=== PATIENT | male | born 1980 | race Caucasian/White ===

== ENCOUNTER → 2017-09-05 07:13 | Outpatient (CLI) | payer OTHER, SELFPAY ==
--- NOTE | 2017-09-05 07:17 | MRI_ITS ---
STUDY: MRI LUMBAR SPINE WITHOUT CONTRAST REASON FOR EXAM: Male, 36 years old. Low back pain and right leg pain. Radiculopathy. TECHNIQUE: Standardized fat and water weighted pulse sequences were obtained in the sagittal and axial planes. COMPARISON: None FINDINGS: T10-T11: (Sagittal only). Normal endplates. Normal disc height, hydration and morphology. Normal central canal and bilateral intervertebral neural foramina. T11-T12: (Sagittal only). Tiny Schmorl's node in the T11 inferior endplate. Normal endplates. Normal disc height, hydration and morphology. Normal central canal and bilateral intervertebral neural foramina. T12-L1: (Sagittal only). Normal endplates. Normal disc height, hydration and morphology. Normal central canal and bilateral intervertebral neural foramina. Normal lumbar lordosis. There is no substantial scoliosis. Normal conus medullaris that terminates at the lower L1 vertebral body level. L1-2: Normal endplates. Normal disc height, hydration and morphology. Normal bilateral facet joints. Normal central canal and bilateral lateral recesses. Normal bilateral intervertebral neural foramina. L2-3: Normal endplates. Normal disc height, hydration and morphology. Normal bilateral facet joints. Normal central canal and bilateral lateral recesses. Normal bilateral intervertebral neural foramina. L3-4: Normal endplates. Normal disc height, hydration and morphology. Normal bilateral facet joints. Normal central canal and bilateral lateral recesses. Normal bilateral intervertebral neural foramina. L4-5: Normal endplates. Minimal disc space height narrowing with moderate loss of disc hydration. Minimal degenerative retrolisthesis of L4 on L5. Normal central canal and bilateral lateral recesses. Normal facet joints. Normal bilateral intervertebral neural foramina. L5-S1: Normal endplates. Mild disc space height narrowing with moderate loss of disc hydration. Grade 1 anterolisthesis of L5 on S1 secondary to bilateral L5 pars defects. Small posterior midline disc protrusion behind the anterolisthesis of L5. Normal central canal and bilateral lateral recesses. Normal facet joints. Moderately pronounced stenosis of the right intervertebral neural foramen with impingement of the right L5 nerve (series 2, images 10-11). Mild stenosis of the left intervertebral neural foramen with no definite impingement or displacement of the left L5 nerve (series 2, image 3). Normal visualized sacral ala. Normal visualized paraspinous soft tissue structures. MRI/Spine Lumbar (Routine) IMPRESSION: 1. Bilateral L5 pars defects with grade 1 anterolisthesis of L5 on S1 and moderately pronounced stenosis of the right intervertebral neural foramen with impingement of the right L5 nerve (series 2, images 10-11). 2. No MRI evidence of lumbar extruded disc fragment. 3. Mild L4-L5 disc space height narrowing with mild retrolisthesis of L4 on L5 secondary to the anterolisthesis of L5 on S1 rather than bilateral L4-L5 degenerative facet arthropathy. Electronically Signed: Zane Pozo MD at 11:46 EDT , Service support ,
== END ==
PROVIDERS: Family Provider Family Medicine; PCP Family Medicine; Visit Provider Physician Assistant
DX: M54.16 Radiculopathy, lumbar region (principal)
CPT/HCPCS: 72148

== ENCOUNTER 2017-10-03 15:30 | Outpatient (RCR) | payer OTHER, SELFPAY ==
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
--- NOTE | 2017-10-03 15:59 | HP.PTDCSUM_ITS ---
HP - PT D/C Summary It has been my pleasure to treat CATHY PALM under orders from Kaye Chiang, for the diagnosis of RIGHT LUMBAR RADICULITIS/SCIATICA for a total of 7 visit(s). Discharge Date: Please see the following information for a summary of their discharge status. - Subjective Subjective: [facility]. PATIENT REPORTS HE STARTED TO FEEL A LUMP IN HIS BACK ABOUT 2 WEEKS AGO THAT HE THOUGHT WAS A PIMPLE BUT IT IS SORE. OVER-ALL, PATIENT REPORTS NOTHING HAS CHANGED SINCE STARTING PT. - Pain Back Pain Intensity (Out of 10): 2 - Objective Objective/Function: UPON EXAM THERE ARE NO SIGNIFICANT CHANGES SINCE INITIAL EVALUATION. I WAS UNABLE TO PALPATE ANYTHING OUT OF THE ORDINARY WHERE PATIENT FELT A LUMP. HE REPORTS THAT IF HE PUSHES ON IT IT MAKES HIM SICK TO HIS STOMACH. HE WILL LET THEM KNOW AT THE [facility] TOMORROW. - Goals Goal 1:: DECREASE C/O RIGHT BACK AND LE SX'S Goal Progress: Not Progressing Goal 2:: IMPROVE SITTING, STANDING, WALKING, SOCIAL LIFE, TRAVEL, EMPLOYMENT/ HOMEMAKING AND SLEEP FUNCTION Goal Progress: Not Progressing Goal 3:: INSTRUCT IN PROPHYLAXIS Goal Progress: Not Progressing - Plan Plan: D/C DUE TO UNEXPECTED LACK OF PROGRESS. PATIENT AGREEABLE. - D/C Information If there are questions or concerns regarding this patient's physical therapy, please feel free to call me at [phone]. Thank you for the referral of this patient. Sincerely, Annel Bailey
== END 2017-10-03 16:58 | disposition home or self-care (01) ==
LOC: PT 15:30
PROVIDERS: Family Provider Family Medicine; PCP Family Medicine; Visit Provider Physician Assistant
DX: M54.31 Sciatica, right side (principal); M54.16 Radiculopathy, lumbar region
CPT/HCPCS: 97110; 97161; 97164; 97530

== ENCOUNTER → 2017-11-07 13:28 | Outpatient (CLI) | payer OTHER, SELFPAY ==
--- NOTE | 2017-11-07 13:32 | RAD_ITS ---
STUDY: X-RAY - UNILATERAL RIBS ( RIGHT ) WITH CHEST REASON FOR EXAM: Male, 37 years old. Pain right mid to lower posterior ribs. TECHNIQUE - RIBS: 4 view(s) of the ribs. TECHNIQUE - CHEST: PA COMPARISON: None. FINDINGS - RIBS: Normal visualized ribs without a demonstrated fracture. FINDINGS - CHEST: The lungs are clear and expanded. There is no demonstrated pleural abnormality. Normal size heart. Normal mediastinum and edwin. Normal visualized pulmonary arteries. Normal visualized aortic arch and descending thoracic aorta. Normal visualized thoracic spine. Normal visualized ribs, clavicles, and shoulders. There is no demonstrated abnormality of the visualized soft tissue structures of the upper abdomen. RAD/Ribs Uni Min 3V w/PA Chest IMPRESSION: RIBS: Normal x-ray examination of the ribs. CHEST: No acute cardiopulmonary process. Electronically Signed: Tala Pete MD at 20:52 EDT Tel , Service support ,
== END ==
PROVIDERS: Family Provider Family Medicine; PCP Family Medicine; Referring Provider Family Medicine; Visit Provider Family Medicine
DX: R07.81 Pleurodynia (principal)
CPT/HCPCS: 71101

== ENCOUNTER 2018-01-07 06:46 | Day surgery (SDC) | payer OTHER, SELFPAY ==
[2018-01-07] VITALS (7 sets, daily range): BP systolic 114–136; BP diastolic 72–94; PULSE 56–81; RESP 16–18; TEMP 36.2–36.5; O2SAT 97–100; BMI 26.5
--- NOTE | 2018-01-07 07:50 | RAD_ITS ---
PROCEDURE: Right L4 S1 transforaminal block. DATE OF EXAMINATION: January 07, 2018. INDICATION: Male, 37 years old. Low back pain. FLUOROSCOPY TIME (if supplied): (0:34) minutes/seconds. 2 intraoperative views were obtained. Intraoperative imaging provided for right L4-S1 transforaminal block. RAD/Lumbar Spine 2 or 3 Views IMPRESSION: Imaging provided for right L4-S1 transforaminal block. Electronically Signed: Lokesh Johnson MD at 9:01 EST Tel [phone], Service support ,
[2018-01-07] MEDS: Bupivacaine 0.25% 30 ML Vial (08:05)
[2018-01-07] MEDS: MethylPREDNISolone Acetate 80 MG/ML Vial (08:06)
--- NOTE | 2018-01-07 09:09 | OP.PCM_ITS ---
Problem List (1) Disc displacement, lumbar Status: Chronic (2) DDD (degenerative disc disease), lumbosacral Status: Chronic (3) Radiculopathy of lumbosacral region Status: Chronic Report of Operation Date of Procedure: 01/07/18 Pre-Operative Diagnosis: Lumbar disc displacement, lumbosacral radiculopathy, lumbosacral degenerative disc disease Post-Operative Diagnosis: Lumbosacral radiculopathy, lumbosacral degenerative disc disease, lumbar disc displacement Surgery/Procedure Performed:: Right sided lumbar transforaminal epidural steroid injection L4-5, L5-S1 Description of Surgical Findings:: PROCEDURE: Right-sided lumbar transforaminal epidural steroid injection L4-5, L5-S1 PREOPERATIVE DIAGNOSIS: Lumbosacral radiculopathy, lumbosacral degenerative disc disease, lumbar disc displacement POSTOPERATIVE DIAGNOSIS: Lumbosacral radiculopathy, lumbosacral degenerative disc disease, lumbar disc di splacement ANESTHESIA: MAC COMPLICATIONS: None BLOOD LOSS: Minimal PROCEDURE IN DETAIL: History and physical today was reviewed. Risks and benefits of the procedure were explained. The patient understood, agreed to our procedure, and informed consent was obtained. IV inserted per routine protocol. The patient was taken to the operating room, placed in a prone position with a pillow positioned underneath the abdomen. The Lower back area was prepped and draped in a sterile fashion using iodine x3 under fluoroscopy guidance on oblique view the L4 through S1 vertebral bodies are visualized the skin and subcutaneous tissue were anesthetized with approximately 5 cc of 1% lidocaine using a 25-gauge regular needle under direct visualization with fluoroscopy at approximately 35 degrees angle starting on the right L4 ending on the right L5 using a 22-gauge 3 1/2 inch spinal needle the needle was advanced via the skin tip of the needle's maneuver and directed towards the inferior and medial gutter of the transverse process at the superiormost aspect of the neuroforamen once the tip of the needle was at the vicinity of the foramen after negative aspiration for blood or CSF a total of 1 cc of contrast were injected in divided doses between both levels to confirm correct placement of the needle as well as medial spread the confirmation was obtained on AP as well as lateral view after repeated negative aspiration and confirmation a total of 6 cc of preservative-free 0.25% Marcaine with 80 mg of Depo-Medrol were injected in divided doses between both levels, the needles were then removed intact. The patient experienced no signs or symptoms intrathecal, intravascular injection. The patient experienced no paraesthesia. The procedure was completed without any apparent difficult, any complication. The patient appeared to tolerate well. ASSESSMENT AND PLAN: This is a 37-year-old male with lumbosacral radiculopathy, lumbosacral degenerative disc disease, lumbar disc displacement status post right-sided lumbar transforaminal epidural steroid injection L4 through S1. The patient will continue his current medications. The patient will follow in approximately 2 weeks for possible repeat of the procedure if indicated.
--- OUTSIDE RECORDS SUMMARY | 2018-03-02 04:48 | XMS RPT_ITS ---
:1980 Author Organization OH[facility] Care Team Providers Name Role Phone Kaye CHIANG (PA-C) Attending Unavailable Kaye CHIANG (PA-C) Attending Unavailable Kaye CHIANG (PA-C) Referring Unavailable URMILA MOCTEZUMA (PAC) Attending Unavailable ALLEN FLOYD Referring Unavailable ALLEN FLOYD Attending Unavailable ALLEN FLOYD Referring Unavailable Trae Jones Attending Unavailable Allen Floyd Referring Unavailable Allen Floyd Primary Care Unavailable Kaye Chiang Attending Unavailable Kaye Chiang Referring Unavailable Allen Floyd Primary Care Unavailable Kaye Chiang Attending Unavailable Kaye Chiang Referring Unavailable Allen Floyd Primary Care Unavailable Allen Floyd Attending Unavailable Allen Floyd Referring Unavailable Allen Floyd Primary Care Unavailable Dann Benavides Attending Unavailable Dann Benavides Referring Unavailable Allen Floyd Primary Care Unavailable PROBLEMS PROBLEMS DATE TYPE CONDITION / CODE ATTENDING STATUS SOURCE 11/12/2017 Unknown R07.81 - Allen Floyd Active [facility] R07.81(ICD-10) Hospital Repository 10/03/2017 Unknown M54.31 - Sciatica, Андрей, Kaye Active [place] right side / [facility] M54.31(ICD-10) Hospital Repository 06/15/2006 Active Essential NA Active [facility] (primary) [place] hypertension / Repository I10(ICD-10) 07/11/2017 Active Encounter for NA Active [facility] screening for [place] lipoid disorders / Repository Z13.220(ICD-10) PROCEDURES PROCEDURES No Procedure Records FoundRESULTS RESULTS OPERATIVE REPORT Observed: 01/07/2018 Status: F Source: [place] 9:09 AM [facility] REPOSITORY [facility] Medical Records Department [address] [place] [address] Operative Report 01/07/18 0905 MR#: [id number] Acct: [id number] Name: CATHY RATLIFF Rep #: [id number] : 1980 37 From: Dann Benavides MD PCP: Allen Floyd MD Status: [facility] Y Location: [facility] [place] Problem List (1) Disc displacement, lumbar Status: Chronic (2) DDD (degenerative disc disease), lumbosacral Status: Chronic (3) Radiculopathy of lumbosacral region Status: Chronic Report of Operation Date of Procedure: 01/07/18 Pre-Operative Diagnosis: Lumbar disc displacement, lumbosacral radiculopathy, lumbosacral degenerative disc disease Post-Operative Diagnosis: Lumbosacral radiculopathy, lumbosacral degenerative disc disease, lumbar disc displacement Surgery/Procedure Performed:: Right sided lumbar transforaminal epidural steroid injection L4-5, L5-S1 Description of Surgical Findings:: PROCEDURE: Right-sided lumbar transforaminal epidural steroid injection L4-5, L5-S1 PREOPERATIVE DIAGNOSIS: Lumbosacral radiculopathy, lumbosacral degenerative disc disease, lumbar disc displacement POSTOPERATIVE DIAGNOSIS: Lumbosacral radiculopathy, lumbosacral degenerative disc disease, lumbar disc displacement ANESTHESIA: MAC COMPLICATIONS: None BLOOD LOSS: Minimal PROCEDURE IN DETAIL: History and physical today was reviewed. Risks and benefits of the procedure were explained. The patient understood, agreed to our procedure, and informed consent was obtained. IV inserted per routine protocol. The patient was taken to the operating room, placed in a prone position with a pillow positioned underneath the abdomen. The Lower back area was prepped and draped in a sterile fashion using iodine x3 under fluoroscopy guidance on oblique view the L4 through S1 vertebral bodies are visualized the skin and subcutaneous tissue were anesthetized with approximately 5 cc of 1% lidocaine using a 25-gauge regular needle under direct visualization with fluoroscopy at approximately 35 degrees angle starting on the right L4 ending on the right L5 using a 22-gauge 3 1/2 inch spinal needle the needle was advanced via the skin tip of the needle's maneuver and directed towards the inferior and medial gutter of the transverse process at the superiormost aspect of the neuroforamen once the tip of the needle was at the vicinity of the foramen after negative aspiration for blood or CSF a total of 1 cc of contrast were injected in divided doses between both levels to confirm correct placement of the needle as well as medial spread the confirmation was obtained on AP as well as lateral view after repeated negative aspiration and confirmation a total of 6 cc of preservative-free 0.25% Marcaine with 80 mg of Depo-Medrol were injected in divided doses between both levels, the needles were then removed intact. The patient experienced no signs or symptoms intrathecal, intravascular injection. The patient experienced no paraesthesia. The procedure was completed without any apparent difficult, any complication. The patient appeared to tolerate well. ASSESSMENT AND PLAN: This is a 37-year-old male with lumbosacral radiculopathy, lumbosacral degenerative disc disease, lumbar disc displacement status post right-sided lumbar transforaminal epidural steroid injection L4 through S1. The patient will continue his current medications. The patient will follow in approximately 2 weeks for possible repeat of the procedure if indicated. 01/07/18 0909 <Electronically signed by Dann Benavides MD> Date Dann Benavides MD CC: Dann Benavides; Allen Floyd MD Signed LUMBAR SPINE 2 OR 3 Observed: 01/07/2018 Status: F Source: [place] VIEWS 3:20 AM [facility] REPOSITORY [facility] Imaging Services [address] [place] [address] Lumbar Spine 2 or 3 Views MR#: [id number] Acct: [id number] Name: CATHY RATLIFF P Rep #: [id number] : 1980 M 37 From: Lokseh Johnson MD PCP: Allen Floyd MD Status: [facility] Study: Lumbar Spine 2 or 3 Views Date of Exam: 01/07/18 Exam# [id number] Ordering Dr: Dann Benavides MD PROCEDURE: Right L4 S1 transforaminal block. DATE OF EXAMINATION: January 07, 2018. INDICATION: Male, 37 years old. Low back pain. FLUOROSCOPY TIME (if supplied): (0:34) minutes/seconds. 2 intraoperative views were obtained. Intraoperative imaging provided for right L4-S1 transforaminal block. RAD/Lumbar Spine 2 or 3 Views IMPRESSION: Imaging provided for right L4-S1 transforaminal block. Electronically Signed: Lokesh Johnson MD at 9:01 EST Tel [phone], Service support , CC: Dann Benavides; Allen Floyd MD Lead Front Desk Agent: Signed RIBS UNI MIN 3V Observed: 11/07/2017 Status: F Source: [place] W/PA CHEST 1:32 PM [facility] REPOSITORY [facility] Imaging Services [address] [place] [address] Ribs Uni Min 3V w/PA Chest MR#: [id number] Acct: [id number] Name: CATHY RATLIFF P Rep #: [id number] : 1980 M 37 From: Tala Pete MD PCP: Allen Floyd MD Status: REG CLI Study: Ribs Uni Min 3V w/PA Chest Date of Exam: 11/07/17 Exam# [id number] Ordering Dr: Allen Floyd MD STUDY: X-RAY - UNILATERAL RIBS ( RIGHT ) WITH CHEST REASON FOR EXAM: Male, 37 years old. Pain right mid to lower posterior ribs. TECHNIQUE - RIBS: 4 view(s) of the ribs. TECHNIQUE - CHEST: PA COMPARISON: None. FINDINGS - RIBS: Normal visualized ribs without a demonstrated fracture. FINDINGS - CHEST: The lungs are clear and expanded. There is no demonstrated pleural abnormality. Normal size heart. Normal mediastinum and edwin. Normal visualized pulmonary arteries. Normal visualized aortic arch and descending thoracic aorta. Normal visualized thoracic spine. Normal visualized ribs, clavicles, and shoulders. There is no demonstrated abnormality of the visualized soft tissue structures of the upper abdomen. RAD/Ribs Uni Min 3V w/PA Chest IMPRESSION: RIBS: Normal x-ray examination of the ribs. CHEST: No acute cardiopulmonary process. Electronically Signed: Tala Pete MD at 20:52 EDT Tel , Service support , CC: Allen Floyd MD Lead Front Desk Agent: Signed CNOV Observed: 11/07/2017 Status: COMPLETED Source: [place] 1:00 PM [facility] REPOSITORY Office Visit (FAMPWS) CATHY RATLIFF ([id number]) 1980 M Date Time Provider Department 11/07/17 1:00 PM [facility] During your visit today, we recorded the following information about you: Pulse Respiration Blood pressure Weight 64/minute 14/minute 132/84 79.4 kg Rosalva Hyatt PATITO 11/07/2017 12:46 PM Signed Still with back pain. Now feels a bump on back that is painful. Tried to have massage and then had numbness down right leg. Wearing his vest at work feels like a ball between back and vest. Feels like this is in his skin. Allen Floyd MD 11/07/2017 1:06 PM Signed Patient presents with: Back Pain HPI: Patient presents today for office visit for follow up on back pain. Saw neurosurgery for his lumbar spine. No new symptoms. Suggested physical therapy. Has done physical therapy. No changes in urine or bowels. Has noted that some discomfort/tight skin feeling to the right of his spine in his thoracic spine. His and radha therapist thought the skin felt weird there. No trauma. No cough or shortness of breath. MEDICATIONS: Current Outpatient Prescriptions: LORazepam (ATIVAN) 0.5 mg tab Take 1 tablet by mouth three times daily as needed for up to 30 days. cyclobenzaprine (FLEXERIL) 10 mg tablet Take 1 tablet by mouth twice daily as needed for Muscle Spasm. multivit,thx,calcium,iron,mins (MULTIVITAMIN AND MINERAL ORAL) Take by mouth. L.acid/L.casei/B.bif/B.nahun/FOS (PROBIOTIC BLEND ORAL) Take by mouth. cephALEXin (KEFLEX) 500 mg capsule fluvoxaMINE Maleate (LUVOX) 25 mg tablet TAKE 1 TABLET BY MOUTH DAILY AT BEDTIME. clotrimazole-betamethasone (LOTRISONE) cream Apply 1 application to affected area twice daily. UNTIL CLEAR FOR UP TO 2-3 WEEKS COMPOUNDED PRESCRIPTION cpap supplies: sleep apnea CPAP No current facility-administered medications for this visit. ALLERGIES: ALLERGIES No Known Allergies PAST MEDICAL HISTORY Diagnosis Date - Esophageal reflux - GERD (gastroesophageal reflux disease) - Hypertension - Nonspecific elevation of levels of transaminase or lactic acid dehydrogenase (LDH) - Sleep apnea does not wear regularly PAST SURGICAL HISTORY Procedure Laterality Date - EGD W/O OR W/BRUSH/WASH 04/23/2012 EGD - LAPAROSCOPY, SURGICAL, APPENDECTOMY 08-23-11 - OPEN RX FEMUR FX+INTRAMED PHOEBE left femur fracture with pins and phoebe - RECONSTRUC ANT MALE URETHRA due to iatrogenic injury as child - REMOVE TONSILS/ADENOIDS,<12 Y/O FAMILY HISTORY Problem Relation Age of Onset - Cancer Maternal Grandmother LUNG CA - Diabetes Maternal Grandmother - Diabetes Maternal Grandfather - Cancer Maternal Grandfather LUNG CA - Diabetes Paternal Grandmother - Diabetes Paternal Grandfather - other (liver cancer [Other]) Father gallbladder Social History Marital status: Spouse name: Naresh Years of education: Number of children: 2 Occupational History 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 REVIEW OF SYSTEMS All other reviewed and negative other than HPI. HEALTH MAINTENANCE: Reviewed health maintenance issues today and recommended the following in detail. BP CONTROLLED (<130/80) due on 1996 INFLUENZA-recommended VITALS: BP 132/84 Pulse 64 Resp 14 Wt 79.4 kg (175 lb) BMI 26.61 kg/m? Last 4 Encounter Wt Readings: Date: Wt: 11/07/2017 79.4 kg (175 lb) 10/04/2017 80.3 kg (177 lb) 07/11/2017 78.9 kg (174 lb) 07/05/2017 81.2 kg (179 lb) PHYSICAL EXAMINATION: General appearance: Well appearing, alert, in no acute distress, well-hydrated, well nourished. Skin: Skin color, texture, turgor normal, no suspicious rashes or lesions Head: Normocephalic, no masses, lesions, tenderness or abnormalities Back: Normal exam, ? Muscle tenderness over right rib. No definite mass or rash. Lungs: Lungs clear to auscultation. No wheezing, rhonchi, rales Heart: RRR without murmur, gallop, or rubs. No ectopy PSYCH:Affect normal. Normal speech. Normal eye contact ASSESSMENT/PLAN: 1. Spondylolisthesis of lumbosacral region - ICD9: 738.4, ICD10: M43.17 (primary diagnosis) - Red flags for re-assessment reviewed with patient in detail. - Discussed risks and benefits of new medication with the patient. Advised them to call if any side effects or questions. - CONSULT TO PAIN MGT ANESTHESIA - MELOXICAM 15 MG TABLET 2. Right lumbar radiculitis - ICD9: 724.4, ICD10: M54.16 - CONSULT TO PAIN MGT ANESTHESIA 3. Rib pain - ICD9: 786.50, ICD10: R07.81 - ice prn. Call if symptoms worsen at all or if not better in one to two weeks - MELOXICAM 15 MG TABLET - XR RIBS/CHEST 3V AP RIB/OBLS/CXR RT Allen Floyd MD Referring Provider: ALLEN FLOYD [[id number]] Allergies As of Date: 11/07/2017 (No Known Allergies) Date Reviewed: 11/07/2017 Reviewed by: Rosalva Hyatt LPN - Fully Assessed Reason for Visit: Back Pain [12] Primary Visit Diagnosis:Spondylolisthesis of lumbosacral region [M43.17] Other Visit Diagnoses:Right lumbar radiculitis [M54.16] Rib pain [R07.81] Order(s):CONSULT TO PAIN MGT ANESTHESIA [[id number]] Order #: [id number]: 1 meloxicam (MOBIC) 15 mg tabletTake 1 tablet by mouth once daily. With food.Disp: 20 tabletRfl: 0 XR RIBS/CHEST 3V AP RIB/OBLS/CXR RT [[id number]] Order #: [id number] FUTURE Prescriptions as of 11/07/2017 Sig: MELOXICAM 15 MG TABLET Take 1 tablet by mouth once d* LORAZEPAM 0.5 MG TABLET Take 1 tablet by mouth three * CYCLOBENZAPRINE 10 MG TABLET Take 1 tablet by mouth twice * MULTIVITAMIN AND MINERAL ORAL Take by mouth. PROBIOTIC BLEND ORAL Take by mouth. CEPHALEXIN 500 MG CAPSULE FLUVOXAMINE 25 MG TABLET TAKE 1 TABLET BY MOUTH DAILY * CLOTRIMAZOLE-BETAMETHASONE 1 * Apply 1 application to affect* COMPOUNDED PRESCRIPTION cpap supplies: sleep apnea CPAP Problem List As Of Date 11/07/2017 Noted Resolved ESOPHAGEAL REFLUX [K21.9] INVALID FOR* BENIGN HYPERTENSION [I10] INVALID FOR* Dysthymia [F34.1] INVALID FOR* AR (Allergic Rhinitis) [J30.9] INVALID FOR* Obesity [E66.9] INVALID FOR* Intradermal nevus [D23.9] INVALID FOR* Melanocytic nevus of face [D22.30] INVALID FOR* Melanocytic nevus of trunk [D22.5] INVALID FOR* Solar lentigines: nino at shoulders [L81.4] INVALID FOR* Epidermal cyst [L72.0] INVALID FOR* Sebaceous cyst [L72.3] INVALID FOR* Other acne [L70.8] INVALID FOR* Comedonal acne [L70.0] INVALID FOR* Actinic Damage//Sun-damaged skin [L57.8] INVALID FOR* Sleep apnea [G47.30] INVALID FOR* Elevated liver enzymes [R74.8] INVALID FOR* More... GERD (gastroesophageal reflux disease) [K21.9] Nonspecific elevation of levels of transaminase* Acute gastritis without mention of hemorrhage [*INVALID FOR* Chest pain [R07.9] INVALID FOR* Obsessive-compulsive disorder [F42.9] INVALID FOR* Right lumbar radiculitis [M54.16] INVALID FOR* More... Spondylolisthesis of lumbosacral region [M43.17]INVALID FOR* Visit Notes: >> Rosalva Hyatt INVOICE CODER SunNov 07, 2017 12:39 PM Status: Signed Still with back pain. Now feels a bump on back that is painful. Tried to have massage and then had numbness down right leg. Wearing his vest at work feels like a ball between back and vest. Feels like this is in his skin. Prescriptions ordered this encounter Disp Refills Start End MELOXICAM 15 MG TABLET 20 t* 0 11/07/2017 Route: ORAL Sig: Take 1 tablet by mouth once daily. With food. Encounter Status:Closed by ALLEN FLOYD MD on 11/07/17 PROGRESS Observed: 11/07/2017 Status: COMPLETED Source: [place] 12:57 PM [facility] REPOSITORY O ID: [id number] Author: Allen Floyd Service: (none) Author Type: Physician Type: Progress Notes Filed: 11/07/2017 1:06 PM Note Text: Patient presents with: Back Pain HPI: Patient presents today for office visit for follow up on back pain. Saw neurosurgery for his lumbar spine. No new symptoms. Suggested physical therapy. Has done physical therapy. No changes in urine or bowels. Has noted that some discomfort/tight skin feeling to the right of his spine in his thoracic spine. His and radha therapist thought the skin felt weird there. No trauma. No cough or shortness of breath. MEDICATIONS: Current Outpatient Prescriptions: LORazepam (ATIVAN) 0.5 mg tab Take 1 tablet by mouth three times daily as needed for up to 30 days. cyclobenzaprine (FLEXERIL) 10 mg tablet Take 1 tablet by mouth twice daily as needed for Muscle Spasm. multivit,thx,calcium,iron,mins (MULTIVITAMIN AND MINERAL ORAL) Take by mouth. L.acid/L.casei/B.bif/B.nahun/FOS (PROBIOTIC BLEND ORAL) Take by mouth. cephALEXin (KEFLEX) 500 mg capsule fluvoxaMINE Maleate (LUVOX) 25 mg tablet TAKE 1 TABLET BY MOUTH DAILY AT BEDTIME. clotrimazole-betamethasone (LOTRISONE) cream Apply 1 application to affected area twice daily. UNTIL CLEAR FOR UP TO 2-3 WEEKS COMPOUNDED PRESCRIPTION cpap supplies: sleep apnea CPAP No current facility-administered medications for this visit. ALLERGIES: ALLERGIES No Known Allergies PAST MEDICAL HISTORY Diagnosis Date - Esophageal reflux - GERD (gastroesophageal reflux disease) - Hypertension - Nonspecific elevation of levels of transaminase or lactic acid dehydrogenase (LDH) - Sleep apnea does not wear regularly PAST SURGICAL HISTORY Procedure Laterality Date - EGD W/O OR W/BRUSH/WASH 04/23/2012 EGD - LAPAROSCOPY, SURGICAL, APPENDECTOMY 08-23-11 - OPEN RX FEMUR FX+INTRAMED PHOEBE left femur fracture with pins and phoebe - RECONSTRUC ANT MALE URETHRA due to iatrogenic injury as child - REMOVE TONSILS/ADENOIDS,<12 Y/O FAMILY HISTORY Problem Relation Age of Onset - Cancer Maternal Grandmother LUNG CA - Diabetes Maternal Grandmother - Diabetes Maternal Grandfather - Cancer Maternal Grandfather LUNG CA - Diabetes Paternal Grandmother - Diabetes Paternal Grandfather - other (liver cancer [Other]) Father gallbladder Social History Marital status: Spouse name: Naresh Years of education: Number of children: 2 Occupational History 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 REVIEW OF SYSTEMS All other reviewed and negative other than HPI. HEALTH MAINTENANCE: Reviewed health maintenance issues today and recommended the following in detail. BP CONTROLLED (<130/80) due on 1996 INFLUENZA-recommended VITALS: BP 132/84 Pulse 64 Resp 14 Wt 79.4 kg (175 lb) BMI 26.61 kg/m? Last 4 Encounter Wt Readings: Date: Wt: 11/07/2017 79.4 kg (175 lb) 10/04/2017 80.3 kg (177 lb) 07/11/2017 78.9 kg (174 lb) 07/05/2017 81.2 kg (179 lb) PHYSICAL EXAMINATION: General appearance: Well appearing, alert, in no acute distress, well-hydrated, well nourished. Skin: Skin color, texture, turgor normal, no suspicious rashes or lesions Head: Normocephalic, no masses, lesions, tenderness or abnormalities Back: Normal exam, ? Muscle tenderness over right rib. No definite mass or rash. Lungs: Lungs clear to auscultation. No wheezing, rhonchi, rales Heart: RRR without murmur, gallop, or rubs. No ectopy PSYCH:Affect normal. Normal speech. Normal eye contact ASSESSMENT/PLAN: 1. Spondylolisthesis of lumbosacral region - ICD9: 738.4, ICD10: M43.17 (primary diagnosis) - Red flags for re-assessment reviewed with patient in detail. - Discussed risks and benefits of new medication with the patient. Advised them to call if any side effects or questions. - CONSULT TO PAIN MGT ANESTHESIA - MELOXICAM 15 MG TABLET 2. Right lumbar radiculitis - ICD9: 724.4, ICD10: M54.16 - CONSULT TO PAIN MGT ANESTHESIA 3. Rib pain - ICD9: 786.50, ICD10: R07.81 - ice prn. Call if symptoms worsen at all or if not better in one to two weeks - MELOXICAM 15 MG TABLET - XR RIBS/CHEST 3V AP RIB/OBLS/CXR RT Allen Floyd MD PROGRESS Observed: 10/04/2017 Status: COMPLETED Source: [place] 9:[address] [facility] REPOSITORY HNO ID: [id number] Author: Urmila Watson ([facility]) [place] Service: (none) Author Type: Physician Bindery Machine Operator Type: Progress Notes Filed: 10/04/2017 10:18 AM Note Text: Urmila Moctezuma PA-C [facility] [address] [facility] [address] [place] [address] 10/04/2017 ASSESSMENT AND PLAN: Assessment : Encounter Diagnosis ICD-10-CM 1. Spondylolisthesis of lumbosacral region M43.17 cyclobenzaprine (FLEXERIL) 10 mg tablet 2. Right lumbar radiculitis M54.16 cyclobenzaprine (FLEXERIL) 10 mg tablet Discussion: Mr. 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 He had MRI scan at [facility] that indicated L5-S1 spondylolisthesis and impingement of the right L5 nerve root. He has tried a course of physical therapy [facility] and focus primarily on core strengthening. He has been taking ibuprofen on a regular and ongoing basis and he has tried a course of oral prednisone and muscle relaxant. He was given a prescription of tramadol but never filled it. Symptoms worsened over the past 6 months. He lost about 60 pounds over the past 3 years and is very physically fit at this point exercising multiple times each day. He was treated for piriformis syndrome prior to imaging without much success. His exam is normal today and benign for neurological deficit in terms of strength, reflexes, and sensation. Gait and stance and balance are normal. Nerve tension signs are absent. We had a lengthy discussion regarding the nature of his problem with a lytic defect at L5. He has been given options for medications and we decided to go forward with occasional muscle relaxant. He is considering becoming established with a pain management facility either locally or at [facility] to be ready to go forward with a selective nerve root block at any point that his symptoms significantly worsen. Since he is asymptomatic now, we will hold off on this referral for the time being. At any point in the future if he returns, I would recommend lumbar plain radiographs standing with flexion and extension lateral views. Plan : MEDICATIONS: -Flexeril as noted above ACTIVITY RECOMMENDATIONS: -The patient is encouraged to avoid bed rest and maintain normal activity. -The patient is encouraged to exercise regularly as tolerated. FOLLOW-UP: -The patient is instructed to return as needed. This document has been created with the use of voice recognition technology. It may contain inaccuracies: (e.g. misspellings, inaccurate syntax or word sense) that have escaped review. Time spent: 45 minutes with greater than 50% in face to face consultation with the patient. cc: Allen Floyd MD [id number] [facility] [id number] Results of consultation to be transmitted via electronic medical record for those providers who practice within [facility] or with access to [employer] via MD Connect, or via letter. Cathy Saleh Gaudencio is a 37 year old male who was seen today at the kind request of Allen Floyd MD. A copy of this office note is being sent to the requesting physician through via electronic medical record. CHIEF COMPLAINT: Back pain = Leg symptoms Right only HPI: His back pain is at 1/10 and is intermittent. The back pain is located in lower back and is described as shooting and pulling. His leg symptoms are at 1/10 and are constant. This is located in the right thigh, below the right knee and in the right foot and is described as numbness. The symptoms are exacerbated by walking and improved by running, exercise, core strenthening. He states that these symptoms began 3 to 6 months ago and are not related to any specific injury or event. 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 NON-OPERATIVE CARE: Medication(s): He has tried the following for relief of his symptoms: OTC NSAIDs Medrol DosPak Physical Therapy: He has had physical therapy for his current symptoms. This was completed 1 days ago. Pt was discharged from PT, negative impact. Spinal Injections: He has not gotten prior spinal injections. Other: Chiropractice care: Massage therapy TENS unit Current Outpatient Prescriptions: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 [id number] Spine Lumbar (Routine) MR#: [id number] Acct: [id number] Name: CATHY RATLIFF Delfino Rep #: [id number] : 1980 M 36 From: Zane Pozo MD PCP: Allen Floyd MD Status: REG CLI Study: Spine Lumbar (Routine) Date of Exam: 09/05/17 Exam# [id number] Ordering Dr: Kaye Chiang STUDY: MRI LUMBAR SPINE WITHOUT CONTRAST REASON FOR EXAM: Male, 36 years old. Low back pain and right leg pain. Radiculopathy. TECHNIQUE: Standardized fat and water weighted pulse sequences were obtained in the sagittal and axial planes. COMPARISON: None FINDINGS: T10-T11: (Sagittal only). Normal endplates. Normal disc height, hydration and morphology. Normal central canal and bilateral intervertebral neural foramina. T11-T12: (Sagittal only). Tiny Schmorl's node in the T11 inferior endplate. Normal endplates. Normal disc height, hydration and morphology. Normal central canal and bilateral intervertebral neural foramina. T12-L1: (Sagittal only). Normal endplates. Normal disc height, hydration and morphology. Normal central canal and bilateral intervertebral neural foramina. Normal lumbar lordosis. There is no substantial scoliosis. Normal conus medullaris that terminates at the lower L1 vertebral body level. L1-2: Normal endplates. Normal disc height, hydration and morphology. Normal bilateral facet joints. Normal central canal and bilateral lateral recesses. Normal bilateral intervertebral neural foramina. L2-3: Normal endplates. Normal disc height, hydration and morphology. Normal bilateral facet joints. Normal central canal and bilateral lateral recesses. Normal bilateral intervertebral neural foramina. L3-4: Normal endplates. Normal disc height, hydration and morphology. Normal bilateral facet joints. Normal central canal and bilateral lateral recesses. Normal bilateral intervertebral neural foramina. L4-5: Normal endplates. Minimal disc space height narrowing with moderate loss of disc hydration. Minimal degenerative retrolisthesis of L4 on L5. Normal central canal and bilateral lateral recesses. Normal facet joints. Normal bilateral intervertebral neural foramina. L5-S1: Normal endplates. Mild disc space height narrowing with moderate loss of disc hydration. Grade 1 anterolisthesis of L5 on S1 secondary to bilateral L5 pars defects. Small posterior midline disc protrusion behind the anterolisthesis of L5. Normal central canal and bilateral lateral recesses. Normal facet joints. Moderately pronounced stenosis of the right intervertebral neural foramen with impingement of the right L5 nerve (series 2, images 10-11). Mild stenosis of the left intervertebral neural foramen with no definite impingement or displacement of the left L5 nerve (series 2, image 3). Normal visualized sacral ala. Normal visualized paraspinous soft tissue structures. MRI/Spine Lumbar (Routine) IMPRESSION: 1. Bilateral L5 pars defects with grade 1 anterolisthesis of L5 on S1 and moderately pronounced stenosis of the right intervertebral neural foramen with impingement of the right L5 nerve (series 2, images 10-11). 2. No MRI evidence of lumbar extruded disc fragment. 3. Mild L4-L5 disc space height narrowing with mild retrolisthesis of L4 on L5 secondary to the anterolisthesis of L5 on S1 rather than bilateral L4-L5 degenerative facet arthropathy. Electronically Signed: Zane Pzoo MD at 11:46 EDT , Service support , CC: Kaye Chiang; Allen Floyd MD Lead Front Desk Agent: Signed COMP METABOLIC PANEL Collected: 07/11/2017 Status: F Source: [place] 2:[address] [facility] REPOSITORY TYPE CODE TESTS RESULT OUT OF REFERENCE UNITS RANGE LAB TP 6.3-8.0 g/dL Protein, Total 7.4 LAB ALB 3.9-4.9 g/dL Albumin 4.8 LAB CA 8.5-10.2 mg/dL Calcium, Total 9.3 LAB TBIL 0.2-1.3 mg/dL Bilirubin, Total 0.4 LAB ALKP 36-108 U/L Alkaline Phosphatase 78 LAB AST 14-40 U/L AST 23 LAB GLU 74-99 mg/dL Glucose 78 Result Comment: The [place] Diabetes Association (ADA) provides guidance for cutoff values for fasting glucose and random glucose. The ADA defines fasting as no caloric intake for at least 8 hours. Fas ting plasma glucose results between 100 to 125 mg/dL indicate increased risk for diabetes (prediabetes). Fasting plasma glucose results greater than or equal to 126 mg/dL meet the criteria for diagnosis of diabetes. In the absence of unequivocal hyperglycemia, results should be confirmed by repeat testing. In a patient with classic symptoms of hyperglycemia or hyperglycemic crisis, random plasma glucose results greater than or equal to 200 mg/dL meet the criteria for diagnosis of diabetes. Reference: Standards of Medical Care in Diabetes 2016, [place] Diabetes Association. Diabetes Care. 2016.39(Suppl 1). LAB BUN 9-24 mg/dL BUN 16 LAB CRET 0.73-1.22 mg/dL Creatinine 0.95 LAB NA 136-144 mmol/L Sodium 138 LAB K 3.7-5.1 mmol/L Potassium 3.7 LAB CL 97-105 mmol/L Chloride Low 96 LAB CO2 22-30 mmol/L CO2 29 LAB AGAP 9-18 mmol/L Anion Gap 13 LAB ALT 10-54 U/L ALT 21 LAB GFRAA eGFR- Amer. >60 LAB GFRNAA . eGFR-All Other Races >60 Result Comment: eGFR (Estimated GFR) Units of measure: mL/min/1.73 meters squared eGFR is derived from the reexpressed MDRD Study equation using the following parameters: serum creatinine, age, gender and race. The creatinine assay has been calibrated to be traceable to IDMS. An eGFR <60 mL/min/1.73m2 for >3 months is consistent with chronic kidney disease. Refer to KDOQI guidelines for clinical interpretation. In patients with unstable renal function, e.g. those with acute kidney injury, the eGFR may not accurately reflect actual GFR. Performed By: #### CMP, LIPB #### [facility] [address] [place] [id number] LIPID PANEL, BASIC Collected: 07/11/2017 Status: F Source: [place] 2:[address] [facility] REPOSITORY TYPE CODE TESTS RESULT OUT OF REFERENCE UNITS RANGE LAB CHOL <200 mg/dL Cholesterol 161 Result Comment: <200 mg/dL, Desirable 200-239 mg/dL, Borderline high >239 mg/dL, High LAB TRIGLY <150 mg/dL Triglyceride 88 Result Comment: <150 mg/dL, Normal 150-199 mg/dL, Borderline high 200-499 mg/dL, High >499 mg/dL, Very high LAB HDL >39 mg/dL HDL-Cholesterol 57 Result Comment: 40-59 mg/dL, Acceptable >59 mg/dL, High: Negative risk factor for coronary heart disease <40 mg/dL, Low: Positive risk factor for coronary heart disease LAB LDL <100 mg/dL LDL-Cholesterol 86 Result Comment: <100 mg/dL, Optimal 100-129 mg/dL, Near optimal/above optimal 130-159 mg/dL, Borderline high 160-189 mg/dL, High >189 mg/dL, Very high Secondary prevention optimal LDL Cholesterol levels are recommended to be < 70 mg/dL LAB NONHDL <130 mg/dL Non HDL Cholesterol 104 Result Comment: <130 mg/dL, Optimal 130-159 mg/dL, Near optimal/above optimal 160-189 mg/dL, Borderline high 190-219 mg/dL, High >219 mg/dL, Very high Secondary prevention optimal non HDL Cholesterol levels are recommended to be < 100 mg/dL LAB FT hrs Fasting Time 2 LAB VLDL <30 mg/dL VLDL Cholesterol 18 LAB TCHDL <5.10 TC:HDL Ratio 2.82 LAB LDLHDL <2.54 LDL:HDL Ratio 1.51 Result Comment: Reference: 1. National Cholesterol Education Program ATP III Guideline At-A-Glance Quick Desk Reference: National Heart, Lung, and Blood [place]. National Institutes of Health. 2001: NIH Publication No. 01-3305. 2. An International Atherosclerosis Society position paper: global recommendations for the management of dyslipidemia: executive summary, Atherosclerosis. 2014: 232(2):410-413. Performed By: #### CMP, LIPB #### [facility] [address] [place] [address] PROGRESS Observed: 07/11/2017 Status: COMPLETED Source: [place] 1:[address] [facility] REPOSITORY HNO ID: [id number] Author: Kaye Rasmussen (Melanie) Андрей Service: (none) Author Type: Physician Bindery Machine Operator Type: Progress Notes Filed: 07/11/2017 5:44 PM Note Text: 36 year old male here for physical. 1.) Physical for work 2.) Last week seen for back injury with sciatica. Better after adjustment but still experiences pain. Completed medrol dose pack but has not taken the tramadol. Takes ibuprofen prn. Over al about 20% better. Saw chiropracter with electrical stim: not much change. Lying piriformis seems to really help pain temporarily. 3.) Red fleshy mole on R upper thigh noticed first a month ago. Has not seen anyone for this. 4.) Intermittent irritation anus with occassional erythema and bleeding. HISTORIES FAMILY HISTORY Problem Relation Age of Onset - Cancer Maternal Grandmother LUNG CA - Diabetes Maternal Grandmother - Diabetes Maternal Grandfather - Cancer Maternal Grandfather LUNG CA - Diabetes Paternal Grandmother - Diabetes Paternal Grandfather - liver cancer [Other] [OTHER] Father gallbladder PAST MEDICAL HISTORY Diagnosis Date - Esophageal reflux - GERD (gastroesophageal reflux disease) - Hypertension - Nonspecific elevation of levels of transaminase or lactic acid dehydrogenase (LDH) - Sleep apnea does not wear regularly PAST SURGICAL HISTORY Procedure Laterality Date - EGD W/O OR W/BRUSH/WASH 04/23/2012 EGD - LAPAROSCOPY, SURGICAL, APPENDECTOMY 08-23-11 - OPEN RX FEMUR FX+INTRAMED PHOEBE left femur fracture with pins and phoebe - RECONSTRUC ANT MALE URETHRA due to iatrogenic injury as child - REMOVE TONSILS/ADENOIDS,<12 Y/O Social History Marital status: Spouse name: Naresh Years of education: Number of children: 2 Occupational History Occupation Employer Comment [employer]* [employer]* Social History Main Topics Smoking status: Former Smoker Packs/day: 0.00 Years: 7.00 Quit date: 10/05/2006 Smokeless tobacco: Never Used Comment: Occasional cigar only per patient Alcohol use: Yes Comment: rare Drug use: No Sexual activity: Yes Partners with: Female ACTIVE PROBLEM LIST Esophageal Reflux Essential Hypertension, Benign Dysthymia Ar (Allergic Rhinitis) Obesity Intradermal Nevus Melanocytic Nevus of Face Melanocytic Nevus of Trunk Solar lentigines: nino at shoulders Epidermal Cyst Sebaceous Cyst Other Acne Comedonal Acne Actinic Damage//Sun-damaged skin Sleep Apnea Elevated Liver Enzymes Gerd (Gastroesophageal Reflux Disease) Nonspecific Elevation of Levels of Transaminase Or Lactic Acid Dehydrogenase (Ldh) Acute Gastritis Without Mention of Hemorrhage Chest Pain Obsessive-Compulsive Disorder Current Outpatient Prescriptions: multivit,thx,calcium,iron,mins (MULTIVITAMIN AND MINERAL ORAL) Take by mouth. Disp: Rfl: L.acid/L.casei/B.bif/B.nahun/FOS (PROBIOTIC BLEND ORAL) Take by mouth. Disp: Rfl: fluvoxaMINE Maleate (LUVOX) 25 mg tablet TAKE 1 TABLET BY MOUTH DAILY AT BEDTIME. Disp: 90 tablet Rfl: 3 clotrimazole-betamethasone (LOTRISONE) cream Apply 1 application to affected area twice daily. UNTIL CLEAR FOR UP TO 2-3 WEEKS Disp: 15 g Rfl: 1 cephALEXin (KEFLEX) 500 mg capsule Disp: Rfl: methylPREDNISolone (MEDROL, CHET,) 4 mg Dose-Pack Follow dosing instructions, take with food. Disp: 1 Package Rfl: 0 traMADol (ULTRAM) 50 mg tablet Take 1 tablet by mouth every 4 hours as needed for Pain for up to 7 days. Disp: 20 tablet Rfl: 0 LORazepam (ATIVAN) 0.5 mg tab Take 1 tablet by mouth three times daily as needed for up to 30 days. Disp: 30 tablet Rfl: 0 COMPOUNDED PRESCRIPTION cpap supplies: sleep apnea Disp: 1 Each Rfl: 0 CPAP Disp: Rfl: No current facility-administered medications for this visit. There are no preventive care reminders to display for this patient. REVIEW OF SYMPTOMS: General: denies fatigue, unusual weight loss or gain, fevers, chills. Eyes: denies change in vision, glaucoma, cataracts. + glasses EENT: denies recurrent sinus infection, unusual nasal drainage, hoarsemess, sore throat, or recurrent sore in mouth or tongue. Cardiovascular: denies chest pain , SOB, palpitation, irregular or racing heart beats, orthopnea, leg swelling. Had rheumatic disease as a child. Respiratory: denies unusual cough, SOB, wheezing, history of recurrent bronchitis, pneumonia or tuberculosis. Denies day time drowsiness. - Snoring. + sleep apnea and uses CPAP machine GI: denies difficulty swallowing, nausea, vomiting, change in appetite. No change in bowel habits. Denies constipation, diarrhea,. + hemorrhoids and has bleeding occasionally on the toilet paper, incontinence. + GERD but does not take any medications, PUD, GB disease, diverticulosis, colorectal cancer, hernias. May have fatty liver disease according to labs obtained Kidney/Bladder: Denies frequency, burning. Nocturia -, incontinence -. No history of kidney stones, recurrent UTI or kidney infection. Skin: denies unusual rashes. No history of skin cancer, bleeding/changing moles, or unusual skin lesions. Neurologic: Denies recurrent RODRIGUEZ, change in vision, hearing or smell, tremors, unusual weakness, loss of sensation, or difficulty with balance or gait. No history of epilepsy/convulsions, migraine, head/spinal injuries, or stroke/TIA. Psychiatric: denies unusual worry, moodiness, depression, suicidal ideation or unusual disturbance in relationships. Has diagnosed OCD that is controlled on medication. Endocrine: denies unusual thirst, hunger, excessive urination, change in skin or hair texture, emotional lability. No history of thryoid, pituitary or hormonal problems. Hematologic: denies unusual bleeding, bruising, or history of anemia or blood transfusion. Infections: denies risk factors for HIV, hepatitis or history of unusual infection. Immunizations are up to date. Musculoskeletal: denies unusual stiffness, muscles aches, joint pain, or swelling. Admits to sciatic pain and back problems related to work. Denies recurrent sprain or disruption of joints, debilitating arthritis, gout, or other musculoskeletal disease. + Hx back injury lumbar spine with degenerative disk disease from high school sports. EXAM: BP 130/96 Pulse 76 Temp 36.6 ?C (97.9 ?F) (Tympanic) Resp 20 Ht 171.9 cm (5' 7.68) Wt 78.9 kg (174 lb) BMI 26.71 kg/m? Last 3 Encounter BP Readings: Date: BP: 07/11/2017 130/96 07/05/2017 132/80 11/17/2016 122/80 General appearance: Pleasant man, in no acute distress. Well groomed. Pleasant spirits. Respirations: regular, unlabored Color: pink to lips and nailbeds Skin: warm, dry, :pink colored fleshy mole on R upper thigh that he noticed last in [place]. Head: Normocephalic, atraumatic. Eyes: sclerae and conjunctivae without injection or exudate, PERRLA, EOMI, corneal light reflex symmetric bilaterally. Ears: TM's and ear canals are clear bilaterally with normal landmarks, no swelling or deformity external ear Nose/Sinuses: Nose patent. No turbinate swelling. No active exudate. Maxillary and frontal sinuses nontender to percussion. Oropharynx: Lips, mucosa, and tongue free from lesions. Teeth are in good condition repair. Gums with - inflammation. Oropharynx no exudate or injection. No tonsillar hypertrophy. Mallampati scale: class 2/ 4. Neck: Neck supple with unrestricted full ROM, no cervical lymphadenopathy; thyroid without mass or tenderness. JVD at HOB 30 degrees: 0 cm. Chest: normally shaped, equal expansion with breaths. Lungs: Lungs clear to auscultation and percussion. No crackles or wheezes. Heart: RRR without murmur, gallop, or rubs. S1 and S2 normal. Abd soft, nontender, normoactive bowel sounds throughout, no mass, no organomegaly. back FROM, no abnormal curvature. Genital deferred Rectal: normal tone. Small external hemorrhoid. Internal: small linear scar palpable suggesting prior fissure. No other masses. Prostate 1/4+ without nodules. Extremities well formed, FROM in all joints, no clubbing cyanosis or edema. Able to touch opposite scapula bilaterally. Able to squat to floor. - to duck walk. Neuro grossly intact. No focal weakness. Normal gait and balance. DTR's 2+/4 symmetric upper and lower bilaterally. [place] - ASSESSMENT/PLAN: 1. Essential hypertension, benign - ICD9: 401.1, ICD10: I10 (primary diagnosis) - suboptimal control - Commended regular aerobic exercise. - Recommend home blood pressure monitoring, to bring results in on next visit - Goal of BP <130/80 - COMP METABOLIC PANEL 2. Encounter for preventive health examination - ICD9: V70.0, ICD10: Z00.00 - Follow up for annual exam in one year. 3. Screening for lipid disorders - ICD9: V77.91, ICD10: Z13.220 - LIPID PANEL BASIC 4. External hemorrhoid - ICD9: 455.3, ICD10: K64.4 Discussed care. Currently not painful or bleeding. - OCCULT BLD EXAM-DIAG - HEMOCCULT SINGLE B/O M Grady Chiang PA-C CNOV Observed: 07/11/2017 Status: COMPLETED Source: [place] 1:00 PM [facility] REPOSITORY Office Visit (FAMPWS) CATHY RATLIFF ([id number]) 1980 M Date Time Provider Department 07/11/17 1:00 PM Kaye CHIANG) FAMPWS During your visit today, we recorded the following information about you: Temperature Pulse Respiration Blood pressure 97.9 degrees 76/minute 20/minute 130/96 Weight Height 78.9 kg 1.719 m Kaye Chiang PA-C 07/11/2017 5:44 PM Signed 36 year old male here for physical. 1.) Physical for work 2.) Last week seen for back injury with sciatica. Better after adjustment but still experiences pain. Completed medrol dose pack but has not taken the tramadol. Takes ibuprofen prn. Over al about 20% better. Saw chiropracter with electrical stim: not much change. Lying piriformis seems to really help pain temporarily. 3.) Red fleshy mole on R upper thigh noticed first a month ago. Has not seen anyone for this. 4.) Intermittent irritation anus with occassional erythema and bleeding. HISTORIES FAMILY HISTORY Problem Relation Age of Onset - Cancer Maternal Grandmother LUNG CA - Diabetes Maternal Grandmother - Diabetes Maternal Grandfather - Cancer Maternal Grandfather LUNG CA - Diabetes Paternal Grandmother - Diabetes Paternal Grandfather - liver cancer [Other] [OTHER] Father gallbladder PAST MEDICAL HISTORY Diagnosis Date - Esophageal reflux - GERD (gastroesophageal reflux disease) - Hypertension - Nonspecific elevation of levels of transaminase or lactic acid dehydrogenase (LDH) - Sleep apnea does not wear regularly PAST SURGICAL HISTORY Procedure Laterality Date - EGD W/O OR W/BRUSH/WASH 04/23/2012 EGD - LAPAROSCOPY, SURGICAL, APPENDECTOMY 08-23-11 - OPEN RX FEMUR FX+INTRAMED PHOEBE left femur fracture with pins and phoebe - RECONSTRUC ANT MALE URETHRA due to iatrogenic injury as child - REMOVE TONSILS/ADENOIDS,<10 Y/O Social History Marital status: Spouse name: Naresh Years of education: Number of children: 2 Occupational History 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* Social History Main Topics Smoking status: Former Smoker Packs/day: 0.00 Years: 7.00 Quit date: 10/05/2006 Smokeless tobacco: Never Used Comment: Occasional cigar only per patient Alcohol use: Yes Comment: rare Drug use: No Sexual activity: Yes Partners with: Female ACTIVE PROBLEM LIST Esophageal Reflux Essential Hypertension, Benign Dysthymia Ar (Allergic Rhinitis) Obesity Intradermal Nevus Melanocytic Nevus of Face Melanocytic Nevus of Trunk Solar lentigines: nino at shoulders Epidermal Cyst Sebaceous Cyst Other Acne Comedonal Acne Actinic Damage//Sun-damaged skin Sleep Apnea Elevated Liver Enzymes Gerd (Gastroesophageal Reflux Disease) Nonspecific Elevation of Levels of Transaminase Or Lactic Acid Dehydrogenase (Ldh) Acute Gastritis Without Mention of Hemorrhage Chest Pain Obsessive-Compulsive Disorder Current Outpatient Prescriptions: multivit,thx,calcium,iron,mins (MULTIVITAMIN AND MINERAL ORAL) Take by mouth. Disp: Rfl: L.acid/L.casei/B.bif/B.nahun/FOS (PROBIOTIC BLEND ORAL) Take by mouth. Disp: Rfl: fluvoxaMINE Maleate (LUVOX) 25 mg tablet TAKE 1 TABLET BY MOUTH DAILY AT BEDTIME. Disp: 90 tablet Rfl: 3 clotrimazole-betamethasone (LOTRISONE) cream Apply 1 application to affected area twice daily. UNTIL CLEAR FOR UP TO 2-3 WEEKS Disp: 15 g Rfl: 1 cephALEXin (KEFLEX) 500 mg capsule Disp: Rfl: methylPREDNISolone (MEDROL, CHET,) 4 mg Dose-Pack Follow dosing instructions, take with food. Disp: 1 Package Rfl: 0 traMADol (ULTRAM) 50 mg tablet Take 1 tablet by mouth every 4 hours as needed for Pain for up to 7 days. Disp: 20 tablet Rfl: 0 LORazepam (ATIVAN) 0.5 mg tab Take 1 tablet by mouth three times daily as needed for up to 30 days. Disp: 30 tablet Rfl: 0 COMPOUNDED PRESCRIPTION cpap supplies: sleep apnea Disp: 1 Each Rfl: 0 CPAP Disp: Rfl: No current facility-administered medications for this visit. There are no preventive care reminders to display for this patient. REVIEW OF SYMPTOMS: General: denies fatigue, unusual weight loss or gain, fevers, chills. Eyes: denies change in vision, glaucoma, cataracts. + glasses EENT: denies recurrent sinus infection, unusual nasal drainage, hoarsemess, sore throat, or recurrent sore in mouth or tongue. Cardiovascular: denies chest pain , SOB, palpitation, irregular or racing heart beats, orthopnea, leg swelling. Had rheumatic disease as a child. Respiratory: denies unusual cough, SOB, wheezing, history of recurrent bronchitis, pneumonia or tuberculosis. Denies day time drowsiness. - Snoring. + sleep apnea and uses CPAP machine GI: denies difficulty swallowing, nausea, vomiting, change in appetite. No change in bowel habits. Denies constipation, diarrhea,. + hemorrhoids and has bleeding occasionally on the toilet paper, incontinence. + GERD but does not take any medications, PUD, GB disease, diverticulosis, colorectal cancer, hernias. May have fatty liver disease according to labs obtained Kidney/Bladder: Denies frequency, burning. Nocturia -, incontinence -. No history of kidney stones, recurrent UTI or kidney infection. Skin: denies unusual rashes. No history of skin cancer, bleeding/changing moles, or unusual skin lesions. Neurologic: Denies recurrent RODRIGUEZ, change in vision, hearing or smell, tremors, unusual weakness, loss of sensation, or difficulty with balance or gait. No history of epilepsy/convulsions, migraine, head/spinal injuries, or stroke/TIA. Psychiatric: denies unusual worry, moodiness, depression, suicidal ideation or unusual disturbance in relationships. Has diagnosed OCD that is controlled on medication. Endocrine: denies unusual thirst, hunger, excessive urination, change in skin or hair texture, emotional lability. No history of thryoid, pituitary or hormonal problems. Hematologic: denies unusual bleeding, bruising, or history of anemia or blood transfusion. Infections: denies risk factors for HIV, hepatitis or history of unusual infection. Immunizations are up to date. Musculoskeletal: denies unusual stiffness, muscles aches, joint pain, or swelling. Admits to sciatic pain and back problems related to work. Denies recurrent sprain or disruption of joints, debilitating arthritis, gout, or other musculoskeletal disease. + Hx back injury lumbar spine with degenerative disk disease from high school sports. EXAM: BP 130/96 Pulse 76 Temp 36.6 ?C (97.9 ?F) (Tympanic) Resp 20 Ht 171.9 cm (5' 7.68) Wt 78.9 kg (174 lb) BMI 26.71 kg/m? Last 3 Encounter BP Readings: Date: BP: 07/11/2017 130/96 07/05/2017 132/80 11/17/2016 122/80 General appearance: Pleasant man, in no acute distress. Well groomed. Pleasant spirits. Respirations: regular, unlabored Color: pink to lips and nailbeds Skin: warm, dry, :pink colored fleshy mole on R upper thigh that he noticed last in [place]. Head: Normocephalic, atraumatic. Eyes: sclerae and conjunctivae without injection or exudate, PERRLA, EOMI, corneal light reflex symmetric bilaterally. Ears: TM's and ear canals are clear bilaterally with normal landmarks, no swelling or deformity external ear Nose/Sinuses: Nose patent. No turbinate swelling. No active exudate. Maxillary and frontal sinuses nontender to percussion. Oropharynx: Lips, mucosa, and tongue free from lesions. Teeth are in good condition repair. Gums with - inflammation. Oropharynx no exudate or injection. No tonsillar hypertrophy. Mallampati scale: class 2/ 4. Neck: Neck supple with unrestricted full ROM, no cervical lymphadenopathy; thyroid without mass or tenderness. JVD at HOB 30 degrees: 0 cm. Chest: normally shaped, equal expansion with breaths. Lungs: Lungs clear to auscultation and percussion. No crackles or wheezes. Heart: RRR without murmur, gallop, or rubs. S1 and S2 normal. Abd soft, nontender, normoactive bowel sounds throughout, no mass, no organomegaly. back FROM, no abnormal curvature. Genital deferred Rectal: normal tone. Small external hemorrhoid. Internal: small linear scar palpable suggesting prior fissure. No other masses. Prostate 1/4+ without nodules.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 (FAMPWS) CATHY RATLIFF ([id number]) 1980 M Date Time Provider Department 02/26/17 Kaye CHIANG (ANTWANC) JOELPWS During your visit today, we recorded the following information about you: Allergies As of Date: 02/26/2017 (No Known Allergies) Date Reviewed: 11/17/2016 Reviewed by: Jeannette Valdez Keyboarding Clerk - Fully Assessed Primary Visit Diagnosis:Tinea cruris [B35.6] Order(s):clotrimazole-betamethasone (LOTRISONE) creamApply 1 application to affected area twice daily. UNTIL CLEAR FOR UP TO 2-3 WEEKSDisp: 15 gRfl: 1 Prescriptions as of 02/26/2017 Sig: CLOTRIMAZOLE-BETAMETHASONE 1 * Apply 1 application to affect* LORAZEPAM 0.5 MG TABLET Take 1 tablet by mouth three * MAGNESIUM ORAL Take by mouth. TRIAMCINOLONE ACETONIDE 0.025* Apply 1 application to affect* FLUVOXAMINE 25 MG TABLET Take 1 tablet by mouth daily * COMPOUNDED PRESCRIPTION cpap supplies: sleep apnea CPAP Problem List As Of Date 02/26/2017 Noted Resolved ESOPHAGEAL REFLUX [K21.9] INVALID FOR* BENIGN HYPERTENSION [I10] INVALID FOR* Dysthymia [F34.1] INVALID FOR* AR (Allergic Rhinitis) [J30.9] INVALID FOR* Obesity [E66.9] INVALID FOR* Intradermal nevus [D23.9] INVALID FOR* Melanocytic nevus of face [D22.30] INVALID FOR* Melanocytic nevus of trunk [D22.5] INVALID FOR* Solar lentigines: nino at shoulders [L81.4] INVALID FOR* Epidermal cyst [L72.0] INVALID FOR* Sebaceous cyst [L72.3] INVALID FOR* Other acne [L70.8] INVALID FOR* Comedonal acne [L70.0] INVALID FOR* Actinic Damage//Sun-damaged skin [L57.8] INVALID FOR* Sleep apnea [G47.30] INVALID FOR* Elevated liver enzymes [R74.8] INVALID FOR* More... GERD (gastroesophageal reflux disease) [K21.9] Nonspecific elevation of levels of transaminase* Acute gastritis without mention of hemorrhage [*INVALID FOR* Chest pain [R07.9] INVALID FOR* Obsessive-compulsive disorder [F42.9] INVALID FOR* Prescriptions ordered this encounter Disp Refills Start End CLOTRIMAZOLE-BETAMETHASONE 1 %-0.05 * 15 g 1 02/26/2017 Route: TOPICAL Sig: Apply 1 application to affected area twice daily. UNTIL CLEAR FOR UP TO 2-3 WEEKS Encounter Status:Closed by Kaye CHIANG PA-C on 02/26/17 ALLERGIES ALLERGIES DATE TYPE / CODE NAME / CODE REACTION SEVERITY SOURCE 01/02/2018 Drug No Known Unknown [facility] Allergy/416 Allergies/B91111 Hospital 161506(SNOM 0388(RXNORM) Repository ED CT) Drug NO KNOWN [facility] Class/90136 ALLERGIES Main [place] 1003(SNOMED Repository CT) ENCOUNTERS ENCOUNTERS ADMIT/DISCHARGE ACCOUNT ADMITTING ENCOUNTER LOCATION SOURCE NUMBER CLASS 01/07/2018/01/08/20 [id number] [place] ing:SDCRoom: Repository AC08 11/07/2017 [id number] Ambulatory [place] [facility] ing:RAD Repository 11/07/2017/11/09/19 [id number] Ambulatory [place] [facility] [place] Repository 10/04/2017/10/05/19 [id number] Ambulatory [address] Repository 10/03/2017/10/04/19 [id number] Ambulatory [place] ing:PT Repository 09/05/2017 [id number] [facility] 07/11/2017/07/12/19 [id number] Ambulatory [address] Repository 07/11/2017/07/13/19 [id number] Ambulatory [address] Repository 07/05/2017/07/07/19 [id number] Ambulatory [address] Repository 07/04/2017/07/05/19 [id number] Ambulatory BMSBuilding:B [place] [facility] Repository PAYERS PAYERS ENCOUNTER GUARANTOR PAYER SUBSCRIBER SOURCE 01/07/2018 CATHY P Primary CATHY P [place] [id number] Insurance:CORESOURCEP STANTONDOB: [facility] Number: [id number] [id number] Repository 84844Gvm: [phone]) Date:[phone] () [address] [place] [address]TL: 01/07/2018 Secondary NOT GIVENUNK [place] Insurance:SELF PAY [facility] Number: Effective Repository Date:2018-01-02 11/07/2017 CATHY P Primary CATHY P [place] [id number] Insurance:CORESOURCEP [facility] Number: [id number] [id number] Repository [address]Kzb: [phone]) Date:5139-65-10FS [phone] ([place]) [address] [place] [address]DW: 11/07/2017 Secondary NOT GIVENUNK [place] Insurance:SELF PAY [facility] Number: Effective Repository Date:2017-11-07 10/03/2017 CATHY P Primary CATHY P [place] [id number] Insurance:CORESOURCEP STANTONDOB: [facility] Number: [id number] [place], [place] [id number] Repository [address]Php: [phone]) Date:2001-23-21[phone] ([place]) [address] [place] [address]GX: 10/03/2017 Secondary NOT GIVENUNK [place] Insurance:SELF PAY [facility] Number: Effective Repository Date:2017-09-11 09/05/2017 CATHY P Primary CATHY P [place] [id number] Insurance:CORESOURCEP STANTONDOB: [facility] Number: [id number] [id number] Repository 215[address]Dcg: [phone]) Date:[phone] ([place]) [address] [place] [address]GW: 09/05/2017 Secondary NOT GIVENUNK [place] Insurance:SELF PAY [facility] Number: Effective Repository Date:2017-08-28 07/04/2017 CATHY [id number] Primary CATHY STANTONDOB: [place] Insurance:CORESOURCEP [id number] [facility] Number: [facility] [address]26[address]Pmx: ([phone]) [id number] Repository [phone] ([place]) Date:4569-67-89[address] [place] [address]PJ: 07/04/2017 Secondary NOT GIVENUNK [place] Insurance:SELF PAY [facility] Number: Effective Repository Date:2017-07-04
== END 2018-01-07 08:58 | disposition home or self-care (01) ==
LOC: SDC 06:46 → AC 06:47
PROVIDERS: Family Provider Family Medicine; PCP Family Medicine; Referring Provider Anesthesiology Pain Medicine; Visit Provider Anesthesiology Pain Medicine
PROC: 3E0S3BZ Introduction of Anesthetic Agent into Epidural Space, Percutaneous Approach (ICD-10-PCS; CPT 64483; principal; 2018-01-07 07:45)
DX: M51.17 Intervertebral disc disorders with radiculopathy, lumbosacral region (principal); M51.26 Other intervertebral disc displacement, lumbar region; K21.9 Gastro-esophageal reflux disease without esophagitis; Z79.899 Other long term (current) drug therapy; I10 Essential (primary) hypertension; Z87.891 Personal history of nicotine dependence; G25.81 Restless legs syndrome; G47.33 Obstructive sleep apnea (adult) (pediatric); Z79.891 Long term (current) use of opiate analgesic
CPT/HCPCS: 64483; 64484; 72100; J7120

== ENCOUNTER 2018-04-22 07:35 | Day surgery (SDC) | payer OTHER, SELFPAY ==
[2018-01-07 07:03] VITALS: BMI 26.5
[2018-04-22 08:50] VITALS: BP 134/84; PULSE 65; RESP 16; TEMP 36.2; O2SAT 100; BMI 26.9
--- NOTE | 2018-04-22 09:10 | RAD_ITS ---
CLINICAL HISTORY: Male, 37 years old. Lower back pain PROCEDURE: EPIDUROGRAM - Caudal block FLUOROSCOPY TIME (if supplied): (0:11) minutes. 2 Images. TECHNIQUE: Injection in the lumbar epidural space. RAD/Fluor Guidance for Spine Inj IMPRESSION: Successful lumbar epidural steroid injection under fluoroscopic guidance. Electronically Signed: Capri Hamm, at 16:01 EDT Tel , Service support ,
[2018-04-22] MEDS: Bupivacaine 0.25% 30 ML Vial (09:38)
[2018-04-22] MEDS: MethylPREDNISolone Acetate 80 MG/ML Vial (09:38)
[2018-04-22 09:46] VITALS: BP 127/88; BP 134/84; PULSE 69; RESP 14; TEMP 36.3; O2SAT 96
[2018-04-22 09:50] VITALS: BP 130/85; BP 134/84; PULSE 57; RESP 16; O2SAT 100
[2018-04-22 09:55] VITALS: BP 134/84; BP 140/105; PULSE 60; RESP 16; O2SAT 100
[2018-04-22 10:00] VITALS: BP 114/80; BP 134/84; PULSE 58; RESP 16; TEMP 36.3; O2SAT 100
[2018-04-22 10:38] VITALS: BP 134/84
--- NOTE | 2018-04-22 10:38 | OP.PCM_ITS ---
Problem List (1) DDD (degenerative disc disease), lumbosacral Status: Chronic (2) Disc displacement, lumbar Status: Chronic (3) Radiculopathy of lumbosacral region Status: Chronic Report of Operation Date of Procedure: 04/22/18 Pre-Operative Diagnosis: Lumbosacral radiculopathy, lumbosacral degenerative disc disease, lumbosacral spinal stenosis Post-Operative Diagnosis: Lumbosacral radiculopathy, lumbar signature of this disease, lumbosacral spinal stenosis Surgery/Procedure Performed:: Diagnostic/therapeutic caudal epidural steroid injection Description of Surgical Findings:: PROCEDURE: Diagnostic/therapeutic caudal epidural steroid injection PREOPERATIVE DIAGNOSIS: Lumbosacral radiculopathy, lumbosacral degenerative disc disease, lumbosacral spinal stenosis POSTOPERATIVE DIAGNOSIS: Lumbosacral radiculopathy, lumbosacral degenerative disc disease, lumbosacral spinal stenosis ANESTHESIA: MAC COMPLICATIONS: None BLOOD LOSS: Minimal PROCEDURE IN DETAIL: History and physical today was reviewed. Risks and benefits of the procedure were explained. The patient understood, agreed to our procedure, and informed consent was obtained. IV inserted per routine protocol. The patient was taken to the operating room, placed in a prone position with a pillow positioned underneath the abdomen. The lower back and tailbone area was prepped and draped in a sterile fashion using iodine x3 under fluoroscopy guidance on the lateral view the caudal space was identified the skin and subcutaneous tissue anesthetized approximately 3 cc of 1% lidocaine using a 25-gauge regular needle under direct visualization fluoroscopy in a lateral view using a 22-gauge 3-1/2 inch spinal needle the needle was advanced via the skin through the sacral hiatus tip of the needle passed through the sacrococcygeal ligament advanced approximately S4 area after negative aspiration for blood or CSF a total of 3 cc of contrast were injected to confirm correct placement of the needle as well as cephalad spread the spread was followed to approximately L5 area after confirmation of AP as well as lateral view and repeated negative aspiration a total of 15 cc of preservative- free 0.125% Marcaine with 80 mg of Depo-Medrol were injected easily. The needles were then removed intact. The patient experienced no signs or symptoms intrathecal, intravascular injection. The patient experienced no paraesthesia. The procedure was completed without any apparent difficult, any complication. The patient appeared to tolerate well. ASSESSMENT AND PLAN: This is a 37-year-old male with lumbosacral radiculopathy lumbosacral degenerative disc disease lumbosacral spinal stenosis status post caudal epidural steroid injection patient would continue his current medications the patient will follow in approximately 2 weeks for reevaluation.
== END 2018-04-22 10:38 | disposition home or self-care (01) ==
LOC: SDC 07:37 → AC 08:16
PROVIDERS: Family Provider Family Medicine; PCP Family Medicine; Referring Provider Anesthesiology Pain Medicine; Visit Provider Anesthesiology Pain Medicine
PROC: 3E0S3BZ Introduction of Anesthetic Agent into Epidural Space, Percutaneous Approach (ICD-10-PCS; CPT 62282; principal; 2018-04-22 09:05)
DX: M51.17 Intervertebral disc disorders with radiculopathy, lumbosacral region (principal); M48.07 Spinal stenosis, lumbosacral region; K21.9 Gastro-esophageal reflux disease without esophagitis; F41.9 Anxiety disorder, unspecified; Z79.899 Other long term (current) drug therapy; I10 Essential (primary) hypertension; Z87.891 Personal history of nicotine dependence; G25.81 Restless legs syndrome; F42.9 Obsessive-compulsive disorder, unspecified; F32.9 Major depressive disorder, single episode, unspecified; G47.33 Obstructive sleep apnea (adult) (pediatric); Z79.891 Long term (current) use of opiate analgesic
CPT/HCPCS: 01992; 62323; 64483; 77003; J7120; J3490

== ENCOUNTER → 2018-05-28 | Outpatient (CLI) | payer OTHER, SELFPAY ==
[2018-05-28 08:40] VITALS: BMI 26.9
--- NOTE | 2018-05-28 08:48 | RAD_ITS ---
STUDY: X-RAY - LUMBAR SPINE REASON FOR EXAM: Male, 37 years old. Pain. TECHNIQUE: 4 view(s) of the lumbar spine were obtained. COMPARISON: None FINDINGS: There is grade 1 listhesis at L5-S1. There is no substantial scoliosis. Otherwise, there is a normal alignment of the vertebrae. Normal vertebral bodies and endplates. There is mild L5-S1 degenerative disc disease. There is stable alignment during flexion and extension relative to the neutral projection. There is a nonspecific bowel gas pattern. 1 cm sclerotic foci is identified over the second sacral element which probably corresponds to a similar finding involving the mid aspect of the left sacroiliac joint. There is no plain film intra-abdominal mass or mass effect. There is minimal bilateral osteoarthritis of both hips. RAD/L/S Spine Min 4 Views IMPRESSION: Grade 1 listhesis at L5-S1. Otherwise anatomic alignment. Stable alignment on flexion and extension versus neutral. Mild L5-S1 degenerative disc disease. 1 cm sclerotic focus within the mid to inferior left sacroiliac joint may represent a fusion bar. Consider further evaluation, additionally with dedicated sacroiliac plane film exam. Electronically Signed: Meir Archer MD at 16:28 EDT , Service support ,
== END | disposition home or self-care (01) ==
LOC: HPRAD 08:48
PROVIDERS: Family Provider Family Medicine; PCP Family Medicine; Referring Provider Orthopaedic Surgery; Visit Provider Orthopaedic Surgery
DX: M54.5 Low back pain (principal)
CPT/HCPCS: 72110

== ENCOUNTER 2018-07-05 16:00 | Outpatient (RCR) | payer OTHER, SELFPAY ==
[2018-05-28 08:40] VITALS: BMI 26.9
--- NOTE | 2018-05-30 11:22 | HP.PTEVAL_ITS ---
Patient's Visit Information CATHY PALM is a 37 year old M referred to Physical Therapy by Caro Ferro MD with a diagnosis of LUMBAR RADICULOPATHY. Date of Evaluation: 05/30/18 Physical Therapist: Annel Bailey PT, Cert MDT - Visit Plan Frequency: 2-3x /Week Duration: 4-6 Weeks Plan: AQUATIC THERAPY FOR PAIN RELEIF, POSTURE CORRECTION/STRENGTHENING, INSTRUCTION IN APPROPRIATE BODY MECHANICS AND ACTIVITY MODIFICATIONS. DLS STARTING WITH A NEUTRAL SPINE PROGRESSING ROM TOLERATED. QUAN LE ROM, STRETCHING AND STRENGTHENING. HEP INSTRUCTION. 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 Disability: NO. Present symptoms: RIGHT HIP AND RIGHT CALF PAIN, NUMBNESS AND TINGLILNG. Present since: CHRONIC EPISODIC. Pain Scale: WORST 8/10, LEAST 1/10. Currently: 04/14. Commenced as a result of: NO APPARENT REASON. Symptoms at onset: LOW BACK. Worse: STANDING, WALKING, EXTENSION. Better: CARRYING WORK GEAR/VEST, GABAPENTIN, NAPROXEN. Disturbed sleep: YES. Previous history/Previous treatment: PHYSICAL THERAPY, CHIROPRACTOR - MOST RECENT LAST WEEK BUT DR. FERRO RECOMMENDED HE STOP GOING BECAUSE THE JARRING IS NOT GOOD FOR HIS CONDITION. 3 ROUNDS OF MIKEY'S WITH THE LAST ONE BEING ABOUT 10 DAYS AGO. INJECTIONS ARE NOT HELPING. Coughing/sneezing/straining: NEGATIVE. Gait: NORMAL. Difficulty initiating urinatin: NO. Accidents: NO. Unexplained weight loss: NO. Imaging: SEE [facility] EMR FOR X-RAYS AND MRI. PMH: UNREMARKABLE - OCD. Recent major surgery: NO. PLOF (Prior Level of Function): UNLIMITED ABOUT 24 MONTHS AGO. OTHER: PATIENT REPORTS HE IS BACK TO PT TO LEARN HOW TO BUY HIMSELF TIME AND LEARN HOW TO STRENGTHEN HIS CORE SAFELY AND TRY TO RELEIVE SOME OF THE PAIN AND PROLONG SURGERY. PATIENT REPORTS HE IS GETTING DAILY LEFT SHOULDER PAIN FOR NO APPARENT REASON. - Objective Sitting/Standing Posture: POOR. Lordosis: REDUCED. Lateral shift: NO. Relevant shift: N/A. Active Correction of posture: BETTER. Other Observations: INDEP GAIT AND TRANSFERS. VERY SLOUCHED WITH DECREASED AWARENESS THROUGHOUT SESSION. Motor deficit: QUAN HIP WEAKNESS RIGHT > LEFT. Sensory deficit: RIGHT FOOT. ROM deficit: TIGHT QUAN HS'S. Reflexes: 2/2 QUAN LE'S. Dural Signs: POSITIVE RIGHT LE. Lumbar mvmt loss: flex - NIL. ext - MOD. R SG - MOD. L SG - MOD. Core strength: POOR - Goals Goal 1:: DECREASE C/O RIGHT LE SX'S Goal Time Frame: 4-6 Weeks Goal 2:: IMPROVE SITTING, STANDING, WALKING, SLEEP, TRAVEL, WORK AND RECREATIONAL FUNCTION Goal Time Frame: 4-6 Weeks Goal 3:: INSTRUCT IN PROPHYLAXIS Goal Time Frame: 4-6 Weeks - Rehabilitation Potential Rehabilitation Potential: Fair - Anticipated Interventions Patient/Client Instruction: Educate patient on: Condition, Plan of Care, Risk Factors, Benefits of Fitness Program For the Purpose of:: To improve self management Therapeutic Exercise to Include: Strength training, Body mechanics, Postural training, Flexibilty training, In an aquatic setting, Dynamic Lumbar Stabilization Comment: MONITOR NEW LEFT SHOULDER PAIN. For the Purpose of:: To decrease pain, To increase ROM, To improve muscle performance and motor function, To increase tolerance to activity/condition/position, To improve ability of physical actions for home/community/work/leisure TENS: Yes - CONSIDER HOME TENS UNIT IF NEEDED. For the Purpose of:: To decrease pain Thank you for the opportunity to evaluate your patient. For Medicare and Medicare HMO plans, please review the plan of care and approve it. It will need to be FAXED BACK to us at [phone] for Medicare purposes. For Medicare only, by signing this I certify the plan of care. Please let me know if there are questions or concerns regarding this plan of care. Physician Signature: Date:
--- NOTE | 2018-10-08 14:57 | HP.PT.NRP ---
HP - Discharge Summary (1) - Patient Information CATHY PALM was seen in my office for initial evaluation on 05/30/18. The following Plan of Care was established for this patient: Initial Frequency: 2-3x /Week Initial Duration: 4-6 Weeks - Anticipated Interventions Patient/Client Instruction: Educate patient on: Condition, Plan of Care, Risk Factors, Benefits of Fitness Program For the Purpose of:: To improve self management Therapeutic Exercise to Include: Strength training, Body mechanics, Postural training, Flexibilty training, In an aquatic setting, Dynamic Lumbar Stabilization For the Purpose of:: To decrease pain, To increase ROM, To improve muscle performance and motor function, To increase tolerance to activity/condition/position, To improve ability of physical actions for home/community/work/leisure TENS: Yes - CONSIDER HOME TENS UNIT IF NEEDED. For the Purpose of:: To decrease pain This patient was last seen in our office 07/05/18. Pertinent comments regarding their Physical therapy will appear below: This patient has not returned to Physical Therapy and is appropriate to return to MD for further follow-up as needed. At this point I will be discontinuing this patient from physical therapy. I would be happy to see this patient again in the future if found appropriate by the physician. Thank you! Annel Bailey, PT, Cert MDT
== END 2018-07-05 19:00 | disposition home or self-care (01) ==
LOC: PT 16:00
PROVIDERS: Family Provider Family Medicine; PCP Family Medicine; Visit Provider Orthopaedic Surgery
DX: M54.16 Radiculopathy, lumbar region (principal)
CPT/HCPCS: 97113; 97127; 97162; 97530; G0515

== ENCOUNTER → 2018-10-28 09:33 | Outpatient (CLI) | payer OTHER, SELFPAY ==
[2018-05-28 08:40] VITALS: BMI 26.9
[2018-10-28 09:50] LABS: Hematocrit 44.1 % (40-54); Hemoglobin 14.8 g/dL (13.0-16.5); Mean Corp Hgb Conc 33.6 g/dL (32-36); Mean Corpuscular Hgb 28.8 pg (27.0-32.0); Mean Platelet Vol. 9.6 fl (6.2-12.0); Platelet Count 248 K/mm3 (150-450); RBC Distribution Width CV 11.9 % (11.6-14.6); RBC Distribution Width SD 37.6 fl (35.1-43.9); Red Blood Count 5.13 M/mm3 (4.6-6.2); White Blood Count 6.5 K/mm3 (4.4-11.0)
--- NOTE | 2018-10-28 10:00 | RAD_ITS ---
STUDY: X-RAY CHEST REASON FOR EXAM: Male, 38 years old. Chest pain. TECHNIQUE: PA and lateral views of the chest. COMPARISON: None. FINDINGS: The lungs are clear and expanded. There is no demonstrated pleural abnormality. Normal size heart. Normal mediastinum and edwin. Normal visualized pulmonary arteries. Normal visualized aortic arch and descending thoracic aorta. Normal visualized thoracic spine. Normal visualized ribs, clavicles, and shoulders. There is no demonstrated abnormality of the visualized soft tissue structures of the upper abdomen. RAD/Chest PA and Lateral IMPRESSION: Normal x-ray examination of the chest. Electronically Signed: Lokesh Johnson, at 11:15 EDT , Service support ,
[2018-10-28 10:02] LABS: D-Dimer Quantitative (DVT/PE) < 0.27 FEU/ug/m (0.27-0.49)
[2018-10-28 10:08] LABS: ALB/GLOB Ratio 1.1 RATIO (0.9-2.4); AST(SGOT) 20 U/L (15-37); Alanine Aminotransfer ALT/SGPT 32 U/L (16-61); Albumin, Serum 4.2 g/dL (3.2-5.0); Alkaline Phosphatase 63 U/L (45-117); Anion Gap 4 (5-15); BUN 13 mg/dL (7-18); BUN/Creat Ratio 13.5 RATIO (10-20); Calcium,Total 9.3 mg/dL (8.5-10.1); Chloride 104 mmol/L (98-107); Creatinine, Serum 0.96 mg/dL (0.70-1.30); EST Glomerular Filtration Rate 92 mL/min (>60); Est Glom Filt Rate - Afr Amer 111 mL/min (>60); Globulin 3.7 g/dL (2.2-4.2); Glucose 95 mg/dL (74-106); Potassium 4.2 mmol/L (3.5-5.1); Protein, Total 7.9 g/dL (6.4-8.2); Sodium Level 139 mmol/L (136-145)
== END ==
PROVIDERS: Family Provider Family Medicine; PCP Family Medicine; Visit Provider Family Medicine
DX: R07.9 Chest pain, unspecified (principal)
CPT/HCPCS: 36415; 71046; 80053; 84484; 85027; 85379

== ENCOUNTER → 2018-10-31 12:24 | Outpatient (CLI) | payer OTHER, SELFPAY ==
[2018-05-28 08:40] VITALS: BMI 26.9
--- NOTE | 2018-10-31 12:26 | STE_ITS ---
Reason For Study: CHEST PAIN, PRE OP CLEARANCE Stress Results Protocol: Eriberto Protocol Maximum Predicted HR: 180 bpm Target HR: 153 bpm % Maximum Predicted HR: 92 % DurationHeart Rate Stage (mm:ss) (bpm) BP BASELINE 62 138/82 STAGE 1 3:00 85 130/70 STAGE 2 3:00 93 150/70 STAGE 3 3:00 114 166/76 STAGE 4 3:00 151 170/60 STAGE 4 1:31 166 / RECOVERY 109 144/68 Stress Duration: 13:31 mm:ss Maximum Stress HR: 166 bpm Baseline Echocardiogram Findings The estimated ejection fraction is 60 %. Stress Echo Wall motion Data Resting WM Intermediate WM Stress WM Resting Wall Motion Wall Motion Stress No regional wall motion No regional wall motion abnormalities noted. abnormalities noted. Symptoms with Stress The patient experinced none . Interpretation Summary The estimated ejection fraction is 60 %. No regional wall motion abnormalities noted. Exercise stress test is -ve for exercise induced EKG or echocardiographic changes of ischemia or exercise induced CP. Functional capacity is excellent for age. Ordering Physician: Everett^Alex^^^ Referring Physician: Alex Floyd Performed By: Justin Leon RCS
== END ==
PROVIDERS: Family Provider Family Medicine; PCP Family Medicine; Referring Provider Family Medicine; Visit Provider Family Medicine
DX: R07.9 Chest pain, unspecified (principal)
CPT/HCPCS: 93017; 93350

== ENCOUNTER 2019-02-24 16:00 | Outpatient (RCR) | payer OTHER, SELFPAY ==
[2018-05-28 08:40] VITALS: BMI 26.9
--- NOTE | 2018-12-12 14:18 | HP.PTEVAL ---
Patient's Visit Information CATHY PALM is a 38 year old M referred to Physical Therapy by Anil Aguilar DO with a diagnosis of S/P SPINAL FUSION 11/22/18. Date of Evaluation: 12/12/18 Physical Therapist: Annel Bailey, PT, Cert MDT - Visit Plan Frequency: 2-3x /Week Duration: 2 Months Plan: NO BENDING, LIFTING OR TWISITNG FOR 3 WEEKS THEN TRIAL FLEXION IN LYING. POSTURE CORRECTION/STRENGTHENING, INSTRUCTION IN APPROPRIATE BODY MECHANICS AND ACTIVITY MODIFICATIONS. DLS STARTING WITH A NEUTRAL SPINE PROGRESSING ROM TOLERATED. QUAN LE ROM, STRETCHING AND STRENGTHENING. HEP INSTRUCTION. *MINIMAL LIFTING > 10 LBS, BENDING, PUSHING, PULLING, TWISTING AND OVER HEAD EXTENSION FOR 4-6 WEEKS. - Subjective Findings: DOS: 11/22/18. DX'S: SPONDYLOLISTHESIS AT L5-S1. SURGERY: LUMBAR AND LUMBOSACRAL FUSION BY ANTERIOR TECHNIQUE. ANTERIOR: LUMBAR DISCECTOMY FOLLOWING RETROPERITONEAL APPROACH, LEFT L4-S1; ALIF L5-S1. POSTERIOR LUMBAR DECOMPRESSION LEFT L4-S1 AND L5-S1 SEGMENTAL FIXATION. 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 Present symptoms: LEFT LOW BACK PAIN - INTERMITTENT. LEFT THIGH AND CALF ACHY. PRIOR TO SX NO LLE SX'S. RIGHT LE SX'S ARE GONE. Present since: CHRONIC. Pain Scale: WORST 6/10, LEAST 0/10. Currently: 2/10 LLE. Commenced as a result of: NO APPARENT REASON. Symptoms at onset: RIGHT BACK AND HIP INTO LE. Worse: SOMETIMES SITTING, WALKING, LYING DOWN - THE WORST, DRIVING. Better: ICE, FREQUENT CHANGE OF POSTION. Disturbed sleep: *YES - THIS HAS BEEN THE HARDEST THING. Previous history/Previous treatment: SEE LAST EPISODE OF CARE WITH PT EARLIER THIS YEAR. PATIENT TRIED PT, CHIRO AND PAIN MGMT PRIOR TO SX. Coughing/sneezing/straining: NEGATIVE. Gait: DECREASED QUAN STRIDE LENGTH. DISTANCE LIMITED. Difficulty initiating urinatin: NO. Unexplained weight loss: NO. Imaging: YES - BEFORE AND AFTER SURGERY. PMH: UNREMARKABLE - Objective THIS PATIENT AMBULATES INDEP'LY INTO PT WEARING A LUMBAR BACK BRACE. HE WALKS WITH DECRASED CADANCE AND DECREASED QUAN STRIDE LENGTH. PATIENT IS ABLE TO INDEP'LY TRANSFER FROM SIT TO STAND WITHOUT UE ASSIST. HE IS ABLE TO DON AND DOFF BACK BRACE INDEP'LY. HE IS SLOW AND CAREFUL WITH TRANSFERS AND BODY MECHANICS AND USES GOOD TECHNIQUE AVOIDING BENDING IN TWISITNG IN THE CLINIC TODAY. ANTERIOR AND POSTERIOR INCISIONS LOOK GOOD WITHOUT ANY SIGNS OF INFECTION. PATIENT IS USING ONLY FAIR POSTURE CONTROL AND EVEN FOUND TO BE SLOUCHING WITH DECREASED AWARENESS IN HIS BACK BRACE. QUAN LE STRENGTH IS 5/5 WITH MMT'ING EXCEPT HIPS GRADED 4/5. POSITIVE QUAN LE DURAL SIGNS LEFT > RIGHT. CORE STRENGTH = POOR. TIGHT QUAN HS'S. QUAN LE LIGHT TOUCH SENSATION APPEARS INTACT AND SYMMETRICAL BUT INTERMITTENT LEFT THIGH AND CALF ACHYING AND TINGLING REPROTED. DECREASED TOLERANCE TO SUPINE LYING BUT ABLE TO TOLERATED FOR HEP INSTRUCTION TODAY. INSTRUCTED PATIENT IN SUPINE ISO ABDOMINALS AND QUAN LE DURAL STRETCHING EVERY TWO HOURS GENTLY TOLERATED. - Goals Goal 1:: DECREASE C/O BACK AND LLE SX'S. Goal Time Frame: 6-8 Weeks Goal 2:: IMPROVE ADL, LIFTING, WALKING, STANDING, SLEEP, SOCIAL LIFE, TRAVEL AND EMPLOYMENT/HOMEMAKING FUNCTION. Goal Time Frame: 6-8 Weeks Goal 3:: INSTRUCT IN PROPHYLAXIS Goal Time Frame: 6-8 Weeks - Rehabilitation Potential Rehabilitation Potential: Good - Anticipated Interventions Patient/Client Instruction: Educate patient on: Condition, Plan of Care, Risk Factors, Benefits of Fitness Program For the Purpose of:: To improve self management Therapeutic Exercise to Include: Strength training, Body mechanics, Postural training, Flexibilty training, Dynamic Lumbar Stabilization, Scapular Strength/Stabilization For the Purpose of:: To decrease pain, To increase ROM, To improve muscle performance and motor function, To increase tolerance to activity/condition/position, To improve ability of physical actions for home/community/work/leisure, To improve gait and locomotor functions Cryotherapy (ice pack, ice massage): Yes Thermo therapy (hot pack): Yes For the Purpose of:: To decrease pain, To decrease swelling/inflammation, To improve nutrient delivery to tissue Thank you for the opportunity to evaluate your patient. For Medicare and Medicare HMO plans, please review the plan of care and approve it. It will need to be FAXED BACK to us at [phone] for Medicare purposes. For Medicare only, by signing this I certify the plan of care. Please let me know if there are questions or concerns regarding this plan of care. Physician Signature: Date:
--- NOTE | 2019-01-06 12:39 | HP.PTREVAL ---
Anil Aguilar, DO, It has been my pleasure to treat CATHY PALM over the last 8 visits for S/P SPINAL FUSION 11/22/18. Please see the progress note below for an update on the physical therapy plan of care! Subjective: PATIENT REPORTS THAT IF HE ISN'T CAREFUL HE HAS PAIN BUT MAINLY HE JUST HAS STIFFNESS. SLEEP IS STILL DISTURBED. 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 TOSSES AND TURNS FROM SIDE TO SIDE AND SOMETIMES TWISTS. PATIENT REPORTS HE WOULD LIKE TO CONTINUE THERAPY FOR SAFE PROGRESSIONS. TENTATIVE RETURN TO WORK DATE IS FEB 07 2019. 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 FULL DUTY IS A LOT OF GETTING IN AND OUT OF THE CAR AND CAN INVOLVE FULL PHYSICAL RETRAINT. Objective/Function: PATIENT IS MAKING GREAT PROGRESS TOWARD ALL PT GOALS BUT HAS ONLY BEEN DOING THERAPY AND ACTIVITIES WITH MOSTLY NEURTRAL SPINE AND NEEDS TO PREPARE TO RETURN TO WORK TO A VERY PHYSICAL JOB IN 3-4 MONTHS. PATIENT TOLERATED INTRO TO LUMBAR FLEXION AND LOWER TRUNK ROTATION IN LYING WELL TODAY. INCISIONS LOOK GOOD (ANTERIOR AND POSTERIOR).PATIENT STATES HE IS STILL ON ANTIBIOTIC. ONE STITCH TAKEN CARE OF BY SURGEON AND PATIENT IS KEEPING AN EYE ON ANOTHER ONE THAT MIGHT BE A PROBLEM. UPON EXAM TODAY: LUMBAR MVMT LOSS: FLEX - MOD, EXT - MAURICE, RIGHT SG- MOD, LEFT SG - MOD. PATIENT TOLERATED LUMBAR ROM TESTING WELL. Plan Plan: *SLOW* PROGRESSION OF THER ACTIVITY FOR TRUNK AND QUAN LE ROM, STRETCHING AND STRENGTHENING WITH GOAL OF RETURN TO FULL DUTY IN 3-4 MONTHS. Goals Goal 1:: DECREASE C/O BACK AND LLE SX'S. Goal Time Frame: 6-8 Weeks Goal Progress: Progressing Goal 2:: IMPROVE ADL, LIFTING, WALKING, STANDING, SLEEP, SOCIAL LIFE, TRAVEL AND EMPLOYMENT/HOMEMAKING FUNCTION. Goal Time Frame: 6-8 Weeks Goal Progress: Progressing Goal 3:: INSTRUCT IN PROPHYLAXIS Goal Time Frame: 6-8 Weeks Goal Progress: Progressing Anticipated Interventions Patient/Client Instruction: Educate patient on: Condition, Plan of Care, Risk Factors, Benefits of Fitness Program For the Purpose of:: To improve self management Therapeutic Exercise to Include: Strength training, Body mechanics, Postural training, Flexibilty training, Dynamic Lumbar Stabilization, Scapular Strength/Stabilization For the Purpose of:: To decrease pain, To increase ROM, To improve muscle performance and motor function, To increase tolerance to activity/condition/position, To improve ability of physical actions for home/community/work/leisure, To improve gait and locomotor functions Cryotherapy (ice pack, ice massage): Yes Thermo therapy (hot pack): Yes For the Purpose of:: To decrease pain, To decrease swelling/inflammation, To improve nutrient delivery to tissue Please do not hesitate to contact me at [phone] by phone or if you have questions or concerns regarding this new plan of care! Sincerely, Annel Bailey, PT, Cert MDT
--- NOTE | 2019-02-24 16:40 | HP.PTDCSUM_ITS ---
HP - PT D/C Summary It has been my pleasure to treat CATHY PALM under orders from Anil Aguilar DO, for the diagnosis of S/P SPINAL FUSION 11/22/18 for a total of 15 visit(s). Discharge Date: Please see the following information for a summary of their discharge status. - Subjective Subjective: PATIENT REPORTS HE SAW THE SURGEON THE DAY AFTER SHERIF AND X- RAYS LOOKED GOOD. 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 WENT TO [facility] FOR LEFT RIB PAIN - TWO DAYS LATER MISERABLE EVER SINCE. CALLED THE SURGEON BACK AND RECOMMENDED IBUPROFEN. IBUPROFEN ISN'T HELPING SO THINKS HE IS GOING TO START A STEROID SUNDAY. TRYING TO DO HEP BUT IN A LOT OF PAIN. HAVING BURNING IN LEGS SINCE SEEING [facility]. BACK TO WORK SINCE 2 WEEKS AGO 2 HOURS A DAY. PATEINT REPORTS SURGEON DID NOT ORDER OR RECOMMEND MORE FORMAL PT. STATES HE HAS BEEN DOING EVERYTHING ON HIS OWN UNTIL SEEING [facility]. STATES HE HAS MORE PAIN IN HIS BACK NOW THAN HE HAS IN OVER A MONTH. PATIENT MENTIONED STARTING THE STEPPER AND SOME OVER HEAD PRESS IN THE GYM FOR THE FIRST TIME ABOUT THE SAME TIME HE SAW THE [facility] BUT NOT PAIN AT THE TIME. NO LONGER DOING THOSE EX'S. PATIENT REPORTS HE IS HERE TO CLOSE OUT HIS CHART AND WILL FOLLOW UP WITH THE SURGEON NEEDED. PATIENT REPORTS THE BURNING IS IN HIS THIGHS AND RIGHT CALF. - Pain Back Pain Intensity (Out of 10): 3 - Overall Improvement % Improvement: 60 - Objective Objective/Function: PATIENT WAS SEEN TODAY FOR RE-ASSESSMENT OF PROGRESS TOWARD THE SET PT GOALS AND THE NEED FOR FURTHER PHYSICAL THERAPY VS READINESS FOR DISCHARGE. HE IS CURRENTLY IN A FLARE UP THAT HE RELATES TO EITHER A CHIROPRACTIC VISIT OR NEW EX'S IN THE GYM THAT HE INITIATED ON HIS OWN. HE IS IN TOUCH WITH HIS SURGEON. THIS PT RECOMMENDED HE RETURN TO HIS POOL PROGRAM AT THIS TIME TOLERATED AHD HE IS AGREEABLE. REINFORCEMENT WAS GIVEN IN AVOIDANCE OF PERIPHERALIZATION OF SX'S. UPON EXAM TODAY: LUMBAR MVMT LOSS: FLEX - MOD, EXT - MAURICE, RIGHT SG- MOD, LEFT SG - MIN. PATIENT TOLERATED LUMBAR ROM TESTING WELL. QUAN LE STRENGTH IS 5/5 WITH MMT'ING. HE IS TENDER IN THE LEFT LOWER THORACIC REGION. - Goals Goal 1:: DECREASE C/O BACK AND LLE SX'S. Goal Progress: Not Progressing Goal 2:: IMPROVE ADL, LIFTING, WALKING, STANDING, SLEEP, SOCIAL LIFE, TRAVEL AND EMPLOYMENT/HOMEMAKING FUNCTION. Goal Progress: Not Progressing Goal 3:: INSTRUCT IN PROPHYLAXIS Goal Progress: Not Progressing - Plan Plan: D/C TO FOLLOW UP WITH SURGEON FOR CURRENT FLARE UP. - D/C Information If there are questions or concerns regarding this patient's physical therapy, please feel free to call me at [phone]. Thank you for the referral of this patient. Sincerely, Annel Bailey, PT, Cert MDT
== END 2019-02-24 19:00 | disposition home or self-care (01) ==
LOC: PT 16:00
PROVIDERS: Family Provider Family Medicine; PCP Family Medicine; Referring Provider Orthopaedic Surgery; Visit Provider Orthopaedic Surgery
DX: M43.17 Spondylolisthesis, lumbosacral region (principal); Z98.1 Arthrodesis status
CPT/HCPCS: 97110; 97140; 97162; 97164; 97530

== ENCOUNTER → 2019-03-12 14:38 | Outpatient (CLI) | payer OTHER, SELFPAY ==
[2018-05-28 08:40] VITALS: BMI 26.9
--- NOTE | 2019-03-12 14:49 | RAD_ITS ---
STUDY: X-RAY - LUMBAR SPINE REASON FOR EXAM: Male, 38 years old. CHRONIC BACK PAIN. FUSION NOVEMBER 2018. TECHNIQUE: 2 view(s) of the lumbar spine were obtained. COMPARISON: 05/28/2018 FINDINGS: Since the previous study, there has been left-sided pedicle screw fusion at L5 and S1 with synthetic disc spacer placed at L4-5. The hardware is intact and free of comp location this was performed to stabilize a pars defect and grade 1 spondylolisthesis. Normal lumbar lordosis. There is no substantial scoliosis. There is a normal alignment of the vertebrae from L1 L5. There is surgically stabilized grade 1 spondylolisthesis at L5-S1. There is multilevel endplate spondylosis of the lumbar vertebrae. Normal disc space heights. There is no demonstrated fracture. The soft tissue structures are unremarkable. RAD/Lumbar Spine 2 or 3 Views IMPRESSION: There has been stabilization of a grade 1 spondylolisthesis at L5/S1. Hardware is intact and free of application Unremarkable lumbar spine from L1 to L4. Electronically Signed: Salvador Matos MD at 7:22 EST , Service support ,
== END ==
PROVIDERS: PCP Family Medicine; Referring Provider Nurse Practitioner Acute Care; Visit Provider Nurse Practitioner Acute Care
DX: M48.062 Spinal stenosis, lumbar region with neurogenic claudication (principal)
CPT/HCPCS: 72100

== ENCOUNTER → 2019-10-20 17:11 | Outpatient (CLI) | payer OTHER, SELFPAY ==
[2018-05-28 08:40] VITALS: BMI 26.9
== END ==
PROVIDERS: PCP Family Medicine; Referring Provider Physician Assistant; Visit Provider Physician Assistant
DX: Z11.59 Encounter for screening for other viral diseases (principal)
CPT/HCPCS: 87635; C9803; U0003

== ENCOUNTER → 2020-04-13 | Outpatient (CLI) | payer OTHER, SELFPAY ==
[2018-05-28 08:40] VITALS: BMI 26.9
== END | disposition home or self-care (01) ==
LOC: LABSPEC 15:48
PROVIDERS: PCP Family Medicine; Referring Provider Dermatology; Visit Provider Dermatology
DX: T81.40XA Infection following a procedure, unspecified, initial encounter (principal); L24.9 Irritant contact dermatitis, unspecified cause
CPT/HCPCS: 87070; 87205

== ENCOUNTER 2020-08-15 10:46 | Emergency (ER) | payer OTHER, SELFPAY ==
[2018-05-28 08:40] VITALS: BMI 26.9
[2020-08-15 10:47] VITALS: BP 161/92; PULSE 61; RESP 16; TEMP 36; O2SAT 98; BMI 28.4
--- NOTE | 2020-08-15 11:02 | CT_ITS ---
STUDY: CT ABDOMEN AND PELVIS WITHOUT CONTRAST REASON FOR EXAM: Male, 39 years old. Pain RADIATION DOSAGE (If Supplied By Facility): CTDIvol = ( 9.48 ) mGy, DLP = ( 521.34 ) mGycm TECHNIQUE: Transaxial images were obtained from the dome of the diaphragm to the symphysis pubis without oral contrast, and without intravenous contrast. Sagittal and coronal images were reconstructed. Individualized dose optimization techniques were used for this CT. COMPARISON: None. FINDINGS: The visualized lung bases are unremarkable. The visualized portions of the heart are within normal limits. Normal liver. Normal gallbladder and extrahepatic biliary system. Normal spleen. Normal pancreas. Normal bilateral adrenal glands. Normal right kidney. Normal left kidney. Normal visualized stomach. Normal small intestine. Normal colon. There are surgical clips in the region of the appendix consistent with a prior appendectomy. Normal abdominal aorta. Normal inferior vena cava. Normal retroperitoneum. Normal urinary bladder. Normal abdominal wall. Status post fixation in the lower lumbar spine. CT/Abdomen/Pelvis without Cont IMPRESSION: No acute abnormality. Electronically Signed: Scout Humphrey MD at 12:01 EDT Tel , Service support ,
--- NOTE | 2020-08-15 11:03 | EX.ED.DYSGE1 ---
HPI History of Present Illness Chief Complaint: Complaint Detail of Chief Complaint: Abdominal pain Informant: patient Narrative Narrative: Patient presents to the emergency department for left lower and suprapubic abdominal pain that he has had for about 4 days. Patient's had some dysuria and pressure over his bladder. At times had pain into his testicles. Patient was seen in urgent care initially and had a urine dip that was negative. Urine culture was sent. Patient subsequently followed up with a physician equal opportunity assistant and had blood work including PSA as well as gonorrhea and Chlamydia testing all of which was negative. Patient then had a urology consult online apparently. He continues to have lower abdominal discomfort and presents to the ER for evaluation. He denies any fever. Patient states he has had decreased appetite and has lost about 10 pounds. He denies any blood in his stool although he did take some sort of a laxative last evening and this morning had a blackish like bowel movement. No significant medical history otherwise. No history of diverticulitis. Prior similar symptoms: No PFSH PFSH Medical History (Updated 08/15/20 @ 12:[address] Sae Avelar DO) Anemia Arthritis Back pain Broken femur Gout Hemorrhoids Hypertension Neck pain Home Medications fluvoxamine 25 mg tablet 25 mg PO QHS 07/04/17 [History Last Taken Unknown] lactobacillus combination no.8 3 billion cell capsule 3,000 mmu cells PO QDAY 07/04/17 [History Last Taken Unknown] lorazepam 1 mg tablet 1 mg PO QHS PRN 07/04/17 [History Last Taken Unknown] multivitamin 1 tab PO QDAY 07/04/17 [History Last Taken Unknown] ciprofloxacin HCl [Cipro] 500 mg PO BID #10 tab 08/15/20 [Rx Last Taken Unknown] Allergy/AdvReac Type Severity Reaction Status Date / Time No Known Allergies Allergy Verified 01/02/18 16:27 Family History (Updated 07/04/17 @ 11:26 by Jeannette Padilla) Father Cancer Grandmother Cancer Surgical History History of tonsillectomy and adenoidectomy Hx of appendectomy Social History (Updated 06/03/18 @ 13:[address] Caro Armstrong MD) Smoking Status: Former smoker how long ago did patient quit smokin years alcohol intake: current alcohol intake frequency: a few times a month Alcohol type: beer ROS ROS ED Constitutional Constitutional ED: Reports systems reviewed and no addt'l complaints, except as documented; Denies body ache(s), change in weight or chills Eyes Eyes: Denies acute decrease in peripheral vision, change in vision, double vision or loss of vision ENT ENT ED: Reports none; Denies ear pain, lip swelling, loss taste/smell, neck pain, otalgia or sore throat Cardiovascular Cardiovascular: Reports none; Denies abdominal pain, chest pain with activity, leg edema, lightheadedness, palpitations, rapid heart rate or syncope Respiratory/Chest Respiratory/Chest: Reports none; Denies change in mental status, dry cough, dyspnea, hemoptysis, shortness of breath at rest or shortness of breath with exertion Gastrointestinal Gastrointestinal: Reports none and abdominal pain; Denies change in stool character, diarrhea, hematemesis, hematochezia, melena, rectal bleeding or vomiting Genitourinary Genitourinary ED: Reports none and dysuria; Denies abdominal discomfort, anuria, genital pain or polyuria Musculoskeletal Musculoskeletal: Reports none; Denies arthralgias, back pain, difficulty walking, extremity pain, muscle weakness or myalgias Integumentary Reports none; Denies abscess or rash Neurologic Neurologic: Reports none; Denies abnormal gait, confusion, focal weakness, frequent falls, headache(s), loss of vision, numbness, paresthesias, radicular pain, vertigo or weakness Psychiatric Psychiatric: Reports systems reviewed and no addt'l complaints, except as documented and none; Denies behavioral changes, confusion, difficulty concentrating, hallucinations, suicidal ideation, tactile hallucinations or visual hallucinations Endocrine Endocrinology: Denies none, cold intolerance, excessive sweating, fatigue or heat intolerance Hematologic/Lymphatic Hematologic/Lymphatic: Reports none; Denies anemia, easy bleeding or easy bruising Allergic/Immunologic Allergic/Immunologic ED: Denies as per HPI, none, lip swelling, mouth swelling, throat swelling, tongue swelling or hives EXAM Physical Exam Const Vital Signs: 08/15/20 10:47 Temperature 96.8 F L Temperature Source Temporal Pulse Rate 61 Respiratory Rate 16 Blood Pressure 161/92 H Blood Pressure Mean 115 Pulse Ox 98 Oxygen Delivery Method Room Air Positive well nourished and well developed General Appearance ED: well developed and NAD HEENT Reports TM's clear and moist mucous membranes normocephalic and atraumatic; Negative for trauma or tenderness Tympanic Membrane ED: Yes TM's clear Eyes PERRL and EOMs intact bilaterally General Eye ED: Negative for pale conjunctiva or scleral icterus Neck no lymphadenopathy, supple and no JVD General: Negative for tenderness Chest Wall inspection of chest normal and palpation of chest normal Chest: Negative for tenderness Resp normal respiratory effort and clear to auscultation bilaterally Effort and Inspection: Negative for respiratory distress or pain with movement Auscultation: Negative for rhonchi, wheezes or diminished lung sounds Cardio regular rate, regular rhythm, S1 normal heart sound, S2 normal heart sound and no murmurs Peripheral Pulses: pulses 2+ throughout GI normal to inspection, nondistended, normoactive bowel sounds, soft to palpation, non-distended and no masses GI Narrative: Patient has tenderness to palpation over suprapubic region and left lower quadrant. No masses or hernias palpated. On rectal exam he has some tenderness over the prostate but it did not appear enlarged or boggy. No masses palpated in the rectal vault. No stool noted in the rectal vault. Narrative: Circumcised male with no tenderness over the testicles or epididymides. He has a normal line with normal cremasteric reflexes. No hernias palpated. Back/Spine no CVA tenderness and no thoracic nor lumbar tenderness Extremity normal to inspection General Extremety ED: Negative for edema General Extremity: Negative for edema Neuro oriented x3, CN's II-XII intact bilaterally, no sensory deficits noted and gait normal Sensorium / Orientation: awake, alert, oriented to person, oriented to place and oriented to time Motor Exam: strength 5/5 throughout and strength abnormal Psych mental status grossly normal Skin no rashes or lesions noted and no wounds MDM MDM MDM Narrative Medical decision making narrative: Etiology of patient's abdominal pain is unclear as he has normal labs and normal urine and a unremarkable CT scan of the abdomen pelvis. Patient states that his urologist did send off a culture of urine checking for some different rare bacteria. At this point he would like to try an antibiotic to see if that resolves his symptoms. Given the location of his pain low-grade diverticulitis with potentially be in the differential although no evidence of it on CT and has had a normal white count. I will treat him with Cipro for 5 days. Lab Data Labs: Laboratory Results - last 24 hr 08/15/20 08/15/20 08/15/20 11:10 11:10 11:20 WBC 5.8 RBC 5.04 Hgb 14.4 Hct 42.5 MCV 84.3 MCH 28.6 MCHC 33.9 RDW Std Deviation 36.0 RDW Coeff of Anders 11.9 Plt Count 246 MPV 9.7 Immature Gran % (Auto) 0.200 Neut % (Auto) 48.8 Lymph % (Auto) 33.2 Alfalfa % (Auto) 10.9 H Eos % (Auto) 5.9 H Baso % (Auto) 1.0 Absolute Neuts (auto) 2.8 Absolute Lymphs (auto) 1.92 Nucleated RBC % 0 Sodium 137 Potassium 4.1 Chloride 103 Carbon Dioxide 26.0 Anion Gap 8 BUN 16 Creatinine 0.98 Estim Creat Clear Calc 95.97 Est GFR (MDRD) Af Amer 107 Est GFR (MDRD) Non-Af 89 BUN/Creatinine Ratio 16.2 Glucose 94 Calcium 9.0 Urine Color Yellow Urine Clarity Clear Urine pH 6.5 Ur Specific [place] 1.010 Urine Protein Negative Urine Glucose (UA) Normal Urine Ketones Negative Urine Occult Blood Negative Urine Nitrite Negative Urine Bilirubin Negative Urine Urobilinogen Normal Ur Leukocyte Esterase Negative Urine RBC 0 SEEN Urine WBC 0 SEEN Ur Squamous Epith Cells 0 SEEN Urine Bacteria 0 SEEN Urine Mucus 0 SEEN Radiography Diagnostic Testing: Radiology Impression Abdomen/Pelvis CT 08/15/20 11:02 IMPRESSION: No acute abnormality. Electronically Signed: Scout Humphrey MD at 12:01 EDT Tel , Service support , Discharge Plan Triage Chief Complaint: Complaint ED Provider: Sae Avelar Dx/Rx/DC Orders Clinical Impression: Abdominal pain Instructions: ED Pain, Acute, Uncertain Cause, ED Abdominal Pain Unknown ... Prescriptions: New ciprofloxacin HCl [Cipro] 500 mg tablet 500 mg PO BID Qty: 10 RF: 0 No Action multivitamin [Daily Multi-Vitamin] tablet 1 tab PO QDAY RF: 0 lactobacillus combination no.8 [Adult Probiotic] 3 billion cell capsule 3,000 mmu cells PO QDAY RF: 0 lorazepam [Ativan] 1 mg tablet 1 mg PO QHS PRN (Reason: Anxiety) RF: 0 fluvoxamine 25 mg tablet 25 mg PO QHS RF: 0 Primary Care Provider: Alex Floyd Referrals: Alex Floyd MD [Primary Care Provider] - 3-5 Days Disposition Disposition: Home, Self Care
[2020-08-15 11:19] LABS: Absolute Lymphocyte Count 1.92 X10^3/uL (0.83-4.51); Absolute Neutrophil Count 2.8 X10^3/uL (2.0-7.7); Basophil# 0.06 X10^3/uL; Eosinophil# 0.34 X10^3/uL; Eosinophils% 5.9 % (0-5); Hematocrit 42.5 % (40-54); Hemoglobin 14.4 g/dL (13.0-16.5); Lymphocyte # 1.92 X10^3/ul (0.83-4.51); Lymphocyte % 33.2 % (19-41); Mean Corp Hgb Conc 33.9 g/dL (32-36); Mean Corpuscular Hgb 28.6 pg (27.0-32.0); Mean Corpuscular Volume 84.3 fL (80-94); Mean Platelet Vol. 9.7 fl (6.2-12.0); Monocyte# 0.63 X10^3/uL; Monocyte% 10.9 % (0-10); NRBC Flagged by Analyzer 0 % (0-5); Neutrophil # 2.82 X10^3/uL (2.7-7.7); Neutrophil % 48.8 % (47-70); Platelet Count 246 K/mm3 (150-450); RBC Distribution Width CV 11.9 % (11.6-14.6); Red Blood Count 5.04 M/mm3 (4.6-6.2); White Blood Count 5.8 K/mm3 (4.4-11.0)
[2020-08-15 11:26] LABS: Bacteria 0 SEEN /hpf (None Seen); Mucous, Urine 0 SEEN /hpf (<or=2+); Red Blood Cells-Urine 0 SEEN /hpf (0-5); Squamous Epithelial Cells - UA 0 SEEN /hpf (0-5); White Blood Cells 0 SEEN /hpf (0-5)
[2020-08-15 11:28] LABS: Color, Urine Yellow (Yellow); Glucose, Dipstick Normal (Normal); Ketone-Dipstick Negative (Negative); Leukocyte Esterase-Dipstick Negative /ul (Negative); Nitrite-Dipstick Negative (Negative); Occult Blood-Urine Negative /ul (Negative); Protein-Dipstick Negative (Negative); Urine Bilirubin Dipstick Negative (Negative); Urine Clarity Clear (Clear); Urine Urobilinogen Normal (Normal); Urine pH 6.5 (5.0 - 8.0)
[2020-08-15 11:30] LABS: Anion Gap 8 (5-15); BUN 16 mg/dL (7-18); BUN/Creat Ratio 16.2 RATIO (10-20); Chloride 103 mmol/L (98-107); Creatinine, Serum 0.98 mg/dL (0.70-1.30); EST Glomerular Filtration Rate 89 mL/min (>60); Est Glom Filt Rate - Afr Amer 107 mL/min (>60); Estimated Creatinine Clearance 95.97 ml/min; Glucose 94 mg/dL (74-106); Potassium 4.1 mmol/L (3.5-5.1); Sodium Level 137 mmol/L (136-145)
[2020-08-15] MEDS: 0.9% Normal Saline 1,000 ML 125 ML IV (11:33)
[2020-08-15] MEDS: Ciprofloxacin 250 MG Tablet 500 MG PO (12:29)
[2020-08-15 12:33] VITALS: BP 158/101; PULSE 65; RESP 18; O2SAT 99
== END 2020-08-15 12:40 | disposition home or self-care (01) ==
PROVIDERS: Emergency Provider Emergency Medicine; PCP Family Medicine
DX: R10.32 Left lower quadrant pain (principal); R30.0 Dysuria; M10.9 Gout, unspecified; M19.90 Unspecified osteoarthritis, unspecified site; Z86.2 Personal history of diseases of the blood and blood-forming organs and certain disorders involving the immune mechanism; Z87.891 Personal history of nicotine dependence
CPT/HCPCS: 74176; 80048; 81001; 85025; 96360; 99285; J7030; A4216

== ENCOUNTER → 2020-12-16 08:13 | Outpatient (CLI) | payer OTHER, SELFPAY ==
[2020-12-16 10:07] LABS: ALB/GLOB Ratio 1.1 RATIO (0.9-2.4); AST(SGOT) 28 U/L (15-37); Alanine Aminotransfer ALT/SGPT 37 U/L (16-61); Albumin, Serum 3.9 g/dL (3.2-5.0); Alkaline Phosphatase 73 U/L (45-117); Anion Gap 8 (5-15); BUN 18 mg/dL (7-18); BUN/Creat Ratio 17.8 RATIO (10-20); Calcium,Total 8.8 mg/dL (8.5-10.1); Chloride 105 mmol/L (98-107); Cholesterol 178 mg/dL (200); Creatinine, Serum 1.01 mg/dL (0.70-1.30); EST Glomerular Filtration Rate 86 mL/min (>60); Est Glom Filt Rate - Afr Amer 104 mL/min (>60); Globulin 3.7 g/dL (2.2-4.2); Glucose 83 mg/dL (74-106); High Density Lipoprotein 57 mg/dL; Potassium 3.7 mmol/L (3.5-5.1); Protein, Total 7.6 g/dL (6.4-8.2); Sodium Level 140 mmol/L (136-145); Triglycerides 48 mg/dL; Very Low Density Lipoprotein 10 mg/dL (5-40)
== END ==
PROVIDERS: PCP Family Medicine; Referring Provider Nurse Practitioner Primary Care; Visit Provider Nurse Practitioner Primary Care
DX: Z00.8 Encounter for other general examination (principal)
CPT/HCPCS: 36415; 80053; 80061

== ENCOUNTER 2021-03-09 17:23 | Emergency (ER) | payer OTHER, SELFPAY ==
[2021-03-09 17:24] VITALS: BP 134/96; PULSE 82; RESP 15; TEMP 36; O2SAT 99; BMI 30.9
--- NOTE | 2021-03-09 17:45 | CT_ITS ---
STUDY: CT ABDOMEN AND PELVIS WITH CONTRAST REASON FOR EXAM: Male, 40 years old. rectal pain, ribbon like stool -- IV PO Contrast RADIATION DOSAGE (If Supplied By Facility): CTDIvol = ( 17.93 ) mGy, DLP = ( 1188.12 ) mGycm TECHNIQUE: Transaxial images were obtained from the dome of the diaphragm to the symphysis pubis without oral contrast. Oral and amp; IV Gastrografin and amp; 100mL Isovue-300 was administered. Sagittal and coronal images were reconstructed. Individualized dose optimization techniques were used for this CT. COMPARISON: None. FINDINGS: The visualized lung bases are unremarkable. The visualized portions of the heart are within normal limits. Normal liver. Normal gallbladder and extrahepatic biliary system. Normal spleen. Normal pancreas. Normal bilateral adrenal glands. Normal right kidney. Normal left kidney. Normal visualized stomach. Normal small intestine. Normal colon. The appendix is not visualized. Normal abdominal aorta. Normal inferior vena cava. Normal retroperitoneum. Normal urinary bladder. Normal abdominal wall. Status post fusion at L5-S1. CT/Abdomen/Pelvis WITH Contrast IMPRESSION: No acute pathology of the abdomen and pelvis. Electronically Signed: Avila Dang DO at 20:05 EST Reading Location ID and State: [facility] / [place] Tel [phone], Service support ,
--- NOTE | 2021-03-09 17:46 | ED.VIS.GI ---
HPI HPI - GI History of Present Illness Chief Complaint: Abd Pain Detail of Chief Complaint: Rectal pain for for 5 days Informant: patient Narrative Narrative: Patient presents to the emergency department with rectal pain for for 5 days. Patient was seen by his primary care physician and was referred to the emergency department for concern for possible abscess. Patient states initially thought maybe he had hemorrhoids and he has been using some suppositories without relief. Patient feels like he sit on a golf ball and has constant pain of about 3 out of 10. This morning he had a bowel movement and had severe pain with that. Patient also states has been having ribbonlike stools since about 2020. Patient has not had a colonoscopy before. No family history of colon cancer. Patient has had prior appendectomy. He denies any fevers or chills or sweats. [facility] Medical History (Updated 03/09/21 @ 21:[address] Sae Avelar, DO) Anemia Arthritis Back pain Broken femur Gout Hemorrhoids Hypertension Neck pain Spastic pelvic floor syndrome Home Medications fluvoxamine 25 mg tablet 25 mg PO QHS 07/04/17 [History Last Taken Unknown] lactobacillus combination no.8 3 billion cell capsule 3,000 mmu cells PO QDAY 07/04/17 [History Last Taken Unknown] lorazepam 1 mg tablet 1 mg PO QHS PRN 07/04/17 [History Last Taken Unknown] multivitamin 1 tab PO QDAY 07/04/17 [History Last Taken Unknown] ciprofloxacin HCl 500 mg PO BID #20 tablet 03/09/21 [Rx Last Taken Unknown] metronidazole 500 mg PO Q8H #30 tab 03/09/21 [Rx Last Taken Unknown] Allergy/AdvReac Type Severity Reaction Status Date / Time No Known Allergies Allergy Verified 09/17/20 10:12 Family History Father Cancer Grandmother Cancer Surgical History History of tonsillectomy and adenoidectomy Hx of appendectomy Social History Smoking Status: Former smoker how long ago did patient quit smokin years alcohol intake: current alcohol intake frequency: a few times a month Alcohol type: beer ROS ROS ED Constitutional Constitutional ED: Reports systems reviewed and no addt'l complaints, except as documented; Denies body ache(s), change in weight or chills Eyes Eyes: Denies acute decrease in peripheral vision, change in vision, double vision or loss of vision ENT ENT ED: Reports none; Denies ear pain, lip swelling, loss taste/smell, neck pain, otalgia or sore throat Cardiovascular Cardiovascular: Reports none; Denies abdominal pain, chest pain with activity, leg edema, lightheadedness, palpitations, rapid heart rate or syncope Respiratory/Chest Respiratory/Chest: Reports none; Denies change in mental status, dry cough, dyspnea, hemoptysis, shortness of breath at rest or shortness of breath with exertion Gastrointestinal Gastrointestinal: Reports none and other Details: Rectal pain, ribbonlike stools ; Denies abdominal pain, change in stool character, diarrhea, hematemesis, hematochezia, melena, rectal bleeding or vomiting Genitourinary Genitourinary ED: Reports none; Denies abdominal discomfort, anuria, dysuria, genital pain or polyuria Musculoskeletal Musculoskeletal: Reports none; Denies arthralgias, back pain, difficulty walking, extremity pain, muscle weakness or myalgias Integumentary Reports none; Denies abscess or rash Neurologic Neurologic: Reports none; Denies abnormal gait, confusion, focal weakness, frequent falls, headache(s), loss of vision, numbness, paresthesias, radicular pain, vertigo or weakness Psychiatric Psychiatric: Reports systems reviewed and no addt'l complaints, except as documented and none; Denies behavioral changes, confusion, difficulty concentrating, hallucinations, suicidal ideation, tactile hallucinations or visual hallucinations Endocrine Endocrinology: Denies none, cold intolerance, excessive sweating, fatigue or heat intolerance Hematologic/Lymphatic Hematologic/Lymphatic: Reports none; Denies anemia, easy bleeding or easy bruising Allergic/Immunologic Allergic/Immunologic ED: Denies as per HPI, none, lip swelling, mouth swelling, throat swelling, tongue swelling or hives EXAM Physical Exam Const Vital Signs: 03/09/21 17:24 Temperature 96.8 F L Temperature Source Temporal Pulse Rate 82 Respiratory Rate 15 Blood Pressure 134/96 H Blood Pressure Mean 108 Pulse Ox 99 Oxygen Delivery Method Room Air Positive well nourished and well developed General Appearance ED: well developed and NAD HEENT Reports TM's clear and moist mucous membranes normocephalic and atraumatic; Negative for trauma or tenderness Tympanic Membrane ED: Yes TM's clear Eyes PERRL and EOMs intact bilaterally General Eye ED: Negative for pale conjunctiva or scleral icterus Neck no lymphadenopathy, supple and no JVD General: Negative for tenderness Chest Wall inspection of chest normal and palpation of chest normal Chest: Negative for tenderness Resp normal respiratory effort and clear to auscultation bilaterally Effort and Inspection: Negative for respiratory distress or pain with movement Auscultation: Negative for rhonchi, wheezes or diminished lung sounds Cardio regular rate, regular rhythm, S1 normal heart sound, S2 normal heart sound and no murmurs Peripheral Pulses: pulses 2+ throughout GI normal to inspection, nondistended, normoactive bowel sounds, soft to palpation, non-tender, non-distended and no masses GI Narrative: On rectal exam no abscesses or hemorrhoids noted initially. On digital rectal exam no masses palpated however in the space involving the posterior wall of the rectum towards the sacrum there is a fullness palpated that is very tender to palpation. Back/Spine no CVA tenderness and no thoracic nor lumbar tenderness Extremity normal to inspection General Extremety ED: Negative for edema General Extremity: Negative for edema Neuro oriented x3, CN's II-XII intact bilaterally, no sensory deficits noted and gait normal Sensorium / Orientation: awake, alert, oriented to person, oriented to place and oriented to time Motor Exam: strength 5/5 throughout and strength abnormal Psych mental status grossly normal Skin no rashes or lesions noted and no wounds MDM MDM MDM Narrative Medical decision making narrative: IV line established on arrival. Patient was noted to have an elevated white count of 13.3. Chemistries were unremarkable. Patient had a CT scan of the abdomen pelvis that initially was read by radiology as normal however on my interpretation I felt patient likely had a fluid collection posterior aspect of the rectum and I had them reevaluate the CT scan. After looking at the CT scan again radiology agrees that there is a 2 cm fluid collection posterior portion of the rectum that could be consistent with an abscess. I discussed case with general surgeon on-call Dr. Kyle Hall who given the size recommended antibiotics and outpatient follow-up. Patient advised to return if worsening pain, fever, chills, sweats, or condition should worsen anyway Lab Data Attestation: I reviewed the patient's lab results. Labs: Laboratory Results - last 24 hr 03/09/21 03/09/21 18:11 18:11 WBC 13.3 H RBC 4.63 Hgb 13.3 Hct 39.5 L MCV 85.3 MCH 28.7 MCHC 33.7 RDW Std Deviation 37.4 RDW Coeff of Anders 12.1 Plt Count 357 MPV 9.5 Immature Gran % (Auto) 0.700 Neut % (Auto) 67.9 Lymph % (Auto) 16.4 L [place] % (Auto) 10.9 H Eos % (Auto) 3.6 Baso % (Auto) 0.5 Absolute Neuts (auto) 9.1 H Absolute Lymphs (auto) 2.19 Nucleated RBC % 0 Sodium 139 Potassium 4.1 Chloride 104 Carbon Dioxide 31.0 Anion Gap 4 L BUN 20 H Creatinine 1.12 Estim Creat Clear Calc 83.13 Est GFR (MDRD) Af Amer 92 Est GFR (MDRD) Non-Af 76 BUN/Creatinine Ratio 17.9 Glucose 98 Calcium 8.9 Radiography Diagnostic Testing: Clinical Impression(s) from Imaging Studies Abdomen/Pelvis CT 03/09/21 17:45 IMPRESSION: No acute pathology of the abdomen and pelvis. Electronically Signed: Avila Dang DO at 20:05 EST Reading Location ID and State: [facility] / [place] Tel [phone], Service support , ADDENDUM: 03/09/[id number] Discharge Plan Triage Chief Complaint: Abd Pain ED Provider: Sae Avelar Dx/Rx/DC Orders Clinical Impression: Abscess, perirectal Instructions: ED ABSCESS Nichole-Anal Abx only Prescriptions: New ciprofloxacin HCl [ciprofloxacin HCl] 500 MG tablet 500 mg PO BID Qty: 20 RF: 0 metronidazole 500 mg tablet 500 mg PO Q8H Qty: 30 RF: 0 No Action multivitamin [Daily Multi-Vitamin] tablet 1 tab PO QDAY RF: 0 lactobacillus combination no.8 [Adult Probiotic] 3 billion cell capsule 3,000 mmu cells PO QDAY RF: 0 lorazepam [Ativan] 1 mg tablet 1 mg PO QHS PRN (Reason: Anxiety) RF: 0 fluvoxamine 25 mg tablet 25 mg PO QHS RF: 0 Primary Care Provider: Alex Floyd Referrals: Kyle Hall MD [STAFF PHYSICIAN] - 3-5 Days Alex Floyd MD [Primary Care Provider] - Disposition Disposition: Home, Self Care
[2021-03-09 18:19] LABS: Absolute Lymphocyte Count 2.19 X10^3/uL (0.83-4.51); Absolute Neutrophil Count 9.1 X10^3/uL (2.0-7.7); Basophil# 0.07 X10^3/uL; Basophil% 0.5 % (0-1); Eosinophil# 0.48 X10^3/uL; Eosinophils% 3.6 % (0-5); Hematocrit 39.5 % (40-54); Hemoglobin 13.3 g/dL (13.0-16.5); Lymphocyte # 2.19 X10^3/ul (0.83-4.51); Lymphocyte % 16.4 % (19-41); Mean Corp Hgb Conc 33.7 g/dL (32-36); Mean Corpuscular Hgb 28.7 pg (27.0-32.0); Mean Corpuscular Volume 85.3 fL (80-94); Mean Platelet Vol. 9.5 fl (6.2-12.0); Monocyte# 1.45 X10^3/uL; Monocyte% 10.9 % (0-10); NRBC Flagged by Analyzer 0 % (0-5); Neutrophil # 9.05 X10^3/uL (2.7-7.7); Neutrophil % 67.9 % (47-70); Platelet Count 357 K/mm3 (150-450); RBC Distribution Width CV 12.1 % (11.6-14.6); RBC Distribution Width SD 37.4 fl (35.1-43.9); Red Blood Count 4.63 M/mm3 (4.6-6.2); White Blood Count 13.3 K/mm3 (4.4-11.0)
[2021-03-09 18:32] LABS: Anion Gap 4 (5-15); BUN 20 mg/dL (7-18); BUN/Creat Ratio 17.9 RATIO (10-20); Calcium,Total 8.9 mg/dL (8.5-10.1); Chloride 104 mmol/L (98-107); Creatinine, Serum 1.12 mg/dL (0.70-1.30); EST Glomerular Filtration Rate 76 mL/min (>60); Est Glom Filt Rate - Afr Amer 92 mL/min (>60); Estimated Creatinine Clearance 83.13 ml/min; Glucose 98 mg/dL (74-106); Potassium 4.1 mmol/L (3.5-5.1); Sodium Level 139 mmol/L (136-145)
[2021-03-09] MEDS: Ciprofloxacin 500 MG Tablet PO (21:07)
[2021-03-09] MEDS: metroNIDAZOLE 500 MG Tablet PO (21:07)
== END 2021-03-09 21:11 | disposition home or self-care (01) ==
PROVIDERS: Emergency Provider Emergency Medicine; PCP Family Medicine; Visit Provider Emergency Medicine
DX: K61.1 Rectal abscess (principal); I10 Essential (primary) hypertension; M19.90 Unspecified osteoarthritis, unspecified site; M10.9 Gout, unspecified; Z79.899 Other long term (current) drug therapy; Z87.891 Personal history of nicotine dependence
CPT/HCPCS: 74177; 80048; 85025; 99285; Q9967

== ENCOUNTER 2021-06-22 05:15 | Day surgery (SDC) | payer OTHER, SELFPAY ==
--- NOTE | 2021-06-22 | COLBX_PTH ---
PATIENT: CATHY PALM LOC: EN U#:[id number] AGE/SX: 40/M ROOM: RE06/22/[address]: Dr. Liborio Marcelino DO : 1980 BED: DIS: 06/22/2021 SPEC #: [id number] RECD: 06/22/21 12:58 STATUS: CHAPO NELLY #: [id number] ARLEEN: 06/22/21 00:[address]: Liborio Marcelino DEPT: SURGICAL PATHOLOGY RECD BY: Kyle Tilley ENTERED: 06/22/21 12:59 SP TYPE: COLON BX OTHR DR: Dr. Alex Floyd MD Tissues: A - Rectum, NOS B - Ileum, NOS C - COLON BIOPSY D - Sigmoid colon biopsy Procedures: Surgery Specimen Level IV HEADER OPERATION: Colonoscopy (MAC) with biopsies PRE-OP DIAGNOSIS: Perirectal abscess TISSUE SUBMITTED: A ? Rectal biopsy, B ? Terminal ileum biopsy, C ? Random colon biopsies, D ? Sigmoid colon biopsy MICROSCOPIC DIAGNOSIS A. Rectal biopsy: Fragments of colonic mucosa, no pathologic diagnosis. B. Terminal ileum, biopsy: Fragments of small intestinal mucosa, no pathologic diagnosis. C. Colon, random biopsies: Fragments of colonic mucosa, no pathologic diagnosis. D. Sigmoid colon, biopsy: A fragment of colonic mucosa, no pathologic diagnosis. SJ:eduardo 06/23/2021 MICROSCOPIC DESCRIPTION Slides are reviewed. GROSS DESCRIPTION A - Received in fixative is one container labeled with the patient's name and designated rectal biopsy. The specimen consists of two irregular fragments of light linton soft tissue that in aggregate measure 0.6 x 0.3 x 0.1 cm. The specimen is totally submitted in one cassette. B - Received in fixative is one container labeled with the patient's name and designated terminal ileum biopsy. The specimen consists of two irregular fragments of light l[place] soft tissue that in aggregate measure 0.8 x 0.4 x 0.1 cm. The specimen is totally submitted in one cassette. C - Received in fixative is one container labeled with the patient's name and designated random colon biopsy. The specimen consists of multiple irregular fragments of light l[place] soft tissue that in aggregate measure 2.5 x 0.6 x 0.1 cm. The specimen is totally submitted in one cassette. D - Received in fixative is one container labeled with the patient's name and designated sigmoid polyp biopsy. The specimen consists of one irregular fragment of light linton soft tissue that measures 0.4 x 0.4 x 0.1 cm. The specimen is totally submitted in one cassette. / HAROON:eduardo 06/22/2021 TC:4 CPT: 09839 x4
[2021-06-22] MEDS: Lactated Ringers 1,000 ML 15 ML IV (05:30)
[2021-06-22 05:54] VITALS: BP 135/97; PULSE 73; RESP 18; TEMP 36.3; O2SAT 98; BMI 30.1
--- NOTE | 2021-06-22 07:03 | HP.PCM_ITS ---
History and Physical Date of Admission: 06/22/21 DAWSON PALM, is a 40 M who presents to the office today for Evaluation of a change in bowel habits. Dawson established with this clinic 04.13.21. Seen by [facility] urology 02.15.21 who prescribed antibiotic for penile and testicle discomfort with rectal abscess which may be aggravated by OCD causing him to check compulsively. Around this time he began having a change in bowel habits of softer stool with narrow girth which was noted by his . [facility] referred for stool evaluation after he was seen for possible draining of abscess near prostate which was treated with antibiotics rather than surgery. Gastrointestinal history includes GERD that has resolved with weight loss and no longer requires medications. Previously prescribed medications include hydrocortisone suppositories Urethral scarring r/t repeated catheterization from leg surgery resulting in reconstruction. Ct abd/pel 2.03.29 finding possible abscess along posterior wall of the rectum. Exam otherwise without remark. Abscess treated with antibiotics through [facility] ED visit. ROS Const Constitutional: No anorexia, fatigue, fever(s), weight change or sleep problems Eyes Eyes: No change in vision ENT ENT: No abnormal hearing, difficulty swallowing, mouth lesions, tongue swelling or throat swelling Resp Respiratory: No cough or shortness of breath Cardio Cardiology: No chest pain at rest, chest pain with exertion, shortness of breath or dyspnea on exertion Gastro GI: No difficulty swallowing Genitourinary Male: No difficulty urinating or burning urination Musc Musculoskeletal: No joint pain, joint swelling, muscle weakness or decreased muscle mass Skin Skin: No hair loss in leg, yellowing of the eye, itchy eyes, rash, skin ulcer or skin swelling Neuro Neurology: No abnormal hearing, abnormal movements, confusion, unsteady gait/balance or memory loss Psych Psychiatric: No anxiety, No confusion and No memory loss Endo Endocrine: No fatigue or weight change Aller/Imm Allergy/Immunologic: No itchy eyes, throat swelling or tongue swelling [place]/Lymp Hematologic/Lymphatic: No easy bleeding, easy bruising or enlarged lymph nodes Exam Const General: cooperative and comfortable Nutritional Appearance: average body habitus and well nourished HENOH Head: normal to inspection Ears: hearing grossly normal bilaterally Nose: external nose normal Face and sinus: normal facial exam Mouth: oral mucosae normal Throat: posterior oropharynx normal Eyes General: appearance normal, both eyes and all related structures Neck Neck: normal visual inspection Chest Chest palpation & inspection: normal inspection of the chest and normal palpation of entire chest wall Resp Effort & Inspection: normal respiratory effort Auscultation: Bilateral: Clear to Auscultation Cardio Palpation: normal PMI Rate: regular rate Rhythm: regular rhythm GI Inspection: normal to inspection Auscultation: normal bowel sounds Percussion: normal to percussion Palpation: no hepatosplenomegaly Skin General: no rashes or lesions noted Neuro General: patient alert Extrem General: normal to inspection Psych Affect: normal affect Quality Reporting Tobacco Screening ([facility] 138) Smoking Status: Former smoker Assessment and Plan Assessment and Plan (1) Perirectal abscess: Status: Acute Plan - Dr. Capone Friend, DO: Perirectal abscess is an infection that is deep and tracks up along the rectum into the pelvis. These deep abscesses can be found in various locations in the pelvis and can be associated with inflammatory bowel disease, such as Crohn's disease. He does have a history of [place]. This can be indicative of possible inflammatory bowel disease in the setting of a perianal abscess. I do not see any fistula formation In the CT scan of the abdomen pelvis. His CT scan did have the presence of what appeared to be proctitis. He has a history of possible urethritis and/or epididymitis. He has had a urethral stricture in the past. At this time he is not having any urine symptoms. Occasional back pain without fecal incontinence. (2) Diarrhea: Status: Acute Plan - Dr. Capone Friend, DO: On the Bent stool scale. He rates it at about a 6 which is more consistent with a watery stool possibly secondary to inflammatory bowel disease. He also takes about 2 mg echogram appointing on a daily basis which should make him more constipated disease and ketogenesis most the time. However he still has the same consistency of stool on a daily basis. The biopsies evaluated ileum as well as colon biopsies and stool culture. I have re-examined the patient. There are no clinical changes since date of exam.
[2021-06-22 07:05] VITALS: BP 104/51; BP 135/97; PULSE 66; RESP 14; TEMP 36.3; O2SAT 96
--- NOTE | 2021-06-22 07:09 | OP.COLON_ITS ---
Patient Name: Dawson Ratliff Procedure Date: 06/22/2021 6:24 AM Date of : 1980 Age: 40 Procedure: Colonoscopy Indications: Clinically significant diarrhea of unexplained origin, Abnormal CT of the GI tract Providers: Liborio Marcelino DO Medicines: Monitored Anesthesia Care Patient Profile: Last Colonoscopy: none. The patient's first colonoscopy is today. Complications: No immediate complications. Procedure: Pre-Anesthesia Assessment: - Prior to the procedure, a History and Physical was performed, and patient medications and allergies were reviewed. The patient is competent. The risks and benefits of the procedure and the sedation options and risks were discussed with the patient. All questions were answered and informed consent was obtained. Patient identification and proposed procedure were verified by the physician in the pre-procedure area. Mental Status Examination: alert and oriented. Airway Examination: normal oropharyngeal airway and neck mobility. Respiratory Examination: clear to auscultation. CV Examination: normal. Prophylactic Antibiotics: The patient does not require prophylactic antibiotics. Prior Anticoagulants: The patient has taken no previous anticoagulant or antiplatelet agents. ASA Grade Assessment: II - A patient with mild systemic disease. After reviewing the risks and benefits, the patient was deemed in satisfactory condition to undergo the procedure. The anesthesia plan was to use moderate sedation / analgesia (conscious sedation). Immediately prior to administration of medications, the patient was re-assessed for adequacy to receive sedatives. The heart rate, respiratory rate, oxygen saturations, blood pressure, adequacy of pulmonary ventilation, and response to care were monitored throughout the procedure. The physical status of the patient was re-assessed after the procedure. After I obtained informed consent, the scope was passed under direct vision. Throughout the procedure, the patient's blood pressure, pulse, and oxygen saturations were monitored continuously. The Colonoscope was introduced through the anus and advanced to the terminal ileum. The colonoscopy was performed without difficulty. The patient tolerated the procedure well. The quality of the bowel preparation was good. Scope In: 6:46:33 AM Scope Withdrawal Time 0 hours 9 minutes 15 seconds Scope Out: 7:00:28 AM Total Procedure Duration Time 0 hours 13 minutes 55 seconds Findings: The perianal and digital rectal examinations were normal. Pertinent negatives include normal sphincter tone, no palpable rectal lesions and no anal lesion or abnormality was detected. Localized mild inflammation characterized by erosions and granularity was found in the rectum. Biopsies were taken with a cold forceps for histology. Verification of patient identification for the specimen was done. Estimated blood loss was minimal. A 5 mm polyp was found in the sigmoid colon. The polyp was sessile. The polyp was removed with a cold snare. Resection and retrieval were complete. Verification of patient identification for the specimen was done. Estimated blood loss was minimal. An area of mildly congested mucosa was found in the sigmoid colon. Biopsies for histology were taken with a cold forceps from the entire colon for evaluation of microscopic colitis. Verification of patient identification for the specimen was done. Estimated blood loss was minimal. A localized area of mucosa in the terminal ileum was mildly friable with no bleeding. Impression: - Localized mild inflammation was found in the rectum secondary to colitis. Biopsied. - One 5 mm polyp in the sigmoid colon, removed with a cold snare. Resected and retrieved. - Congested mucosa in the sigmoid colon. Biopsied. - Friability with no bleeding in the terminal ileum. Recommendation: - Discharge patient to home. - Resume previous diet. - Continue present medications. - Await pathology results. - Repeat colonoscopy in 5 years for surveillance. - Return to GI office. Procedure Code(s): --- Professional --- 66075, Colonoscopy, flexible; with removal of tumor(s), polyp(s), or other lesion(s) by snare technique 13375, 59, Colonoscopy, flexible; with biopsy, single or multiple CPT copyright 2017 [employer]. All rights reserved. The codes documented in this report are preliminary and upon brick burner head review may be revised to meet current compliance requirements. Liborio Marcelino DO 06/22/2021 7:09:10 AM This report has been signed electronically. Number of Addenda: 1 Note Initiated On: 06/22/2021 6:24 AM Addendum Number: 1 Addendum Date: 11/04/2021 6:19:54 AM MAC was used as sedation for this procedure. Liborio Marcelino DO 11/04/2021 6:20:05 AM This report has been signed electronically.
--- NOTE | 2021-06-22 07:09 | OP.CCLET_ITS ---
11/04/2021 Alex Floyd Re : Colonoscopy procedure for Dawson Ratliff Deaekaterina Floyd This procedure was performed on Tuesday, June 22, 2021. My impressions and recommendations are as follows: Impressions : - Localized mild inflammation was found in the rectum secondary to colitis. Biopsied. - One 5 mm polyp in the sigmoid colon, removed with a cold snare. Resected and retrieved. - Congested mucosa in the sigmoid colon. Biopsied. - Friability with no bleeding in the terminal ileum. Recommendations : - Discharge patient to home. - Resume previous diet. - Continue present medications. - Await pathology results. - Repeat colonoscopy in 5 years for surveillance. - Return to GI office. My findings are described in the full procedure note, which is enclosed. If I can be of further assistance, please feel free to contact me at . Sincerely, Liborio Marcelino, 06/22/2021 7:09:10 AM This report has been signed electronically.
[2021-06-22 07:10] VITALS: BP 101/56; BP 135/97; PULSE 63; RESP 16; O2SAT 97
[2021-06-22 07:15] VITALS: BP 104/64; BP 135/97; PULSE 61; RESP 16; O2SAT 96
[2021-06-22 07:20] VITALS: BP 110/64; BP 135/97; PULSE 62; RESP 16; TEMP 36.7; O2SAT 98
[2021-06-22 07:33] VITALS: BP 135/97
== END 2021-06-22 08:04 | disposition home or self-care (01) ==
LOC: EN 05:16 → AC 05:22
PROVIDERS: PCP Family Medicine; Referring Provider Family Medicine; Visit Provider Internal Medicine Gastroenterology
PROC: 0DJD8ZZ Inspection of Lower Intestinal Tract, Via Natural or Artificial Opening Endoscopic (ICD-10-PCS; CPT 45378; principal; 2021-06-22 06:25)
DX: K61.1 Rectal abscess (principal); F41.9 Anxiety disorder, unspecified; F32.A Depression, unspecified; K76.0 Fatty (change of) liver, not elsewhere classified; M19.90 Unspecified osteoarthritis, unspecified site; Z79.899 Other long term (current) drug therapy; I10 Essential (primary) hypertension; G25.81 Restless legs syndrome; F42.9 Obsessive-compulsive disorder, unspecified; K52.9 Noninfective gastroenteritis and colitis, unspecified; K63.5 Polyp of colon
CPT/HCPCS: 45385; 45380; 88305; J7120; J2405

== ENCOUNTER → 2021-08-19 | Outpatient (CLI) | payer OTHER, SELFPAY ==
--- NOTE | 2021-08-19 09:22 | CT_ITS ---
STUDY: CT ABDOMEN AND PELVIS WITH CONTRAST REASON FOR EXAM: Male, 40 years old. History of perineal abscess. RADIATION DOSAGE (If Supplied By Facility): CTDIvol = ( 12.60 ) mGy, DLP = ( 796.96 ) mGycm TECHNIQUE: Transaxial images were obtained from the dome of the diaphragm to the symphysis pubis with oral contrast. Oral and amp;amp; IV Gastrografin and amp;amp; 100mL Isovue-300 was administered. Sagittal and coronal images were reconstructed. Individualized dose optimization techniques were used for this CT. COMPARISON: Comparison is made with prior study dated 03/09/2021. FINDINGS: The visualized lung bases are unremarkable. The visualized portions of the heart are within normal limits. Normal liver. Normal gallbladder and extrahepatic biliary system. Normal spleen. Normal pancreas. Normal bilateral adrenal glands. Normal right kidney. Normal left kidney. Normal visualized stomach. Normal small intestine. Normal colon. No perirectal abscess is seen at this time. The appendix is visualized and appears normal. There is scattered atherosclerotic calcification of the abdominal aorta, without a demonstrated aneurysm. Normal inferior vena cava. Normal retroperitoneum. Mild degree of diffuse bladder wall thickening although the urinary bladder is not completely distended. Normal abdominal wall. Status post fusion at the L5-S1 level. CT/Abdomen/Pelvis WITH Contrast IMPRESSION: No perirectal abscess is seen at this time. Electronically Signed: Lokesh Johnson MD at 12:02 EDT ,
== END | disposition home or self-care (01) ==
PROVIDERS: PCP Family Medicine; Referring Provider Family Medicine; Visit Provider Family Medicine
DX: K65.9 Peritonitis, unspecified (principal); Z87.19 Personal history of other diseases of the digestive system; R10.2 Pelvic and perineal pain; R10.30 Lower abdominal pain, unspecified
CPT/HCPCS: 74177; Q9967

== ENCOUNTER → 2021-08-22 | Outpatient (CLI) | payer OTHER, SELFPAY ==
--- NOTE | 2021-08-22 15:25 | US_ITS ---
STUDY: SCROTUM ULTRASOUND REASON FOR EXAM: Male, 40 years old. PAIN TECHNIQUE: Ultrasound evaluation of the scrotum was performed with color Doppler and static davis-scale imaging. COMPARISON: None. FINDINGS: RIGHT TESTICLE INTRATESTICULAR: There is a normal size of the right testicle. The right testicle measures 4.7 x 3.9 cm. There is a homogenous echotexture. There is normal arterial and normal venous vascularity. There is no demonstrated right testicular mass or cyst. EXTRATESTICULAR: The epididymis is normal in size. The epididymis head measures 1x 1 cm. There is normal vascularity of the epididymis. There is no demonstrated epididymal cystic structure. There is a small hydrocele. There is no demonstrated varicocele. There is no demonstrated extratesticular mass or cyst. LEFT TESTICLE INTRATESTICULAR: There is a normal size of the left testicle. The left testicle measures 4.5 x 3.3 cm. There is a homogenous echotexture. There is normal arterial and normal venous vascularity. There is no demonstrated left testicular mass or cyst. EXTRATESTICULAR: The epididymis is normal in size. The epididymis head measures 1.2 x 1 cm. There is normal vascularity of the epididymis. There is no demonstrated epididymal cystic structure. There is a small hydrocele. There is no demonstrated varicocele. There is no demonstrated extratesticular mass or cyst. US/Testicular with Arterial Flow IMPRESSION: Small right and left hydrocele. There are no acute findings of the bilateral testicles without evidence for torsion. Electronically Signed: Chencho Lake MD at 18:04 EDT ,
== END | disposition home or self-care (01) ==
LOC: US 15:21
PROVIDERS: PCP Family Medicine; Visit Provider Family Medicine
DX: N50.812 Left testicular pain (principal)
CPT/HCPCS: 76870; 93976

== ENCOUNTER 2023-11-08 13:36 | Day surgery (SDC) | payer OTHER, SELFPAY ==
[2023-11-08 13:56] VITALS: BP 124/70; PULSE 73; RESP 16; TEMP 36.6; O2SAT 98; BMI 30.4
--- NOTE | 2023-11-08 14:15 | LES_PTH ---
PATIENT: CATHY PALM LOC: [facility] [place] U#:[id number] AGE/SX: 43/M ROOM: RE11/08/[address]: Dr. Leona Haas MD : 1980 BED: DIS: 11/08/2023 SPEC #: [id number] RECD: 11/08/23 18:15 STATUS: CHAPO REMary Lou #: [id number] ARLEEN: 11/08/23 14:[address]: Leona Haas DEPT: SURGICAL PATHOLOGY RECD BY: Bronwyn Johnson ENTERED: 11/09/23 07:42 SP TYPE: Lesion OTHR DR: Dr. Alex Floyd MD Tissues: A - Skin of scalp, NOS B - Skin of forehead C - Skin of forehead Procedures: Surgery Specimen Level IV HEADER OPERATION: Shave lesion bilateral forehead, excision lesion scalp PRE-OP DIAGNOSIS: Neoplasm of uncertain behavior of skin of face, neoplasm of uncertain behavior of scalp TISSUE SUBMITTED: A- Scalp lesion, B- Left forehead- shave lesion, C- Right forehead- shave lesion MICROSCOPIC DIAGNOSIS A. Scalp lesion, excisional biopsy: Markedly inflamed verrucous keratosis. See comment. B. Left forehead lesion, shave biopsy: Verrucous keratosis. C. Right forehead lesion, shave biopsy: Verrucous keratosis with focal actinic keratosis features. SJ/ 11/12/2023 COMMENT A. Focal seborrheic keratosis like features and superficial bacterial colonization are also noted. Special stain for fungi is negative for organisms; matched controls is appropriate. MICROSCOPIC DESCRIPTION Slides are reviewed. GROSS DESCRIPTION A. Received in fixative is one container labeled with the patient's name and designated Scalp lesion. The specimen consists of a linton-white skin ellipse measuring 1.0 x 1.0 x 0.4cm. The specimen is inked, serially sectioned and submitted entirely in one cassette. B. Received in fixative is one container labeled with the patient's name and designated Left forehead shave lesion. The specimen consists of a piece of linton-white skin measuring 0.5 x 0.5 x 0.3cm. The specimen is inked, bisected and submitted entirely in one cassette. C. Received in fixative is one container labeled with the patient's name and designated Right forehead shave lesion. The specimen consists of a shave biopsy of light brown skin measuring 0.5 x 0.4 x 0.1cm. This specimen is inked, bisected, and submitted entirely in one cassette. 11/09/2023 TC:5 CPT:19073q9,37911
--- NOTE | 2023-11-08 15:28 | PCM.HP.BLA ---
History and Physical Date of Admission: 11/08/23 The patient is examined and there are no changes to the H&P dated 10/30/2023. Informed consent was obtained for excision of a lesion of his scalp and shave lesions of his forehead x 2. The specimens will be sent to pathology for evaluation. Assessment & Plan Assessment/Plan (1) Neoplasm of uncertain behavior of skin of face: (2) Neoplasm of uncertain behavior of scalp: PLAN: Plan For excision neoplasm scalp and shave lesions of the forehead x 2
[2023-11-08 15:52] VITALS: BP 127/87; BP 128/89; BP 134/90; BP 143/89; O2SAT 100; O2SAT 97; O2SAT 98; O2SAT 99
[2023-11-08] MEDS: Lidocaine 1% /Epi 1:100 9 ML, Sodium Bicarbonate 1 MEQ OPERA.SITE (16:15)
[2023-11-08] MEDS: Bacitracin 500 UNITS/GM PACKET (16:41)
--- NOTE | 2023-11-08 16:48 | DCINST_ITS ---
Discharge Instructions Dressing / Incision Additional Dressing/Incision Instructions:: Keep your head elevated (recliner position) at night to reduce swelling and drainage. Take the oral antibiotic (Keflex) 2 times a day until finished. May shower over the areas but do not scrub. May leave the Band-Aids off when there is no further drainage. Follow Up Care Test Results: Test results from this visit will be discussed in further detail at your follow- up appointment, if applicable. Discharge Plan Admission Attending Provider: Leona Haas Primary Care Provider: Alex Floyd Instructions Print Language: Turkmen Discharge Orders/Prescriptions Prescriptions: New cephalexin 500 mg capsule 500 mg PO BID 5 Days Qty: 10 0RF No Action lorazepam 1 mg tablet 1 mg PO DAILY PRN (Reason: anxiety) Qty: 30 0RF fluvoxamine 100 mg tablet See Rx Instructions .ROUTE .COMPLEX Qty: 90 1RF Dose Instruction: TAKE 1 TABLET BY MOUTH EVERY DAY Rx Instructions: TAKE 1 TABLET BY MOUTH EVERY DAY Referrals / Follow Up: Alex Floyd MD [Primary Care Provider] - Disposition Disposition (needs filled in before D/C Order can be placed): Home, Self Care
--- NOTE | 2023-11-08 16:50 | PCM.OPRPT ---
Problems Associated Problem List Diagnoses (1) Neoplasm of uncertain behavior of skin of face: (2) Neoplasm of uncertain behavior of scalp: Report of Operation Date of Procedure: 11/08/23 Pre-Operative Diagnosis: Neoplasm of uncertain behavior scalp and forehead x 2 Post-Operative Diagnosis: Same Surgery/Procedure Performed:: Excision neoplasm scalp (1.5 cm); Shave lesion forehead x 2 (0.5 cm, 0.5 cm) Surgeon: Leona Haas Type of Anesthesia: Local Specimen's removed: Lesion of scalp and forehead x 2 Estimated Blood Loss (mL): Minimal Description of Procedure: The patient presents with a neoplasm of the scalp and forehead x 2 prepped. He presents for excision of the lesions with submission for pathologic evaluation. The potential for a small area of alopecia on the scalp was reviewed. The patient is brought to the operating room and placed on the operating room table in the supine position. The scalp and forehead are prepped and draped in the usual sterile fashion. 1% Xylocaine with epinephrine is used for local anesthetic. Following this, the lesion of the scalp is excised and passed off the operative field to be sent to pathology. Hemostasis is controlled with cautery. The site was then closed with progressively tightened silk suture. In this fashion, the skin edges were approximated. Chromic suture was used to further refine the closure. We then directed our attention to the lesions of the forehead and after these are anesthetized with 1% Xylocaine with epinephrine, they are shaved at the base and the base full rise. Antibiotic ointment and Band-Aids are placed on the site. He tolerated the procedure well was taken to the recovery area in an awake and stable condition. Needle and sponge counts are correct. Complications None Admit VTE Documentation VTE Mechan Device Prophylaxis: None Reason prophylaxis not ordered:: Treatment Not Indicated
[2023-11-08 16:55] VITALS: BP 130/81; PULSE 67; RESP 16; TEMP 36.1; O2SAT 100
== END 2023-11-08 17:03 | disposition home or self-care (01) ==
LOC: SDC 13:36 → AC 13:37
PROVIDERS: PCP Family Medicine; Referring Provider Plastic Surgery; Visit Provider Plastic Surgery
PROC: (CPT 11422; principal; 2023-11-08 14:05)
DX: L82.0 Inflamed seborrheic keratosis (principal); L57.0 Actinic keratosis; I10 Essential (primary) hypertension; F42.9 Obsessive-compulsive disorder, unspecified; F32.A Depression, unspecified; F41.9 Anxiety disorder, unspecified; Z87.891 Personal history of nicotine dependence; Z79.899 Other long term (current) drug therapy
CPT/HCPCS: 11422; 11310; 00300; 88305

== ENCOUNTER → 2024-07-07 | Outpatient (CLI) | payer OTHER, SELFPAY ==
[2024-07-07 07:56] LABS: Absolute Lymphocyte Count 2.73 X10^3/uL (0.83-4.51); Absolute Neutrophil Count 3.2 X10^3/uL (2.0-7.7); Basophil# 0.05 X10^3/uL; Basophil% 0.7 % (0-1); Eosinophil# 0.23 X10^3/uL; Eosinophils% 3.3 % (0-5); Hematocrit 40.4 % (40-54); Hemoglobin 13.7 g/dL (13.0-16.5); Lymphocyte # 2.73 X10^3/ul (0.83-4.51); Lymphocyte % 38.8 % (19-41); Mean Corp Hgb Conc 33.9 g/dL (32-36); Mean Corpuscular Hgb 28.8 pg (27.0-32.0); Mean Corpuscular Volume 84.9 fL (80-94); Mean Platelet Vol. 10.1 fl (6.2-12.0); Monocyte% 11.4 % (0-10); NRBC Flagged by Analyzer 0 % (0-5); Neutrophil # 3.21 X10^3/uL (2.7-7.7); Neutrophil % 45.7 % (47-70); Platelet Count 253 K/mm3 (150-450); RBC Distribution Width CV 12.2 % (11.6-14.6); RBC Distribution Width SD 37.7 fl (35.1-43.9); Red Blood Count 4.76 M/mm3 (4.6-6.2)
[2024-07-07 09:43] LABS: ALB/GLOB Ratio 1.8 RATIO (0.9-2.4); AST(SGOT) 31 U/L (<=37); Alanine Aminotransfer ALT/SGPT 40 U/L (<=46); Albumin, Serum 4.4 g/dL (3.5-5.0); Alkaline Phosphatase 64 U/L (40-129); Anion Gap 11 (5-15); BUN 17 mg/dL (4-19); BUN/Creat Ratio 15.7 RATIO (10-20); Carbon Dioxide 24.7 mmol/L (21.0-32.0); Chloride 105 mmol/L (98-108); Cholesterol 177 mg/dL (<=200); EST Glomerular Filtration Rate 84 (>60); Globulin 2.4 g/dL (2.2-4.2); Glucose 93 mg/dL (70-99); High Density Lipoprotein 47 mg/dL; Low Density Lipoprotein Calc. 110 mg/dL; Potassium 4.2 mmol/L (3.3-5.1); Protein, Total 6.7 g/dL (5.9-8.4); Sodium Level 141 mmol/L (133-145); Total Bilirubin 0.21 mg/dL (0.00-1.30); Triglycerides 100 mg/dL; Very Low Density Lipoprotein 20 mg/dL (5-40)
== END | disposition home or self-care (01) ==
PROVIDERS: PCP Family Medicine; Referring Provider Family Medicine; Visit Provider Family Medicine
DX: E78.00 Pure hypercholesterolemia, unspecified (principal); R53.83 Other fatigue
CPT/HCPCS: 36415; 80053; 80061; 84403; 84443; 85025

== ENCOUNTER 2025-01-30 13:57 | Emergency (ER) | payer OTHER, SELFPAY ==
[2025-01-30 13:58] VITALS: BP 181/100; PULSE 61; RESP 16; TEMP 36.2; O2SAT 100
[2025-01-30 15:08] VITALS: BMI 30.3
[2025-01-30 15:08] LABS: Mucous, Urine 0 SEEN /hpf (<or=2+); Red Blood Cells-Urine 0 SEEN /hpf (0-5); Squamous Epithelial Cells - UA 0 SEEN /hpf (0-5)
--- NOTE | 2025-01-30 15:11 | EDS_ITS ---
HPI History of Present Illness Chief Complaint: Complaint Detail of Chief Complaint: Sent to ER by PCP because of symptoms of urinary retention Onset/Context/Timing Onset: Days (Symptoms been present for 2 days) Context: Sudden Onset Timing: Continuous Quality: Frequency and sensation he is not emptying completely and low back pain Location: Left buttocks and suprapubic Current Severity: Moderate Maximum Severity: Severe Worsened by: Nothing specific Relieved by: Nothing Associated Symptoms Associated Symptoms: No bowel bladder dysfunction. No foot drop. No buckling of knee going up Narrative Narrative: Patient is a 44-year-old male. He has history of GERD, OCD, degenerative disc disease lumbar sacral, radiculopathy of lumbar sacral region and perirectal abs cess who presents with 2 complaints. First concern is he is going frequently and only small amounts and feels he is not emptying completely. He denies incontinence of bowel. He complains of pain left buttocks area that radiates posteriorly to the mid calf. Does not go all the way down the leg. He denies saddle paresthesia or anesthesia. He denies dragging either foot when he walks. Denies buckling of either knee going up or down steps and he has gone up and down steps today. He states this is similar to the pain he experienced prior to his fusion. The fusion was performed by Dr. Jarod Aguilar at the [facility]. He denies fever, chills night sweats. He states that Dr. Floyd lit him up when he pushed left lower quadrant and suprapubic area . He denies history of diverticulosis or diverticulitis. His most recent CAT scan was mid year 2021. Report by radiologist indicates no diverticulosis. I did review the film and I did not appreciate a diverticulosis. There was some thickening of the urinary bladder noted. Patient denies discomfort with urination. Patient denies discoloration of his urine. He has no history of hypertension. Prior similar symptoms: Yes Recent Illness/Hospitalization: No PFSH PFSH Medical History Right shoulder pain Bone fracture OCD (obsessive compulsive disorder) Depression Anxiety Alcohol use Fatty liver Restless legs Back pain History of hiatal hernia Heartburn Former smoker CPAP (continuous positive airway pressure) dependence History of stress test Cardiology follow-up encounter Hypertension History of rheumatic fever History of urethral stricture Hx of fracture of femur Acute pharyngitis, unspecified Acute maxillary sinusitis, unspecified Perirectal abscess Spastic pelvic floor syndrome Anemia Hemorrhoids Arthritis Hypertension Home Medications ?Medication ?Instructions ?Recorded ?Last Taken ?Type creatine monohydrate 5,000 mg oral mg PO 03/11/24 Unkn own History powder packet cholecalciferol (vitamin D3) 50 50 mcg PO QDAY 5 Unknown History mcg (2,000 unit) capsule amoxicillin 875 mg tablet 875 mg PO BID #20 tabs 12/22 Unknown Rx tirzepatide 2.5 mg/0.5 mL 2.5 mg subcut QWEEK 12/22/24 Unknown History subcutaneous pen injector (Mounjaro) fluvoxamine 100 mg tablet 100 mg PO QDAY 90 days #90 t abs 01/05/25 Unknown Rx Allergy/AdvReac Type Severity Reaction Status Date / Time No Known Allergies Allergy Verified 01/30/25 14:01 Family History Father Cancer Grandmother Cancer Mother Anxiety Hypertension Melanoma Cancer Surgical History History of lumbar fusion Hx of toe surgery Hx of appendectomy History of tonsillectomy and adenoidectomy Social History Smoking Status: Former smoker how long ago did patient quit smokin years alcohol intake: current alcohol intake frequency: a few times a month Alcohol type: beer substance use type: does not use additional social history: no asa, uses ibuprofen, no marijuana, no vaping, used CBD couple years ago ROS ROS ED Constitutional Constitutional ED: Denies chills, fever(s), subjective, sweats or weight loss Cardiovascular Cardiovascular: Denies chest pain or palpitations Respiratory/Chest Respiratory/Chest: Denies cough, dyspnea or dyspnea on exertion Gastrointestinal Gastrointestinal: Reports abdominal pain and other Details: Also please review HPI narrative ; Denies constipation, diarrhea, melena, nausea or vomiting Genitourinary Genitourinary ED: Reports urinary frequency and other Details: And sense that he is not voiding completely ; Denies dysuria or hematuria Musculoskeletal Musculoskeletal: Reports other Details: Pain from left buttocks posteriorly to the mid calf. ; Denies arthralgias, back pain, myalgias or neck pain Integumentary Denies rash Neurologic Neurologic: Denies headache(s), paresthesias or weakness Endocrine Endocrinology: Denies cold intolerance or heat intolerance Hematologic/Lymphatic Hematologic/Lymphatic: Reports systems reviewed and no addt'l complaints, except as documented Allergic/Immunologic Allergic/Immunologic ED: Denies mouth swelling or tongue swelling EXAM Physical Exam Const Vital Signs: 01/30/25 13:58 01/30/25 16:03 01/30/25 18:42 Temperature 97.2 F L Temperature Source Temporal Pulse Rate 61 64 72 Respiratory Rate 16 18 Blood Pressure 181/100 H 151/100 H 153/85 H Blood Pressure Mean 127 117 107 Pulse Ox 100 97 100 Oxygen Delivery Method Room Air Room Air Room Air Positive well nourished and well developed General Appearance ED: well developed and NAD; Negative for pallor HEENT HEENT Narrative: Head is atraumatic and normocephalic. Ears are normal. Eyes PERRL and EOMs intact bilaterally General Eye ED: Negative for pale conjunctiva or scleral icterus Resp normal respiratory effort and clear to auscultation bilaterally Cardio regular rate, regular rhythm, S1 normal heart sound and no murmurs GI normal to inspection, nondistended, normoactive bowel sounds and no masses; Negative for non-tender, non-distended or hepatosplenomegaly GI Narrative: Abdomen is tympanitic to percussion. He has significant tenderness in left lower quadrant. There is also discomfort in the suprapubic area. There is no pain to palpation left or right paralumbar area or left or right CVA region. There is no rash or lesions noted. There is no inguinal lymphadenopathy. Back/Spine no CVA tenderness Thoracic Spine / Upper Back: Negative for thoracic spinal tenderness Lumbar Spine / Lower Back: Negative for lumbar spinal tenderness Extremity normal to inspection General Extremety ED: Negative for edema or tenderness General Extremity: Negative for edema Neuro oriented x3, CN's II-XII intact bilaterally and no sensory deficits noted Neuro Narrative: Straight leg test is negative as well as crossover test. Patella and ankle reflex are 2+ and symmetric. EHLs intact. 5/5 strength with dorsi and plantarflexion of the foot. He has normal sensation L3-S1 dermatome. He has normal perianal sensation. There is no weakness of the quadricep muscle. There are no skin lesions noted low back, abdomen or lower extremities. DP pulses 2+ and symmetric. Psych mental status grossly normal Skin no rashes or lesions noted, no wounds and skin turgor normal General Skin Exam: elasticity normal; Negative for jaundice or pallor MDM MDM MDM Narrative Medical decision making narrative: Patient with low back pain/left buttocks pain with radiation down his leg midway. Neurologically he has no abnormality. He has no vascular abnormality noted either. Since he voided we will send urine for analysis and will have nurse BladderScan to see if he has any significant retention. His exam is not consistent with acute herniated disc, cauda equina, spontaneous epidural hematoma and he has no risk factors for epidural abscess. Furthermore he has no point tenderness to palpation percussion of the lumbar or sacral vertebrae. Prior records were reviewed and particularly his CAT scans that were obtained in 2021 History & Record Review Additional record(s) reviewed:: Prior outpatient record and Prior labs Lab Data Labs: Laboratory Results - last 24 hr 01/30/25 01/30/25 15:02 15:24 WBC 6.3 RBC 4.88 Hgb 13.5 Hct 40.6 MCV 83.2 MCH 27.7 MCHC 33.3 RDW Std Deviation 37.5 RDW Coeff of Anders 12.3 Plt Count 243 MPV 9.4 Immature Gran % (Auto) 0.200 Neut % (Auto) 52.2 Lymph % (Auto) 29.5 [place] % (Auto) 15.4 H Eos % (Auto) 2.1 Baso % (Auto) 0.6 Absolute Neuts (auto) 3.3 Absolute Lymphs (auto) 1.86 Nucleated RBC % 0 Sodium 139 Potassium 4.2 Chloride 103 Carbon Dioxide 27.2 Anion Gap 10 BUN 13 Creatinine 0.92 Estim Creat Clear Calc 109.55 Est GFR (MDRD) Non-Af 104 BUN/Creatinine Ratio 14.0 Glucose 95 Calcium 9.6 Urine Color Straw Urine Clarity Clear Urine pH 6.5 Ur Specific [place] 1.010 Urine Protein Negative Urine Glucose (UA) Normal Urine Ketones Negative Urine Occult Blood Negative Urine Nitrite Negative Urine Bilirubin Negative Urine Urobilinogen Normal Ur Leukocyte Esterase Negative Urine RBC 0 SEEN Urine WBC 0 SEEN Ur Squamous Epith Cells 0 SEEN Urine Bacteria 0 SEEN Urine Mucus 0 SEEN Radiography Diagnostic Testing: Clinical Impression(s) from Imaging Studies Lumbar Spine MRI 01/30/25 16:15 IMPRESSION: No abnormal enhancement. No evidence of acute process. Status post posterior fusion of L5-S1. No complications. No significant foraminal or canal stenosis. Reading Location: [facility] Treatment and Re-Evaluation :: Since the MRI was negative rectal exam was performed to assess size of prostate. Prostate is normal size. There is no asymmetry. There is no bogginess, tenderness or irregularities noted on palpation. Stool is brown. He has evidence of prior hemorrhoids. Discharge Plan Triage Chief Complaint: Complaint ED Provider: Denny Jovel Dx/Rx/DC Orders Clinical Impression: Acute urinary retention, Back pain, Fusion of lumbar spine Instructions: ED Urinary Retention, Male Prescriptions: No Action cholecalciferol (vitamin D3) 50 mcg (2,000 unit) capsule 50 mcg PO QDAY creatine monohydrate 5,000 mg powder in packet PO Mounjaro 2.5 mg/0.5 mL pen injector 2.5 mg subcut QWEEK Rx Instructions: for 4 weeks amoxicillin 875 mg tablet 875 mg PO BID Qty: 20 0RF fluvoxamine 100 mg tablet 100 mg PO QDAY 90 Days Qty: 90 0RF Primary Care Provider: Alex Floyd Referrals: Danny Carbajal MD [Med Staff - Active Staff, Urology] - As soon as possible Alex Floyd MD [Primary Care Provider, Medical] Print Language: Turkish Disposition Disposition: Home, Self Care
[2025-01-30 15:12] LABS: Color, Urine Straw (Yellow); Glucose, Dipstick Normal (Normal); Ketone-Dipstick Negative (Negative); Leukocyte Esterase-Dipstick Negative /ul (Negative); Nitrite-Dipstick Negative (Negative); Occult Blood-Urine Negative /ul (Negative); Protein-Dipstick Negative (Negative); Specific Gravity, Urine 1.010 (1.002-1.030); Urine Bilirubin Dipstick Negative (Negative)
--- OUTSIDE RECORDS SUMMARY | 2025-01-30 15:15 | XMS RPT_ITS | CCD ---
Author Organization [facility] Care Team Providers Care Process Development Associate Name Role Phone Dr. Alex Butler Primary Care Provider Dr. Kyle Hall Attending Provider Dr. Sae Avelar Referring Provider Dr. Alex Butler Referring Provider Dr. Liborio Marcelino Attending Provider Robert LAY, PA Trae Restrepo Attending Provider FriendDr. Capone Other Provider Alex Butler MD Primary Care Provider Dr. Alex Butler Primary Care Provider Dr. Alex Butler Referring Provider Dr. Liborio Marcelino Attending Provider Alex Butler MD Primary Care Provider Alex Butler MD Primary Care Provider Alex Butler MD Primary Care Provider Alex Butler MD Primary Care Provider Carl MILITARY COMMUNICATIONS SPECIALIST.Ratna NIETO Unavailable Saba MILITARY COMMUNICATIONS SPECIALIST.Yuliana NIETO Unavailable Trae Loco Attending Unavailable Alex Butler Primary Care Unavailable Waldo, Leona Referring Unavailable Waldo Leona Attending Unavailable Waldo, Leona Consulting Unavailable Alex Butler Primary Care Unavailable Trae Loco Attending Unavailable Alex Butler Primary Care Unavailable Alex Butler Primary Care Unavailable Wilfred Andrew Attending Unavailable Jarod Daley Attending Unavailable Luke, Alex Primary Care Unavailable Martin, Alex Referring Unavailable Trae Loco Attending Unavailable Martin, Alex Primary Care Unavailable Leona Haas Attending Unavailable Luke, Alex Referring Unavailable Luke, Alex Primary Care Unavailable Leona Haas Attending Unavailable Luke, Alex Referring Unavailable Luke, Alex Primary Care Unavailable Michaelazogeorgette, Leona Referring Unavailable Leona Haas Attending Unavailable Martin, Alex Primary Care Unavailable Martin, Alex Primary Care Unavailable Luke, Alex Referring Unavailable Martin, Alex Attending Unavailable Leona Haas Attending Unavailable Luke, Alex Referring Unavailable Martin, Alex Primary Care Unavailable LUKE ALEX ELAINE Primary Care Physician [phone] TRUPTI العراقي DO Attending Unavailable ALEX BUTLER MD Primary Care Unavailable ALEX BUTLER Attending ALEX Schultz Primary Care Unavailable ALEX BUTLER Primary Care Unavailable RATNA HENRY Attending Unavailable Allergies Allergy Classification Reported Allergen(s) Allergy Type Date of Onset Reaction(s) Facility (20 sources) cashew nut allergenic extract; Translations: [CASHEW NUT] Drug Allergy 09-05-2018 Anaphylaxis [facility] Medications Current Medications Medication Drug Class(es) Dates Sig (Normalized) Sig (Original) amoxicillin 875 mg / clavulanate 125 mg oral tablet (4 sources) Penicillin-class Antibacterial Start: 12-21-2021 End: 12-31-2021 take 1 tablet by mouth twice daily amoxicillin-clav ulanic acid (AUGMENTIN) 875-125 mg per tablet Indications: Acute otitis media, right , Bacterial sinusitis Take 1 tablet by mouth twice daily for 10 days. 20 tablet 0 12/21/2021 12/31/2021 Active Start: 09-17-2020 End: 09-27-2020 take 1 tablet by mouth every twelve hours Amoxicillin-Pot Clavulanate (Augmentin) 875-125 mg tablet Discontinued 1 TABLET PO Q12H 20 September 16, 2020 11:00pm September 26, 2020 11:01pm Comment on above: Take 1 tablet by donavan th twice daily for 10 days. ARIPiprazole 2 mg oral tablet (3 sources) Atypical Antipsychotic Start: 022 take 3 mg by mouth once daily Aripiprazole (Abilify) 2 mg Tablet Active 3 MG PO DAILY June 20, 2021 11:00pm ascorbic acid 500 mg oral tablet (3 sources) Vitamin C Start: take 1 tablet by mouth once daily Ascorbic Acid (Vitamin C) (Vitamin C) 500 mg Tablet Active 500 MG PO DAILY June 20, 2021 11:00pm cholecalciferol 0.025 mg oral tablet (3 sources) Vitamin D Start: take 1 tablet by mouth once daily Cholecalciferol (Vitamin D3) (Vitamin D3) 25 mcg (1,000 unit) Tablet Active 25 MCG PO DAILY June 20, 2021 11:00pm ciprofloxacin 500 mg oral tablet (8 sources) Quinolone Antimicrobial Start: End: take 1 tablet by mouth twice daily ciprofloxacin HCl (CIPRO) 500 mg tablet Indications: Rectal pain Take 1 tablet by mouth twice daily for 10 days. 20 tablet 0 08/15/2021 08/25/2021 Active Start: 08-15-2020 End: 09-17-2020 take 1 tablet by mouth twice daily Ciprofloxacin Hcl (Cipro) 500 mg tablet Discontinued 500 MG PO TWICE A DAY August 14, 2020 11:00pm September 17, 2020 9:12am Comment on above: Take 1 tablet by donavan twice daily for 10 days. Deha (3 sources) Start: 06-21-2021 take 1 capsule by mouth once daily Deha Active 1 CAP SL/PO DAILY June 21, 2021 1:37pm Start: 06-21-2021 take 1 capsule by mouth once d aily Deha Active 1 CAP SL/PO DAILY June 20, 2021 11:00pm Start: 06-21-2021 take 1 capsule by mouth once d aily Deha Active 1 CAP SL/PO DAILY June 21, 2021 12:00am enteric contrast (will be provided with radiology test) (2 sources) Start: 08-19-2021 End: 08-20-2021 enteric contrast (will be provided with radiology test) Indications: History of rectal abscess , Perineal pain , Lower abdominal pain , Infection in abdomen (HCC) For CT ABD/PEL W IVCON Routine order Administer, As Directed One Time Only, via Oral, Rectal, both Oral and Rectal, Enteric Tube, Stoma or Indwelling Catheter, Enteric Contrast as designated per enteric contrast guidelines 1 Each 0 08/19/2021 08/20/2021 Active Comment on above: For CT ABD/PEL W IVC ON Routine order Administer, As Directed One Time Only, via Oral, Rectal, both Oral and Rectal, Enteric Tube, Stoma or Indwelling Catheter, Enteric Contrast as designated per enteric contrast guidelines fluvoxaMINE maleate 50 mg oral tablet (20 sources) Serotonin Reuptake Inhibitor Start: 05-24-2022 End: 11-21-2022 take 1 tablet by mouth once daily at bedtime fluvoxaMINE (LUVOX) 50 mg tablet Take 1 tablet by mouth daily at bedtime. 30 tablet 2 08/23/2022 Active Start: 11-08-2021 End: 05-16-2022 take 1 tablet by mouth once daily at bedtime fluvoxaMINE (LUVOX) 50 mg tablet Take 1 tablet by mouth daily at bedtime. 30 tablet 2 02/15/2022 05/16/2022 Active Start: 07-04-2017 take 1 tablet by donavan th twice daily fluvoxaMINE Maleate (LUVOX) 25 mg tablet Take 25 mg by mouth twice daily. One tablet by mouth for 20 days then take 1 tablet by mouth twice daily. 0 08/23/2021 Active Comment on above: Take 25 mg by mouth twice daily. One tablet by mouth for 20 days then take 1 tablet by mouth twice daily. Take 1 tablet by donavan th daily at bedtime. iv contrast (will be provided with radiology test) (2 sources) Start: End: iv contrast (will be provided with radiology test) Indications: History of rectal abscess , Perineal pain , Lower abdominal pain , Infection in abdomen (HCC) CT ABD/PEL -Inject, intravenously, once for 1 dose.No IV access, insert saline lock prior to the beginning of sedation, infusion, injection of imaging exam. Discontinue saline lock post exam. If Pt. has a central line or IVAD, may access for administration according to line specific nursing protocol. Once exam is complete flush line and de-access according to line specific nursing protocol in the CT contrast administration guidelines link. 1 Each 0 08/19/2021 08/20/2021 Active Comment on above: CT ABD/PEL -Inject, intravenously, once for 1 dose.No IV access, insert saline lock prior to the beginning of sedation, infusion, injection of imaging exam. Discontinue saline lock post exam. If Pt. has a central line or IVAD, may access for administration according to line specific nursing protocol. Once exam is complete flush line and de-access according to line specific nursing protocol in the CT contrast administration guidelines link. Lactobacillus Combination No.8 (Adult Probiotic) 3 billion cell capsule (3 sources) Start: take 3 capsules by mouth once daily Lactobacillus Combination No.8 (Adult Probiotic) 3 billion cell capsule Active 3000 MMU CELLS PO daily July 04, 2017 11:17am Start: 07-04-2017 take 3 capsules by m outh once daily Lactobacillus Combination No.8 (Adult Probiotic) 3 billion cell capsule Active 3000 MMU CELLS PO daily July 03, 2017 11:00pm Start: 07-04-2017 take 3 capsules by m outh once daily Lactobacillus Combination No.8 (Adult Probiotic) 3 billion cell capsule Active 3000 MMU CELLS PO daily July 04, 2017 12:00am LORazepam 1 mg oral tablet (20 sources) Benzodiazepine Start: 07-04-2017 End: 09-18-2022 LORazepam (ATIVAN) 1 mg tablet Indications: Anxiety 1/2 to 1 tab daily as needed sparingly for anxiety 20 tablet 03/22/2022 Active Comment on above: 1/2 to 1 tab daily a s needed sparingly for anxiety Multivitamin (Daily Multi-Vitamin) tablet (3 sources) Start: 07-04-2017 take 1 tablet by mouth once daily Multivitamin (Daily Multi-Vitamin) tablet Active 1 TABLET PO daily July 04, 2017 11:17am Start: 07-04-2017 take 1 tablet by donavan th once daily Multivitamin (Daily Multi-Vitamin) tablet Active 1 TABLET PO daily July 03, 2017 11:00pm Start: 07-04-2017 take 1 tablet by donavan th once daily Multivitamin (Daily Multi-Vitamin) tablet Active 1 TABLET PO daily July 04, 2017 12:00am sildenafil 50 mg oral tablet (9 sources) Phosphodiesterase 5 Inhibitor Start: 01-03-2023 take 1 tablet by mouth once daily as needed sildenafil (VIAGRA) 50 mg tablet Indications: Drug-induced erectile dysfunction Take 1 tablet by mouth once daily as needed. Take 30-60 minutes before sexual activity. 12 tablet 01/03/2023 Active Comment on above: Take 1 tablet by mouth once daily as nee ded. Take 30-60 minutes before sexual activity. tirzepatide, weight loss (ZEPBOUND) 5 mg/0.5 mL pen injector (1 source) Start: 10-13-2024 End: 01-11-2025 tirzepatide, weight loss (ZEPBOUND) 5 mg/0.5 mL pen injector Indications: SHITAL (obstructive sleep apnea) , Class 1 obesity with body mass index (BMI) of 30.0 to 30.9 in adult, unspecified obesity type, unspecified whether serious comorbidity present Inject 5 mg subcutaneously one time a week. 2 mL 2 10/13/2024 01/11/2025 Active Completed/Discontinued Medications Medication Drug Class(es) Dates Sig (Normalized) Sig (Original) amoxicillin 500 mg oral capsule (3 sources) Penicillin-class Antibacterial Start: 05-14-2021 End: 05-24-2021 take 1000 mg by mouth twice daily Amoxicillin Discontinued 1000 MG PO TWICE A DAY 40 10 May 13, 2021 11:00pm May 23, 2021 11:03pm 12 hr buPROPion hydrochloride 100 mg extended release oral tablet (16 sources) Aminoketone Start: 07-29-2021 End: 12-21-2021 take 1 tablet by mouth once daily buPROPion SR (WELLBUTRIN SR) 100 mg 12 hr tablet Take 50 mg by mouth once daily. 0 07/29/2021 12/21/2021 Discontinued Comment on above: Take 50 mg by mouth once daily. cephalexin 500 mg oral capsule (1 source) Cephalosporin Antibacterial Start: 09-15-2021 End: 09-15-2021 cephALEXin 500 mg cap(s) (KEFLEX) Start: 09-15-2021 End: 09-15-2021 cephALEXin 500 mg cap(s) (KE FLEX) hydrocortisone acetate 25 mg rectal suppository (16 sources) Corticosteroid Start: 03-03-2021 End: 12-21-2021 take 25 mg rectal route every twelve hours as needed hydrocortisone (ANUSOL-HC) 25 mg suppository 1 Suppository by RECTAL route twice daily as needed (hemorrhoids/rectal pain). 28 Suppository 0 03/03/2021 12/21/2021 Discontinued Comment on above: 1 Suppository by REC MARANDA route twice daily as needed (hemorrhoids/rectal pain). hydrocortisone acetate 25 mg/ml / pramoxine hydrochloride 10 mg/ml rectal cream (16 sources) Corticosteroid Start: 03-02-2020 End: 12-21-2021 apply 2.5 doses rectal route three times daily hydrocortisone-pramoxin e (ANALPRAM-HC) 2.5-1 % rectal cream Indications: Rectal irritation by RECTAL route three times daily. 28.35 g 0 03/02/2020 12/21/2021 Discontinued Comment on above: by RECTAL route thre e times daily. L.acid/L.casei/B.bi f/B.nahun/FOS (PROBIOTIC BLEND ORAL) (16 sources) End: 12-21-2021 L.acid/L.casei/B.bif/B. nahun/FOS (PROBIOTIC BLEND ORAL) Take by mouth. 0 12/21/2021 Discontinued L.acid/L.casei/B .bif/B.nahun/FOS (PROBIOTIC BLEND ORAL) Take by mouth. 0 Active Comment on above: Take by mouth. lidocaine hydrochloride 0.02 mg/mg topical gel (1 source) Antiarrhythmic, Amide Local Anesthetic Start: 09-15-2021 End: 09-15-2021 lidocaine 2 % (XYLOCAINE) Start: 09-15-2021 End: 09-15-2021 lidocaine 2 % (XYLOCAINE) methylPREDNISolone 4 mg oral tablet (3 sources) Corticosteroid Start: 09-17-2020 End: 09-22-2020 take 1 tablet by mouth once Methylprednisolone (Medrol (Guido)) 4 mg tablets,dose pack Discontinued 4 MG PO per package directions 21 September 16, 2020 11:00pm September 21, 2020 11:01pm multivit,thx,calcium,ir on,mins (MULTIVITAMIN AND MINERAL ORAL) (16 sources) End: 12-21-2021 multivit,thx,calcium,i mk,mins (MULTIVITAMIN AND MINERAL ORAL) Take by mouth. 0 12/21/2021 Discontinued multivit,thx,katherin cium,iron,mins (MULTIVITAMIN AND MINERAL ORAL) Take by mouth. 0 Active Comment on above: Take by mouth. tirzepatide, weight loss (ZEPBOUND) 2.5 mg/0.5 mL pen injector (6 sources) Start: 08-13-2024 End: 10-13-2024 tirzepatide, weight loss (ZEPBOUND) 2.5 mg/0.5 mL pen injector Indications: SHITAL (obstructive sleep apnea) , Class 1 obesity with body mass index (BMI) of 30.0 to 30.9 in adult, unspecified obesity type, unspecified whether serious comorbidity present Inject 2.5 mg subcutaneously one time a week. 2 mL 2 08/13/2024 10/13/2024 Discontinued Start: 08-13-2024 End: 11-11-2024 tirzepatide, weight loss (ZE PBOUND) 2.5 mg/0.5 mL pen injector Indications: SHITAL (obstructive sleep apnea) , Class 1 obesity with body mass index (BMI) of 30.0 to 30.9 in adult, unspecified obesity type, unspecified whether serious comorbidity present Inject 2.5 mg subcutaneously one time a week. 2 mL 2 08/13/2024 11/11/2024 Active Start: 06-27-2024 End: 08-12-2024 tirzepatide, weight loss (ZE PBOUND) 2.5 mg/0.5 mL pen injector Indications: SHITAL (obstructive sleep apnea) , Class 1 obesity with body mass index (BMI) of 30.0 to 30.9 in adult, unspecified obesity type, unspecified whether serious comorbidity present Inject 2.5 mg subcutaneously one time a week. 2 mL 2 06/27/2024 08/12/2024 Discontinued Start: 06-27-2024 End: 09-25-2024 tirzepatide, weight loss (ZE PBOUND) 2.5 mg/0.5 mL pen injector Indications: SHITAL (obstructive sleep apnea) , Class 1 obesity with body mass index (BMI) of 30.0 to 30.9 in adult, unspecified obesity type, unspecified whether serious comorbidity present Inject 2.5 mg subcutaneously one time a week. 2 mL 2 06/27/2024 09/25/2024 Active Problems Active Problems Problem Classification Problem Date Documented Da te Episodic/Chronic Abdominal pain (5 sources) Abdominal pain; Translations: [Unspecified abdominal pain] Episodic Anal and rectal conditions (8 sources) Perirectal abscess; Translations: [Rectal abscess] Episodic Anxiety disorders (20 sources) Anxiety; Translations: [Anxiety disorder, unspecified] Onset: 6 Chronic Disorders of lipid metabolism (2 sources) Pure hypercholesterolemia, unspecified; Translations: [Pure hypercholesterolemia, unspecified] Onset: 5 Chronic Esophageal disorders (20 sources) Gastroesophageal reflux disease; Translations: [Gastro-esophageal reflux disease without esophagitis] Onset: 7 Resolved: 2 06-15-2006 Chronic Essential hypertension (20 sources) Benign essential hypertension; Translations: [Essential (primary) hypertension] Onset: 7 06-15-2006 Chronic Genitourinary symptoms and ill-defined conditions (1 source) Post-micturition incontinence ; Translations: [Post-void dribbling] Chronic Genitourinary symptoms and ill-defined conditions (2 sources) Dysuria; Translations: [Dysuria] Episodic Immunizations and screening for infectious disease (2 sources) Patient encounter status; Translations: [Encounter for screening for human immunodeficiency virus [HIV]] Episodic Mood disorders (20 sources) Dysthymia; Translations: [Dysthymic disorder] Onset: 9 01-15-2009 Chronic Open wounds of extremities (3 sources) Open wound of left foot; Translations: [Unspecified open wound, left foot, initial encounter] Episodic Open wounds of head; neck; and trunk (2 sources) Scalp laceration; Translations: [Laceration without foreign body of scalp, initial encounter] Onset: 5 Episodic Other gastrointestinal disorders (3 sources) Diarrhea; Translations: [Diarrhea, unspecified] Episodic Other gastrointestinal disorders (2 sources) Diarrhea, unspecified; Translations: [Diarrhea] Episodic Other gastrointestinal disorders (1 source) History of rectal abscess; Translations: [Personal history of other diseases of the digestive system] Episodic Other male genital disorders (1 source) Drug-induced erectile dysfunction; Translations: [Impotence of organic origin] 01-03-2023 Chronic Other male genital disorders (1 source) Pain in testicle; Translations: [Testicular pain, unspecified] Episodic Other male genital disorders (1 source) Bilateral testicular pain; Translations: [Right testicular pain] Episodic Other nutritional; endocrine; and metabolic disorders (20 sources) Obesity; Translations: [Obesity, unspecified] Onset: 0 09-10-2009 Chronic Other nutritional; endocrine; and metabolic disorders (1 source) Body mass index (BMI) 30.0-30.9, adult; Translations: [Class 1 obesity with body mass index (BMI) of 30.0 to 30.9 in adult, unspecified obesity type, unspecified whether serious comorbidity present] Onset: 0 Chronic Other upper respiratory disease (20 sources) Allergic rhinitis; Translations: [Allergic rhinitis, unspecified] Onset: 9 01-15-2009 Chronic Other upper respiratory disease (3 sources) Respiratory tract congestion; Translations: [Nasal congestion] Episodic Other upper respiratory infections (1 source) Bacterial sinusitis; Translations: [Chronic sinusitis, unspecified] Chronic Other upper respiratory infections (18 sources) Acute maxillary sinusitis; Translations: [Acute maxillary sinusitis, unspecified] Onset: 5 Episodic Otitis media and related conditions (2 sources) Acute right otitis media; Translations: [Otitis media, unspecified, right ear] Onset: 5 Episodic Peritonitis and intestinal abscess (1 source) Infectious disease of abdomen; Translations: [Peritonitis, unspecified] Episodic Residual codes; unclassified (20 sources) Sleep apnea; Translations: [Sleep apnea, unspecified] Onset: 2 10-23-2011 Chronic Residual codes; unclassified (3 sources) Obstructive sleep apnea syndrome; Translations: [Obstructive sleep apnea (adult) (pediatric)] 08-12-2024 Chronic Residual codes; unclassified (1 source) Obstructive sleep apnea (adult) (pediatric); Translations: [SHITAL (obstructive sleep apnea)] Onset: 5 Chronic Spondylosis; intervertebral disc disorders; other back problems (6 sources) Other intervertebral disc displacement, lumbar region; 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] Chronic Unclassified (1 source) Class 1 obesity with body mass index (BMI) of 30.0 to 30.9 in adult, unspecified obesity type, unspecified whether serious comorbidity present; Translations: [Class 1 obesity with body mass index (BMI) of 30.0 to 30.9 in adult, unspecified obesity type, unspecified whether serious comorbidity present] Onset: 0 Unclassified (1 source) History of colonic polyps; Translations: [History of colonic polyps] Onset: Past or Other Problems Problem Classification Problem Date Documented Da te Episodic/Chronic Allergic reactions (20 sources) Solar degeneration; Translations: [Other skin changes due to chronic exposure to nonionizing radiation] Onset: 04-05-2010 04-05-2010 Episodic Gastritis and duodenitis (20 sources) Acute gastritis; Translations: [Acute gastritis without bleeding] Onset: 04-23-2012 04-23-2012 Episodic Malaise and fatigue (2 sources) Fatigue; Translations: [Other fatigue] Onset: 06-27-2024 05-16-2023 Episodic Neoplasms of unspecified nature or uncertain behavior (2 sources) Neoplasm of uncertain behavior of skin; Translations: [Neoplasm of uncertain behavior of skin] Onset: 11-28-2023 Episodic Nonspecific chest pain (20 sources) Chest pain; Translations: [Chest pain, unspecified] Onset: 11-07-2012 Resolved: 12-21-2021 11-07-2012 Episodic Other acquired deformities (20 sources) Spondylolisthesis; Translations: [Spondylolisthesis, lumbosacral region] Onset: 10-04-2017 10-04-2017 Episodic Other and unspecified benign neoplasm (20 sources) Dermal cellular nevus ; Translations: [Other benign neoplasm of skin, unspecified] Onset: 04-05-2010 04-05-2010 Episodic Other and unspecified benign neoplasm (20 sources) Melanocytic nevus of face; Translations: [Melanocytic nevi of unspecified part of face] Onset: 04-05-2010 04-05-2010 Episodic Other and unspecified benign neoplasm (20 sources) Melanocytic nevus of trunk; Translations: [Melanocytic nevi of trunk] Onset: 04-05-2010 04-05-2010 Episodic Other and unspecified benign neoplasm (8 sources) Melanocytic nevi of unspecified part of face; Translations: [Benign neoplasm of skin of other and unspecified parts of face] Onset: 04-05-2010 04-05-2010 Episodic Other connective tissue disease (20 sources) Increased muscle tone; Translations: [Other specified disorders of muscle] Onset: 09-30-2021 Resolved: 05-16-2023 Episodic Other gastrointestinal disorders (20 sources) Anismus; Translations: [Other specified symptoms and signs involving the digestive system and abdomen] Onset: 09-30-2021 Episodic Other liver diseases (20 sources) Elevated liver enzymes level; Translations: [Abnormal levels of other serum enzymes] Onset: 10-23-2011 01-31-2021 Episodic Other liver diseases (20 sources) Elevated levels of transaminase & lactic acid dehydrogenase; Translations: [Nonspecific elevation of levels of transaminase or lactic acid dehydrogenase (LDH)] Resolved: 12-21-2021 04-11-2012 Episodic Other liver diseases (1 source) Abnormal levels of other serum enzymes; Translations: [Elevated liver enzymes] Onset: 01-31-2021 Episodic Other non-traumatic joint disorders (1 source) Pain in right shoulder; Translations: [Pain in right shoulder] Onset: 03-11-2024 Episodic Other skin disorders (20 sources) Solar lentigo; Translations: [Other melanin hyperpigmentation] Onset: 04-05-2010 04-05-2010 Episodic Other skin disorders (20 sources) Epidermoid cyst of skin; Translations: [Epidermal cyst] Onset: 04-05-2010 04-05-2010 Episodic Other skin disorders (20 sources) Sebaceous cyst of skin; Translations: [Sebaceous cyst] Onset: 04-05-2010 04-05-2010 Episodic Other skin disorders (20 sources) Acne; Translations: [Other acne] Onset: 04-05-2010 04-05-2010 Episodic Other skin disorders (20 sources) Comedonal acne; Translations: [Acne vulgaris] Onset: 04-05-2010 04-05-2010 Episodic Screening and history of mental health and substance abuse codes (1 source) Encounter for screening examination for other mental health and behavioral disorders; Translations: [Encounter for screening examination for other mental health and behavioral disorders] Onset: 06-27-2024 Episodic Spondylosis; intervertebral disc disorders; other back problems (20 sources) Lumbosacral radiculopathy; Translations: [Radiculopathy, lumbosacral region] Onset: 09-06-2017 09-06-2017 Episodic Results Test Name Value Interpretation Reference Range Facility [facility] 11-04-2024 OV Office Visit (FAMPWS ) RATLIFF,CATHY Delfino ([id number]) 1980 M Date Time Provider Department 11/04/24 9:40 AM RATNA HENRY During your visit today, we recorded the following information about you: Pulse Respiration Blood pressure 72/minute 16/minute 132/98 Ratna Henry APRN.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 Decongestant. If no improvement/worsening, start the antibiotic. Ratna Henry APRN.CNP 11/04/2024 6:57 PM Signed This is a 44 year old male who presents today with: The patient is a 44-year-old male presenting for evaluation of right ear pain and congestion from an acute viral upper respiratory infection. HISTORY OF PRESENT ILLNESS: URI Symptoms: - Onset after exposure to sick family members. - Reports rhinorrhea and general malaise. - Symptoms are improving. - Taking Nasacort. Right Ear Pain: - Believes URI symptoms have led to fluid accumulation in the right ear. - Reports soreness and a sensation of fullness in the right ear. - Unable to elicit usual ear crack with swallowing. - Describes swallowing as a little bit tight. - Denies pain with ear manipulation. - History of ear infections; current symptoms feel similar, but not yet as severe. 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 - Postponed scuba diving due to ear pain. - Reports severe pain with consumption of sweet red wine last night. PAST MEDICAL HISTORY: PAST MEDICAL HISTORY Diagnosis Date Esophageal reflux GERD (gastroesophageal reflux disease) Hypertension Nonspecific elevation of levels of transaminase or lactic acid dehydrogenase (LDH) OCD (obsessive compulsive disorder) Sleep apnea does not wear regularly PAST SURGICAL HISTORY Procedure Laterality Date COLONOSCOPY 06/22/2021 Dr Marcelino ESOPHAGOGASTRODUODENOS COPY TRANSORAL DIAGNOSTIC 04/23/2012 EGD INCISE FINGER TENDON SHEATH Left 01/22/2020 Left index and middle trigger finger releases LAPAROSCOPIC APPENDECTOMY 08/23/2011 OPTX FEM SHFT FX W/INSJ IMED IMPLT W/WO SCREW left femur fracture with pins and phoebe PAST SURGICAL HISTORY OF 11/2018 L5-S1 spinal fusion TONSILLECTOMY AND ADENOIDECTOMY URETHROPLASTY 1 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 ALLERGIES Cashew Nut MEDICATIONS Current Outpatient Medications Medication Sig amoxicillin-clavulanat e potassium (AUGMENTIN) 875-125 mg per tablet Take 1 tablet by mouth every 12 hours for 10 days. tirzepatide, weight loss (ZEPBOUND) 5 mg/0.5 mL pen injector Inject 5 mg subcutaneously one time a week. sildenafil (VIAGRA) 50 mg tablet Take 1 tablet by mouth once daily as needed. Take 30-60 minutes before sexual activity. fluvoxaMINE (LUVOX) 50 mg tablet Take 1 tablet by mouth daily at bedtime. (Patient taking differently: Take 100 mg by mouth daily at bedtime.) LORazepam (ATIVAN) 1 mg tablet 1/2 to 1 tab daily as needed sparingly for anxiety No current facility-administered medications for this visit. FAMILY HISTORY Problem Relation Age of Onset other (liver cancer) Father gallbladder Diabetes Maternal Grandfather Cancer Maternal Grandfather LUNG CA Cancer Maternal Grandmother LUNG CA Diabetes Maternal Grandmother Diabetes Paternal Grandmother Diabetes Paternal Grandfather SOCIAL HISTORY[1] REVIEW OF SYSTEMS Ears/Nose/Mouth/Throat : (+) nasal discharge, (+) right ear pain, (+) throat tightness with swallowing, (-) pain on ear traction EXAM: BP 132/98 Pulse 72 Resp 16 PHYSICAL EXAM: General Appearance: Well appearing, alert, in no acute distress, well-hydrated, well nourished.. Skin: Skin color, texture, turgor normal, no suspicious rashes or lesions. Head: Normocephalic, no masses, lesions, tenderness or abnormalities. Eyes: Anicteric sclera. Pupils are equally round and reactive to light. Extraocular movements are intact. . Ears: External ears normal, canals clear, Positive findings: R TM: enoc fluid noted behind TM, L TM: normal. Oropharynx: Lips, mucosa, and tongue normal, teeth and gums normal, oropharynx normal. Neck: Supple, no adenopathy Lungs: Lungs clear to auscultation. No wheezing, rhonchi, rales.. Heart: RRR without murmur, gallop, or rubs. No ectopy. Neurologic: Gait normal. ASSESSMENT/PLAN 1. Non-recurrent acute serous otitis media of right ear (H65.01) 2. Acute upper respiratory infection (J06.9) - Fluid noted behind right tympanic membrane on exam. Continue nasal steroid. If no improvement over the next day or so, or if any worsening, start antibiotic. (Pt is prone to ear infections and is going out of town, so script provided). - Start Augmentin 1 tablet BID for 10 days if symptoms do not improve. - Continue intranasal corticosteroid (Nasonex or Nasacort) to reduce inflammation and promote drainage. - May use dec (more content not included)... Normal [facility] CBC W/Diff, Automatedon 06-0 2-2024 Absolute Lymph 2.73 X10 3/uL Normal 0.83-4.51 [facility] Comment on above: Performed By: #### L 500.4100, L500.4050, L501.9520, L509.3001, L100.0100 #### [facility] [address] [place], [address] Absolute Neut 3.2 X10 3/uL Normal 2.0-7.7 [facility] Comment on above: Performed By: #### L 500.4100, L500.4050, L501.9520, L509.3001, L100.0100 #### [facility] [address] [place], [address] Basophils/100 WBC (Bld) 0.7 % Normal 0-1 [facility] Comment on above: Performed By: #### L 500.4100, L500.4050, L501.9520, L509.3001, L100.0100 #### [facility] [address] [place], [address] Eosinophils/100 WBC (Bld) 3.3 % Normal 0-5 [facility] Comment on above: Performed By: #### L 500.4100, L500.4050, L501.9520, L509.3001, L100.0100 #### [facility] [address] [place], [address] Erythrocyte distribution width (RBC) [Ratio] 12.2 % Normal 11.6-14.6 [facility] Comment on above: Performed By: #### L 500.4100, L500.4050, L501.9520, L509.3001, L100.0100 #### [facility] [address] [place], [address] Hematocrit (Bld) [Volume fraction] 40.4 % Normal 40-54 [facility] Comment on above: Performed By: #### L 500.4100, L500.4050, L501.9520, L509.3001, L100.0100 #### [facility] [address] [place], [address] Hemoglobin (Bld) [Mass/Vol] 13.7 g/dL Normal 13.0-16.5 [facility] Comment on above: Performed By: #### L 500.4100, L500.4050, L501.9520, L509.3001, L100.0100 #### [facility] [address] [place], [address] IG% 0.100 Normal 0.0-0.9 [facility] Comment on above: Result Comment: IG% - Immature Granulocytes (promyelocytes, myelocytes and metamyelocytes) > 1% indicates that a LEFT SHIFT is Present. Performed By: #### L 500.4100, L500.4050, L501.9520, L509.3001, L100.0100 #### [facility] [address] [place], [address] Lymphocytes/100 WBC (Bld) 38.8 % Normal 19-41 [facility] Comment on above: Performed By: #### L 500.4100, L500.4050, L501.9520, L509.3001, L100.0100 #### [facility] [address] [place], [address] MCH (RBC) [Entitic mass] 28.8 pg Normal 27.0-32.0 [facility] Comment on above: Performed By: #### L 500.4100, L500.4050, L501.9520, L509.3001, L100.0100 #### [facility] [address] [place], [address] MCHC (RBC) [Mass/Vol] 33.9 g/dL Normal 32-36 [facility] Comment on above: Performed By: #### L 500.4100, L500.4050, L501.9520, L509.3001, L100.0100 #### [facility] [address] [place], [address] MCV (RBC) [Entitic vol] 84.9 fL Normal 80-94 [facility] Comment on above: Performed By: #### L 500.4100, L500.4050, L501.9520, L509.3001, L100.0100 #### [facility] [address] [place], [address] Monocytes/100 WBC (Bld) 11.4 % High 0-10 [facility] Comment on above: Performed By: #### L 500.4100, L500.4050, L501.9520, L509.3001, L100.0100 #### [facility] [address] [place], [address] Neutrophils/100 WBC (Bld) 45.7 % Low 47-70 [facility] Comment on above: Performed By: #### L 500.4100, L500.4050, L501.9520, L509.3001, L100.0100 #### [facility] [address] [place], [address] Nucleated RBC (Bld) [#/Vol] 0 10*3/uL Normal 0-5 [facility] Comment on above: Performed By: #### L 500.4100, L500.4050, L501.9520, L509.3001, L100.0100 #### [facility] [address] [place], [address] Platelet mean volume (Bld) [Entitic vol] 10.1 fL Normal 6.2-12.0 [facility] Comment on above: Performed By: #### L 500.4100, L500.4050, L501.9520, L509.3001, L100.0100 #### [facility] [address] [place], [address] Platelets (Bld) [#/Vol] 253 10*3/uL Normal 150-450 [facility] Comment on above: Performed By: #### L 500.4100, L500.4050, L501.9520, L509.3001, L100.0100 #### [facility] [address] [place], [address] RBC (Bld) [#/Vol] 4.76 10*6/uL Normal 4.6-6.2 [facility] Comment on above: Performed By: #### L 500.4100, L500.4050, L501.9520, L509.3001, L100.0100 #### [facility] [address] [place], [address] RDW SD 37.7 fl Normal 35.1-43.9 [facility] Comment on above: Performed By: #### L 500.4100, L500.4050, L501.9520, L509.3001, L100.0100 #### [facility] [address] [place], [address] WBC (Bld) [#/Vol] 7.0 10*3/uL Normal 4.4-11.0 [facility] Comment on above: Performed By: #### L 500.4100, L500.4050, L501.9520, L509.3001, L100.0100 #### [facility] [place], [address] Trixie 07-07-2024 [facility] CATHY RATLIFF ([id number]) 1980 M Date Time Provider Department 07/07[facility] your visit today, we recorded the following information about you: Amanda Hyatt LPN 07/07/2024 10:24 AM Signed Labs coming back from [facility]: Scan on 07/07/2024 8:08 AM by Provider, MELANIE Steven: Hematology View External Labs - Chemistry [ID [id number]] Allergies As of Date: 07/07/2024 Noted Allergy Reaction CASHEW NUT 09/05/2018 10 - Anaphylaxis Date Reviewed: 06/27/2024 Reviewed by: Amanda Hyatt LPN - Fully Assessed Reason for Visit: Results [95] Prescriptions as of 09/19/2024 - tirzepatide, weight loss (ZEPBOUND) 2.5 mg/0.5 mL pen injector Inject 2.5 mg subcutaneously one time a week. - sildenafil (VIAGRA) 50 mg tablet Take 1 tablet by mouth once daily as needed. Take 30-60 minutes before sexual activity. - fluvoxaMINE (LUVOX) 50 mg tablet Take 1 tablet by mouth daily at bedtime. - LORazepam (ATIVAN) 1 mg tablet 1/2 to 1 tab daily as needed sparingly for anxiety Meds Comments as of 08/31/2011: Problem List As Of Date 07/07/2024 Noted Resolved Esophageal reflux [K21.9] 06/15/2006 12/21/2021 Essential hypertension, benign [I10] 06/15/2006 Dysthymia [F34.1] 01/15/2009 AR (Allergic Rhinitis) [J30.9] 01/15/2009 Obesity [E66.9] 09/10/2009 Intradermal nevus [D23.9] 04/05/2010 Melanocytic nevus of face [D22.30] 04/05/2010 Melanocytic nevus of trunk [D22.5] 04/05/2010 Solar lentigines: nino at shoulders [L81.4] 04/05/2010 Epidermal cyst [L72.0] 04/05/2010 Sebaceous cyst [L72.3] 04/05/2010 Other acne [L70.8] 04/05/2010 Comedonal acne [L70.0] 04/05/2010 Actinic Damage//Sun-damaged skin [L57.8] 04/05/2010 Sleep apnea [G47.30] 10/23/2011 Elevated liver enzymes [R74.8] 10/23/2011 GERD (gastroesophageal reflux disease) [K21.9] Nonspecific elevation of levels of transaminase* 12/21/2021 Acute gastritis without mention of hemorrhage [*04/23/2012 Chest pain [R07.9] 11/07/2012 12/21/2021 Obsessive-compulsive disorder [F42.9] 11/18/2015 Right lumbar radiculitis [M54.16] 09/06/2017 Spondylolisthesis of lumbosacral region [M43.17]10/04/2017 Muscle tightness [M62.89] 09/30/2021 05/16/2023 Spastic pelvic floor syndrome [K59.02] 09/30/2021 Encounter Status:Closed by AMANDA HYATT on 09/19/24 Normal [facility] Metabolic Prof chaparrita 07-07-2024 Albumin [Mass/Vol] 4.4 g/dL Normal 3.5-5.0 [facility] Comment on above: Performed By: #### L 500.4100, L500.4050, L501.9520, L509.3001, L100.0100 #### [facility] [place], [address] Albumin/Globulin [Mass ratio] 1.8 {ratio} Normal 0.9-2.4 [facility] Comment on above: Performed By: #### L 500.4100, L500.4050, L501.9520, L509.3001, L100.0100 #### [facility] [address] [place], [address] ALK PHOS 64 U/L Normal 40-129 [facility] Comment on above: Performed By: #### L 500.4100, L500.4050, L501.9520, L509.3001, L100.0100 #### [facility] [address] [place], [address] ALT [Catalytic activity/Vol] 40 U/L Normal <=46 [facility] Comment on above: Performed By: #### L 500.4100, L500.4050, L501.9520, L509.3001, L100.0100 #### [facility] [address] [place], [address] AST [Catalytic activity/Vol] 31 U/L Normal <=37 [facility] Comment on above: Performed By: #### L 500.4100, L500.4050, L501.9520, L509.3001, L100.0100 #### [facility] [address] [place], [address] Bilirubin [Mass/Vol] 0.21 mg/dL Normal 0.00-1.30 [facility] Comment on above: Performed By: #### L 500.4100, L500.4050, L501.9520, L509.3001, L100.0100 #### [facility] [address] [place], [address] BUN/CRE 15.7 RATIO Normal 10-20 [facility] Comment on above: Performed By: #### L 500.4100, L500.4050, L501.9520, L509.3001, L100.0100 #### [facility] [address] [place], [address] Calcium [Mass/Vol] 9.0 mg/dL Normal 7.6-11.0 [facility] Comment on above: Performed By: #### L 500.4100, L500.4050, L501.9520, L509.3001, L100.0100 #### [facility] [address] [place], [address] Chloride [Moles/Vol] 105 mmol/L Normal 98-108 [facility] Comment on above: Performed By: #### L 500.4100, L500.4050, L501.9520, L509.3001, L100.0100 #### [facility] [address] [place], [address] CO2 [Moles/Vol] 24.7 mmol/L Normal 21.0-32.0 [facility] Comment on above: Performed By: #### L 500.4100, L500.4050, L501.9520, L509.3001, L100.0100 #### [facility] [address] [place], [address] Creatinine [Mass/Vol] 1.10 mg/dL Normal 0.70-1.20 [facility] Comment on above: Performed By: #### L 500.4100, L500.4050, L501.9520, L509.3001, L100.0100 #### [facility] [address] [place], [address] GAP 11 Normal 5-15 [facility] Comment on above: Performed By: #### L 500.4100, L500.4050, L501.9520, L509.3001, L100.0100 #### [facility] [address] [place], [address] GFR/1.73 sq M.predicted among non-blacks MDRD (S/P/Bld) [Vol rate/Area] 84 mL/min/{1.73_m2} Normal >60 [facility] Comment on above: Result Comment: mL/m in/1.73m2 CKD-EPI Creatinine Equation (2020) Performed By: #### L 500.4100, L500.4050, L501.9520, L509.3001, L100.0100 #### [facility] [address] [place], [address] Globulin (S) [Mass/Vol] 2.4 g/dL Normal 2.2-4.2 [facility] Comment on above: Performed By: #### L 500.4100, L500.4050, L501.9520, L509.3001, L100.0100 #### [facility] [address] [place], [address] Glucose [Mass/Vol] 93 mg/dL Normal 70-99 [facility] Comment on above: Performed By: #### L 500.4100, L500.4050, L501.9520, L509.3001, L100.0100 #### [facility] [address] [place], [address] Potassium [Moles/Vol] 4.2 mmol/L Normal 3.3-5.1 [facility] Comment on above: Performed By: #### L 500.4100, L500.4050, L501.9520, L509.3001, L100.0100 #### [facility] [address] [place], [address] Sodium [Moles/Vol] 141 mmol/L Normal 133-145 [facility] Comment on above: Performed By: #### L 500.4100, L500.4050, L501.9520, L509.3001, L100.0100 #### [facility] [address] [place], [address] T PROT 6.7 g/dL Normal 5.9-8.4 [facility] Comment on above: Performed By: #### L 500.4100, L500.4050, L501.9520, L509.3001, L100.0100 #### [facility] [address] [place], [address] Urea nitrogen [Mass/Vol] 17 mg/dL Normal 4-19 [facility] Comment on above: Performed By: #### L 500.4100, L500.4050, L501.9520, L509.3001, L100.0100 #### [facility] [address] [place], [address] L509.3001on 07-07-2024 Testosterone [Mass/Vol] 547.00 ng/dL Normal 300-890 [facility] Comment on above: Performed By: #### L 500.4100, L500.4050, L501.9520, L509.3001, L100.0100 #### [facility] [address] [place], [address] Lipid Profileon 07-07-2024 CHOL:HDL 3.80 Normal [facility] Comment on above: Performed By: #### L 500.4100, L500.4050, L501.9520, L509.3001, L100.0100 #### [facility] [address] [place], [address] Cholesterol [Mass/Vol] 177 mg/dL Normal <=200 [facility] Comment on above: Result Comment: Chol esterol level, Desirable <200 mg/dL Borderline high cholesterol 200-239 mg/dL High cholesterol >=240 mg/dL Recommendations of the NCEP Adult Treatment Panel for the following risk-cutoff thresholds for the [place] population. Performed By: #### L 500.4100, L500.4050, L501.9520, L509.3001, L100.0100 #### [facility] [address] [place], [address] Cholesterol in HDL [Mass/Vol] 47 mg/dL Normal [facility] Comment on above: Result Comment: Gauri onal Cholesterol Education Program (NCEP) guidelines: <40 mg/dL: Low HDL-cholesterol (major risk factor for CHD) >= 60 mg/dL: High HDL-cholesterol (negative risk factor for CHD) HDL-cholesterol is affected by a number of factors, e.g. smoking, exercise, hormones, sex and age. Performed By: #### L 500.4100, L500.4050, L501.9520, L509.3001, L100.0100 #### [facility] [address] [place], [address] Cholesterol in LDL [Mass/Vol] 110 mg/dL Normal [facility] Comment on above: Result Comment: Bord nxexhb=192-210 mg/dL Higher Jpkf=896 mg/dL or greater Performed By: #### L 500.4100, L500.4050, L501.9520, L509.3001, L100.0100 #### [facility] [address] [place], [address] Cholesterol in VLDL [Mass/Vol] 20 mg/dL Normal 5-40 [facility] Comment on above: Performed By: #### L 500.4100, L500.4050, L501.9520, L509.3001, L100.0100 #### [facility] [address] [place], [address] Triglyceride [Mass/Vol] 100 mg/dL Normal [facility] Comment on above: Result Comment: The drugs N-Acetylcysteine and Metamizole may falsely depress this assay. Normal range: <150 mg/dL Borderline High: 150-199 mg/dL High: 200-499 mg/dL Very High: >500 mg/dL Performed By: #### L 500.4100, L500.4050, L501.9520, L509.3001, L100.0100 #### [facility] [address] [place], [address] Thyroid Stim Hormone (TSH)on 07-07-2024 TSH 2.200 uIU/mL Normal 0.300-4.200 [facility] Comment on above: Performed By: #### L 500.4100, L500.4050, L501.9520, L509.3001, L100.0100 #### [facility] [address] [place], [address] CNOVon 06-27-2024 CNOV Office Visit (FAMPWS ) ARPITACATHY P ([id number]) 1980 M Date Time Provider Department 06/27/24 4:40 PM ALEX BUTLER [facility] [place] During your visit today, we recorded the following information about you: Pulse Blood pressure Weight 68/minute 119/78 91.2 kg Alex Butler MD 06/27/2024 5:11 PM Signed Cathy is a 43-year-old male with a history of SHITAL, obesity, and depression, presenting for a check-up and to discuss medication options for sleep apnea and weight loss. HPI Obstructive Sleep Apnea: - Diagnosed in 2011, with a sleep study performed the same year. - Initially managed with CPAP, later switched to BiPAP due to severity. - Discontinued CPAP use during COVID-19 pandemic due to concerns about virus spread. - Reports worsening symptoms with weight gain; currently over 200 lbs. - Describes being a stomach sleeper, with frequent tossing and turning. - Taking lorazepam to aid sleep. - Denies recent chest pain, dyspnea, lightheadedness, or dizziness. - Would like to try zepbound which has the indication for SHITAL. We discussed it may not be covered. Obesity: - Weight increased from 160 lbs to over 200 lbs. - Struggles with weight loss due to inability to run. - Engages in calorie counting and exercise. - Reports sneak eating and constant hunger, even on a high-protein diet. Depression: - Followed by Dr. Loco. in psychiatry. - Recently increased Luvox dosage to 100 mg, noting significant improvement. 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 - Works in [employer] and [employer] for the formerly [employer]. MEDICATIONS: Current Outpatient Medications Medication Sig tirzepatide, weight loss (ZEPBOUND) 2.5 mg/0.5 mL pen injector Inject 2.5 mg subcutaneously one time a week. sildenafil (VIAGRA) 50 mg tablet Take 1 tablet by mouth once daily as needed. Take 30-60 minutes before sexual activity. fluvoxaMINE (LUVOX) 50 mg tablet Take 1 tablet by mouth daily at bedtime. (Patient taking differently: Take 100 mg by mouth daily at bedtime.) LORazepam (ATIVAN) 1 mg tablet 1/2 to 1 tab daily as needed sparingly for anxiety No current facility-administered medications for this visit. ALLERGIES: ALLERGIES Allergen Reactions Cashew Nut Anaphylaxis PAST MEDICAL HISTORY Diagnosis Date Esophageal reflux GERD (gastroesophageal reflux disease) Hypertension Nonspecific elevation of levels of transaminase or lactic acid dehydrogenase (LDH) OCD (obsessive compulsive disorder) Sleep apnea does not wear regularly PAST SURGICAL HISTORY Procedure Laterality Date COLONOSCOPY 06/22/2021 Dr Marcelino ESOPHAGOGASTRODUODENOS COPY TRANSORAL DIAGNOSTIC 04/23/2012 EGD INCISE FINGER TENDON SHEATH Left 01/22/2020 Left index and middle trigger finger releases LAPAROSCOPIC APPENDECTOMY 08/23/2011 OPTX FEM SHFT FX W/INSJ IMED IMPLT W/WO SCREW left femur fracture with pins and phoebe PAST SURGICAL HISTORY OF 11/2018 L5-S1 spinal fusion TONSILLECTOMY AND ADENOIDECTOMY URETHROPLASTY 1 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 FAMILY HISTORY Problem Relation Age of Onset other (liver cancer) Father gallbladder Diabetes Maternal Grandfather Cancer Maternal Grandfather LUNG CA Cancer Maternal Grandmother LUNG CA Diabetes Maternal Grandmother Diabetes Paternal Grandmother Diabetes Paternal Grandfather Social History Tobacco Use Smoking status: Former Current packs/day: 0.00 Types: Cigarettes Start date: 10/06/1999 Quit date: 10/05/2006 Years since quittin.7 Smokeless tobacco: Never Tobacco comments: Occasional cigar only per patient Vaping Use Vaping status: Never Used Substance Use Topics Alcohol use: Yes Comment: rare Drug use: No Reviewed current medications, allergies, past medical history, surgical history, family history and social history today. REVIEW OF SYSTEMS Constitutional: (+) fatigue, (+) weight gain, (+) sleep disturbance Cardiovascular: (-) chest pain Respiratory: (-) shortness of breath Gastrointestinal: (+) increased appetite Neurological: (-) lightheadedness, (-) dizziness HEALTH MAINTENANCE: Reviewed health maintenance issues today and recommended the following in detail. There are no preventive care reminders to display for this patient. LAB REVIEWED: Labs: (2021) Urinalysis: Normal Tests: (06/22/2021) Colonoscopy: 1 mm polyp identified. No malignant findings. (2011) Sleep study: Severe obstructive sleep apnea. Esophagogastroduodenos copy: No abnormalities. Biopsy of scalp lesion: Negative for malignancy. VITALS: BP 119/78 Pulse 68 Wt 91.2 kg (201 lb) SpO2 97% BMI 30.56 kg/m? Last 4 Encounter Wt Readings: Date: Wt: 06/27/2024 91.2 kg (201 lb) 05/16/2023 92.4 kg (203 lb 12.8 oz) 01/03/2023 92.5 kg (204 lb) 12/21/2021 88.2 kg (194 lb (more content not included)... Normal [facility] 06-27-2024 [facility] Telephone ([employer]) CATHY RATLIFF ([id number]) 1980 M Date Time Provider Department 06/27/24 ALEX BUTLERWS During your visit today, we recorded the following information about you: Jenifer Garza LPN 06/27/2024 4:48 PM Signed PA response for zepbound. lose reason: Other Payer: [employer] [phone] Note from payer: Drug is not covered by plan - Prescriber details have been updated to match the prescriber directory. View History Pharmacy Benefits Open Encounter CATHY RATLIFF - [facility] ([employer]) Covered: Retail, Mail Order Unknown: Specialty, Long-Term Care BIN: [id number] : 1980 Group ID: [id number] PCN: [id number] Legal sex: M Group name: [facility] Address: [address] [place], [place] [id number] Medication Being Authorized tirzepatide, weight loss (ZEPBOUND) 2.5 mg/0.5 mL pen injector Inject 2.5 mg subcutaneously one time a week. Dispense: 2 mL Refills: 2 Start: 06/27/2024 End: 09/25/2024 Class: Normal Diagnoses: SHITAL (obstructive sleep apnea); Class 1 obesity with body mass index (BMI) of 30.0 to 30.9 in adult, unspecified obesity type, unspecified whether serious comorbidity present This order has been released to its destination. To be filled at: e- [id number] [place] [address] - [address] [facility] [phone] [id number] Rubia Garcia RN 07/28/2024 4:44 PM Signed Patient calls and states that medication should be covered by insurance due to High BMI and Sleep Apnea. Patient if this was put into insurance with this information? Please review and advise, OUMAR Fields Janice, LPN 07/29/2024 8:26 AM Addendum I can fax them the records but, there wasn't any questions to complete. This was the electronic PA response. NOT COVERED BY PLAN. Office notes and sleep study was faxed to the [employer] fax number. Jenifer Garza LPN 07/31/2024 3:27 PM Signed Cathy Ratliff ([place]: [id number]) - [phone] Zepbound 2.5MG/0.5ML pen-injectors status: PA Request Created: July 25, 2024 Sent: July 31, 2024 Open Jenifer Garza LPN 08/05/2024 9:13 AM Signed My chart message to pt. Allergies As of Date: 06/27/2024 Noted Allergy Reaction ELTON NUT 09/05/2018 10 - Anaphylaxis Date Reviewed: 06/27/2024 Reviewed by: Amanda Hyatt LPN - Fully Assessed Reason for Visit: Insurance Authorization [[id number]] Prescriptions as of 08/05/2024 - tirzepatide, weight loss (ZEPBOUND) 2.5 mg/0.5 mL pen injector Inject 2.5 mg subcutaneously one time a week. - sildenafil (VIAGRA) 50 mg tablet Take 1 tablet by mouth once daily as needed. Take 30-60 minutes before sexual activity. - fluvoxaMINE (LUVOX) 50 mg tablet Take 1 tablet by mouth daily at bedtime. - LORazepam (ATIVAN) 1 mg tablet 1/2 to 1 tab daily as needed sparingly for anxiety Meds Comments as of 08/31/2011: Problem List As Of Date 06/27/2024 Noted Resolved Esophageal reflux [K21.9] 06/15/2006 12/21/2021 Essential hypertension, benign [I10] 06/15/2006 Dysthymia [F34.1] 01/15/2009 AR (Allergic Rhinitis) [J30.9] 01/15/2009 Obesity [E66.9] 09/10/2009 Intradermal nevus [D23.9] 04/05/2010 Melanocytic nevus of face [D22.30] 04/05/2010 Melanocytic nevus of trunk [D22.5] 04/05/2010 Solar lentigines: nino at shoulders [L81.4] 04/05/2010 Epidermal cyst [L72.0] 04/05/2010 Sebaceous cyst [L72.3] 04/05/2010 Other acne [L70.8] 04/05/2010 Comedonal acne [L70.0] 04/05/2010 Actinic Damage//Sun-damaged skin [L57.8] 04/05/2010 Sleep apnea [G47.30] 10/23/2011 Elevated liver enzymes [R74.8] 10/23/2011 GERD (gastroesophageal reflux disease) [K21.9] Nonspecific elevation of levels of transaminase* 12/21/2021 Acute gastritis without mention of hemorrhage [*04/23/2012 Chest pain [R07.9] 11/07/2012 12/21/2021 Obsessive-compulsive disorder [F42.9] 11/18/2015 Right lumbar radiculitis [M54.16] 09/06/2017 Spondylolisthesis of lumbosacral region [M43.17]10/04/2017 Muscle tightness [M62.89] 09/30/2021 05/16/2023 Spastic pelvic floor syndrome [K59.02] 09/30/2021 Encounter Status:Closed by JENIFER GARZA on 06/27/24 Normal [facility] MR/BMS.BPon 05-12-2024 MR/BMS.BP [address], [place] [address] OFFICE VISIT Date of Service: 05/12/24 MR#: [id number] Acct: [id number] Name: CATHY RATLIFF Rep #: [id number] : 1980 Provider: Dr. Trae Byrd se, DO Age/Sex: 43/M Location: [facility].BP Status: Signed Intake Vital Signs 01/17/24 07:00 03/11/24 09:47 05/12/24 07:07 Height 5 ft 8 in 5 ft 8 in 5 ft 8 in Weight: 198 lb BMI 30.1 BP 149/91 H 138/90 H Blood Pressure Location Rt brachial Lt brachial Position Sitting Sitting Respiration 18 16 Pulse 75 64 Pulse Source Monitor Monitor BP Intake Visit Reasons: 4 M FU Accompanied by: Self Allergies No Known Allergies Allergy (Verified 03/11/24 09:50) Medications ???Medication ???Instructions ???Recorded ???Confirmed ???Type creatine monohydrate 5,000 mg oral mg PO 03/11/24 05/12/24 History powder packet cholecalciferol (vitamin D3) 50 50 mcg PO QDAY 05/12/24 05/12/24 H istory mcg (2,000 unit) capsule fluvoxamine 100 mg tablet 100 mg PO QDAY 90 days #90 tabs 05/12/24 Rx PFSH Medical History Right shoulder pain Bone fracture OCD (obsessive compulsive disorder) Depression Anxiety Alcohol use Fatty liver Restless legs Back pain History of hiatal hernia Heartburn Former smoker CPAP (continuous positive airway pressure) dependence History of stress test Cardiology follow-up encounter Hypertension History of rheumatic fever History of urethral stricture Hx of fracture of femur Acute pharyngitis, unspecified Acute maxillary sinusitis, unspecified Perirectal abscess Spastic pelvic floor syndrome Anemia Hemorrhoids Arthritis Hypertension Surgical History (Updated 03/11/24 @ 09:55 by Pauline Reina) History of lumbar fusion Hx of toe surgery Hx of appendectomy History of tonsillectomy and adenoidectomy Family History Father Cancer Grandmother Cancer Mother Anxiety Hypertension Melanoma Cancer Social History Smoking Status: Former smoker how long ago did patient quit smokin years alcohol intake: current alcohol intake frequency: a few times a month Alcohol type: beer substance use type: does not use additional social history: no asa, uses ibuprofen, no marijuana, no vaping, used CBD couple years ago HPI History of Present Illness History provided by: patient Chief complaint: OCD HPI: Cathy Ratliff is a 43 year old male who presents today for follow up evaluation. Patient reports that his son just moved out 2 weeks ago to [place] with his girlfriend. Younger son will also be mov ing out in the fall to go to college at . Does have some apprehension in regards to being an empty jeremy. Has continued to work multiple jobs to stay busy. 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 Denies SI/HI or AVH. Continues to follow with Echo Brenner at [facility]. Review of Systems Constitutional Denies: fever(s), chills, change in weight or fatigue Eyes Denies: change in vision or blurry vision Ears, Nose, Mouth, Throat Denies: throat pain, neck pain or change in hearing Cardiovascular Denies: chest pain, palpitations or dyspnea Respiratory Denies: dyspnea, cough or wheezing Gastrointestinal Reports: diarrhea; Denies: abdominal pain, nausea, vomiting or constipation Genitourinary Denies: dysuria or urinary frequency Musculoskeletal Denies: back pain, neck pain, joint pain or muscle weakness Integumentary/Breast Denies: rash or new lesions Neurological Denies: headache(s), dizziness or confusion Endocrine Denies: fatigue or excessive sweating Hematologic/Lymphatic Denies: easy bruising or easy bleeding Allergic/Immunologic Denies: wheezing Exam Mental Status Exam - Psych Appearance casually dressed and no apparent distress Attitude cooperative and calm Activity/Motor Behavior MSE activity/motor behavior finding no adventitious movements Speech regular rate, regular volume and regular prosody Mood other (stressed) Affect congruent Thought Process linear, logical and coherent Thought Content no delusions, no hallucinations, obsessions and compulsions Suicidal Ideation none Homicidal Ideation none Attention intact Concentration intact Sensorium/Orientation awake, alert and oriented x3 Memory/Cognition other (appropriate for stated age) Insight good Judgement good Assessment Plan Assessment Plan (1) OCD (obsessive compulsive disorder): Qualifiers: Obsessive-compulsive disorder type: mixed obsessional thoughts and acts Qualified Code(s): F42.2 - Mixed obsessional thoughts and acts Frank (more content not included)... Normal [facility] Orthopedic Visit Reporton Orthopedic Visit Report [facility] [address] [place] [address] OFFICE VISIT Date of Service: 03/11/24 MR#: [id number] Acct: [id number] Name: CATHY RATLIFF Rep #: [id number] : 1980 Provider: Dr. Jarod whittaker MD Age/Sex: 43/M Location: [facility].JUAN J Status: Signed Intake Vital Signs 01/17/24 07:00 03/11/24 09:47 Height 5 ft 8 in 5 ft 8 in Weight: 211 lb 6 oz BMI 32.1 BP 149/91 H Blood Pressure Location Rt brachial Position Sitting Respiration 18 Pulse 75 Pulse Source Monitor Intake Visit Reasons: RIGHT SHOULDER Chief Complaint: right shoulder pain Accompanied by: Self Is patient in pain?: Yes Pain scale (1-10): 3 Allergies No Known Allergies Allergy (Verified 03/11/24 09:50) Medications ???Medication ???Instructions ???Recorded ???Confirmed ???Type creatine monohydrate 5,000 mg oral mg PO 03/11/24 03/11/24 History powder packet fluvoxamine 100 mg tablet 50 mg PO .COMPLEX 03/11/24 Histor y PFSH Medical History Right shoulder pain Bone fracture OCD (obsessive compulsive disorder) Depression Anxiety Alcohol use Fatty liver Restless legs Back pain History of hiatal hernia Heartburn Former smoker CPAP (continuous positive airway pressure) dependence History of stress test Cardiology follow-up encounter Hypertension History of rheumatic fever History of urethral stricture Hx of fracture of femur Acute pharyngitis, unspecified Acute maxillary sinusitis, unspecified Perirectal abscess Spastic pelvic floor syndrome Anemia Hemorrhoids Arthritis Hypertension Surgical History (Updated 03/11/24 @ 09:55 by Pauline Reina) History of lumbar fusion Hx of toe surgery Hx of appendectomy History of tonsillectomy and adenoidectomy Family History Father Cancer Grandmother Cancer Mother Anxiety Hypertension Melanoma Cancer Social History Smoking Status: Former smoker how long ago did patient quit smokin years alcohol intake: current alcohol intake frequency: a few times a month Alcohol type: beer substance use type: does not use additional social history: no asa, uses ibuprofen, no marijuana, no vaping, used CBD couple years ago HPI RIGHT SHOULDER Details: This documentation accurately reflects the service provided and the decisions made by me, Dr. Jarod Daley MD 03/11/24 7621. Part of today???s visit was documented by [ ], acting as scribe. CATHY RATLIFF is a 43 year old M here today for R shoulder pain. anterior. 2-3 months. works out daily. 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 positive night time symptoms. no injury. has a c spine fusion. to chilango in ac unit. Office Procedures Ortho Injections Injections Yes Subacromial Injection Right Is this a patient provided medication?: No Details: Obtained consent for injection. Under sterile conditions, injected the patients right shoulder with 2cc Kenalog 4cc bupivacaine. The patient tolerated the injection well without any noted complication. Patient should call our office if redness develops, pain worsens or if they have any concerns. Office Meds Kenalog 40 mg/mL suspension for injection Performing Provider: Jarod Daley MD Performing Location: [facility] Administered by: Jarod Daley MD on 03/11/24 10:10 Dose Route Admin Location Dispensed Lot Number Expiration Date TEJA Iraheta ufacturer 80 mg intra-articular right knee 2 mL [id number] 06/05/25 2793-3332-16 [employer] [facility] [employer] Supplemental Info R shoulder xr 4 view - nil acute, mild ACJ arthrosis. Coding Level of Care Code Attention Ecommerce Analyst Diagnoses Right shoulder pain M25.511 CPT Codes print washer.sub ([id number]) Comment 00462 and CPT inject major joint Assessment and Plan Assessment and Plan (1) Right shoulder pain: Status: Acute Plan: CATHY RATLIFF is a 43 year old M here today for R shoulder pain. Patient would like to start with a cortisone injection declined physical therapy and will follow-up as needed if this is no better or worse in the next 6 weeks the next step would be an MRI. The patient understands no further questions or concerns. Pros and cons risks and benefits of a right shoulder subacromial steroid injection were discussed. Patient wished to proceed. Risks include but not limited to infection, pain, stiffness, damage to other structures, neurovascular injury, wear further tear of the tendon and other structures such as the skin, bleeding, allergic reaction, acute flare reaction and other risks. Obtained informed consent for injection. Po (more content not included)... Normal [facility] Shoulder min 2 Viewson 03-11 Shoulder min 2 Views [facility] Imaging Services [address] [place] [address] [id number] Shoulder min 2 Views MR#: [id number] Acct: [id number] Name: CATHY RATLIFF Rep #: [id number] : 1980 M 43 From: Charly Rowe MD PCP: Dr. Alex Butler MD Status: DEP AMB Study: Shoulder min 2 Views Date of Exam: 03/11/24 Exam# [id number] Ordering Dr: Jarod Daley MD EXAM: XR Right Shoulder Complete, 2 or More Views CLINICAL INDICATION: TECHNIQUE: Two or more views of the right shoulder. COMPARISON: No relevant prior studies available. FINDINGS: BONES/JOINTS: Unremarkable. No acute fracture. No dislocation. SOFT TISSUES: Unremarkable. RAD/Shoulder min 2 Views IMPRESSION: No acute fracture. Reading [facility] CC: Dr. Jarod Daley MD; Dr. Alex Butler MD Rd Lab Technician: Signed [facility] MR/BMSVictoria 01-17-2024 MR/BMS. [facility] ry [address], [address] [place] [address] OFFICE VISIT Date of Service: 01/17/24 MR#: [id number] Acct: [id number] Name: CATHY RATLIFF Rep #: [id number] : 1980 Provider: Dr. Trae Byrd se, DO Age/Sex: 43/M Location: [facility].BP Status: Signed Intake Vital Signs 11/08/23 13:56 01/17/24 07:00 Height 5 ft 8 in 5 ft 8 in BP 149/91 H Blood Pressure Location Rt brachial Position Sitting Respiration 18 Pulse 75 Pulse Source Monitor BP Intake Visit Reasons: Follow up Accompanied by: Self Allergies No Known Allergies Allergy (Verified 01/17/24 07:03) Medications ???Medication ???Instructions ???Recorded ???Confirmed ???Type lorazepam 1 mg tablet 1 mg PO DAILY PRN anxiety #30 tabs 06/13/23 01/17/24 Rx fluvoxamine 100 mg tablet See Rx Instructions .Route 01/17/24 01/17/24 Rx .COMPLEX #90 tabs PFSH Medical History (Updated 11/14/23 @ 12:[address] Leona Haas MD) Bone fracture OCD (obsessive compulsive disorder) Depression Anxiety Alcohol use Fatty liver Restless legs Back pain History of hiatal hernia Heartburn Former smoker CPAP (continuous positive airway pressure) dependence History of stress test Cardiology follow-up encounter Hypertension History of rheumatic fever History of urethral stricture Hx of fracture of femur Acute pharyngitis, unspecified Acute maxillary sinusitis, unspecified Perirectal abscess Spastic pelvic floor syndrome Anemia Hemorrhoids Arthritis Hypertension Surgical History History of lumbar fusion Hx of toe surgery Hx of appendectomy History of tonsillectomy and adenoidectomy Family History Father Cancer Grandmother Cancer Mother Anxiety Hypertension Melanoma Cancer Social History (Updated 10/30/23 @ 14:35 by Yvette Rivera) Smoking Status: Former smoker how long ago did patient quit smokin years alcohol intake: current alcohol intake frequency: a few times a month Alcohol type: beer substance use type: does not use additional social history: no asa, uses ibuprofen, no marijuana, no vaping, used CBD couple years ago HPI History of Present Illness History provided by: patient HPI: Cathy Ratliff is a 43 year old male who presents today for follow up evaluation. 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 Patient reports that he has been feeling very stable. Reports that he does at time feel like it almost blunts his emotion but he is ok with this for the time being. Continues to try and work on his marriage and had been doing couples therapy. is currently doing Spravato therapy. Sleep has been somewhat poor, but thinks this is secondary to some shoulder pain. Has not taken any lorazepam in a prolonged period. Denies SI/HI or AVH. Continues to follow with Echo Brenner at [facility]. Review of Systems Constitutional Denies: fever(s), chills, change in weight or fatigue Eyes Denies: change in vision or blurry vision Ears, Nose, Mouth, Throat Denies: throat pain, neck pain or change in hearing Cardiovascular Denies: chest pain, palpitations or dyspnea Respiratory Denies: dyspnea, cough or wheezing Gastrointestinal Reports: diarrhea; Denies: abdominal pain, nausea, vomiting or constipation Genitourinary Denies: dysuria or urinary frequency Musculoskeletal Denies: back pain, neck pain, joint pain or muscle weakness Integumentary/Breast Denies: rash or new lesions Neurological Denies: headache(s), dizziness or confusion Endocrine Denies: fatigue or excessive sweating Hematologic/Lymphatic Denies: easy bruising or easy bleeding Allergic/Immunologic Denies: wheezing Exam Mental Status Exam - Psych Appearance casually dressed and no apparent distress Attitude cooperative and calm Activity/Motor Behavior MSE activity/motor behavior finding no adventitious movements Speech regular rate, regular volume and regular prosody Mood OK Affect congruent Thought Process linear, logical and coherent Thought Content no delusions, no hallucinations, obsessions and compulsions Suicidal Ideation none Homicidal Ideation none Attention intact Concentration intact Sensorium/Orientation awake, alert and oriented x3 Memory/Cognition other (appropriate for stated age) Insight good Judgement good Assessment Plan Assessment Plan (1) OCD (obsessive compulsive disorder): Qualifiers: Obsessive-compulsive disorder type: mixed obsessional thoughts and acts Qualified Code(s): F42.2 - Mixed obsessional thoughts and acts Plan: - Doing largely well on increase dose of luvox, no acute concerns - continue lorazepam PRN, using infrequently Medications (more content not included)... Normal [facility] Plastic Surgery Visit Report on 11-14-2023 Plastic Surgery Visit Report [facility] [address], [address] [place], [place] [id number] OFFICE VISIT Date of Service: 11/14/23 MR#: [id number] Acct: [id number] Name: CATHY RATLIFF Rep #: [id number] : 1980 Provider: Dr. Leona palomino MD Age/Sex: 43/M Location: [facility] Status: Signed Intake Vital Signs 11/08/23 13:56 11/14/23 11:41 Height 5 ft 8 in Weight: 200 lb 9.93 oz BMI 30.4 BP 124/70 H 151/93 H Blood Pressure Location Rt brachial Position Semi-Fowlers Sitting Respiration 16 16 Pulse 73 55 L Pulse Source Monitor Temp 97.8 F 98.4 F Temp Source Temporal Oral Pulse Oximetry (%) 98 99 Oxygen Delivery Method room air Intake Visit Reasons: SUTURE REMOVAL Chief Complaint: post op suture removal scalp Is patient in pain?: Yes (scalp) Pain scale (1-10): 2 Allergies No Known Allergies Allergy (Verified 11/14/23 11:37) Medications ???Medication ???Instructions ???Recorded ???Confirmed ???Type fluvoxamine 100 mg tablet See Rx Instructions .Route 06/13/23 11/14/23 Rx .COMPLEX #90 tabs lorazepam 1 mg tablet 1 mg PO DAILY PRN anxiety #30 tabs 06/13/23 11/14/23 Rx cephalexin 500 mg capsule 500 mg PO BID 5 days #10 caps 11/08/23 11/14/23 Rx sulfamethoxazole 800 1 tab PO BID #14 tabs 11/14/23 11/14/23 Rx mg-trimethoprim 160 mg tablet (Bactrim DS) Have you fallen in the past year?: No Nurse's Note: suture removal scalp Subjective Details: Cathy comes in for recheck of the lesion removed from his scalp and his forehead. He states the scalp area had been uncomfortable and pulling. He also indicates he had a headache following the procedure. Objective Details: Incision of the scalp has some scab associated with it. 2 reinforcing sutures are intact. There is some mild redness in the periphery of the area. The sites on the forehead are well-approximated and healing satisfactorily. The pathology was reviewed which demonstrated the scalp to have a markedly inflamed verrucous keratosis. The right and left forehead sites were also consistent with verrucous keratosis. No further intervention is necessary. Because of the redness of the scalp, I am giving him an additional prescription for antibiotics. His who is a perioperative nurse will check this area and remove the sutures in a few weeks. I have asked him to call with any concerns and we will see him back promptly if needed. Coding Level of Care Code Global Post Op Diagnoses Benign neoplasm of scalp and skin of neck D23.4 Benign neoplasm of skin of face D23.30 [facility] Medical History (Updated 11/14/23 @ 12:[address] Leona Haas MD) Bone fracture OCD (obsessive compulsive disorder) Depression Anxiety Alcohol use Fatty liver Restless legs Back pain History of hiatal hernia Heartburn Former smoker CPAP (continuous positive airway pressure) dependence History of stress test Cardiology follow-up encounter Hypertension History of rheumatic fever History of urethral stricture Hx of fracture of femur Acute pharyngitis, unspecified Acute maxillary sinusitis, unspecified Perirectal abscess Spastic pelvic floor syndrome Anemia Hemorrhoids Arthritis Hypertension Surgical History History of lumbar fusion Hx of toe surgery Hx of appendectomy History of tonsillectomy and adenoidectomy Family History Father Cancer Grandmother Cancer Mother Anxiety Hypertension Melanoma Cancer Social History (Updated 10/30/23 @ 14:35 by Yvette Rivera) Smoking Status: Former smoker how long ago did patient quit smokin years alcohol intake: current alcohol intake frequency: a few times a month Alcohol type: beer substance use type: does not use additional social history: no asa, uses ibuprofen, no marijuana, no vaping, used CBD couple years ago Assessment and Plan (No Qualifiers) Assessment and Plan (1) Benign neoplasm of scalp and skin of neck: Status: Acute (2) Benign neoplasm of skin of face: Status: Acute Plan Details Additional Comments: He is to follow-up as needed. 11/14/23 1535 Date Leona Haas MD Cosigner Signature: Date (if applicable) CC: Normal [facility] Discharge Instructionon Discharge Instruction [facility] Medical Records Department [address] [place] [address] Instructions for Home/Discharge Instructions 11/08/23 1648 MR#: [id number] Acct: [id number] Name: CATHY RATLIFF Rep #: [id number] : 1980 43 From: Leona Haas MD PCP: Dr. Alex Butler MD [place] [facility] [place] Instructions Dressing / Incision Additional Dressing/Incision Instructions:: Keep your head elevated (recliner position) at night to reduce swelling and drainage. Take the oral antibiotic (Keflex) 2 times a day until finished. May shower over the areas but do not scrub. May leave the Band-Aids off when there is no further drainage. Follow Up Care Test Results: Test results from this visit will be discussed in further detail at your follow-up appointment, if applicable. Discharge Plan Admission Attending Provider: Leona Haas Primary Care Provider: Alex Butler Instructions Print Language: Sinhala Discharge Orders/Prescriptions Prescriptions: New cephalexin 500 mg capsule 500 mg PO BID 5 Days Qty: 10 0RF No Action lorazepam 1 mg tablet 1 mg PO DAILY PRN (Reason: anxiety) Qty: 30 0RF fluvoxamine 100 mg tablet See Rx Instructions .ROUTE .COMPLEX Qty: 90 1RF Dose Instruction: TAKE 1 TABLET BY MOUTH EVERY DAY Rx Instructions: TAKE 1 TABLET BY MOUTH EVERY DAY Referrals / Follow Up: Alex Butler MD [Primary Care Provider] - Disposition Disposition (needs filled in before D/C Order can be placed): Home, Self Care 11/08/23 1650 Leona Haas MD CC: Dr. Alex Butler MD Signed Normal [facility] Operative Reporton 4 Operative Report [facility] Medical Records Department [address] [place] [address] Operative Report 11/08/23 1650 MR#: [id number] Acct: [id number] Name: CATHY RATLIFF Rep #: [id number] : 1980 43 From: Leona Haas MD PCP: Dr. Alex Butler MD Status:[facility] Location: [place] [address] Problems Associated Problem List Diagnoses (1) Neoplasm of uncertain behavior of skin of face: (2) Neoplasm of uncertain behavior of scalp: Report of Operation Date of Procedure: 11/08/23 Pre-Operative Diagnosis: Neoplasm of uncertain behavior scalp and forehead x 2 Post-Operative Diagnosis: Same Surgery/Procedure Performed:: Excision neoplasm scalp (1.5 cm); Shave lesion forehead x 2 (0.5 cm, 0.5 cm) Surgeon: Leona Haas Type of Anesthesia: Local Specimen's removed: Lesion of scalp and forehead x 2 Estimated Blood Loss (mL): Minimal Description of Procedure: The patient presents with a neoplasm of the scalp and forehead x 2 prepped. He presents for excision of the lesions with submission for pathologic evaluation. The potential for a small area of alopecia on the scalp was reviewed. The patient is brought to the operating room and placed on the operating room table in the supine position. The scalp and forehead are prepped and draped in the usual sterile fashion. 1% Xylocaine with epinephrine is used for local anesthetic. Following this, the lesion of the scalp is excised and passed off the operative field to be sent to pathology. Hemostasis is controlled with cautery. The site was then closed with progressively tightened silk suture. In this fashion, the skin edges were approximated. Chromic suture was used to further refine the closure. We then directed our attention to the lesions of the forehead and after these are anesthetized with 1% Xylocaine with epinephrine, they are shaved at the base and the base full rise. Antibiotic ointment and Band-Aids are placed on the site. He tolerated the procedure well was taken to the recovery area in an awake and stable condition. Needle and sponge counts are correct. Complications None Admit VTE Documentation VTE Mechan Device Prophylaxis: None Reason prophylaxis not ordered:: Treatment Not Indicated 11/08/231653 Cosigner Signature (if applicable): CC: Dr. Leona Haas MD; Dr. Alex Butler MD Signed Normal [facility] Surgery Specimen Level Elizabeth 11-08-2023 Surgery Specimen Level IV ---- Patient Age/Sex Location Account Attending Physician ---- CATHY RATLIFF 43/[place] [facility] [id number]. Leona Haas MD ---- Specimen: [id number] Received: 11/08/23 Status: [facility] Joyce Num: [id number] Spec Type: Lesion Subm Dr: Dr. Leona Haas MD HEADER OPERATION: Shave lesion bilateral forehead, excision lesion scalp PRE-OP DIAGNOSIS: Neoplasm of uncertain behavior of skin of face, neoplasm of uncertain behavior of scalp TISSUE SUBMITTED: A- Scalp lesion, B- Left forehead- shave lesion, C- Right forehead- shave lesion ---- MICROSCOPIC DIAGNOSIS A. Scalp lesion, excisional biopsy: Markedly inflamed verrucous keratosis. See comment. B. Left forehead lesion, shave biopsy: Verrucous keratosis. C. Right forehead lesion, shave biopsy: Verrucous keratosis with focal actinic keratosis features. / 11/12/2023 COMMENT A. Focal seborrheic keratosis like features and superficial bacterial colonization are also noted. Special stain for fungi is negative for organisms; matched controls is appropriate. MICROSCOPIC DESCRIPTION Slides are reviewed. GROSS DESCRIPTION A. Received in fixative is one container labeled with the patient's name and designated Scalp lesion. The specimen consists of a linton-white skin ellipse measuring 1.0 x 1.0 x 0.4cm. The specimen is inked, serially sectioned and submitted entirely in one cassette. B. Received in fixative is one container labeled with the patient's name and designated Left forehead shave lesion. The specimen consists of a piece of linton-white skin measuring 0.5 x 0.5 x 0.3cm. The specimen is inked, bisected and submitted entirely in one cassette. C. Received in fixative is one container labeled with the patient's name and designated Right forehead shave lesion. The specimen consists of a shave biopsy of light brown skin measuring 0.5 x 0.4 x 0.1cm. This specimen is inked, bisected, and submitted entirely in one cassette. Precious 11/09/2023 TC:5 CPT:52520c0,97161 ---- Patient Age/Sex Location Account Attending Physician ---- CATHY RATLIFF 43/M [facility] [id number]. Leona Haas MD ---- Signed (signature on file) Dr. Alton Hyde MD 11/12/23 1216 ---- Normal [facility] Comment on above: Performed By: #### P SUSIE #### [facility] Laboratory [address] [place], [place], [id number] Plastic Surgery Visit Report on 10-30-2023 Plastic Surgery Visit Report [facility] Plastic Reconstructive Surgery [address], [address] [place] [address] OFFICE VISIT Date of Service: 10/30/23 MR#: [id number] Acct: [id number] Name: CATHY RATLIFF Rep #: [id number] : 1980 Provider: Dr. Leona palomino MD Age/Sex: 43/M Location: [facility] Status: Signed Intake Vital Signs 06/13/23 07:12 10/29/23 08:31 10/30/23 14:32 Height 5 ft 8 in 5 ft 8 in 5 ft 8 in Weight: 201 lb BMI 30.5 BP 137/86 H 138/82 H Blood Pressure Location Rt brachial Rt brachial Position Sitting Sitting Respiration 17 Pulse 64 83 Pulse Source Monitor Monitor Temp 98.2 F Temp Source Oral Pulse Oximetry (%) 97 Oxygen Delivery Method room air Intake Visit Reasons: SPOT CHECK ON HEAD Chief Complaint: spot check on head Is patient in pain?: No Allergies No Known Allergies Allergy (Verified 10/30/23 14:24) Medications ???Medication ???Instructions ???Recorded ???Confirmed ???Type fluvoxamine 100 mg tablet See Rx Instructions .Route 06/13/23 10/30/23 Rx .COMPLEX #90 tabs lorazepam 1 mg tablet 1 mg PO DAILY PRN anxiety #30 tabs 06/13/23 10/30/23 Rx Have you fallen in the past year?: No Nurse's Note: spot check on head [facility] Medical History (Updated 10/30/23 @ 15:[address] Leona Haas MD) Bone fracture OCD (obsessive compulsive disorder) Depression Anxiety Alcohol use Fatty liver Restless legs Back pain History of hiatal hernia Heartburn Former smoker CPAP (continuous positive airway pressure) dependence History of stress test Cardiology follow-up encounter Hypertension History of rheumatic fever History of urethral stricture Hx of fracture of femur Acute pharyngitis, unspecified Acute maxillary sinusitis, unspecified Perirectal abscess Spastic pelvic floor syndrome Anemia Hemorrhoids Arthritis Hypertension Surgical History History of lumbar fusion Hx of toe surgery Hx of appendectomy History of tonsillectomy and adenoidectomy Family History Father Cancer Grandmother Cancer Mother Anxiety Hypertension Melanoma Cancer Social History (Updated 10/30/23 @ 14:35 by Yvette Rivera) Smoking Status: Former smoker how long ago did patient quit smokin years alcohol intake: current alcohol intake frequency: a few times a month Alcohol type: beer substance use type: does not use additional social history: no asa, uses ibuprofen, no marijuana, no vaping, used CBD couple years ago HPI SPOT CHECK ON HEAD Details: Cathy comes in today for evaluation of a lesion on his scalp and his left forehead. He states the lesion on the scalp is enlarged and becomes traumatized frequently. He states the 1 on his face is also grown. He otherwise is in good health. ROS General General: Yes good health; No fatigue, fever(s) or weight loss HENMT HENMT: No rhinitis, sore throat/mouth sore, nasal congestion, contacts or glaucoma Endo Endocrine: No thyroid disease, polydipsia, heat intolerance, cold intolerance, hepatitis or excessive urine Skin Skin: Yes changing moles; No Bleeding, bruising or suspicious lesion Musc Musculoskeletal: No joint pain, joint stiffness, muscle weakness, back pain, osteoarthritis or Muscle aches/ myalgia Neuro Neurological: No headache(s), No lightheadedness and No numbness Cardio Cardiovascular: No chest pain, pacemaker, fatigue or shortness of breat with exertion Psych Psychiatric: No depression, claustrophobia or anxiety Resp Respiratory: Yes sleep apnea; No spitting up, shortness of breath, asthma, emphysema, TB, Cough or Smoker Gastro Gastrointestinal: No diarrhea, constipation, blood in stool, nausea, vomiting or abdominal bloating [place] Hematologic: No anemia, No bleeding and No abnormal bleeding Genitourinary: No urinary frequency, blood in urine or incontinence Exam Details He has a nodular pigmented lesion on the scalp apex. There is hair emanating from the neoplasm. He also has a hyperkeratotic white flaky lesion of the left forehead. I reviewed excision of the lesion of the scalp and shave lesion of the left forehead. This would be done under local anesthetic as an outpatient. The specimens will be sent to pathology for evaluation. He is aware of the potential for alopecia in the skin surrounding the scalp excision. Const General: cooperative, healthy appearing, no acute distress and well developed Nutritional Appearance: well nourished Orientation: alert [facility] Head: normal to inspection, normocephalic and atraumatic Ears: hearing grossly normal bilaterally Nose: external nose normal Face and sinus: normal facial exam and face symmetric Mouth: lip normal Ey (more content not included)... Normal [facility] CBC W Auto Differential pane l (Bld)on 05-16-2023 Basophils (Bld) [#/Vol] 0.05 10*3/uL <0.11 k/uL [facility] Basophils/100 WBC (Bld) 0.9 % [facility] Differential cell count method Nom (Bld) Auto [facility] Eosinophils (Bld) [#/Vol] 0.13 10*3/uL <0.46 k/uL [facility] Eosinophils/100 WBC (Bld) 2.3 % [facility] Erythrocyte distribution width (RBC) [Ratio] 12.5 % 11.5 - 15.0 % [facility] Hematocrit (Bld) [Volume fraction] 40.4 % 39.0 - 51.0 % [facility] Hemoglobin (Bld) [Mass/Vol] 13.7 g/dL 13.0 - 17.0 g/dL [facility] Immature granulocytes (Bld) [#/Vol] <0.10 k/uL [facility] Immature granulocytes/100 WBC (Bld) 0.2 % [facility] Lymphocytes (Bld) [#/Vol] 1.95 10*3/uL 1.00 - 4.00 k/uL [facility] Lymphocytes/100 WBC (Bld) 34.0 % [facility] MCH (RBC) [Entitic mass] 29.0 pg 26.0 - 34.0 pg [facility] MCHC (RBC) [Mass/Vol] 33.9 g/dL 30.5 - 36.0 g/dL [facility] MCV (RBC) [Entitic vol] 85.4 fL 80.0 - 100.0 fL [facility] Monocytes (Bld) [#/Vol] 0.60 10*3/uL <0.87 k/uL [facility] Monocytes/100 WBC (Bld) 10.5 % [facility] Neutrophils (Bld) [#/Vol] 2.99 10*3/uL 1.45 - 7.50 k/uL [facility] Neutrophils/100 WBC (Bld) 52.1 % [facility] Nucleated RBC (Bld) [#/Vol] <0.01 k/uL [facility] Nucleated RBC/100 WBC (Bld) [Ratio] 0.0 /100 WBC [facility] Platelet mean volume (Bld) [Entitic vol] 10.5 fL 9.0 - 12.7 fL [facility] Platelets (Bld) [#/Vol] 244 10*3/uL 150 - 400 k/uL [facility] RBC (Bld) [#/Vol] 4.73 10*6/uL 4.20 - 6.0 0 m/uL [facility] WBC (Bld) [#/Vol] 5.73 10*3/uL 3.70 - 11. 00 k/uL [facility] Comprehensive metabolic 2000 panelon 05-16-2023 Albumin [Mass/Vol] 4.3 g/dL 3.9 - 4.9 g/dL [facility] ALP [Catalytic activity/Vol] 68 U/L 38 - 113 U/L [facility] ALT [Catalytic activity/Vol] 24 U/L 10 - 54 U/L [facility] Anion gap [Moles/Vol] 9 mmol/L 9 - 18 mmol/L [facility] AST [Catalytic activity/Vol] 27 U/L 14 - 40 U/L [facility] Bilirubin [Mass/Vol] 0.4 mg/dL 0.2 - 1 .3 mg/dL [facility] Calcium [Mass/Vol] 9.2 mg/dL 8.5 - 10. 2 mg/dL [facility] Chloride [Moles/Vol] 105 mmol/L 97 - 10 5 mmol/L [facility] CO2 [Moles/Vol] 25 mmol/L 22 - 30 mmol/L [facility] Creatinine [Mass/Vol] 0.97 mg/dL 0.73 - 1.22 mg/dL [facility] Estimated Glomerular Filtration Rate 99 mL/min/1.73m >=60 mL/min/1.73m [facility] Glucose [Mass/Vol] 91 mg/dL 74 - 99 mg/dL [facility] Potassium [Moles/Vol] 4.3 mmol/L 3.7 - 5.1 mmol/L [facility] Protein [Mass/Vol] 6.5 g/dL 6.3 - 8.0 g/dL [facility] Sodium [Moles/Vol] 139 mmol/L 136 - 144 mmol/L [facility] Urea nitrogen [Mass/Vol] 14 mg/dL 9 - 24 mg/dL [facility] Lipid 1996 panelon Cholesterol [Mass/Vol] 154 mg/dL <200 mg/dL [facility] Cholesterol in HDL [Mass/Vol] 47 mg/dL >39 mg/dL [facility] Cholesterol in LDL [Mass/Vol] 96 mg/dL <100 mg/dL [facility] Cholesterol in LDL/Cholesterol in HDL [Mass ratio] 2.04 {ratio} <2.54 [facility] Cholesterol in VLDL [Mass/Vol] 11 mg/dL <30 mg/dL [facility] Cholesterol non HDL [Mass/Vol] 107 mg/dL <130 mg/dL [facility] Cholesterol.total/Cho lesterol in HDL [Mass ratio] 3.28 {ratio} <5.10 [facility] Fasting Time 12 hrs [facility] Triglyceride [Mass/Vol] 55 mg/dL <150 mg/dL [facility] TESTOSTERONE, TOTALon 2023 Testosterone [Mass/Vol] 479 ng/dL 193 - 824 ng/dL [facility] THYROID STIMULATING HORMONEo n 05-16-2023 TSH Qn 1.070 m[IU]/L 0.270 - 4.200 mIU/L [facility] STREP A MOLECULAR (POC)on Procedural Control Valid [facility] Strep A (POCT) Negative Negative [facility] CNPNon 09-05-2021 CNPN Telephone (CRISTHIAN) CATHY RATLIFF ([id number]) 1980 M Date Time Provider Department 09/05/21 ADITI SALINAS During your visit today, we recorded the following information about you: Halle Flores 09/05/2021 8:01 AM Signed Pt confirmed cysto in [place] ofc with Dr. Salinas 09/15/21 @ 1:45. [place] Allergies As of Date: 09/05/2021 (No Known Allergies) Date Reviewed: 09/02/2021 Reviewed by: Cee David LPN - Fully Assessed Reason for Visit: Appointment [[id number]] Prescriptions as of 09/05/2021 - fluvoxaMINE Maleate (LUVOX) 25 mg tablet Take 25 mg by mouth twice daily. One tablet by mouth for 20 days then take 1 tablet by mouth twice daily. - LORazepam (ATIVAN) 1 mg tablet 1/2 to 1 tab daily as needed sparingly for anxiety - buPROPion SR (WELLBUTRIN SR) 100 mg 12 hr tablet Take 50 mg by mouth once daily. - hydrocortisone (ANUSOL-HC) 25 mg suppository 1 Suppository by RECTAL route twice daily as needed (hemorrhoids/rectal pain). - hydrocortisone-pramoxi ne (ANALPRAM-HC) 2.5-1 % rectal cream by RECTAL route three times daily. - multivit,thx,calcium,i mk,mins (MULTIVITAMIN AND MINERAL ORAL) Take by mouth. - L.acid/L.casei/B.bif/B .nahun/FOS (PROBIOTIC BLEND ORAL) Take by mouth. Meds Comments as of 08/31/2011: Problem List As Of Date 09/05/2021 Noted Resolved ESOPHAGEAL REFLUX [K21.9] 06/15/2006 BENIGN HYPERTENSION [I10] 06/15/2006 Dysthymia [F34.1] 01/15/2009 AR (Allergic Rhinitis) [J30.9] 01/15/2009 Obesity [E66.9] 09/10/2009 Intradermal nevus [D23.9] 04/05/2010 Melanocytic nevus of face [D22.30] 04/05/2010 Melanocytic nevus of trunk [D22.5] 04/05/2010 Solar lentigines: nino at shoulders [L81.4] 04/05/2010 Epidermal cyst [L72.0] 04/05/2010 Sebaceous cyst [L72.3] 04/05/2010 Other acne [L70.8] 04/05/2010 Comedonal acne [L70.0] 04/05/2010 Actinic Damage//Sun-damaged skin [L57.8] 04/05/2010 Sleep apnea [G47.30] 10/23/2011 Elevated liver enzymes [R74.8] 10/23/2011 GERD (gastroesophageal reflux disease) [K21.9] Nonspecific elevation of levels of transaminase* Acute gastritis without mention of hemorrhage [*04/23/2012 Chest pain [R07.9] 11/07/2012 Obsessive-compulsive disorder [F42.9] 11/18/2015 Right lumbar radiculitis [M54.16] 09/06/2017 Spondylolisthesis of lumbosacral region [M43.17]10/04/2017 Encounter Status:Closed by HALLE RAJAN on 09/05/21 [facility] UA DIP, URINE (POC)on 2021 BILIRUBIN UA (POCT) Negative Negative [facility] CLARITY UA (POCT) [facility] COLOR UA (POCT) [facility] GLUCOSE UA (POCT) Negative Negative mg/dL [facility] HEMOGLOBIN/BLOOD UA (POCT) Negative Negative [facility] KETONE UA (POCT) Negative Negative mg/dL [facility] LEUKOCYTES UA (POCT) Negative Negative [facility] NITRITE UA (POCT) Negative Negative [facility] PH UA (POCT) 6.5 4.5 - 8.0 [facility] Protein Ql (U) Negative Negative mg/dL [facility] SPECIFIC GRAVITY UA (POCT) 1.025 1.005 - 1.030 [facility] UROBILINOGEN UA (POCT) 0.2 E.U./dL Normal E.U./dL [facility] UA DIP, URINE (POC)on 2021 BILIRUBIN UA (POCT) Negative Negative [facility] CLARITY UA (POCT) [facility] COLOR UA (POCT) [facility] GLUCOSE UA (POCT) Negative Negative mg/dL [facility] HEMOGLOBIN/BLOOD UA (POCT) Trace-intact Abnormal Negative [facility] KETONE UA (POCT) Negative Negative mg/dL [facility] LEUKOCYTES UA (POCT) Negative Negative [facility] NITRITE UA (POCT) Negative Negative [facility] PH UA (POCT) 5.5 4.5 - 8.0 [facility] Protein Ql (U) Negative Negative mg/dL [facility] SPECIFIC GRAVITY UA (POCT) >=1.030 1.005 - 1.030 [facility] UROBILINOGEN UA (POCT) 0.2 E.U./dL Normal E.U./dL [facility] HEMOCCULT SINGLE B/Oon 08-19 [place] Negative neg - pos [facility] Quality Check Yes [facility] UA DIP, URINE (POC)on 2021 BILIRUBIN UA (POCT) Negative Negative [facility] CLARITY UA (POCT) Clear [facility] COLOR UA (POCT) [facility] GLUCOSE UA (POCT) Negative Negative mg/dL [facility] HEMOGLOBIN/BLOOD UA (POCT) Negative Negative [facility] KETONE UA (POCT) Negative Negative mg/dL [facility] LEUKOCYTES UA (POCT) Negative Negative [facility] NITRITE UA (POCT) Negative Negative [facility] PH UA (POCT) 5.5 4.5 - 8.0 [facility] Protein Ql (U) Negative Negative mg/dL [facility] SPECIFIC GRAVITY UA (POCT) <=1.005 Abnormal 1.005 - 1.030 [facility] UROBILINOGEN UA (POCT) 0.2 E.U./dL Normal E.U./dL [facility] Laboratory - Microbiology an d Antimicrobial susceptibilityon 05-14-2021 S. pyogenes Ag IA Ql (Unsp spec) Negative [facility] Work Phone: Absolute lymphocyte counton 03-09-2021 Lymphocytes Auto (Unsp spec) [#/Vol] 2.19 10*3/uL 0.83-4.51 [facility] Work Phone: Basophil percentageon 2021 Basophils/100 WBC (Bld) 0.5 % 0-1 [facility] Work Phone: Chloride [Moles/Vol] 104 mmol/L 98-107 [facility] Work Phone: Eosinophils/100 WBC (Bld) 3.6 % 0-5 [facility] Work Phone: Glucose [Mass/Vol] 98 mg/dL 74-106 [facility] Work Phone: Neutrophils (Bld) [#/Vol] 9.1 10*3/uL 2.0-7.7 [facility] Work Phone: Neutrophils/100 WBC (Bld) 67.9 % 47-70 [facility] Work Phone: Potassium [Moles/Vol] 4.1 mmol/L 3.5-5.1 [facility] Work Phone: Sodium [Moles/Vol] 139 mmol/L 136-145 [facility] Work Phone: WBC (Bld) [#/Vol] 13.3 10*3/uL 4.4-11.0 [facility] Work Phone: Blood erythrocytes count (nu mber/volume)on 03-09-2021 RBC (Bld) [#/Vol] 4.63 10*6/uL 4.6-6.2 [facility] Work Phone: Blood hemoglobin measurement (mass/volume)on 03-09-2021 Hemoglobin (Bld) [Mass/Vol] 13.3 g/dL 13.0-16.5 [facility] Work Phone: Blood lymphocytes/100 leukoc yteson 03-09-2021 Lymphocytes/100 WBC (Bld) 16.4 % 19-41 [facility] Work Phone: Blood monocytes/100 leukocyt eson 03-09-2021 Monocytes/100 WBC (Bld) 10.9 % 0-10 [facility] Work Phone: Blood platelet mean volumeon 03-09-2021 Platelet mean volume (Bld) [Entitic vol] 9.5 fL 6.2-12.0 [facility] Work Phone: Determination of erythrocyte mean corpuscular volume (MCV)on 03-09-2021 MCV (RBC) [Entitic vol] 85.3 fL 80-94 [facility] Work Phone: Hematocrit Auto (Bld) [Volum e fraction]on 03-09-2021 Hematocrit (Bld) [Volume fraction] 39.5 % 40-54 [facility] Work Phone: Laboratory - Chemistry and C hemistry - challengeon 03-09-2021 CO2 [Moles/Vol] 31.0 mmol/L 21.0-32.0 [facility] Work Phone: Urea nitrogen/Creatinine [Mass ratio] 17.9 mg/mg 10-20 [facility] Work Phone: Laboratory - Hematology and Cell countson 03-09-2021 Erythrocyte distribution width (RBC) [Entitic vol] 37.4 fL 35.1-43.9 [facility] Work Phone: Erythrocyte distribution width (RBC) [Ratio] 12.1 % 11.6-14.6 [facility] Work Phone: Immature granulocytes/100 WBC (Bld) 0.700 % 0.0-0.9 [facility] Work Phone: Comment on above: IG% - Immature Granu locytes (promyelocytes, myelocytes and metamyelocytes) > 1% indicates that a LEFT SHIFT is Present. MCH (RBC) [Entitic mass] 28.7 pg 27.0-32.0 [facility] Work Phone: Nucleated RBC/100 WBC (Bld) [Ratio] 0 % 0-5 [facility] Work Phone: MCHC Auto (RBC) [Mass/Vol]on 03-09-2021 MCHC (RBC) [Mass/Vol] 33.7 g/dL 32-36 [facility] Work Phone: No Panel Informationon 03-09 Estimated Creatinine Clearance Calc 83.13 ml/min [facility] Work Phone: Estimated GFR (MDRD) Amer 92 mL/min >60 [facility] Work Phone: Comment on above: GFR Calc Estimated GFR (MDRD) Non-Af Amer 76 mL/min >60 [facility] Work Phone: Comment on above: Non- GFR Calc Platelets bldon 03-09-2021 Platelets (Bld) [#/Vol] 357 10*3/uL 150-450 [facility] Work Phone: Serum or plasma calcium ankita urement (mass/volume)on 03-09-2021 Calcium [Mass/Vol] 8.9 mg/dL 8.5-10.1 [facility] Work Phone: Serum or plasma creatinine m easurement (mass/volume)on 03-09-2021 Creatinine [Mass/Vol] 1.12 mg/dL 0.70-1.30 [facility] Work Phone: Comment on above: The validity of the calculated GFR & GFRAA in patients over 70 years has not been determined. Clinical correlation is essential. Serum or plasma urea nitroge n measurement (mass/volume)on 03-09-2021 Urea nitrogen [Mass/Vol] 20 mg/dL 7-18 [facility] Work Phone: Thin prep Papanicolaou smear with manual screeningon 03-09-2021 Thin prep Papanicolaou smear with manual screening 4 5-15 [facility] Work Phone: Basic Metabolic Panelon 10-2 Calcium [Mass/Vol] 8.6 mg/dL Normal 8.4-10.4 [facility] Comment on above: Performed By: #### H GHCT #### [facility] [address] [place] [address] Glucose [Mass/Vol] 99 mg/dL Normal 70-100 [facility] Comment on above: Performed By: #### H GHCT #### [facility] [address] [place] [address] Urea nitrogen [Mass/Vol] 7 mg/dL Normal 7-20 [facility] Comment on above: Performed By: #### H GHCT #### [facility] [address] [place], [place] Anion gap [Moles/Vol] 6 Normal [facility] Comment on above: Performed By: #### H GHCT #### [facility] [address] [place], [place] CO2 [Moles/Vol] 28 mmol/L Normal 22-30 [facility] Comment on above: Performed By: #### H GHCT #### [address] [place], [place] Creatinine [Mass/Vol] 0.77 mg/dL Normal 0.52-1.25 [facility] Comment on above: Performed By: #### H GHCT #### [address] [place], [place] GFR/1.73 sq M predicted among blacks MDRD (S/P/Bld) [Vol rate/Area] mL/min/{1.73_m2} Normal >60 [facility] Comment on above: Performed By: #### H GHCT #### [address] [place], [place] GFR/1.73 sq M predicted among non-blacks MDRD (S/P/Bld) [Vol rate/Area] mL/min/{1.73_m2} Normal >60 [facility] Comment on above: Result Comment: Sour ce- MDRD equation with creatinine calibration to IDMS(NKDEP) eGFR not recommended for drug dose adjustment Performed By: #### H GHCT #### [address] [place], [place] Chloride [Moles/Vol] 103 mmol/L Normal 98-107 [facility] Comment on above: Performed By: #### H GHCT #### [address] [place], [place] Potassium [Moles/Vol] 4.0 mmol/L Normal 3.5-5.1 [facility] Comment on above: Performed By: #### H GHCT #### [address] [place] [address] Sodium [Moles/Vol] 138 mmol/L Normal 135-145 [facility] Comment on above: Performed By: #### H GHCT #### [address] [place], [place] Hemogram w/ Autodiffon 11-25 Abs Baso Cnt 0.1 10*3/uL Normal 0.0-0.2 [facility] Comment on above: Performed By: #### H GHCT #### [address] [place], [place] Abs Neutrophile Cnt 6.0 10*3/uL Normal 1.8-7.0 [facility] Comment on above: Performed By: #### H GHCT #### [address] [place] Basophils/100 WBC (Bld) 1.1 % Normal 0.0-2.0 [facility] Comment on above: Performed By: #### H GHCT #### [address] [place] Eosinophils (Bld) [#/Vol] 0.4 10*3/uL Normal 0.0-0.5 [facility] Comment on above: Performed By: #### H GHCT #### [address] [place] Eosinophils/100 WBC (Bld) 4.2 % Normal 1.0-6.0 [facility] Comment on above: Performed By: #### H GHCT #### [address] [place] Erythrocyte distribution width (RBC) [Ratio] 13.1 % Normal 11.5-14.5 [facility] Comment on above: Performed By: #### H GHCT #### [address] [place], [place] Granulocytes/100 WBC (Bld) 60.8 % Normal 40.0-80.0 [facility] Comment on above: Performed By: #### H GHCT #### [address] [place] Hematocrit (Bld) [Volume fraction] 34.6 % Low 40.0-52.0 [facility] Comment on above: Performed By: #### H GHCT #### [facility] [address] [place], [place] Hemoglobin (Bld) [Mass/Vol] 12.0 g/dL Low 13.0-18.0 [facility] Comment on above: Performed By: #### H GHCT #### [facility] [address] [place], [place] Lymphocytes (Bld) [#/Vol] 2.2 10*3/uL Normal 1.0-4.3 [facility] Comment on above: Performed By: #### H GHCT #### [address] [place] Lymphocytes/100 WBC (Bld) 21.8 % Normal 20.0-40.0 [facility] Comment on above: Performed By: #### H GHCT #### [address] [place], [place] MCH (RBC) [Entitic mass] 29.9 pg Normal 26.0-34.0 [facility] Comment on above: Performed By: #### H GHCT #### [address] [place] MCHC (RBC) [Mass/Vol] 34.5 % Normal 32.0-36.0 [facility] Comment on above: Performed By: #### H GHCT #### [address] [place], [place] MCV (RBC) [Entitic vol] 86.5 fL Normal 80.0-98.0 [facility] Comment on above: Performed By: #### H GHCT #### [address] [place] Monocytes (Bld) [#/Vol] 1.2 10*3/uL High 0.0-0.8 [facility] Comment on above: Performed By: #### H GHCT #### [address] [place] Monocytes/100 WBC (Bld) 12.1 % High 2.0-10.0 [facility] Comment on above: Performed By: #### H GHCT #### [facility] [address] [place], [place] Platelet mean volume (Bld) [Entitic vol] 7.9 fL Normal 7.4-10.4 [facility] Comment on above: Performed By: #### H GHCT #### [facility] [address] [place], [place] Platelets (Bld) [#/Vol] 193 10*3/uL Normal 140-440 [facility] Comment on above: Performed By: #### H GHCT #### [address] [address] [place], [place] RBC (Bld) [#/Vol] 4.00 10*6/uL Low 4.40-5.90 [facility] Comment on above: Performed By: #### H GHCT #### [address] [place], [place] WBC (Bld) [#/Vol] 9.9 10*3/uL Normal 3.6-10.7 [facility] Comment on above: Performed By: #### H GHCT #### [address] [place], [place] Op Noteon 11-25-2018 Op Note PATIENT: MARK ANTHONY RATLIFF ADMISSION DATE: 11/22/2018 SURGERY DATE: 11/22/2018 DATE OF : 1980 AGE: 38 ADMITTING PHYSICIAN: Anil Aguilar DO, MBA ATTENDING PHYSICIAN: Anil Aguilar DO, MBA DICTATING PHYSICIAN: Anil Aguilar DO, MBA OPERATIVE RECORD Procedure: 1. ANTERIOR LUMBAR DISKECTOMY FOLLOWING RETROPERITONEAL APPROACH, LEFT L5-S1. 2. TITANIUM CAGE PREPARATION FOR FUSION, TITAN SPINE 36 X 24 X 13, 12 DEGREE LORDOSIS. 3. SMALL KIT BMP PREPARATION FOR FUSION. 4. ANTERIOR LUMBAR INTERBODY FUSION, L5-S1 UTILIZING A TITAN SPINE MEDTRONIC CAGE 36 X 24 X 13 MM, 12 DEGREE LORDOSIS AND 3 SCREWS FOR FIXATION, ALL SCREWS 6.5 X 30 MM, 1 AT L5, 2 AT S1. 5. POSTERIOR LUMBAR DECOMPRESSION, LEFT L4-5, L5-S1 WITH FORAMINOTOMIES L4, L5, S1. 6. LEFT L5-S1 SEGMENTAL FIXATION UTILIZING MEDTRONIC SOLERA INSTRUMENTATION 6.5 MM X 45 MM AT L5 AND 7.5 MM X 45 MM AT S1. Preoperative Diagnoses: 1. Grade 1 lytic L5-S1 spondylolisthesis with instability. 2. Lumbar disk degeneration and lumbar stenosis, L5-S1. Postoperative Diagnoses: 1. Grade 1 lytic L5-S1 spondylolisthesis with instability. 2. Lumbar disk degeneration and lumbar stenosis, L5-S1. Anesthesia: General. Assistants: Dr. Rodriguez for the anterior and Jay Sunshine M.D. for the posterior. Estimated Blood Loss: Minimal, anterior and posterior. Complications: None. Clinical History: This patient is a 38-year-old male admitted to [facility] for elective surgery regarding anterior lumbar interbody fusion, both anterior and posterior with fixation. The patient understands the risks of surgery that we discussed preoperatively that include, but are not limited to , DVT, stroke, SC, PE, infection, nonunion, persistent pain, subsidence, hematoma formation, new symptoms of numbness, pain or weakness, paralysis either partial or complete, new symptoms that may require additional surgical therapy, additional degeneration to adjacent levels of surgery over time, and the possibility of anterior approach complications. Anterior approach complications despite the use of a vascular surgeon include but are not limited to vascular injury requiring repair, possible transfusion, RSD development, hematoma formation, hernia anteriorly, bowel injury, or the possibility of a multitude of potential complications that we discussed and reviewed at length. All questions were answered. The patient wishes to proceed with both anterior and posterior surgery as outlined. The patient has been medically cleared for this procedure as well. The patient was seen and evaluated by anesthesia team preoperatively. Description of Procedure: The patient was brought to the operating room at [facility] where a satisfactory general anesthetic was administered and an oral endotracheal tube was placed by the anesthesia team. The patient had a Solorzano catheter inserted and bilateral lower extremity pneumatic compression stockings placed. The patient was then comfortably positioned on the standard reversed OR table and a small folded towel was placed underneath the pelvis for slight lumbar and extension. The arms were tucked gently at the side after fully checking and padding and protecting the upper and lower extremities, abdomen, face, cervical spine, and axilla bilaterally. The lumbar spine was then x-rayed with lateral and AP fluoroscopy to ensure accuracy and overall alignment with visualization of the L5-S1 interspace. The anterior lumbar spine was then prepped and draped in the normal sterile fashion and a verbal time-out was performed per protocol at [facility]. All was agreed upon by all present. Dr. Rodriguez then was present for all the above and performed the anterior approach from a left-sided horizontal incision utilizing a mini-open technique. Once the L5-S1 level was completely visualized and confirmed, we performed lumbar diskectomy L5-S1 totally removing the disk back to posterior longitudinal ligament. Significant degeneration of the disk space was noted. Mobility of the disk space was noted on motion testing. We then placed various trials for placement of a cage. We selected a 36 x 24 x 13 mm cage, 12 degree lordosis. A titanium cage was then selected and prepared for fusion. A small kit of BMP was also prepared for fusion. The BMP was placed into the cage. The cage was then inserted in the interspace at L5-S1, countersunk approximately 4 mm. Screw fixation was then performed utilizing 6.5 x 30 mm screws, 1 at L5 and 2 at S1 for stable secure fixation. Overall alignment was deemed to be excellent and complete reduction of spondylolisthesis was noted. The wound was then inspected and then closed per Dr. Rodriguez's dictation. Please refer to his dictation for full details regarding anterior approach and closure. Sterile dressings were then applied. The patient was maintained under general anesthesia. The patient was then carefully turned to the prone position on the standard Ayad frame making sure to pad and protect the upper and lower extremities, abdomen, face, cervical spine, and axilla bilaterally. The lumbar spine was then prepped and draped in normal sterile fashion after additional radiographs with lateral fluoroscopy were obtained for incision planning purposes. A second verbal time-out was performed and all details agreed upon once again for this procedure. A slightly left-sided microscopic incision was then performed from the pedicle of L5-S1. The fascia was then divided in the paraspinal direction and the muscular layers were then hemostatically reflected off the spinous process of lamina of L5 and S1. The transverse process of L5 and the sacral ala on the left were exposed. A self-retaining microscopic retractor was placed. We then performed partial unilateral laminectomy of L4, L5, and S1 allowing for visualization of the pedicles of L5 and S1, and we were able to palpate these very nicely. We then placed a 6.5 x 45 mm lag screw directly in the pedicle at L5 and 7.5 x 45 mm length screw at S1 with excellent alignment of fixation. A 50 mm phoebe was then selected and fixed to the intervertebral screws, final tightening accomplished. Final films demonstrated very nice alignment of fixation of the L5-S1 interspace, both AP and lateral. The lumbar wound was then closed in layers after full antibiotic irrigation. The deep fascia was reapproximated with #1 Vicryl followed by 0 and 2-0 Vicryl for the more successive superficial layers. A running subcuticular 3-0 Monocryl suture was utilized for the skin layer for closure in a subcuticular fashion. Steri-Strips and sterile dressings were applied. The patient was then carefully turned back into the supine position having tolerated both anterior and posterior procedures well. The final estimated blood loss for both procedures were negligible. The final needle, sponge, and instrument counts were correct and verified by the nursing personnel and radiology at the time of closure and at the conclusion the procedure. After the anterior approach, we performed AP and lateral x-rays with fluoroscopy and these were sent to Radiology for determination, there were no free bodies within the abdomen other than the implants placed at L5-S1 for the surgery. This was confirmed by Radiology at the time of closure. There were no complications. The patient was then uneventfully awakened, extubated, transferred to the recovery room in stable condition without incident. Diskriter Job ID: [id number] Anil Aguilar DO, MBA DOD:11/25/2018 09:47 A Alex DOT:11/25/2018 12:01 P Job Number: [id number] Document Number: [id number] cc: Anil Aguilar DO, MBA [address] [facility] [address] [facility] [id number] Normal [facility] Basic Metabolic Panelon 11-06 Anion gap [Moles/Vol] 5 Normal [facility] Comment on above: Performed By: #### B MP3M #### [address] [address] Calcium [Mass/Vol] 8.7 mg/dL Normal 8.4-10.4 [facility] Comment on above: Performed By: #### B MP3M #### [address] [place], [place] CO2 [Moles/Vol] 27 mmol/L Normal 22-30 [facility] Comment on above: Performed By: #### B MP3M #### [address] [place], [place] Glucose [Mass/Vol] 95 mg/dL Normal 70-100 [facility] Comment on above: Performed By: #### B MP3M #### [address] [place] Urea nitrogen [Mass/Vol] 15 mg/dL Normal 7-20 [facility] Comment on above: Performed By: #### B MP3M #### [address] [place] Creatinine [Mass/Vol] 0.80 mg/dL Normal 0.52-1.25 [facility] Comment on above: Performed By: #### B MP3M #### [address] [place], [place] GFR/1.73 sq M predicted among blacks MDRD (S/P/Bld) [Vol rate/Area] mL/min/{1.73_m2} Normal >60 [facility] Comment on above: Performed By: #### B MP3M #### [address] [place], [place] GFR/1.73 sq M predicted among non-blacks MDRD (S/P/Bld) [Vol rate/Area] mL/min/{1.73_m2} Normal >60 [facility] Comment on above: Result Comment: Sour ce- MDRD equation with creatinine calibration to IDMS(NKDEP) eGFR not recommended for drug dose adjustment Performed By: #### B MP3M #### [address] [place] Potassium [Moles/Vol] 3.8 mmol/L Normal 3.5-5.1 [facility] Comment on above: Performed By: #### B MP3M #### [facility] [address] [place], [place] Sodium [Moles/Vol] 138 mmol/L Normal 135-145 [facility] Comment on above: Performed By: #### B MP3M #### [facility] [address] [place], [place] Chloride [Moles/Vol] 106 mmol/L Normal 98-107 [facility] Comment on above: Performed By: #### B MP3M #### [address] [place] Complete Urinalysison 2018 Appearance (U) Clear Normal [facility] Comment on above: Result Comment: Refe rence Range: Clear Performed By: #### H GHCT #### [address] [place], [place] Bilirubin,Urine Negative Normal [facility] Comment on above: Result Comment: Refe rence Range: Negative Performed By: #### H GHCT #### [address] [place] Color (U) Colorless Normal [facility] Comment on above: Result Comment: Refe rence Range: Lt. Yellow Performed By: #### H GHCT #### [address] [place], [place] Glucose Ql (U) Normal Normal [facility] Comment on above: Result Comment: Refe rence Range: Normal (<70) Performed By: #### H GHCT #### [address] [place], [place] Ketone,Urine Negative Normal [facility] Comment on above: Result Comment: Refe rence Range: Negative Performed By: #### H GHCT #### [address] [place] Leukocytes,Urine Negative Normal [facility] Comment on above: Result Comment: Refe rence Range: Negative Performed By: #### H GHCT #### [address] [place] Nitrites,Urine Negative Normal [facility] Comment on above: Result Comment: Refe rence Range: Negative Performed By: #### H GHCT #### [address] [place] Occult Blood,Urine Negative Normal [facility] Comment on above: Result Comment: Refe rence Range: Negative Performed By: #### H GHCT #### [address] [place] pH (U) 6.5 Normal 5.0-8.0 [facility] Comment on above: Performed By: #### H GHCT #### [address] [place] Protein (U) [Mass/Vol] Negative Normal [facility] Comment on above: Result Comment: Refe rence Range: Negative Performed By: #### H GHCT #### [address] [place], [place] Specific Girard,Urine 1.008 Normal 1.005-1.030 [facility] Comment on above: Performed By: #### H GHCT #### [address] [place], [place] Urobilinogen,Urine Normal Normal [facility] Comment on above: Result Comment: Refe rence Range: Normal (0-1) Performed By: #### H GHCT #### [address] [place], [place] Free T4on 11-24-2018 Free T4 [Mass/Vol] 0.92 ng/dL Normal 0.78-2.19 [facility] Comment on above: Performed By: #### H GHCT #### [address] [place], [place] Hemogram w/ Autodiffon 11-24 Abs Baso Cnt 0.1 10*3/uL Normal 0.0-0.2 [facility] Comment on above: Performed By: #### H GHCT #### [address] [place], [place] Abs Neutrophile Cnt 6.8 10*3/uL Normal 1.8-7.0 [facility] Comment on above: Performed By: #### H GHCT #### [address] [place] Basophils/100 WBC (Bld) 0.6 % Normal 0.0-2.0 [facility] Comment on above: Performed By: #### H GHCT #### [address] [place] Eosinophils (Bld) [#/Vol] 0.3 10*3/uL Normal 0.0-0.5 [facility] Comment on above: Performed By: #### H GHCT #### [address] [place] Eosinophils/100 WBC (Bld) 3.1 % Normal 1.0-6.0 [facility] Comment on above: Performed By: #### H GHCT #### [address] [place] Erythrocyte distribution width (RBC) [Ratio] 13.1 % Normal 11.5-14.5 [facility] Comment on above: Performed By: #### H GHCT #### [address] [place] Granulocytes/100 WBC (Bld) 69.2 % Normal 40.0-80.0 [facility] Comment on above: Performed By: #### H GHCT #### [address] [place] Hematocrit (Bld) [Volume fraction] 37.5 % Low 40.0-52.0 [facility] Comment on above: Performed By: #### H GHCT #### [address] [place] Hemoglobin (Bld) [Mass/Vol] 13.0 g/dL Normal 13.0-18.0 [facility] Comment on above: Performed By: #### H GHCT #### [address] [place] [id number] Lymphocytes (Bld) [#/Vol] 1.4 10*3/uL Normal 1.0-4.3 [facility] Comment on above: Performed By: #### H GHCT #### [facility] [address] [place], [place] Lymphocytes/100 WBC (Bld) 14.6 % Low 20.0-40.0 [facility] Comment on above: Performed By: #### H GHCT #### [facility] [address] [place], [place] MCH (RBC) [Entitic mass] 30.1 pg Normal 26.0-34.0 [facility] Comment on above: Performed By: #### H GHCT #### [address] [place] MCHC (RBC) [Mass/Vol] 34.6 % Normal 32.0-36.0 [facility] Comment on above: Performed By: #### H GHCT #### [address] [place] MCV (RBC) [Entitic vol] 86.9 fL Normal 80.0-98.0 [facility] Comment on above: Performed By: #### H GHCT #### [address] [place] Monocytes (Bld) [#/Vol] 1.2 10*3/uL High 0.0-0.8 [facility] Comment on above: Performed By: #### H GHCT #### [address] [place] Monocytes/100 WBC (Bld) 12.5 % High 2.0-10.0 [facility] Comment on above: Performed By: #### H GHCT #### [address] [place] Platelet mean volume (Bld) [Entitic vol] 8.3 fL Normal 7.4-10.4 [facility] Comment on above: Performed By: #### H GHCT #### [address] [place] [id number] Platelets (Bld) [#/Vol] 203 10*3/uL Normal 140-440 [facility] Comment on above: Performed By: #### H GHCT #### [address] [place] RBC (Bld) [#/Vol] 4.31 10*6/uL Low 4.40-5.90 [facility] Comment on above: Performed By: #### H GHCT #### [address] [place] WBC (Bld) [#/Vol] 9.8 10*3/uL Normal 3.6-10.7 [facility] Comment on above: Performed By: #### H GHCT #### [address] [place], [place] Basic Metabolic Panelon - Anion gap [Moles/Vol] 5 Normal [facility] Comment on above: Performed By: #### H EMDF, MG3, BMP3, MDIFF, TROPN, TSH5 #### [address] [place] Calcium [Mass/Vol] 8.8 mg/dL Normal 8.4-10.4 [facility] Comment on above: Performed By: #### H EMDF, MG3, BMP3, MDIFF, TROPN, TSH5 #### [address] [place] CO2 [Moles/Vol] 28 mmol/L Normal 22-30 [facility] Comment on above: Performed By: #### H EMDF, MG3, BMP3, MDIFF, TROPN, TSH5 #### [address] [place] Glucose [Mass/Vol] 95 mg/dL Normal 70-100 [facility] Comment on above: Performed By: #### H EMDF, MG3, BMP3, MDIFF, TROPN, TSH5 #### [address] [place] Urea nitrogen [Mass/Vol] 15 mg/dL Normal 7-20 [facility] Comment on above: Performed By: #### H EMDF, MG3, BMP3, MDIFF, TROPN, TSH5 #### [address] [place] Creatinine [Mass/Vol] 0.85 mg/dL Normal 0.52-1.25 [facility] Comment on above: Performed By: #### H EMDF, MG3, BMP3, MDIFF, TROPN, TSH5 #### [address] [place] GFR/1.73 sq M predicted among blacks MDRD (S/P/Bld) [Vol rate/Area] mL/min/{1.73_m2} Normal >60 [facility] Comment on above: Performed By: #### H EMDF, MG3, BMP3, MDIFF, TROPN, TSH5 #### [address] [place] GFR/1.73 sq M predicted among non-blacks MDRD (S/P/Bld) [Vol rate/Area] mL/min/{1.73_m2} Normal >60 [facility] Comment on above: Result Comment: Sour ce- MDRD equation with creatinine calibration to IDMS(NKDEP) eGFR not recommended for drug dose adjustment Performed By: #### H EMDF, MG3, BMP3, MDIFF, TROPN, TSH5 #### [address] [place] Potassium [Moles/Vol] 3.7 mmol/L Normal 3.5-5.1 [facility] Comment on above: Performed By: #### H EMDF, MG3, BMP3, MDIFF, TROPN, TSH5 #### [address] [address] [place], [place] Sodium [Moles/Vol] 136 mmol/L Normal 135-145 [facility] Comment on above: Performed By: #### H EMDF, MG3, BMP3, MDIFF, TROPN, TSH5 #### [address] [place] Chloride [Moles/Vol] 103 mmol/L Normal 98-107 [facility] Comment on above: Performed By: #### H EMDF, MG3, BMP3, GEORGES, TATO, TSH5 #### [address] [place], [place] Glucose,Bedsideon 11-23-2018 Glucose [Mass/Vol] 107 mg/dL High 70-100 [facility] Comment on above: Result Comment: Test performed by glucose meter. Results may be 10%-15% lower than serum/plasma values. (CLIA ID [id number]) Performed By: #### B GLU #### [address] [place], [place] Hemoglobin AND Hematocriton 11-23-2018 Hematocrit (Bld) [Volume fraction] 36.6 % Low 40.0-52.0 [facility] Comment on above: Performed By: #### H GHCT #### [address] [place] Hemoglobin (Bld) [Mass/Vol] 12.7 g/dL Low 13.0-18.0 [facility] Comment on above: Performed By: #### H GHCT #### [address] [place], [place] Hemogram w/ Autodiffon 11-23 Erythrocyte distribution width (RBC) [Ratio] 13.2 % Normal 11.5-14.5 [facility] Comment on above: Performed By: #### H EMDF, MG3, BMP3, MDLUCAS, TROPN, TSH5 #### [address] [place] Hematocrit (Bld) [Volume fraction] 36.0 % Low 40.0-52.0 [facility] Comment on above: Performed By: #### H EMDF, MG3, BMP3, MDLUCAS, TROPN, TSH5 #### [address] [place], [place] Hemoglobin (Bld) [Mass/Vol] 12.5 g/dL Low 13.0-18.0 [facility] Comment on above: Performed By: #### H EMDF, MG3, BMP3, MDIFF, TROPN, TSH5 #### [address] [place], [place] MCH (RBC) [Entitic mass] 29.9 pg Normal 26.0-34.0 [facility] Comment on above: Performed By: #### H EMDF, MG3, BMP3, MDIFF, TROPN, TSH5 #### [address] [place], [place] MCHC (RBC) [Mass/Vol] 34.7 % Normal 32.0-36.0 [facility] Comment on above: Performed By: #### H EMDF, MG3, BMP3, MDIFF, TROPN, TSH5 #### [address] MCV (RBC) [Entitic vol] 86.3 fL Normal 80.0-98.0 [facility] Comment on above: Performed By: #### H EMDF, MG3, BMP3, MDIFF, TROPN, TSH5 #### [address] [place], [place] Platelet mean volume (Bld) [Entitic vol] 8.3 fL Normal 7.4-10.4 [facility] Comment on above: Performed By: #### H EMDF, MG3, BMP3, MDIFF, TROPN, TSH5 #### [address] [place], [place] Platelets (Bld) [#/Vol] 200 10*3/uL Normal 140-440 [facility] Comment on above: Performed By: #### H EMDF, MG3, BMP3, MDIFF, TROPN, TSH5 #### [address] RBC (Bld) [#/Vol] 4.18 10*6/uL Low 4.40-5.90 [facility] Comment on above: Performed By: #### H EMDF, MG3, BMP3, MDIFF, TROPN, TSH5 #### [address] [address] [place], [place] WBC (Bld) [#/Vol] 13.8 10*3/uL High 3.6-10.7 [facility] Comment on above: Performed By: #### H EMDF, MG3, BMP3, MDIFF, TROPN, TSH5 #### [address] [place], [place] Magnesiumon 11-23-2018 Magnesium [Mass/Vol] 2.0 mg/dL Normal 1.6-2.3 [facility] Comment on above: Performed By: #### H EMDF, MG3, BMP3, MDIFF, TROPN, TSH5 #### [address] [place], [place] Manual Diffon 11-23-2018 Abs Lymph Cnt 2.8 10*3/uL Normal 1.1-4.5 [facility] Comment on above: Performed By: #### H EMDF, MG3, BMP3, MDIFF, TROPN, TSH5 #### [address] [place], [place] Abs Monocyte Cnt 0.4 10*3/uL Normal 0.2-1.1 [facility] Comment on above: Performed By: #### H EMDF, MG3, BMP3, MDIFF, TROPN, TSH5 #### [address] [place], [place] Abs Neutrophile Cnt 10.5 10*3/uL High 2.2-8.2 [facility] Comment on above: Performed By: #### H EMDF, MG3, BMP3, MDIFF, TROPN, TSH5 #### [address] [place], [place] Atypical Lymphocytes 1 % Abnormal <1 [facility] Comment on above: Performed By: #### H EMDF, MG3, BMP3, MDIFF, TROPN, TSH5 #### [address] Bands 4 % High 0-3 [facility] Comment on above: Performed By: #### H EMDF, MG3, BMP3, MDIFF, TROPN, TSH5 #### [facility] [address] [place], [place] Lymphocytes 20 % Normal 20-40 [facility] Comment on above: Performed By: #### H EMDF, MG3, BMP3, MDIFF, TROPN, TSH5 #### [facility] [address] [place], [place] Monocytes 3 % Normal 2-10 [facility] Comment on above: Performed By: #### H EMDF, MG3, BMP3, MDIFF, TROPN, TSH5 #### [address] [place], [place] RBC morphology finding Nom (Bld) Normal Normal [facility] Comment on above: Performed By: #### H EMDF, MG3, BMP3, MDIFF, TROPN, TSH5 #### [address] [place], [place] Seg Neutrophils 72 % Normal 40-80 [facility] Comment on above: Performed By: #### H EMDF, MG3, BMP3, MDIFF, TROPN, TSH5 #### [address] [place], [place] Abs Baso Cnt 0.0 10*3/uL Normal 0.0-0.2 [facility] Comment on above: Performed By: #### H EMDF, MG3, BMP3, MDIFF, TROPN, TSH5 #### [address] [place], [place] Abs Eosin Cnt 0.0 10*3/uL Normal 0.0-0.5 [facility] Comment on above: Performed By: #### H EMDF, MG3, BMP3, MDIFF, TROPN, TSH5 #### [address] [place], [place] Basophils 0 % Normal 0-2 [facility] Comment on above: Performed By: #### H EMDF, MG3, BMP3, MDIFF, TROPN, TSH5 #### [address] [place], [place] Cells counted 100 Normal [facility] Comment on above: Performed By: #### H EMDF, MG3, BMP3, MDIFF, TROPN, TSH5 #### [facility] [address] Eosinophils 0 % Low 1-6 [facility] Comment on above: Performed By: #### H EMDF, MG3, BMP3, MDIFF, TROPN, TSH5 #### [address] Thyroid Stim. Hormoneon 11-05 Thyroid Stim. Hormone 0.252 u[IU]/mL Low 0.465-4.68 0 [facility] Comment on above: Performed By: #### H EMDF, MG3, BMP3, MDIFF, TROPN, TSH5 #### [address] Troponin Ion 11-23-2018 Troponin I.cardiac [Mass/Vol] ng/mL Normal 0.000-0.034 [facility] Comment on above: Result Comment: . Performed By: #### H EMDF, MG3, BMP3, MDIFF, TROPN, TSH5 #### [facility] [place] [address] Op Noteon 11-22-2018 Op Note PATIENT: MARK ANTHONY RATILFF ADMISSION DATE: 11/22/2018 SURGERY DATE: 11/22/2018 DATE OF : 1980 AGE: 38 ADMITTING PHYSICIAN: Anil Aguilar DO, MBA ATTENDING PHYSICIAN: Zion Rodriguez MD DICTATING PHYSICIAN: Zion Rodriguez MD OPERATIVE RECORD Procedure: ANTERIOR LUMBAR SPINE EXPOSURE WITH DISKECTOMY AND FUSION OF L5-S1. Preoperative Diagnosis: Degenerative disk disease of L5-S1. Postoperative Diagnosis: Degenerative disk disease of L5-S1. Anesthesia: General. Co-Surgeon: Dr. Aguilar. Indications: This 38-year-old white male was brought to the operating room by Dr. Aguilar for an anterior lumbar spine approach. Description of Procedure: The patient was placed in the supine position and general anesthesia was induced. Abdomen was shaved, prepped, and draped in the usual sterile fashion. A transverse left lower quadrant incision was made and this was carried down to the left rectus sheath. A Z-shaped incision was made in the left rectus sheath and the left rectus muscle was retracted laterally. Using blunt dissection, the retroperitoneum was dissected down to the iliac vessels on spine. The middle sacral artery and vein were ligated with hemoclips and divided. The iliac vessels were then mobilized laterally exposing the L5-S1 disk space. Once this was adequately exposed, Dr. Aguilar proceeded with his portion of the case, which will be dictated separately. Once he was finished, the retractors were removed placing the iliac vessels and retroperitoneum back into normal position. The anterior rectus sheath was then reconstructed with running 0 PDS suture followed by a 3-0 Vicryl and 4-0 Monocryl subcutaneous and subcuticular closure. The plan was to then flip the patient into a prone position for a posterior approach, which Dr. Aguilar will dictate separately. Diskriter Job ID: [id number] Zion Rodriguez MD DOD:11/22/2018 12:14 P DP/nando DOT:11/22/2018 12:49 P Job Number: [id number] Document Number: [id number] cc: Anil Aguilar DO,THIERNO [address] [facility] [address] [facility] [address] Zion Rodriguez MD [address] [place] [id number] Normal [facility] TS GELon 11-22-2018 TS GEL ABO Group: A Rh, Gel: POS Antibody Screen Gel: NEG Normal [facility] Comment on above: Performed By: #### T SGL #### [address] [address] Vital Signs Date Time Vital Sign Value Performing Clinician Faci lity 05-16-2023 09:130400 Body weight 92.44 kg Alex Butler MD Work Phone: [facility] 05-16-2023 09:13-0400 Diastolic blood pressure 78 mm[Hg] Alex Butler MD Work Phone: [facility] 05-16-2023 09:13-0400 Heart rate 74 /min Alex Butler MD Work Phone: [facility] 05-16-2023 09:13-0400 SaO2% (BldA) [Mass fraction] 97 % Alex Butler MD Work Phone: [facility] 05-16-2023 09:13-0400 Systolic blood pressure 124 mm[Hg] Alex Butler MD Work Phone: [facility] 01-03-2023 16:23-0500 Body weight 92.53 kg Felipe Milian MD Work Phone: [facility] 01-03-2023 16:23-0500 Diastolic blood pressure 80 mm[Hg] Felipe Milian MD Work Phone: [facility] 01-03-2023 16:23-0500 Heart rate 58 /min Felipe Milian MD Work Phone: [facility] 01-03-2023 16:23-0500 Respiratory rate 16 /min Felipe Milian MD Work Phone: [facility] 01-03-2023 16:23-0500 SaO2% (BldA) [Mass fraction] 99 % Felipe Milian MD Work Phone: [facility] 01-03-2023 16:23-0500 Systolic blood pressure 128 mm[Hg] Felipe Milian MD Work Phone: [facility] 12-21-2021 11:13-0500 Body height 172.7 cm Alex Butler MD Work Phone: [facility] 12-21-2021 11:13-0500 Body temperature 97.2 [degF] Alex Butler MD Work Phone: [facility] 12-21-2021 11:13-0500 Body weight 88.18 kg Alex Butler MD Work Phone: [facility] 12-21-2021 11:13-0500 Diastolic blood pressure 80 mm[Hg] Alex Butler MD Work Phone: [facility] 12-21-2021 11:13-0500 Heart rate 77 /min Alex Butler MD Work Phone: [facility] 12-21-2021 11:13-0500 SaO2% (BldA) [Mass fraction] 97 % Alex Butler MD Work Phone: [facility] 12-21-2021 11:13-0500 Systolic blood pressure 118 mm[Hg] Alex Butler MD Work Phone: [facility] 11-16-2021 16:37-0400 Body temperature 97.59 [degF] Tj Pimentel MD Work Phone: [facility] 11-16-2021 16:37-0400 Body weight 82.1 kg Tj Pimentel MD Work Phone: [facility] 11-16-2021 16:37-0400 Diastolic blood pressure 82 mm[Hg] Tj Pimentel MD Work Phone: [facility] 11-16-2021 16:37-0400 Heart rate 67 /min Tj Pimentel MD Work Phone: [facility] 11-16-2021 16:37-0400 Respiratory rate 18 /min Tj Pimentel MD Work Phone: [facility] 11-16-2021 16:37-0400 SaO2% (BldA) [Mass fraction] 98 % Tj Pimentel MD Work Phone: [facility] 11-16-2021 16:37-0400 Systolic blood pressure 122 mm[Hg] Tj Pimentel MD Work Phone: [facility] 09-30-2021 07:00-0400 Diastolic blood pressure 90 mm[Hg] Solange Rosenberg PT Work Phone: [facility] 09-30-2021 07:00-0400 Systolic blood pressure 132 mm[Hg] Solange Rosenberg PT Work Phone: [facility] 09-15-2021 13:53-0400 Body height 172.7 cm Aditi Salinas DO Work Phone: [facility] 09-15-2021 13:53-0400 Body weight 87.09 kg Aditi Salinas DO Work Phone: [facility] 09-15-2021 13:53-0400 Diastolic blood pressure 88 mm[Hg] Jayram Brad DO Work Phone: [facility] 09-15-2021 13:53-0400 Heart rate 75 /min Jayram Brad DO Work Phone: [facility] 09-15-2021 13:53-0400 Respiratory rate 18 /min Jayram Brad DO Work Phone: [facility] 09-15-2021 13:53-0400 Systolic blood pressure 147 mm[Hg] Jayram Brad DO Work Phone: [facility] 09-02-2021 08:13-0400 Body height 172.7 cm Gm Garcia PA-C Work Phone: [facility] 09-02-2021 08:13-0400 Body temperature 97.59 [degF] Gm Garcia PA-C Work Phone: [facility] 09-02-2021 08:13-0400 Body weight 86.18 kg Gm Garcia PA-C Work Phone: [facility] 09-02-2021 08:13-0400 Diastolic blood pressure 98 mm[Hg] Gm Garcia PA-C Work Phone: [facility] 09-02-2021 08:13-0400 Heart rate 86 /min Gm Garcia PA-C Work Phone: [facility] 09-02-2021 08:13-0400 Respiratory rate 12 /min Gm Garcia PA-C Work Phone: [facility] 09-02-2021 08:13-0400 SaO2% (BldA) [Mass fraction] 100 % Gm Garcia PA-C Work Phone: [facility] 09-02-2021 08:13-0400 Systolic blood pressure 140 mm[Hg] Gm Garcia PA-C Work Phone: [facility] 08-22-2021 09:00-0400 Body weight 85.73 kg Alex Butler MD Work Phone: [facility] 08-22-2021 09:00-0400 Diastolic blood pressure 78 mm[Hg] Alex Butler MD Work Phone: [facility] 08-22-2021 09:00-0400 Heart rate 72 /min Alex Butler MD Work Phone: [facility] 08-22-2021 09:00-0400 Systolic blood pressure 124 mm[Hg] Alex Butler MD Work Phone: [facility] 08-19-2021 08:06-0400 Body weight 88.91 kg Alex Butler MD Work Phone: [facility] 08-19-2021 08:06-0400 Diastolic blood pressure 92 mm[Hg] Alex Butelr MD Work Phone: [facility] 08-19-2021 08:06-0400 Heart rate 84 /min Alex Butler MD Work Phone: [facility] 08-19-2021 08:06-0400 Systolic blood pressure 140 mm[Hg] Alex Butler MD Work Phone: [facility] 06-22-2021 07:20-0400 Body temperature 98 [degF] Dr. Alex Butler Work Phone: [facility] Work Phone: 06-22-2021 07:20-0400 Diastolic blood pressure 64 mm[Hg] Dr. Alex Butler Work Phone: [facility] Work Phone: 06-22-2021 07:20-0400 Heart rate 62 /min Dr. Alex Butler Work Phone: [facility] Work Phone: 06-22-2021 07:20-0400 Respiratory rate 16 /min Dr. Alex Butler Work Phone: [facility] Work Phone: 06-22-2021 07:20-0400 SaO2% (BldA) [Mass fraction] 98 % Dr. Alex Butler Work Phone: [facility] Work Phone: 06-22-2021 07:20-0400 Systolic blood pressure 110 mm[Hg] Dr. Alex Butler Work Phone: [facility] Work Phone: 06-22-2021 05:54-0400 Body height 172.[address] Alex Butler Work Phone: [facility] Work Phone: 06-22-2021 05:54-0400 Body mass index (BMI) [Ratio] 30.1 kg/m2 Dr. Alex Butler Work Phone: [facility] Work Phone: 06-22-2021 05:54-0400 Body weight 89.[address] Alex Butler Work Phone: [facility] Work Phone: 05-14-2021 08:59-0400 Body temperature 97.5 [degF] Dr. Alxe Butler Work Phone: [facility] Work Phone: 05-14-2021 08:59-0400 Diastolic blood pressure 78 mm[Hg] Dr. Alex Butler Work Phone: [facility] Work Phone: 05-14-2021 08:59-0400 Heart rate 83 /min Dr. Alex Butler Work Phone: [facility] Work Phone: 05-14-2021 08:59-0400 Respiratory rate 15 /min Dr. Alex Butler Work Phone: [facility] Work Phone: 05-14-2021 08:59-0400 SaO2% (BldA) [Mass fraction] 98 % Dr. Alex Butler Work Phone: [facility] Work Phone: 05-14-2021 08:59-0400 Systolic blood pressure 130 mm[Hg] Dr. Alex Butler Work Phone: [facility] Work Phone: 05-14-2021 08:59-0400 Body temperature 97.5 [degF] Dr. Alex Butler Work Phone: [facility] Work Phone: 05-14-2021 08:59-0400 Diastolic blood pressure 78 mm[Hg] Dr. Alex Butler Work Phone: [facility] Work Phone: 05-14-2021 08:59-0400 Heart rate 83 /min Dr. Alex Butler Work Phone: [facility] Work Phone: 05-14-2021 08:59-0400 Respiratory rate 15 /min Dr. Alex Butler Work Phone: [facility] Work Phone: 05-14-2021 08:59-0400 SaO2% (BldA) [Mass fraction] 98 % Dr. Alex Butler Work Phone: [facility] Work Phone: 05-14-2021 08:59-0400 Systolic blood pressure 130 mm[Hg] Dr. Alex Butler Work Phone: [facility] Work Phone: 03-09-2021 16:24-0500 Body mass index (BMI) [Ratio] 30.9 kg/m2 Dr. Alex Butler Work Phone: [facility] Work Phone: 03-09-2021 16:24-0500 Body temperature 96.8 [degF] Dr. Alex Butler Work Phone: [facility] Work Phone: 03-09-2021 16:24-0500 Body weight 92.[address] Alex Butler Work Phone: [facility] Work Phone: 03-09-2021 16:24-0500 Diastolic blood pressure 96 mm[Hg] Dr. Alex Butler Work Phone: [facility] Work Phone: 03-09-2021 16:24-0500 Heart rate 82 /min Dr. Alex Butler Work Phone: [facility] Work Phone: 03-09-2021 16:24-0500 Respiratory rate 15 /min Dr. Alex Butler Work Phone: [facility] Work Phone: 03-09-2021 16:24-0500 SaO2% (BldA) [Mass fraction] 99 % Dr. Alex Butler Work Phone: [facility] Work Phone: 03-09-2021 16:24-0500 Systolic blood pressure 134 mm[Hg] Dr. Alex Butler Work Phone: [facility] Work Phone: Encounters Encounter Date Encounter Type Care Provider Facility Start: 11-04-2024 End: 11-04-2024 ambulatory ALEX BUTLER Facility:[facility] Start: 10-13-2024 End: 10-13-2024 Refill Alex Butler MD Work Phone: [facility] Comment on above: Refill Request Start: 10-11-2024 End: 10-11-2024 Emergency department patient visit TRUPTI العراقي DO [facility] Start: 09-08-2024 ambulatory Trae Loco Facility :[facility] Start: 08-13-2024 End: 08-13-2024 Patient Msg Alex Butler MD Work Phone: [facility] Comment on above: refill Start: 08-12-2024 End: 08-13-2024 Refill [facility] Comment on above: Refill Request Start: 07-07-2024 End: 07-07-2024 ambulatory Alex Butler MD Work Phone: [facility] Comment on above: labs Start: 07-07-2024 End: 07-07-2024 E-mail encounter from caregiver Alex Butler MD Work Phone: [facility] Start: 07-07-2024 End: 09-19-2024 Telephone encounter Alex Butler MD Work Phone: [facility] Comment on above: Results Start: 07-07-2024 End: 07-07-2024 ambulatory Alex Butler Facility:[facility] Start: 07-04-2024 End: 07-04-2024 ambulatory Alex Butler MD Work Phone: [facility] Comment on above: Labs to [facility] Start: 06-27-2024 End: 06-27-2024 ambulatory ALEX BUTLER Facility:[facility] Start: 05-12-2024 End: 05-12-2024 ambulatory Trae L Seese Facility:[facility] Start: 03-11-2024 End: 03-11-2024 ambulatory Jarod Daley Facility:[facility] Start: 01-17-2024 End: 01-17-2024 ambulatory Trae L Seese Facility:[facility] Start: 11-20-2023 ambulatory Leona Ghazoul Facility :[facility] Start: 11-14-2023 End: 11-14-2023 ambulatory Leona Ghazoul Facility:[facility] Start: 11-08-2023 ambulatory Leona Ghazoul Facility :[facility] Start: 11-08-2023 End: 11-08-2023 ambulatory Leona Ghazoul Facility:[facility] Start: 10-30-2023 End: 10-30-2023 ambulatory Leona Ghazoul Facility:[facility] Start: 05-16-2023 End: 05-16-2023 Patient encounter procedure Alex Butler MD [facility] Comment on above: Well adult exam (Skylar boudreaux Dx); Mixed obsessional thoughts and acts; Essential hypertension, benign; Sleep apnea, unspecified type; Dysthymia; Fatigue, unspecified type Start: 05-16-2023 End: 05-16-2023 Patient encounter status Alex Butler MD Work Phone: [facility] Work Phone: Start: 04-11-2023 Telephone encounter Alex Butler MD Work Phone: [facility] Comment on above: Forms Start: 01-03-2023 End: 01-04-2023 Patient encounter procedure Felipe Milian MD Work Phone: [facility] Comment on above: Drug-induced erectil e dysfunction (Primary Dx) Start: 09-12-2022 ambulatory Alex Butler MD Work Phone: [facility] Start: 09-12-2022 Letter encounter Alex mercado MD Work Phone: [facility] Comment on above: Re-upped letter Start: 08-22-2022 Refill Alex Butler MD Work Phone: [facility] Comment on above: Refill Request Start: 03-21-2022 Refill Alex Butler MD Work Phone: [facility] Comment on above: Refill Request Start: 02-15-2022 Refill Alex Butler MD Work Phone: [facility] Comment on above: Refill Request Start: 12-21-2021 End: 12-21-2021 Patient encounter procedure Alex Butler MD Work Phone: [facility] Comment on above: Acute otitis media, right (Primary Dx); Screening for HIV (human immunodeficiency virus); Screening for diabetes mellitus; Essential hypertension, benign; Bacterial sinusitis Start: 12-05-2021 Refill Alex Butler MD Work Phone: [facility] Comment on above: Refill Request Start: 11-16-2021 End: 11-16-2021 Patient encounter procedure Tj Pimentel MD Work Phone: [facility] Comment on above: Sore throat (Primary Dx) Start: 11-08-2021 Refill Alex Butler MD Work Phone: [facility] Comment on above: Refill Request Start: 11-01-2021 End: 11-01-2021 ambulatory Solange Rosenberg PT Work Phone: [facility] Start: 11-01-2021 End: 11-01-2021 Manual pelvic examination Solange Rosenberg PT Work Phone: [facility] Comment on above: Spastic pelvic floor syndrome (Primary Dx); Muscle tightness Start: 10-11-2021 End: 10-11-2021 ambulatory Solange Rosenberg PT Work Phone: [facility] Start: 10-11-2021 End: 10-11-2021 Manual pelvic examination Solange Rosenberg PT Work Phone: [facility] Comment on above: Spastic pelvic floor syndrome (Primary Dx); Muscle tightness Start: 09-30-2021 End: 09-30-2021 ambulatory Solange Rosenberg PT Work Phone: [facility] Start: 09-30-2021 End: 09-30-2021 Manual pelvic examination Solange Rosenberg PT Work Phone: [facility] Comment on above: Muscle tightness (Pr imary Dx); Spastic pelvic floor syndrome Start: 09-15-2021 End: 09-15-2021 Patient encounter procedure Aditi Salinas DO Work Phone: Urology Comment on above: Post-void dribbling (Primary Dx); Spastic pelvic floor syndrome Start: 09-05-2021 Telephone encounter Aditi james DO Work Phone: [facility] Comment on above: Appointment Cysto Scheduling Start: 09-02-2021 End: 09-02-2021 Patient encounter procedure Gm Garcia PA-C Work Phone: Urology Comment on above: Spastic pelvic floor syndrome (Primary Dx); History of urethral stricture Start: 08-23-2021 ambulatory Alex Butler MD Work Phone: [facility] Comment on above: results Start: 08-23-2021 E-mail encounter fro m caregiver Alex Butler MD Work Phone: [facility] Start: 08-22-2021 ambulatory Kaye Ray on PA-C Work Phone: [facility] Comment on above: Question regarding U RINE CULTURE LAB USE ON Start: 08-22-2021 End: 08-22-2021 Patient encounter procedure Alex Butler MD Work Phone: [facility] Comment on above: Dysuria (Primary Dx) ; Pain in both testicles; Mixed obsessional thoughts and acts Start: 08-19-2021 ambulatory Alex Butler MD Work Phone: [facility] Comment on above: ct scan Start: 08-19-2021 E-mail encounter fro m caregiver Alex Butler MD Work Phone: [facility] Start: 08-19-2021 End: 08-19-2021 Patient encounter procedure Alex Butler MD Work Phone: [facility] Comment on above: Lower abdominal pain (Primary Dx); Anxiety; Pain in testicle, unspecified laterality; History of rectal abscess; Perineal pain; Infection in abdomen (HCC) Start: 07-08-2021 End: 07-08-[address] Alex Butler Work Phone: [facility] Start: 06-22-2021 Non-patient / Non-visit Dr. Dionte Butler Work Phone: [facility] Start: 06-22-2021 End: 06-22-2021 Admission to same day surgery center Dr. Alex Butler Work Phone: [facility] Start: 05-14-2021 End: 05-14-[address] Alex Butler Work Phone: [facility] Start: 04-13-2021 End: 04-13-[address] Alex Butler Work Phone: [facility] Start: 03-14-2021 End: 03-14-[address] Alex Butler Work Phone: [facility] Start: 03-09-2021 End: 03-09-2021 Emergency department patient visit Dr. Alex Butler Work Phone: [facility] Procedures Date Procedure Procedure Detail Performing Clinician Start: 05-16-2023 Lipid 1996 panel - S micaela or Plasma Alex Butler MD Work Phone: Start: 12-21-2021 Lipid 1996 panel - S micaela or Plasma Felipe Milian MD Work Phone: Start: 11-16-2021 STREP A MOLECULAR (POC) Tj Pimentel MD Work Phone: Start: 09-02-2021 Urnls dip stick/tabl et rgnt auto w/o microscopy Gm Garcia PA-C Work Phone: Start: 08-22-2021 Urnls dip stick/tabl et rgnt auto w/o microscopy Alex Butler MD Work Phone: Start: 08-19-2021 HEMOCCULT SINGLE B/O Wi molly Butler MD Work Phone: Start: 08-19-2021 Computed tomography of abdomen and pelvis with contrast Dr. Alex Butler Work Phone: Start: 08-19-2021 Urnls dip stick/tabl et rgnt auto w/o microscopy Alex Butler MD Work Phone: Start: 06-22-2021 End: 06-22-[address] Alex Butler Work Phone: Start: 03-09-2021 Computed tomography of abdomen and pelvis with contrast Dr. Alex Butler Work Phone: Start: 11-29-2018 Microscopic examinat ion of blood, culture Comment on above: Order Comment: Speci men Source Comment:Blood Performed By: #### H [facility] #### [address] [id number] Plan of Treatment Date Care Activity Detail Author Start: 05-15-2028 Lipid panel Lipid Screening [facility] Start: 12-21-2026 Lipid 1996 panel - S micaela or Plasma Lipid Screening [facility] Start: 12-21-2026 Lipid panel Lipid Screening [facility] Start: 12-21-2026 LIPID SCREEN LIPID SCREEN [facility] Start: 08-19-2026 LIPID SCREEN LIPID SCREEN [facility] Start: 06-22-2026 Screening for malign ant neoplasm of colon [facility] Start: 05-15-2026 Diabetes Screening Diabetes Screenin g [facility] Start: 06-27-2025 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 Annual PCP Team Chronic Disease Visit [facility] Start: 06-27-2025 Anxiety Screening Anxiety Screening [facility] Start: 06-27-2025 BP Controlled (<130/80) BP Con trolled (<130/80) [facility] Start: 06-27-2025 Covid-19 Vaccine () Covid-19 Vaccine () [facility] Comment on above: Postponed from 10/06 (Declined at this time) Start: 06-27-2025 Urine microalbumin profile DTa P,Tdap,Td Vaccine (2 - Td or Tdap) [facility] Comment on above: Postponed from 07/03 (Declined at this time) Start: 10-06-2024 Influenza vaccination [facility] Start: 05-15-2024 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 Annual PCP Team Chronic Disease Visit [facility] Start: 05-15-2024 BP Controlled (<130/80) BP Con trolled (<130/80) [facility] Start: 05-15-2024 Covid-19 Vaccine () Covid-19 Vaccine () [facility] Comment on above: Postponed from 10/06 (Declined at this time) Start: 05-15-2024 Hepatitis B Vaccine (1 of 3 - 19+ 3-dose series) Hepatitis B Vaccine (1 of 3 - 19+ 3-dose series) [facility] Comment on above: Postponed from 09/24 (Declined at this time) Start: 01-04-2024 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 Annual PCP Team Chronic Disease Visit [facility] Start: 10-07-2023 Influenza vaccination Influenz a Vaccine (Season Ended) [facility] Start: 09-25-2023 Screening for malign ant neoplasm of colon [facility] Start: 07-04-2023 Urine microalbumin profile [facility] Start: 12-21-2022 ANNUAL PCP TEAM TRACK GREASER CAREN DISEASE VISIT ANNUAL PCP TEAM CHRONIC DISEASE VISIT [facility] Start: 12-21-2022 COVID-19 VACCINE (3 - Booster for Moderna series) COVID-19 VACCINE (3 - Booster for Moderna series) [facility] Comment on above: Postponed from 05/27 (Declined at this time) Start: 12-21-2022 COVID-19 VACCINE (3 - Moderna series) COVID-19 VACCINE (3 - Moderna series) [facility] Comment on above: Postponed from 05/27 (Declined at this time) Start: 10-06-2022 Covid-19 Vaccine ( season) Covid-19 Vaccine ( season) [facility] Start: 10-06-2022 Influenza vaccination [facility] Start: 08-22-2022 ANNUAL PCP TEAM TRACK GREASER CAREN DISEASE VISIT ANNUAL PCP TEAM CHRONIC DISEASE VISIT [facility] Start: 08-22-2022 BP CONTROLLED (<130/80) BP CON TROLLED (<130/80) [facility] Start: 08-19-2022 ANNUAL PCP TEAM TRACK GREASER CAREN DISEASE VISIT ANNUAL PCP TEAM CHRONIC DISEASE VISIT [facility] Start: 08-04-2022 Influenza vaccination INFLUENZA (#1) [facility] Comment on above: Postponed from 10/06 (Declined at this time) Start: 07-11-2022 LIPID SCREEN LIPID SCREEN [facility] Start: 03-22-2022 End: 05-22-2022 PAIN PANEL, UR QUANT PAIN PANEL, UR QUANT Lab Routine Anxiety Expected: 03/22/2022, Expires: 05/22/2022 [facility] Work Phone: Comment on above: Expected: 03/22/2022 , Expires: 05/22/2022 Start: 03-22-2022 End: 05-22-2022 TOX SCREEN ROUT UR TOX SCREEN ROUT UR Lab Routine Anxiety Expected: 03/22/2022, Expires: 05/22/2022 [facility] Work Phone: Comment on above: Expected: 03/22/2022 , Expires: 05/22/2022 Start: 12-21-2021 End: 02-20-2022 CBC W Auto Differential panel - Blood [facility] Work Phone: Comment on above: Expected: 12/21/2021 , Expires: 02/20/2022 Start: 12-21-2021 End: 02-20-2022 Comprehensive metabolic 2000 panel - Serum or Plasma [facility] Work Phone: Comment on above: Expected: 12/21/2021 , Expires: 02/20/2022 Start: 12-21-2021 End: 02-20-2022 Hemoglobin A1c in Blood [facility] Work Phone: Comment on above: Expected: 12/21/2021 , Expires: 02/20/2022 Start: 12-21-2021 End: 02-20-2022 HIV 1+2 Ab [Presence] in Serum or Plasma by Immunoassay [facility] Work Phone: Comment on above: Expected: 12/21/2021 , Expires: 02/20/2022 Start: 12-21-2021 End: 02-20-2022 Lipid 1996 panel - Serum or Plasma [facility] Work Phone: Comment on above: Expected: 12/21/2021 , Expires: 02/20/2022 Start: 12-15-2021 BP CONTROLLED (<130/80) BP CON TROLLED (<130/80) [facility] Start: 12-15-2021 HIV SCREENING HIV SCREENING [facility] Comment on above: Postponed from 09/24 (Declined at this time) Start: 10-06-2021 Influenza vaccination INFLUENZA (#1) [facility] Start: 08-22-2021 End: 10-22-2021 Chlamydia trachomatis+Neisseria gonorrhoeae DNA [Presence] in Urine by IVAN with probe detection [facility] Work Phone: Comment on above: Expected: 08/22/2021 , Expires: 10/22/2021 Start: 08-19-2021 End: 10-19-2021 CBC W Auto Differential panel - Blood [facility] Work Phone: Comment on above: Expected: 08/19/2021 , Expires: 10/19/2021 Start: 06-22-2021 Colonoscopy w/biopsy single/multiple COLONOSCOPY AND BIOPSY [facility] Work Phone: Start: 06-22-2021 Colsc flx w/rmvl of tumor polyp lesion snare tq COLONOSCOPY W/LESION REMOVAL [facility] Work Phone: Start: 06-22-2021 Patient discharge [facility] Work Phone: Start: 08-29-2020 COVID-19 VACCINE (3 - Booster for Moderna series) COVID-19 VACCINE (3 - Booster for Moderna series) [facility] Start: 05-27-2020 COVID-19 VACCINE (3 - Booster for Moderna series) COVID-19 VACCINE (3 - Booster for Moderna series) [facility] Start: 2005 HPV Vaccine (1 - 3-d ose SCDM series) HPV Vaccine (1 - 3-dose SCDM series) [facility] Start: 1996 HIV SCREENING HIV SCREENING [facility] Start: 1978 HEPATITIS B (1 of 3 - 3-dose series) HEPATITIS B (1 of 3 - 3-dose series) [facility] Start: 1978 Hepatitis B Vaccine (1 of 3 - 3-dose series) Hepatitis B Vaccine (1 of 3 - 3-dose series) [facility] Bacteria identified in Urine by Culture URINE CULTURE Microbiology Routine Lower abdominal pain 08/19/2021 8:53 AM EDT [facility] Work Phone: End: 09-18-2022 Ct abdomen & pelvis w/contrast material CT ABD/PEL W IVCON Radiology STAT Infection in abdomen (HCC) History of rectal abscess Perineal pain Lower abdominal pain 1 Occurrences starting 08/19/2021 until 09/18/2022 [facility] Work Phone: Comment on above: 1 Occurrences starti ng 08/19/2021 until 09/18/2022 Cystourethroscopy CYSTO.PANENDO Procedures Routine History of urethral stricture Ordered: 09/02/2021 [facility] Work Phone: Comment on above: Ordered: 09/02/2021 Mycoplasma sp identi fied in Unspecified specimen by Organism specific culture MYCOPLASMA CULT Microbiology Routine Dysuria 08/22/2021 9:37 AM EDT [facility] Work Phone: Patient Education ED ABSCESS Per i-Anal Abx only [facility] Work Phone: Patient referral [facility] Work Phone: POST VOID RESIDUAL POST VOID RES IDUAL Procedures Routine Spastic pelvic floor syndrome Ordered: 09/02/2021 [facility] Work Phone: Comment on above: Ordered: 09/02/2021 Urinalysis complete panel - Urine URINALYSIS, WITH MICROSCOPIC Lab Routine Dysuria 08/22/2021 9:37 AM EDT [facility] Work Phone: End: 09-21-2022 Us scrotum & contents US SCROTUM AND CONTENTS Radiology STAT Pain in both testicles 1 Occurrences starting 08/22/2021 until 09/21/2022 [facility] Work Phone: Comment on above: 1 Occurrences starti ng 08/22/2021 until 09/21/2022 [facility] Immunizations Immunization Date Immunization Notes Care Provider [facility] 04-01-2020 COVID-19 vaccine, fu ll dose (MODERNA) Alex Butler MD Work Phone: [facility] Work Phone: 03-04-2020 COVID-19 vaccine, fu ll dose (MODERNA) Alex Butler MD Work Phone: [facility] Work Phone: 11-07-2017 influenza virus vaccine, unspecified formulation Felipe Milian MD Work Phone: [facility] 07-03-2013 tetanus toxoid, reduced diphtheria toxoid, and acellular pertussis vaccine, adsorbed Alex Butler MD Work Phone: [facility] 11-06-2008 influenza virus vaccine, live, attenuated, for intranasal use Alex Butler MD Work Phone: [facility] Work Phone: 01-04-2007 influenza virus vaccine, unspecified formulation Alex Butler MD Work Phone: [facility] Work Phone: 01-04-2006 influenza virus vaccine, unspecified formulation Alex Butler MD Work Phone: [facility] Work Phone: 11-05-2005 influenza virus vaccine, unspecified formulation Alex Butler MD Work Phone: [facility] Work Phone: 12-01-2004 influenza virus vaccine, unspecified formulation Alex Butler MD Work Phone: [facility] Work Phone: 02-05-2002 tetanus and diphther ia toxoids, adsorbed, preservative free, for adult use (2 Lf of tetanus toxoid and 2 Lf of diphtheria toxoid) Alex Butler MD Work Phone: [facility] Work Phone: Payers Date Payer Category Payer Self-pay [id number] 2020 Private Health Insurance [id number] 2020 Unknown [facility] [employer] [place] [employer] [id number] 2020-Present [address] [place] [address] PPO [id number] 2020 Unknown [id number] 2020 Unknown [id number] 1978 Unknown [id number] Unknown [id number] Unknown [id number] Unknown [id number] Unknown [id number] Unknown [id number] Unknown [id number] Unknown [id number] Unknown [id number] Unknown [id number] Unknown [id number] Unknown [id number] Unknown [id number] Social History Date Type Detail Facility Start: 06-21-2021 End: 07-08-2021 Tobacco smoking status FLIS Unknown if ever smoked [facility] Work Phone: Start: 09-17-2020 Occasional [facility] Work Phone: Start: 09-17-2020 None [facility] Work Phone: Start: 09-17-2020 Non-smoker [facility] Work Phone: Start: 1980 Sex Assigned At Male [facility] Start: 09-15-2021 End: 06-27-2024 Tobacco smoking status NHIS Ex-smoker [facility] Start: 10-06-1999 End: 10-05-2006 History of tobacco use Current smoker [facility] Work Phone: Start: 08-19-2021 End: 06-27-2024 Alcohol intake Current drinker of alcohol (finding) [facility] Start: 08-14-2019 End: 12-15-2020 History SDOH Alcohol Frequency 2 [facility] Start: 06-19-2019 End: 10-20-2019 History SDOH Alcohol Std Drinks 98 [facility] Start: 08-14-2019 End: 12-15-2020 History SDOH Alcohol Binge 1 [facility] Start: 06-19-2019 End: 10-20-2019 History SDOH Social Connections Phone 5 [facility] Start: 10-20-2019 History SDOH Social Connections Get Together 4 [facility] Start: 06-19-2019 End: 10-20-2019 History SDOH Social Connections Living 3 [facility] Start: 10-20-2019 History SDOH Physical Activity MPS 6 [facility] Start: 06-18-2019 Education 16 [facility] Start: 11-02-2006 End: 09-15-2021 Tobacco Comment Occasional cigar only per patient [facility] Start: 08-09-2021 End: 12-21-2021 Exposure to SARS-CoV-2 (event) Not sure [facility] Start: 10-06-1999 End: 10-05-2006 History of tobacco use Cigarette Smoker [facility] Start: 09-15-2021 End: 06-27-2024 Tobacco use and exposure Smokeless tobacco non-user [facility] Start: 12-21-2021 End: 05-15-2023 History of Social function [facility] Start: 12-21-2021 End: 05-15-2023 Tobacco use panel [facility] Start: 01-07-2012 National Score (1-100), lower number is lower risk 61 [facility] Start: 08-12-2019 Sexual orientation Heterosexual (finding) [facility] Do you belong to any clubs or organizations such as cheondoism groups, unions, fraternal or athletic groups, or school groups? Yes [facility] Do you feel stress - tense, restless, nervous, or anxious, or unable to sleep at night because your mind is troubled all the time - these days [OSQ] To some extent [facility] (I/We) worried wheth er (my/our) food would run out before (I/we) got money to buy more. Never true [facility] In the past 12 month s, was there a time when you were not able to pay the mortgage or rent on time? No [facility] Are you now , , , , never or living with a partner? [facility] How often to you hav e a drink containing alcohol? Monthly or less [facility] How many standard dr inks containing alcohol do you have on a typical day? 1 or 2 [facility] How often do you hav e 6 or more drinks on 1 occasion? Never [facility] Do you feel stress - tense, restless, nervous, or anxious, or unable to sleep at night because your mind is troubled all the time - these days [OSQ] Rather much [facility] Tobacco smoking status [facility] Start: 06-25-2018 Sex Male (finding) [facility] Goals Date Patient Goal Desired Activity /State Functional Status Date Assessment Result Facility 05-09-2014 Are you deaf, or do you have serious difficulty hearing No 05/09/2014 10:45 AM Amanda Gray LPN No [facility] 05-09-2014 Are you blind, or do you have serious difficulty seeing, even when wearing glasses No 05/09/2014 10:45 AM Amanda Gray LPN No [facility] 05-09-2014 Do you have serious difficulty walking or climbing stairs No 05/09/2014 10:45 AM Amanda Gray LPN No [facility] 05-09-2014 Because of a physica l, mental, or emotional condition, do you have difficulty doing errands alone such as visiting a physician's office or shopping No 05/09/2014 10:45 AM EDT Amanda Hyatt LPN No [facility] 04-28-2014 Do you have difficul ty dressing or bathing No 04/28/2014 3:48 PM EDT Margie Arevalo Ma No [facility] Mental Status Date Assessment Result Facility 06-22-2021 Cognitive function Level Of Cons ciousness Drowsy [facility] Work Phone: 06-22-2021 Cognitive function Voice/Name [facility] Work Phone: 05-09-2014 Because of a physica l, mental, or emotional condition, do you have serious difficulty concentrating, remembering, or making decisions No 05/09/2014 10:45 AM EDT Amanda Hyatt LPN No [facility] Clinical Notes 11-07-2012 to 11-04-2024 Telephone Encounter - Yuliana Walter APRN.SCREEN PRINTING MACHINE OPERATOR HELPER - 10/13/2024 10:02 AM EDTTelephone Encounter - Yuliana Walter APRN.SCREEN PRINTING MACHINE OPERATOR HELPER - 10/13/2024 10:02 AM Alex Winn MD - 05/16/2023 9:26 AM EDT Note Date & Type Note Facility 11-04-2024 Note HNO ID: [id number] Author: RATNA HENRY APRN.SCREEN PRINTING MACHINE OPERATOR HELPER Service: ? Author Type: Nurse Practitioner Type: Progress Notes Filed: 11/04/2024 18:57 Note Text: This is a 44 year old male who presents today with: The patient is a 44-year-old male presenting for evaluation of right ear pain and congestion from an acute viral upper respiratory infection. HISTORY OF PRESENT ILLNESS: URI Symptoms: - Onset after exposure to sick family members. - Reports rhinorrhea and general malaise. - Symptoms are improving. - Taking Nasacort. Right Ear Pain: - Believes URI symptoms have led to fluid accumulation in the right ear. - Reports soreness and a sensation of fullness in the right ear. - Unable to elicit usual ear crack with swallowing. - Describes swallowing as a little bit tight. - Denies pain with ear manipulation. - History of ear infections; current symptoms feel similar, but not yet as severe. 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 - Postponed scuba diving due to ear pain. - Reports severe pain with consumption of sweet red wine last night. PAST MEDICAL HISTORY: PAST MEDICAL HISTORY Diagnosis Date Esophageal reflux GERD (gastroesophageal reflux disease) Hypertension Nonspecific elevation of levels of transaminase or lactic acid dehydrogenase (LDH) OCD (obsessive compulsive disorder) Sleep apnea does not wear regularly PAST SURGICAL HISTORY Procedure Laterality Date COLONOSCOPY 06/22/2021 Dr Marcelino ESOPHAGOGASTRODUODENOSCOPY TRANSORAL DIAGNOSTIC 04/23/2012 EGD INCISE FINGER TENDON SHEATH Left 01/22/2020 Left index and middle trigger finger releases LAPAROSCOPIC APPENDECTOMY 08/23/2011 OPTX FEM SHFT FX W/INSJ IMED IMPLT W/WO SCREW left femur fracture with pins and phoebe PAST SURGICAL HISTORY OF 11/2018 L5-S1 spinal fusion TONSILLECTOMY AND ADENOIDECTOMY URETHROPLASTY 1 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 ALLERGIES [employer] MEDICATIONS Current Outpatient Medications Medication Sig amoxicillin-clavulanate potassium (AUGMENTIN) 875-125 mg per tablet Take 1 tablet by mouth every 12 hours for 10 days. tirzepatide, weight loss (ZEPBOUND) 5 mg/0.5 mL pen injector Inject 5 mg subcutaneously one time a week. sildenafil (VIAGRA) 50 mg tablet Take 1 tablet by mouth once daily as needed. Take 30-60 minutes before sexual activity. fluvoxaMINE (LUVOX) 50 mg tablet Take 1 tablet by mouth daily at bedtime. (Patient taking differently: Take 100 mg by mouth daily at bedtime.) LORazepam (ATIVAN) 1 mg tablet 1/2 to 1 tab daily as needed sparingly for anxiety No current facility-administered medications for this visit. FAMILY HISTORY Problem Relation Age of Onset other (liver cancer) Father gallbladder Diabetes Maternal Grandfather Cancer Maternal Grandfather LUNG CA Cancer Maternal Grandmother LUNG CA Diabetes Maternal Grandmother Diabetes Paternal Grandmother Diabetes Paternal Grandfather SOCIAL HISTORY[1] REVIEW OF SYSTEMS Ears/Nose/Mouth/Throat: (+) nasal discharge, (+) right ear pain, (+) throat tightness with swallowing, (-) pain on ear traction EXAM: BP 132/98 Pulse 72 Resp 16 PHYSICAL EXAM: General Appearance: Well appearing, alert, in no acute distress, well-hydrated, well nourished.. Skin: Skin color, texture, turgor normal, no suspicious rashes or lesions. Head: Normocephalic, no masses, lesions, tenderness or abnormalities. Eyes: Anicteric sclera. Pupils are equally round and reactive to light. Extraocular movements are intact. . Ears: External ears normal, canals clear, Positive findings: R TM: enoc fluid noted behind TM, L TM: normal. Oropharynx: Lips, mucosa, and tongue normal, teeth and gums normal, oropharynx normal. Neck: Supple, no adenopathy Lungs: Lungs clear to auscultation. No wheezing, rhonchi, rales.. Heart: RRR without murmur, gallop, or rubs. No ectopy. Neurologic: Gait normal. ASSESSMENT/PLAN 1. Non-recurrent acute serous otitis media of right ear (H65.01) 2. Acute upper respiratory infection (J06.9) - Fluid noted behind right tympanic membrane on exam. Continue nasal steroid. If no improvement over the next day or so, or if any worsening, start antibiotic. (Pt is prone to ear infections and is going out of town, so script provided). - Start Augmentin 1 tablet BID for 10 days if symptoms do not improve. - Continue intranasal corticosteroid (Nasonex or Nasacort) to reduce inflammation and promote drainage. - May use decongestant (e.g., Sudafed) as tolerated to facilitate drainage. - Discussed rationale for antibiotic prescription and use only if symptoms worsen or fail to improve; patient expressed understanding and agreement. Discussed treatment plan and patient voices understanding. Patient's questions answered appropriately. Medications and potential side effects were discussed and patient voice (more content not included)... [facility] 10-13-2024 Telephone encounter Note The following approved medication requests have been transmitted electronically. Requested Prescriptions Pending Prescriptions Disp Refills tirzepatide, weight loss (ZEPBOUND) 5 mg/0.5 mL pen injector 2 mL 2 Sig: Inject 5 mg subcutaneously one time a week. Yuliana Walter APRN.[facility] 10-13-2024 Miscellaneous Notes The following approved medication requests have been transmitted electronically. Requested Prescriptions Pending Prescriptions Disp Refills tirzepatide, weight loss (ZEPBOUND) 5 mg/0.5 mL pen injector 2 mL 2 Sig: Inject 5 mg subcutaneously one time a week. Yuliana Walter APRN.CNP Prescription Refill Information The patient has been identified by name and date of : Yes Caregiver verified no other encounters exist for this prescription request: Yes Caregiver confirmed with patient/requestor that no other refills are due, in the near future, with this provider at this time: Yes The last office visit in the department: 06/27/24 Does the patient have a future office visit with this provider/department: No Requested Prescriptions Pending Prescriptions Disp Refills tirzepatide, weight loss (ZEPBOUND) 2.5 mg/0.5 mL pen injector 2 mL 2 Sig: Inject 2.5 mg subcutaneously one time a week. Patient Comment: Id like to step up to the next dose, I have seemed to have plateaued. Chilango Palma LPN October 13, 2024 9:22 AM documented in this encounter [facility] 10-13-2024 Telephone encounter Note Prescription Refill Information The patient has been identified by name and date of : Yes Caregiver verified no other encounters exist for this prescription request: Yes Caregiver confirmed with patient/requestor that no other refills are due, in the near future, with this provider at this time: Yes The last office visit in the department: 06/27/24 Does the patient have a future office visit with this provider/department: No Requested Prescriptions Pending Prescriptions Disp Refills tirzepatide, weight loss (ZEPBOUND) 2.5 mg/0.5 mL pen injector 2 mL 2 Sig: Inject 2.5 mg subcutaneously one time a week. Patient Comment: Id like to step up to the next dose, I have seemed to have plateaued. Chilango Palma LPN October 13, 2024 9:22 AM [facility] 10-11-2024 Hospital Discharg e instructions Patient Education 10/11/2024 17:20:14 Laceration, Scalp: Sutures or Clair Scalp Laceration: Sutures or Clair A laceration is a cut through the skin. A scalp laceration may require stitches (sutures) or clair. There are a lot of blood vessels in the scalp. Because of this, significant bleeding is common with scalp cuts. Home care The following guidelines will help you care for your laceration at home: During the first 2 days you may carefully rinse your hair in the shower to remove blood and glass or dirt particles. After 2 days you may shower and shampoo your hair normally. Have someone help you clean your wound every day: oIn the shower, wash the area with soap and water. Use a wet cotton swab to loosen and remove any blood or crust that forms. oAfter cleaning, keep the wound clean and dry. Talk with your doctor about applying antibiotic ointment to the wound. Apply a fresh bandage. Don't put your head underwater until the stitches or clair have been removed. This means no swimming. Your doctor may prescribe an antibiotic cream or ointment to prevent infection. Do not stop taking this medication until you have finished the prescribed course or your doctor tells you to stop. Your doctor may prescribe medications for pain. If no pain medicines were prescribed, you can use hzjw-hcx-bnyypmb pain medicines. Follow instructions for taking these medications. Talk with your doctor before using these medicines if you have chronic liver or kidney disease. Also talk with your doctor if you have ever had a stomach ulcer or GI bleeding. Follow-up care Follow up with your healthcare provider, or as advised. Check the wound daily for the signs of infection listed below. Stitches or clair are usually removed from the scalp in about 7 to 14 days. Call 911 Call 911 if any of these occur: Bleeding can't be controlled by direct pressure When to seek medical advice Call your healthcare provider right away if any of these occur: Signs of infection, including increasing pain in the wound, redness, swelling, or pus coming from the wound Fever of 100.4 F (38 C) or higher, or as directed by your healthcare provider Stitches or clair come apart or fall out before your next appointment Wound edges re-open [phone] [employer]. [address] [place] [address], [place] [address]. All rights reserved. This information is not intended as a substitute for professional medical care. Always follow your healthcare professional's instructions. Follow Up Care 10/11/2024 16:20:13 With:ALEX BUTLER MD Address: [facility] [address] [place] [phone] When:2-4 days [facility] 10-11-2024 Note Discharge Instructions Thank you for allowing [place] to assist you with your healthcare needs. The following is important discharge information regarding your hospital visit. Diagnosis from Today's Visit Scalp laceration What to Do Next Instructions from Your Care Team Sutures out in 5-7 days. No qualifying data available. Post Acute Orders No qualifying data available. You Need to Schedule the Following Appointments Follow Up with ALEX BUTLER MD When:Within 2-4 days Where:[facility] [address] [place] [address] [phone] Allergies No Known Medication Allergies Medications Please ask your primary doctor or pharmacist before taking any other medication not listed, including over the counter drugs, herbal medications, vitamins and or supplements as they may interact with your home medications. Please take this list to your next doctor s visit. Bring all medications you take, including over the counter medications, herbals and other supplements with you to your doctor s visit. Patients and families are reminded to discard old lists and to update any records with all medication providers or retail pharmacies. Education Materials Scalp Laceration: Sutures or Clair A laceration is a cut through the skin. A scalp laceration may require stitches (sutures) or clair. There are a lot of blood vessels in the scalp. Because of this, significant bleeding is common with scalp cuts. Home care The following guidelines will help you care for your laceration at home: During the first 2 days you may carefully rinse your hair in the shower to remove blood and glass or dirt particles. After 2 days you may shower and shampoo your hair normally. Have someone help you clean your wound every day: oIn the shower, wash the area with soap and water. Use a wet cotton swab to loosen and remove any blood or crust that forms. oAfter cleaning, keep the wound clean and dry. Talk with your doctor about applying antibiotic ointment to the wound. Apply a fresh bandage. Don't put your head underwater until the stitches or clair have been removed. This means no swimming. Your doctor may prescribe an antibiotic cream or ointment to prevent infection. Do not stop taking this medication until you have finished the prescribed course or your doctor tells you to stop. Your doctor may prescribe medications for pain. If no pain medicines were prescribed, you can use pqlh-zhj-czzbevj pain medicines. Follow instructions for taking these medications. Talk with your doctor before using these medicines if you have chronic liver or kidney disease. Also talk with your doctor if you have ever had a stomach ulcer or GI bleeding. Follow-up care Follow up with your healthcare provider, or as advised. Check the wound daily for the signs of infection listed below. Stitches or clair are usually removed from the scalp in about 7 to 14 days. Call 911 Call 911 if any of these occur: Bleeding can't be controlled by direct pressure When to seek medical advice Call your healthcare provider right away if any of these occur: Signs of infection, including increasing pain in the wound, redness, swelling, or pus coming from the wound Fever of 100.4 F (38 C) or higher, or as directed by your healthcare provider Stitches or clair come apart or fall out before your next appointment Wound edges re-open [phone] [employer]. [address] [place] [address]. All rights reserved. This information is not intended as a substitute for professional medical care. Always follow your healthcare professional's instructions. Additional Information VACCINATE! IT SAVES LIVES! Members of the community who have not yet received the COVID-19 vaccine and would like to receive it can visit one of [facility] vaccine clinics. There are many vaccine clinic locations within the [facility]. For locations and available times, please visit [email or web address]. [email or web address] It is important to note that some COVID mobile vaccine clinics are held outdoors and may be canceled in rainy or stormy conditions. To learn more about pediatric vaccinations (ages 5-11), we invite you to visit the [facility] webpage. https://www.[facility].org/p ages/5060-Uxdrn-Sjredsmkism-Freq dicgae-Wwqgj-Lhpevnwbt.html To learn more about the COVID-19 vaccine, we invite you to visit the CDC website for a list of frequently asked questions. https://www.cdc.gov/coronavirus/ 2019-ncov/vaccines/faq.html [facility] Patient Portal Access Instructions: Stay connected with your healthcare team and access your personal medical information anytime with the [facility] Patient Portal. If you would like a full copy of your medical records please contact the [facility] Medical Records Department Sunday through Sunday between 8a.m. and 4:30p.m. Please follow the directions below to access the portal: 1.Access the email account you provided upon registration to the [facility].2.Look for an invitation email from [facility].3.Open the email and access the invitation link: Accept Invitation to [facility].Fill in the required canales to create your account. Sign into [email or web address] with your username and password that you created in the above steps to stay up to date. You can then view a summary of results, a summary of your visits, and the ability to download your summaries to your computer or send the information securely to a physician. Remember that your healthcare information is confidential, so carefully consider who you will allow to register on the [facility] Patient Portal for access to your information. You can also access the [facility] Patient Portal on the Resource Data. Simply click on Health Records under Health Data and then click on the [employer] logo. HOW TO SAFELY DISPOSE OF PRESCRIPTION MEDICATIONS Please use one of the following methods to safely dispose of your unused medications. 1.Use a drug disposal kit: the drug disposal pouch allows you to safely discard your old and unused drugs. Ask your nurse to give you one when you are discharged.2.Visit a local take-back location: Many local pharmacies and police departments have programs that collect old and unwanted prescription drugs. Call your local pharmacy or go to http://[employer]Oyster/3S6Yi0q to find one close to you.3.Make use of household items: Use cat litter or old coffee grounds to dispose medications if other options are not available. Mix your drugs with these household products, seal them in an airtight container and throw it into the garbage. Call [facility]: [phone] to be sure your drugs can be disposed of in this way. Some medicines may require a different approach.4.Never flush your medications down the toilet. IF YOU HAVE BEEN PRESCRIBED AN OPIOIDS FOR PAIN If you have been prescribed an opioid (such as hydrocodone, oxycodone or morphine), it is critical to understand the possible side effects and risks of opioid pain medications. Even when taken as directed, opioids can have several side effects including: Tolerance, meaning you might need to take more of a medication for the same pain relief. Nausea, vomiting and/or constipation. Sleepiness, dizziness, dry mouth, confusion, depression or itching. Physical dependence, meaning you have withdrawal symptoms when a medication is stopped ? this can develop within a few days. KNOW YOUR RESPONSIBILITIES It is important to know exactly how much and how often to take the opioid pain medications you are prescribed. Never take opioids in higher amounts or more often than prescribed. Do not combine opioids with alcohol or other drugs that cause drowsiness, such as benzodiazepines, also known as benzos, including diazepam and alprazolam, muscle relaxants or sleep aids. Never sell or share prescription opioids. This is illegal. Store opioids in a secure place and out of reach of others (including children, family, friends and visitors). The last page(s) of this document has been signed and retained as a CHART COPY Signatures Patient Education Materials Laceration, Scalp: Sutures or Clair Medication Leaflets My discharge plan and instructions have been reviewed and explained to me and IARPITA CHAD understand my current condition and have read and understand these discharge instructions. I have received a written copy of the plan/instructions. If I have questions, I am aware that I should contact my doctor. Patient/High Court Justice Signature: Date/Time: Relationship to Patient: Witness Name/Signature: Date/Time: [facility] Jocelynnwili Potter 08-12-2024 Telephone encounter Note I can send it there, however, it would be for fda approved zepbound. Fda is currently not recommending using compounded glp-1s due to complications. I am not sure they dispense that there. Let me know [facility] 08-12-2024 Miscellaneous Notes I can send it there, however, it would be for fda approved zepbound. Fda is currently not recommending using compounded glp-1s due to complications. I am not sure they dispense that there. Let me know Patient Comment: Can I please have my prescription sent to the compounding pharmacy of [place]? I m just going to pay for it [id number]. Thank you. Prescription Refill Information The patient has been identified by name and date of : Yes Caregiver verified no other encounters exist for this prescription request: No Caregiver confirmed with patient/requestor that no other refills are due, in the near future, with this provider at this time: No The last office visit in the department: 06/27/24 Does the patient have a future office visit with this provider/department: No Requested Prescriptions Pending Prescriptions Disp Refills tirzepatide, weight loss (ZEPBOUND) 2.5 mg/0.5 mL pen injector 2 mL 2 Sig: Inject 2.5 mg subcutaneously one time a week. Unable to find this pharmacy to add to pharmacy list. Chey Martinez MA August 12, 2024 11:12 AM documented in this encounter [facility] 08-12-2024 Telephone encounter Note Patient Comment: Can I please have my prescription sent to the compounding pharmacy of [place]? I m just going to pay for it [id number]. Thank you. Prescription Refill Information The patient has been identified by name and date of : Yes Caregiver verified no other encounters exist for this prescription request: No Caregiver confirmed with patient/requestor that no other refills are due, in the near future, with this provider at this time: No The last office visit in the department: 06/27/24 Does the patient have a future office visit with this provider/department: No Requested Prescriptions Pending Prescriptions Disp Refills tirzepatide, weight loss (ZEPBOUND) 2.5 mg/0.5 mL pen injector 2 mL 2 Sig: Inject 2.5 mg subcutaneously one time a week. Unable to find this pharmacy to add to pharmacy list. Chey Martinez MA August 12, 2024 11:12 AM [facility] 07-07-2024 Telephone encounter Note Labs coming back from [facility]: Scan on 07/07/2024 8:08 AM by ProviderMaurizio PA-C: Hematology View External Labs - Chemistry [ID [id number]] [facility] 07-07-2024 Miscellaneous Notes Labs coming back from [facility]: Scan on 07/07/2024 8:08 AM by ProviderMaurizio PA-C: Hematology [facility] External Labs - Chemistry [ID [id number]] documented in this encounter [facility] 06-27-2024 Note HNO ID: [id number] Author: ALEX BUTLER MD Service: ? Author Type: Physician Type: Progress Notes Filed: 06/27/2024 17:11 Note Text: Cathy is a 43-year-old male with a history of SHITAL, obesity, and depression, presenting for a check-up and to discuss medication options for sleep apnea and weight loss. HPI Obstructive Sleep Apnea: - Diagnosed in 2011, with a sleep study performed the same year. - Initially managed with CPAP, later switched to BiPAP due to severity. - Discontinued CPAP use during pandemic due to concerns about virus spread. - Reports worsening symptoms with weight gain; currently over 200 lbs. - Describes being a stomach sleeper, with frequent tossing and turning. - Taking lorazepam to aid sleep. - Denies recent chest pain, dyspnea, lightheadedness, or dizziness. - Would like to try zepbound which has the indication for SHITAL. We discussed it may not be covered. Obesity: - Weight increased from 160 lbs to over 200 lbs. - Struggles with weight loss due to inability to run. - Engages in calorie counting and exercise. - Reports sneak eating and constant hunger, even on a high-protein diet. Depression: - Followed by Dr. Moya in psychiatry. - Recently increased Luvox dosage to 100 mg, noting significant improvement. 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 - Works in [employer] and [employer] for the formerly [employer]. MEDICATIONS: Current Outpatient Medications Medication Sig tirzepatide, weight loss (ZEPBOUND) 2.5 mg/0.5 mL pen injector Inject 2.5 mg subcutaneously one time a week. sildenafil (VIAGRA) 50 mg tablet Take 1 tablet by mouth once daily as needed. Take 30-60 minutes before sexual activity. fluvoxaMINE (LUVOX) 50 mg tablet Take 1 tablet by mouth daily at bedtime. (Patient taking differently: Take 100 mg by mouth daily at bedtime.) LORazepam (ATIVAN) 1 mg tablet 1/2 to 1 tab daily as needed sparingly for anxiety No current facility-administered medications for this visit. ALLERGIES: ALLERGIES Allergen Reactions Cashew Nut Anaphylaxis PAST MEDICAL HISTORY Diagnosis Date Esophageal reflux GERD (gastroesophageal reflux disease) Hypertension Nonspecific elevation of levels of transaminase or lactic acid dehydrogenase (LDH) OCD (obsessive compulsive disorder) Sleep apnea does not wear regularly PAST SURGICAL HISTORY Procedure Laterality Date COLONOSCOPY 06/22/2021 Dr Marcelino ESOPHAGOGASTRODUODENOSCOPY TRANSORAL DIAGNOSTIC 04/23/2012 EGD INCISE FINGER TENDON SHEATH Left 01/22/2020 Left index and middle trigger finger releases LAPAROSCOPIC APPENDECTOMY 08/23/2011 OPTX FEM SHFT FX W/INSJ IMED IMPLT W/WO SCREW left femur fracture with pins and phoebe PAST SURGICAL HISTORY OF 11/2018 L5-S1 spinal fusion TONSILLECTOMY AND ADENOIDECTOMY URETHROPLASTY 1 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 FAMILY HISTORY Problem Relation Age of Onset other (liver cancer) Father gallbladder Diabetes Maternal Grandfather Cancer Maternal Grandfather LUNG CA Cancer Maternal Grandmother LUNG CA Diabetes Maternal Grandmother Diabetes Paternal Grandmother Diabetes Paternal Grandfather Social History Tobacco Use Smoking status: Former Current packs/day: 0.00 Types: Cigarettes Start date: 10/06/1999 Quit date: 10/05/2006 Years since quittin.7 Smokeless tobacco: Never Tobacco comments: Occasional cigar only per patient Vaping Use Vaping status: Never Used Substance Use Topics Alcohol use: Yes Comment: rare Drug use: No Reviewed current medications, allergies, past medical history, surgical history, family history and social history today. REVIEW OF SYSTEMS Constitutional: (+) fatigue, (+) weight gain, (+) sleep disturbance Cardiovascular: (-) chest pain Respiratory: (-) shortness of breath Gastrointestinal: (+) increased appetite Neurological: (-) lightheadedness, (-) dizziness HEALTH MAINTENANCE: Reviewed health maintenance issues today and recommended the following in detail. There are no preventive care reminders to display for this patient. LAB REVIEWED: Labs: (2021) Urinalysis: Normal Tests: (06/22/2021) Colonoscopy: 1 mm polyp identified. No malignant findings. (2011) Sleep study: Severe obstructive sleep apnea. Esophagogastroduodenoscopy: No abnormalities. Biopsy of scalp lesion: Negative for malignancy. VITALS: BP 119/78 Pulse 68 Wt 91.2 kg (201 lb) SpO2 97% BMI 30.56 kg/m? Last 4 Encounter Wt Readings: Date: Wt: 06/27/2024 91.2 kg (201 lb) 05/16/2023 92.4 kg (203 lb 12.8 oz) 01/03/2023 92.5 kg (204 lb) 12/21/2021 88.2 kg (194 lb 6.4 oz) PHYSICAL EXAMINATION: GENERAL: NAD, alert and oriented. SKIN: Unremarkable, no rash or skin lesions. HEAD: Normocephalic. LUNGS: Clear to auscultation bilaterally, no wheezes/rhonchi/rales. HEART: Regular rate and rhythm, no murmur (more content not included)... [facility] 11-08-2023 Note [facility] Medical Records Department [address] [place] [address] History Physical Exam 11/08/23 1528 MR#: [id number] Acct: [id number] Name: CATHY RATLIFF Rep #: [id number] : 1980 43 From: Leona Haas MD PCP: Dr. Alex Butler MD Status:[facility] Location: [place] [address] History and Physical Date of Admission: 11/08/23 The patient is examined and there are no changes to the H P dated 10/30/2023. Informed consent was obtained for excision of a lesion of his scalp and shave lesions of his forehead x 2. The specimens will be sent to pathology for evaluation. Assessment Plan Assessment/Plan (1) Neoplasm of uncertain behavior of skin of face: (2) Neoplasm of uncertain behavior of scalp: PLAN: Plan For excision neoplasm scalp and shave lesions of the forehead x 2 11/08/23 1529 Cosigner Signature (if applicable): CC: Dr. Leona Haas MD; Dr. Alex Butler MD Signed [facility] 05-16-2023 History of Presen t illness Narrative Patient presents with: Physical HPI: Patient presents today for office visit for physical PSYCH:still using luvox. Seeing Dr Loco Has some fatigue. Has decreased libido. Worried about testosterone. Discussed weight loss. SHITAL: not using cpap. Discussed options. MEDICATIONS: Current Outpatient Medications Medication Sig sildenafil (VIAGRA) 50 mg tablet Take 1 tablet by mouth once daily as needed. Take 30-60 minutes before sexual activity. fluvoxaMINE (LUVOX) 50 mg tablet Take 1 tablet by mouth daily at bedtime. (Patient taking differently: Take 100 mg by mouth daily at bedtime.) LORazepam (ATIVAN) 1 mg tablet 1/2 to 1 tab daily as needed sparingly for anxiety No current facility-administered medications for this visit. ALLERGIES: ALLERGIES Allergen Reactions Cashew Nut Anaphylaxis PAST MEDICAL HISTORY Diagnosis Date Esophageal reflux GERD (gastroesophageal reflux disease) Hypertension Nonspecific elevation of levels of transaminase or lactic acid dehydrogenase (LDH) OCD (obsessive compulsive disorder) Sleep apnea does not wear regularly PAST SURGICAL HISTORY Procedure Laterality Date COLONOSCOPY 06/22/2021 Dr Marcelino ESOPHAGOGASTRODUODENOSCOPY TRANSORAL DIAGNOSTIC 04/23/2012 EGD INCISE FINGER TENDON SHEATH Left 01/22/2020 Left index and middle trigger finger releases LAPAROSCOPIC APPENDECTOMY 08/23/2011 OPTX FEM SHFT FX W/INSJ IMED IMPLT W/WO SCREW left femur fracture with pins and phoebe PAST SURGICAL HISTORY OF 11/2018 L5-S1 spinal fusion TONSILLECTOMY & ADENOIDECTOMY <AGE 10 URETHROPLASTY 1 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 FAMILY HISTORY Problem Relation Age of Onset other (liver cancer) Father gallbladder Diabetes Maternal Grandfather Cancer Maternal Grandfather LUNG CA Cancer Maternal Grandmother LUNG CA Diabetes Maternal Grandmother Diabetes Paternal Grandmother Diabetes Paternal Grandfather Social History Tobacco Use Smoking status: Former Years: 7 Types: Cigarettes Quit date: 10/05/2006 Years since quittin.6 Smokeless tobacco: Never Tobacco comments: Occasional cigar only per patient Vaping Use Vaping Use: Never used Substance Use Topics Alcohol use: Yes Comment: rare Drug use: No Reviewed current medications, allergies, past medical history, surgical history, family history and social history today. REVIEW OF SYSTEMS HEENT: Negative for frequent or significant headaches, No changes in hearing or vision, no nose bleeds or other nasal problems NECK: Negative for lumps, goiter, pain and significant neck swelling RESPIRATORY: Negative for cough, hemoptysis, wheezing, COPD, dyspnea or shortness of breath CARDIOVASCULAR: Negative for chest pain, leg swelling, hypertension, CHF or palpitations GI: No nausea, vomiting, or diarrhea : No history of dysuria, frequency or incontinence SKIN: Negative for lesions, rash, and itching All other reviewed and negative other than HPI. HEALTH MAINTENANCE: Reviewed health maintenance issues today and recommended the following in detail. Hepatitis B Vaccine(1 of 3 - 19+ 3-dose series) Never done BP Controlled (<130/80) due on 12/15/2021 Covid-19 Vaccine(2022- season) due on 10/06/2022 VITALS: BP 124/78 Pulse 74 Wt 92.4 kg (203 lb 12.8 oz) SpO2 97% BMI 30.99 kg/m Last 4 Encounter Wt Readings: Date: Wt: 05/16/2023 92.4 kg (203 lb 12.8 oz) 01/03/2023 92.5 kg (204 lb) 12/21/2021 88.2 kg (194 lb 6.4 oz) 11/16/2021 82.1 kg (181 lb) PHYSICAL EXAMINATION: General appearance: Well appearing, alert, in no acute distress, well-hydrated, well nourished. Skin: Skin color, texture, turgor normal, no suspicious rashes or lesions Head: Normocephalic, no masses, lesions, tenderness or abnormalities Eyes: Anicteric sclera. Pupils are equally round and reactive to light. Extraocular movements are intact. Ears: External ears normal, canals clear Nose/Sinuses: Nares normal, septum midline, mucosa normal, no drainage or sinus tenderness Oropharynx: Lips, mucosa, and tongue normal, teeth and gums normal, oropharynx normal Neck: Supple, no adenopathy; thyroid symmetric, normal size, no bruits Lungs: Lungs clear to auscultation. No wheezing, rhonchi, rales Heart: RRR without murmur, gallop, or rubs. No ectopy Abdomen: Normal abdominal exam, Abdomen soft, non-tender. Bowel sounds normal. No masses, organomegaly Extremities: No deformities, edema, skin discoloration, clubbing or cyanosis. Good capillary refill. Musculoskeletal: No joint swelling, deformity, or tenderness Peripheral pulses: Normal Neuro: Negative. ASSESSMENT/PLAN: 1. Well adult exam - ICD9: V70.0, ICD10: Z00.00 (primary diagnosis) - COMPLETE BLOOD COUNT AND DIFFERENTIAL - COMPREHENSIVE METABOLIC PANEL - LIPID PANEL BASIC 2. Mixed obsessional thoughts and acts - ICD9: 300.3, ICD10: F42.2 - continue to follow psych. 3. Essential hypertension, benign - ICD9: 401.1, ICD10: I10 - Controlled - off meds. 4. Sleep apnea, unspecified type - ICD9: 780.57, ICD10: G47.30 - stable. 5. Dysthymia - ICD9: 300.4, ICD10: F34.1 - stable. 6. Fatigue, unspecified type - ICD9: 780.79, ICD10: R53.83 - THYROID STIMULATING HORMONE - TESTOSTERONE, TOTAL Alex Butler MD documented in this encounter [facility] 04-11-2023 Miscellaneous Notes Patient contacted and informed letter is ready. Taken to medical records for pickup. 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 Luke Hyatt LPN documented in this encounter [facility] 01-03-2023 History of Presen t illness Narrative Chief Complaint Patient presents with: Erectile Dysfunction: Patient would like to discuss options HPI Cathy Ratliff is a 42 year old male who presents here today for Above Complaints.. Patient states that for the last month after his dose of luvox was increased from 50 to [address] Loco. Has been having difficulty obtaining and maintaining erection more than 50% of the time. No longer able to maintain long enough to achieve orgasm. Denies pain with intercourse or hematospermia, injury, deformity, rash, testicular pain/swelling. Notes that he takes creatine as a supplement as well. Started that about 3-4 weeks. Past medical history, appointments, medications, allergies reviewed. Previous Medical History PAST MEDICAL HISTORY Diagnosis Date Esophageal reflux GERD (gastroesophageal reflux disease) Hypertension Nonspecific elevation of levels of transaminase or lactic acid dehydrogenase (LDH) Sleep apnea does not wear regularly Previous Surgical History PAST SURGICAL HISTORY Procedure Laterality Date COLONOSCOPY 06/22/2021 Dr Marcelino ESOPHAGOGASTRODUODENOSCOPY TRANSORAL DIAGNOSTIC 04/23/2012 EGD INCISE FINGER TENDON SHEATH Left 01/22/2020 Left index and middle trigger finger releases LAPAROSCOPIC APPENDECTOMY 08/23/2011 OPTX FEM SHFT FX W/INSJ IMED IMPLT W/WO SCREW left femur fracture with pins and phoebe PAST SURGICAL HISTORY OF 11/2018 L5-S1 spinal fusion TONSILLECTOMY & ADENOIDECTOMY <AGE 10 URETHROPLASTY 1 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 Family History FAMILY HISTORY Problem Relation Age of Onset other (liver cancer) Father gallbladder Diabetes Maternal Grandfather Cancer Maternal Grandfather LUNG CA Cancer Maternal Grandmother LUNG CA Diabetes Maternal Grandmother Diabetes Paternal Grandmother Diabetes Paternal Grandfather Patient Allergies ALLERGIES Allergen Reactions Cashew Nut Anaphylaxis Current Medications Current Outpatient Medications on File Prior to Visit Medication Sig fluvoxaMINE (LUVOX) 50 mg tablet Take 1 tablet by mouth daily at bedtime. (Patient taking differently: Take 100 mg by mouth daily at bedtime.) LORazepam (ATIVAN) 1 mg tablet 1/2 to 1 tab daily as needed sparingly for anxiety No current facility-administered medications on file prior to visit. Social History Social History Tobacco Use Smoking status: Former Years: 7 Types: Cigarettes Quit date: 10/05/2006 Years since quittin.2 Smokeless tobacco: Never Tobacco comments: Occasional cigar only per patient Vaping Use Vaping Use: Never used Substance Use Topics Alcohol use: Yes Comment: rare Drug use: No Review of Symptoms REVIEW OF SYSTEMS See HPI EXAM: BP 128/80 Pulse (!) 58 Resp 16 Wt 92.5 kg (204 lb) SpO2 99% BMI 31.02 kg/m General Appearance: Well appearing, alert, in no acute distress, well-hydrated, well nourished.. Skin: Skin color, texture, turgor normal, no suspicious rashes or lesions. Peripheral Pulses: Pulses: femoral=4/4 Health Maintenance List Hepatitis B Vaccine(1 of 3 - 3-dose series) Never done BP Controlled (<130/80) due on 12/15/2021 Influenza Vaccine(1) due on 10/06/2022 Covid-19 Vaccine(3 - 2022- season) due on 10/06/2022 Annual PCP Team Chronic Disease Visit due on 12/21/2022 DTaP,Tdap,Td Vaccine(2 - Td or Tdap) due on 07/04/2023 Lipid Screening due on 12/21/2026 Hepatitis C Screening Completed HIV Screening Completed HPV Vaccine Aged Out Data reviewed Component Latest Ref Rng & Units 12/21/2021 WBC 3.70 - 11.00 k/uL 11.72 (H) RBC 4.20 - 6.00 m/uL 5.20 Hemoglobin 13.0 - 17.0 g/dL 14.9 Hematocrit 39.0 - 51.0 % 45.3 MCV 80.0 - 100.0 fL 87.1 MCH 26.0 - 34.0 pg 28.7 MCHC 30.5 - 36.0 g/dL 32.9 RDW-CV 11.5 - 15.0 % 11.7 Platelet Count 150 - 400 k/uL 309 MPV 9.0 - 12.7 fL 10.1 Neut% % 67.5 Abs Neut (ANC) 1.45 - 7.50 k/uL 7.91 (H) Lymph% % 19.0 Abs Lymph 1.00 - 4.00 k/uL 2.23 [place]% % 10.7 Abs [place] <0.87 k/uL 1.25 (H) Eosin% % 1.9 Abs Eosin <0.46 k/uL 0.22 Baso% % 0.5 Abs Baso <0.11 k/uL 0.06 Immature Gran % % 0.4 IMMATURE GRANS (ABS) <0.10 k/uL 0.05 NRBC /100 WBC 0.0 Absolute nRBC <0.01 k/uL <0.01 DTYPE Auto Protein, Total 6.3 - 8.0 g/dL 7.5 Albumin 3.9 - 4.9 g/dL 4.5 Calcium 8.5 - 10.2 mg/dL 9.5 Bilirubin, Total 0.2 - 1.3 mg/dL 0.5 Alkaline Phosphatase 38 - 113 U/L 83 AST 14 - 40 U/L 19 ALT 10 - 54 U/L 19 Glucose 74 - 99 mg/dL 81 BUN 9 - 24 mg/dL 15 Creatinine 0.73 - 1.22 mg/dL 1.01 Sodium 136 - 144 mmol/L 139 Potassium 3.7 - 5.1 mmol/L 4.7 Chloride 97 - 105 mmol/L 100 CO2 22 - 30 mmol/L 28 Anion Gap 9 - 18 mmol/L 11 eGFR >=60 mL/min/1.73m 95 Cholesterol, Total <200 mg/dL 181 Triglyceride <150 mg/dL 43 HDL Cholesterol >39 mg/dL 48 Non HDL Cholesterol <130 mg/dL 133 (H) Fasting Time hrs 12 VLDL Cholesterol <30 mg/dL 9 TC:HDL Ratio <5.10 3.77 LDL Cholesterol <100 mg/dL 124 (H) LDL:HDL Ratio <2.54 2.58 (H) HIV 12 Combo (Ag/Ab) Nonreactive Nonreactive HIV 1/2 Ab HIV Interpretation Hemoglobin A1C 4.3 - 5.6 % 5.0 Estimated Average Glucose mg/dL 97 ASSESSMENT/PLAN: 1. Drug-induced erectile dysfunction - ICD9: 607.84, E980.5, ICD10: N52.2 Suspect 2/2 creatine vs higher dose luvox. Would have him stop creatine and if resolved, would not need to fill viagra. If not improved, should discuss luvox with his psychiatrist and use viagra PRN. Normal pulses on exam. With recent change in medications, will wait on ordering labs at this time. - SILDENAFIL 50 MG TABLET Felipe Milian MD documented in this encounter [facility] 09-12-2022 Miscellaneous Notes Note sent Dr. Butler please see patient request letter was sent 06/20/21 for facial dermatitis Caro Burgos Ma documented in this encounter [facility] 08-23-2022 Miscellaneous Notes Patient has been identified by name and date of : Yes Requested Prescriptions Pending Prescriptions Disp Refills fluvoxaMINE (LUVOX) 50 mg tablet 30 tablet 2 Sig: Take 1 tablet by mouth daily at bedtime. RX INSTRUCTIONS: Patient aware RX will be sent to pharmacy. No need to notify patient. Patient last office visit: 12/21/21 Patient next office visit: none scheduled Heather Chavez MA documented in this encounter [facility] 03-22-2022 Miscellaneous Notes Spoke with pt and information listed below given. Pt verbalizes understanding. Pt will try get labs done today. Kiana Warren LPN Note increased use pattern. Regular use requires urine drug screening per policy. Recommend other medications be reviewed if increased need/ stress/ anxiety. Refill on 03/21/22 TOX SCREEN ROUT UR PAIN PANEL, UR QUANT The following approved medication requests have been transmitted electronically. Requested Prescriptions Signed Prescriptions Disp Refills LORazepam (ATIVAN) 1 mg tablet 20 tablet 0 Si/2 to 1 tab daily as needed sparingly for anxiety Authorizing Provider: Kaye CHIANG PA-C Patient has been identified by name and date of : Yes Patient phones for refill(s): Requested Prescriptions Pending Prescriptions Disp Refills LORazepam (ATIVAN) 1 mg tablet 20 tablet 0 Si/2 to 1 tab daily as needed sparingly for anxiety Date of last office visit in primary care: 12/21/2021 Please advise. Thank you. Yuliana Barbour LPN documented in this encounter [facility] 02-15-2022 Miscellaneous Notes Patient phones requesting refills as follows: Requested Prescriptions Pending Prescriptions Disp Refills fluvoxaMINE (LUVOX) 50 mg tablet 30 tablet 2 Sig: Take 1 tablet by mouth daily at bedtime. REINALDO 12/21/21 NOV no upcoming appt Please review and advise. Chilango Palma LPN documented in this encounter [facility] 12-21-2021 History of Presen t illness Narrative Patient presents with: URI HPI: Patient presents today for office visit for URI symptoms and labs for insurance ENT: Patient complains of ear pain and sinus pressure. Duration: 7 days Fever: Yes. As high as 101 3 days ago. Headache: Yes. Sore throat: No. Ear pain: Yes. Nasal drainage: Yes. Cough: Yes. Shortness of breath: Yes. Nausea: No. Vomiting: No. Diarrhea: No. Previous treatment: No. Has had three negative at home covid. Needs screening labs. Luvox is working well. Bp is good. MEDICATIONS: Current Outpatient Medications Medication Sig LORazepam (ATIVAN) 1 mg tablet 1/2 to 1 tab daily as needed sparingly for anxiety fluvoxaMINE (LUVOX) 50 mg tablet Take 1 tablet by mouth daily at bedtime. No current facility-administered medications for this visit. ALLERGIES: ALLERGIES Allergen Reactions Cashew Nut Anaphylaxis PAST MEDICAL HISTORY Diagnosis Date Esophageal reflux GERD (gastroesophageal reflux disease) Hypertension Nonspecific elevation of levels of transaminase or lactic acid dehydrogenase (LDH) Sleep apnea does not wear regularly PAST SURGICAL HISTORY Procedure Laterality Date COLONOSCOPY 06/22/2021 Dr Marcelino ESOPHAGOGASTRODUODENOSCOPY TRANSORAL DIAGNOSTIC 04/23/2012 EGD INCISE FINGER TENDON SHEATH Left 01/22/2020 Left index and middle trigger finger releases LAPAROSCOPIC APPENDECTOMY 08/23/2011 OPTX FEM SHFT FX W/INSJ IMED IMPLT W/WO SCREW left femur fracture with pins and phoebe PAST SURGICAL HISTORY OF 11/2018 L5-S1 spinal fusion TONSILLECTOMY & ADENOIDECTOMY <AGE 10 URETHROPLASTY 1 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 FAMILY HISTORY Problem Relation Age of Onset other (liver cancer) Father gallbladder Diabetes Maternal Grandfather Cancer Maternal Grandfather LUNG CA Cancer Maternal Grandmother LUNG CA Diabetes Maternal Grandmother Diabetes Paternal Grandmother Diabetes Paternal Grandfather Social History Tobacco Use Smoking status: Former Years: 7.00 Types: Cigarettes Quit date: 10/05/2006 Years since quittin.2 Smokeless tobacco: Never Tobacco comments: Occasional cigar only per patient Vaping Use Vaping Use: Never used Substance Use Topics Alcohol use: Yes Comment: rare Drug use: No Reviewed current medications, allergies, past medical history, surgical history, family history and social history today. REVIEW OF SYSTEMS All other reviewed and negative other than HPI. VITALS: BP 118/80 Pulse 77 Temp 36.2 C (97.2 F) Ht 172.7 cm (5' 8) Wt 88.2 kg (194 lb 6.4 oz) SpO2 97% BMI 29.56 kg/m Last 4 Encounter Wt Readings: Date: Wt: 12/21/2021 88.2 kg (194 lb 6.4 oz) 11/16/2021 82.1 kg (181 lb) 09/15/2021 87.1 kg (192 lb) 09/02/2021 86.2 kg (190 lb) PHYSICAL EXAMINATION: General appearance: Well appearing, alert, in no acute distress, well-hydrated, well nourished. Skin: Skin color, texture, turgor normal, no suspicious rashes or lesions Head: Normocephalic, no masses, lesions, tenderness or abnormalities Eyes: Anicteric sclera. Pupils are equally round and reactive to light. Extraocular movements are intact. Ears: right tm shows redness or fullness. Nose/Sinuses: Nares normal, septum midline, mucosa normal, no drainage . Tender over frontal sinuses. Oropharynx: Lips, mucosa, and tongue normal, teeth and gums normal, oropharynx normal Neck: Supple, no adenopath Lungs: Lungs clear to auscultation. No wheezing, rhonchi, rales Heart: RRR without murmur, gallop, or rubs. No ectopy Abdomen: Normal abdominal exam, Abdomen soft, non-tender. Bowel sounds normal. No masses, organomegaly Extremities: No deformities, edema, skin discoloration, clubbing or cyanosis. Good capillary refill. ASSESSMENT/PLAN: 1. Acute otitis media, right - ICD9: 382.9, ICD10: H66.91 (primary diagnosis) - Discussed risks and benefits of new medication with the patient. Advised them to call if any side effects or questions. Red flags for re-assessment reviewed with patient in detail. Call if symptoms worsen at all or if not better in one to two weeks Reviewed diagnosis and treatment options in detail. Questions were answered. Patient expressed understanding of treatment plan. - AMOXICILLIN 875 MG-POTASSIUM CLAVULANATE 125 MG TABLET 2. Screening for HIV (human immunodeficiency virus) - ICD9: V73.89, ICD10: Z11.4 - HIV 1 2 COMBO(AG/AB),WITH REFLEX TO DIFFERENTIATION 3. Screening for diabetes mellitus - ICD9: V77.1, ICD10: Z13.1 - HGB A1C 4. Essential hypertension, benign - ICD9: 401.1, ICD10: I10 - good control - Goal of BP <130/80 - LIPID PANEL BASIC - COMP METABOLIC PANEL - CBC + DIFF 5. Bacterial sinusitis - ICD9: 473.9, 041.9, ICD10: J32.9, B96.89 - AMOXICILLIN 875 MG-POTASSIUM CLAVULANATE 125 MG TABLET Alex Butler documented in this encounter [facility] 12-05-2021 Miscellaneous Notes Patient has been identified by name and date of : Yes Requested Prescriptions Pending Prescriptions Disp Refills LORazepam (ATIVAN) 1 mg tablet 20 tablet 0 Si/2 to 1 tab daily as needed sparingly for anxiety Refused Prescriptions Disp Refills fluvoxaMINE (LUVOX) 50 mg tablet 30 tablet 2 Sig: Take 1 tablet by mouth daily at bedtime. RX INSTRUCTIONS: Patient aware RX will be sent to pharmacy. No need to notify patient. Amanda Hyatt LPN documented in this encounter [facility] 11-16-2021 History of Presen t illness Narrative Patient presents with: Sore Throat: Chills, congestion x2 days HPI: Feeling sick since last night Positive symptoms: bad Sore throat, Chills, Post nasal drainage, Malaise, Fatigue, Negative symptoms: Cough, Nasal Congestion, Rhinorrhea, OTC: Ibuprofen Had COVID illness a few months ago. Had second dose of NERITES COVID-19 vaccine March 2020. MEDICATIONS: Current Outpatient Medications Medication Sig LORazepam (ATIVAN) 1 mg tablet 1/2 to 1 tab daily as needed sparingly for anxiety fluvoxaMINE (LUVOX) 50 mg tablet Take 1 tablet by mouth daily at bedtime. buPROPion SR (WELLBUTRIN SR) 100 mg 12 hr tablet Take 50 mg by mouth once daily. hydrocortisone (ANUSOL-HC) 25 mg suppository 1 Suppository by RECTAL route twice daily as needed (hemorrhoids/rectal pain). multivit,thx,calcium,iron,mins (MULTIVITAMIN AND MINERAL ORAL) Take by mouth. L.acid/L.casei/B.bif/B.nahun/FOS (PROBIOTIC BLEND ORAL) Take by mouth. hydrocortisone-pramoxine (ANALPRAM-HC) 2.5-1 % rectal cream by RECTAL route three times daily. (Patient taking differently: by RECTAL route three times daily. Uses as needed ) No current facility-administered medications for this visit. ALLERGIES: ALLERGIES Allergen Reactions Cashew Nut Anaphylaxis VITALS: BP 122/82 Pulse 67 Temp 36.4 C (97.6 F) Resp 18 Wt 82.1 kg (181 lb) SpO2 98% BMI 27.52 kg/m PHYSICAL EXAM: GEN: mildly ill appearing HEENT: PERRL, EOMI, conjunctiva clear Ears: canals clear. TMs without erythema, bulge, or effusion Sinuses: non-tender frontal sinus, non-tender maxillary sinuses Throat: moist mucous membranes, pharyngeal erythema, exudate vs post nasal drainage Neck: supple, no thyromegaly, no lymphadenopathy HEART: regular rate and rhythm, no murmurs LUNGS: clear to auscultation, no wheezes or crackles, no increased WOB ASSESSMENT/PLAN: 1. Sore throat - ICD9: 462, ICD10: J02.9 - STREP A MOLECULAR (POC) - negative - suspect viral pharyngitis, differential includes COVID-19. He will do a home COVID test tonight. - Supportive care treatment with home isolation, rest, cold medicine, and analgesia. - Red flags to seek further treatment include chest pain, shortness of breath, and lethargy; in the ER if severe. Tj Pimentel MD documented in this encounter [facility] 11-08-2021 Miscellaneous Notes Patient phones requesting refills as follows: Requested Prescriptions Pending Prescriptions Disp Refills LORazepam (ATIVAN) 1 mg tablet 20 tablet 0 Si/2 to 1 tab daily as needed sparingly for anxiety Last filled 08/19/21 for 20 tabs REINALDO 08/22/21 NOV no upcoming appt noted Please review and advise. Francesca Alvarado LPN documented in this encounter [facility] 11-01-2021 History of Presen t illness Narrative Episode Visit Count: 5 Therapist That Will Accept/Oversee The Plan Of Care: Solange Rosenberg Start of Care Date: 09/30/21 Onset Date: 09/30/20 Patient Identified by Name and Date of : Yes REHABILITATION AND SPORTS THERAPY PHYSICAL THERAPY DISCONTINUANCE OF CARE PLAN OF CARE UPDATE: Assessment: Cathy Isbellton is discontinued from Physical Therapy services due to goal achievement and maximal benefit.. Patient was seen for 5 visits from Start of Care Date: 09/30/21 to 11/01/2021 and treatment included: Therapeutic exercise, Manual therapy, and Self-custodial management. Goals for Episode of Care: created on 09/30/21 Updated on: 11/01/2021 Incontinence: Patient to demonstrate independence with HEP-MET Patient able to cough, sneeze, lift and/or exercise without leaking-MET Patient able to fully empty bowels without straining-PROGRESSING Pelvic Pain: Patient displays decreased muscle spasms in pelvic floor to allow for decreased pain levels-MET Patient displays improved muscle dynamics of pelvic floor including ability to lengthen-MET Patient reports at least 75% improvement in pelvic pain compared to IE.-MET Patient Goals: improve pain, improve bladder & bowel function SUBJECTIVE: Patient Reason for Visit: Pt reports feeling good up until this past weekend until feeling some pelvic spasms after prolonged driving. Pt reports still feeling some mm tightness today but no pain. Pt reports 75% improvement overall in pelvic pain. Pt reports being pleased with progress, feels comfortable continuing on his own at home. Pain: Pain Pain Level: 3 Pain Location: Perineum Description: Tightness Frequency: Intermittent Post Treatment Pain Post Treatment Pain Level: No Change PROMIS Scales Higher is Better 08/15/2021 09/30/2021 11/01/2021 Phys Func - Score - 60 (within normal limits) 59 (within normal limits) Phys Func - Percentile - 84 % 82 % GH Physical - Score 54.1 (Very Good) - 54.1 (Very Good) GH Physical - Percentile 66 % - 66 % GH Mental - Score 41.1 (Good) - 48.3 (Very Good) GH Mental - Percentile 19 % - 43 % Self-Eff Symptom - Score - 44 (Average) 42 (Average) Self-Eff Symptom - Percentile - 27 % 21 % T-scores: mean of general population = 50. 5 points is clinically meaningfully difference Percentiles provide an indication of how the patient's score ranks in relation to the general population. Higher percentile rankings indicate better function/quality of life. 50th percentile is the average of the general population and indicates half of respondents had a worse score. T-scores: mean of general population = 50. 5 points is clinically meaningfully difference Percentiles provide an indication of how the patient's score ranks in relation to the general population. Higher percentile rankings indicate better function/quality of life. 50th percentile is the average of the general population and indicates half of respondents had a worse score. OBJECTIVE MEASURES WITH LEVEL OF FUNCTION: Pelvic Floor Stress Incontinence: No Difficulty evacuating / Excessive Straining: Sometimes Incomplete emptying: Sometimes Pelvic Floor Muscle Assessment Consent for pelvic assessment/testing and treatment: Patient was educated regarding pelvic floor physical therapy assessment/treatment which may include pelvic floor and girdle muscle assessment externally or internally (vaginal or rectal approach).;Patient verbalized consent for the above treatment approaches today. Patient understands they have control of the treatment and an opportunity to stop treatment at any time. Range of Motion: Normal Ability to Lengthen pelvic floor: Yes Pelvic Floor Manual Assessment External Pelvic Region Tenderness/ Hyperactivity - Trunk: Lower abdominals Lower abdominals: Bilateral (1/1) External Pelvic Region Tenderness/ Hyperactivity - Lower Extremity: Adductor Adductor: Bilateral (1/1) Pelvic Floor Tenderness/Hyperactivity: Tested Rectally in Tested Rectally in : Sidelying (No tightness/tenderness noted.) Tissue Restriction/Tenderness Scale: 1= mild, 2= moderate, 3= severe TREATMENT: Manual Therapy: 1: Reassessment 2: Gentle stretching to B pelvic floor, rectally, sidelying 3: MFR to B lower abdominals, supine 4: MFR to B adductors, supine 5: Discussed discharge planning Skilled Intervention: Manual skills to improve joint mobility, ROM, and decrease pain. Utilized anatomy knowledge of the therapist, and assessment of patient's response to intervention. Billing Manual TherapyTreatment Minutes: 30 Total Treatment Time Minutes (timed/untimed): 30 Solange Rosenberg PT documented in this encounter [facility] 10-11-2021 History of Presen t illness Narrative Episode Visit Count: 2 Therapist That Will Oversee The Plan Of Care: Solange Rosenberg Start of Care Date: 09/30/21 Onset Date: 09/30/20 Patient Identified by Name and Date of : Yes REHABILITATION AND SPORTS THERAPY PHYSICAL THERAPY TREATMENT NOTE ASSESSMENT: Cathy Ratliff tolerated the session with no issues. He demonstrated improvements in LINDA and pelvic pain, difficulty with unchanged bowel function. The patient will continue to benefit from ongoing skilled physical therapy to progress toward set goals. PLAN FOR NEXT VISIT: progress stretches, continue manual work SUBJECTIVE: Patient Reason for Visit: Pt reports limiting cycling time this past week. Pt reports no LINDA, no changes in bowel function. Pt reports no pelvic pain since last session. Pt reports fair compliance with HEP. Pain: Pain Pain Level: 0 Post Treatment Pain Post Treatment Pain Level: 0 OBJECTIVE MEASURES WITH LEVEL OF FUNCTION: Pelvic Floor Stress Incontinence: No Post Void Dribble: Yes Difficulty evacuating / Excessive Straining: Yes Incomplete emptying: Yes Pelvic Floor Muscle Assessment Consent for pelvic assessment/testing and treatment: Patient was educated regarding pelvic floor physical therapy assessment/treatment which may include pelvic floor and girdle muscle assessment externally or internally (vaginal or rectal approach).;Patient verbalized consent for the above treatment approaches today. Patient understands they have control of the treatment and an opportunity to stop treatment at any time. Pelvic Floor Manual Assessment External Pelvic Region Tenderness/ Hyperactivity - Trunk: Lower abdominals Lower abdominals: Bilateral (1/1) External Pelvic Region Tenderness/ Hyperactivity - Lower Extremity: Adductor Adductor: Bilateral (2/2) Tissue Restriction/Tenderness Scale: 1= mild, 2= moderate, 3= severe TREATMENT: Therapeutic Exercise: 1: *piriformis stretch, [id number] each 2: *supine 90/90 hamstring stretch, [id number] each 3: *BKTC stretch, [id number] Skilled Intervention: Patient was educated in proper exercise technique and purpose for exercises. Skilled judgment was provided in selection of appropriate interventions. Manual Therapy: 1: MFR to B lower abdominals, supine 2: MFR to B adductors, supine Skilled Intervention: Manual skills to improve joint mobility, ROM, and decrease pain. Utilized anatomy knowledge of the therapist, and assessment of patient's response to intervention. Billing Therapeutic Exercise Treatment Minutes: 10 Manual Therapy Treatment Minutes: 30 Total Treatment Time Minutes (timed/untimed): 40 Solange Rosenberg PT documented in this encounter [facility] 09-30-2021 History of Past i llness Narrative Problem Noted Date Diagnosed Date Resolved Date Muscle tightness 09/30/2021 05/16/2023 Chest pain 11/07/2012 12/21/2021 Esophageal reflux 06/15/2006 12/21/2021 Nonspecific elevation of lev els of transaminase or lactic acid dehydrogenase (LDH) 12/21/2021 documented as of this encounter (statuses as of 05/16/2023) [facility] History of Present illness Narrative* Solange Rosenberg PT - 09/30/2021 7:46 AM EDT Episode Visit Count: 1 Therapist That Will Oversee The Plan Of Care: Solange Rosenberg Start of Care Date: 09/30/21 Onset Date: 09/30/20 Patient Identified by Name and Date of : Yes REHABILITATION AND SPORTS THERAPY PHYSICAL THERAPY EVALUATION PLAN OF CARE: Assessment: Cathy Ratliff presents with chief complaint of pelvic pain that interferes with bladder function;bowel function;physical activities . He presents with impairments in decreased pelvic floor ROM; pelvic floor muscle tightness/tenderness; impaired bladder and bowel function. PROMIS (Patient- Reported Outcomes Measurement Information System) scores were reviewed and all domains identifiedas within normal limits. Prognosis for therapy is Good due to: current objective clinical presentation;good overall health status . He will benefit from skilled therapy services to meet the goals established for this plan of care as noted below. Goals for Episode of Care: created on 09/30/21 through 12/29/21 Incontinence: Patient to demonstrate independence with HEP Patient able to cough, sneeze, lift and/or exercise without leaking Patient able to fully empty bowels without straining Pelvic Pain: Patient displays decreased muscle spasms in pelvic floor to allow for decreased pain levels Patient displays improved muscle dynamics of pelvic floor including ability to lengthen Patient reports at least 75% improvement in pelvic pain compared to IE. Patient Goals: improve pain, improve bladder & bowel function Planned Interventions, Frequency, and Duration: Current Frequency: 1x/week Duration: 4 weeks (reassess at 4 weeks and progress as indicated) Total Number of Visits Planned: 4 Planned Treatment Interventions: Therapeutic exercise (80097);Manual therapy (52230);Self-care homemanagement ([id number]);Patient/Family/Caregiver Education PLAN FOR NEXT VISIT: progress stretches, assess external connective tissue Patient demonstrates good understanding of plan of care and treatment. The above goals and plan of care were discussed and agreed upon by patient/family. SUBJECTIVE: Pt reports penile and testicular pain began about a year ago. Pt reports first time pain presented, it felt like a UTI. Pt reports CT found small absess near prostate, which went away with medications. Pt reports pain has continued since then, though. Pt reports pain flare-ups mainly occur during stressful situations. 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 Occupation: [employer] Recreation / Current Exercise: goes to gym 3-4x/week: lifting, stretching, cycling Intake Information: Prescription present PAST MEDICAL HISTORY Diagnosis Date Esophageal reflux GERD (gastroesophageal reflux disease) Hypertension Nonspecific elevation of levels of transaminase or lactic acid dehydrogenase (LDH) Sleep apnea does not wear regularly PAST SURGICAL HISTORY Procedure Laterality Date ESOPHAGOGASTRODUODENOSCOPY TRANSORAL DIAGNOSTIC 04/23/2012 EGD INCISE FINGER TENDON SHEATH Left 01/22/2020 Left index and middle trigger finger releases LAPAROSCOPIC APPENDECTOMY 08/23/2011 [facility]X FEM SHFT FX W/INSJ IMED IMPLT W/WO SCREW left femur fracture with pins and phoebe PAST SURGICAL HISTORY OF 11/2018 L5-S1 spinal fusion TONSILLECTOMY & ADENOIDECTOMY <AGE 10 URETHROPLASTY 1 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 Previous Treatment: NSAIDs ;Self prescribed exercises Falls Interview: No positive findings with falls interview Aquatic Screen: No Pain: Pain Pain Level: 0 (6/10 at worst) Pain Location: Testicles;Penis Description: Burning;Dull;Aching Frequency: Intermittent Post Treatment Pain Post Treatment Pain Level: 0 PROMIS Scales Higher is Better 03/09/2021 08/15/2021 09/30/2021 Phys Func - Score - - 60 (within normal limits) Phys Func - Percentile - - 84 % GH Physical - Score 47.7 (Good) 54.1 (Very Good) - GH Physical - Percentile 41 % 66 % - GH Mental - Score 48.3 (Very Good) 41.1 (Good) - GH Mental - Percentile 43 % 19 % - Self-Eff Symptom - Score - - 44 (Average) Self-Eff Symptom - Percentile - - 27 % T-scores: mean of general population = 50. 5 points is clinically meaningfully difference Percentiles provide an indication of how the patient's score ranks in relation to the general population. Higher percentile rankings indicate better function/quality of life. 50th percentile is the average of the general population and indicates half of respondents had a worse score. T-scores: mean of general population = 50. 5 points is clinically meaningfully difference Percentiles provide an indication of how the patient's score ranks in relation to the general population. Higher percentile rankings indicate better function/quality of life. 50th percentile is the average of the general population and indicates half of respondents had a worse score. OBJECTIVE MEASURES WITH LEVEL OF FUNCTION: Pelvic Floor Pain with penetration: No Erectile dysfunction: None reported. Urinary/Bowel History : Urinary History;Bowel History Difficulty starting stream: No Incomplete emptying: No Stress Incontinence: Cough/sneeze Post Void Dribble: Yes Urgency: No Nocturia (times per night): (0-1) Daytime Frequency (hours): 2-3 Fluid Intake: Water;Coffee (8 oz measurements) Water : 8 Coffee: 2-3 Difficulty evacuating / Excessive Straining: Yes Incomplete emptying: Yes Bowel Movement Frequency: 1x/day Bowel Movement Consistency ([place]) : (ribbon-like) Fecal incontinence: No Pelvic Floor Muscle Assessment Consent for pelvic assessment/testing and treatment: Patient was educated regarding pelvic floor physical therapy assessment/treatment which may include pelvic floor and girdle muscle assessment externally or internally (vaginal or rectal approach).;Patient verbalized consent for the above treatment approaches today. Patient understands they have control of the treatment and an opportunity to stop treatment at any time. Pelvic Floor Muscle Assessment: PERFECT;Muscle Dynamics Power: 4 Endurance: 7 Fast Reps: 10 Contracton Pressure: Moderate squeeze, felt all the way around finger surface Duration of Contraction: >3 seconds Recruitment of pelvic floor muscles: Coordinated Range of Motion: Decreased Ability to Lengthen pelvic floor: Difficulty at first, but improves with cueing and practice Pelvic Floor Manual Assessment Pelvic Floor Tenderness/Hyperactivity: Tested Rectally in Tested Rectally in : Sidelying Levator Ani: Bilateral (2/2, L>R) LE AROM R LE AROM: WFL L LE AROM: WFL LE Flexibility Flexibility: Hamstring Flexibility;Hip Adductor;Hip Internal Rotation Flexibility;Hip External Rotation Flexibility R Hamstring Flexibility: WNL L Hamstring Flexibility: WNL R Adductor Flexibility: WNL L Adductor Flexibility: WNL R Hip Internal Rotation Flexibility: WNL L Hip Internal Rotation Flexibility: WNL R Hip External Rotation Flexibility: WNL L Hip External Rotation Flexibility: WNL LE Strength Trunk Strength: Lower Abdominals: 5/5 R LE Strength: 5/5 L LE Strength: 5/5 Tissue Restriction/Tenderness Scale: 1= mild, 2= moderate, 3= severe Education: Education Learning Preferences: Demonstration;Explanation;Performance;Printed Materials Barriers: None Learning/educational needs: Home exercise program;Plan of Care Education Provided: Yes, see treatment interventions for education provided Education Provided To: Patient Education Mode/Type: Demonstration;Explanation/Discussion;Literature/Printed Materials;Performance Response to Education/Teach Back: States/Identifies;Return Demonstration TREATMENT: PT Treatment Interventions: Therapeutic Exercise;Self-M[facility] Management Evaluation Therapeutic Exercise: 1: *diaphragmatic breathing 2: *supine adductor stretch, [id number] 3: *PF lengthening, 2x10 4: *knack technique Skilled Intervention: Patient was educated in proper exercise technique and purpose for exercises. Reviewed and educated patient on additions/changes for home exercise program as above (*). Skilled judgment was provided in selection of appropriate interventions. Provided written instruction for home exercise program to facilitate proper performance and compliance. Self-Mcfp Management: 1: Reviewed pelvic floor anatomy and function with 3D pelvic model 2: Reviewed typical vs dysfunctional bladder and bowel health 3: Reviewed bladder irritants, importance of water intake 4: Reviewed toileting techniques to fully empty bowels without straining 5: Reviewed toileting techniques to improve post-void dribbling 6: Reviewed impact of stress on mm tension, mm tension on pain: *body scanning Skilled Intervention: Skilled judgment in the selection of proper modification for activity of daily living/home management based on clinical presentation, deficits, and needs. Educated the patient regarding recommendations and provided written instruction to facilitate compliance. Billing * Evaluation Low Complexity: 1 Unit Therapeutic Exercise Treatment Minutes: 9 Self-Care/Home Management Treatment Minutes: 18 Total Treatment Time Minutes (timed/untimed): 50 Solange Rosenberg PT documented [facility]Mem[facility]-12-[facility]22 Procedure note* Aditi Salinas DO - 09/16/2021 9:28 AM EDTProcedure(s): CYSTOSCOPY Pre-Procedure Diagnose(s): Split of urinary stream Post-Procedure Diagnose(s): Split of urinary stream CYSTOSCOPY PROCEDURE NOTE: Cathy Ratliff is a 40 year old male who presents with LUTs for cystoscopy. Pt ID verified with patient: Yes Procedure verified with patient: Yes Procedure confirmed with physician and accounting support specialist: Yes Sign In History and Physical Exam reviewed and is unchanged. . Informed Consent Discussed: Yes. Risks, benefits, alternatives and personnel discussed with patientwho consents to proceed. Sign in Communication: Completed Time Out: Team Confirms the Correct Patient, Correct Procedure; Cystoscopy, Correct Site and Site Marking, Correct Position (if applicable). Affirmation of Time Out: Yes Sign Out: Sign Out Discussion: Completed Physician: Aditi Salinas DO A urinalysis was performed revealing no evidence of infection. The benefits, risks, alternatives of the cystoscopy procedure and personnel were discussed with thepatient. The verbal consent was obtained and the patient agrees to proceed. Procedure: The patient was placed on the procedure table in the supine position and prepped and draped in the usual sterile fashion. 2% Lidocaine Jelly was placed per urethra as an anesthetic in the standard fashion. Once adequate local anesthesia was achieved, the tip of the flexible cystoscope was carefully placed into the urethra under direct visual guidance. The scope was negotiated through the pendulous urethra to the level of the bulbar urethra with evidence of a 3 soft but wide open penile urethral bands. The verumontanum came into view and the scope was negotiated through the prostatic urethra which showed evidence of a patent prostatic urethra. The bladder was entered and careful guzman endoscopy was carried out. The posterior, superior and lateral michel and dome of the bladder wereall well visualized and the scope was retroflexed upon itself. The findings were consistent with noevidence of bladder mucosal pathology. At the conclusion of the procedure, the flexible cystoscope was removed atraumatically. The patienttolerated the procedure without complications. Patient was given standard post-procedure instructions, and was directed to complete the course of oral antibiotics and increase oral fluid intake as directed. ASSESSMENT/PLAN: Split stream and mild LUTS. Hx of urethroplasty Negative cystoscopy today. Continue annual follow up with Radha. Aditi Salinas DO documented in this encounterMemorial Health System08-11-2022 Nurse Note* Juan Garcia Ma - 09/15/2021 4:00 PM EDT AMBULATORY CYSTOSCOPY PROCEDURE PREOPERATIVE/PROCEDURAL VERIFICATION: Patient verified by: Name and Date of UNIVERSAL PROTOCOL / SAFETY CHECKLIST Procedure to be Performed: Cystoscopy Sign In: A Moment of CARE was completed. Personnel directly involved with the procedure wore the appropriate PPE (Personal Protective Equipment). No special equipment needed. Patient/Surrogate Stated/Verified: PATIENT VERIFIED(optional for EMERGENT procedures): Patient name, Date of , Relevant allergies, and The intended procedure Time Out Communication: Intended patient and procedure match the source documents. Consent documented and matches the intended procedure. No relevant labs, photos, and/or imaging studies were applicable for review. No correct side/site applicable for marking and visibility. Medications required for procedure verified. No fire risk assessment and interventions applicable. No implant(s) inserted. Sign Out: SIGN OUT (optional for EMERGENT procedures): No specimen collected. Juan Garcia Ma Medications and allergies reviewed and updated. Latex Allergy:No Pre-Procedure Antibiotics: Keflex 500 mg orally given during visit @ 13:55 pm , by Juan Garcia Ma Pre-Procedure Vital Signs: BP Blood pressure 147/88, pulse 75, resp. rate 18, height 172.7 cm (5' 8), weight 87.1 kg (192 lb). Current pain intensity is 0 on a scale of 0-10. Patient Prepped with Betadine Scrub to perineum and placement of sterile drape. Anesthetic Given: 10cc 2% Lidocaine Jelly into Urethra. Instruction sheet given and reviewed: Yes Patient verbalizes understanding: Yes Post- procedure Vital Signs: B/P: 157/92 P: 70 R:18 Pain Ratin on a scale of 0 to 10. Specimens: None Nurse: Juan Garcia Ma documented in this encounterMemorial Health System08-01-2022 Miscellaneous Notes* Telephone Encounter - Roxana Person RN - 09/05/2021 8:56 AM EDT Images from the original note were not included. Aditi Salinas, DO Halle Flores; Tai Hurst RN; Roxana Person RN Add on cysto next time I am in [place] Any time Early is ok Patient is scheduled in 1345 slot. Closing. documented in this encounterMemorial Health System08-01-2022 Miscellaneous Notes* Telephone Encounter - Halle Flores - 09/05/2021 8:00 AM EDT Pt confirmed cysto in [place] ofc with Dr. Salinas 09/15/21 @ 1:45. Millicent documented in this encounterMemorial Health System07-29-2022 History of Present illness Narrative* Gm Garcia PA-C - 09/02/2021 8:33 AM EDT Images from the original note were not included. PATIENT INFO: Cathy Ratliff 40 year old ( ) REFERRING PROVIDER: Alex Butler PCP: Alex Butler MD HPI: Cathy Ratliff 40 year old male is here today for discussion of his continued symptoms of penile and testicle discomfort But did not go to PFPT at that time, due to having an abscess in bowel, no that has improved he still has the previous issues and I Recommend doing the PFPT consult and try to not obsess over all things related to penis and infection, he tells me he has no reason to be concerned with STI but continues to ask if he needs tested. All previous test have been negative. He also states he has a split stream and this is new, he did have this > 20 years ago when he had a urethroplasty with Dr. Monsno Concerned it may have re-strictured He describes himself as having OCD and fixates on things so he has been checking compulsivity and may be irritating The penis We discussed spastic pelvic floor and symptoms And DIONNA showed obvious bilateral spasm and normal prostate LUTS: Other symptoms: ED - no LABS: Testosterone (ng/dL) Date Value 09/10/2009 294 No results found for: TESTFREE PSA (ng/mL) Date Value 08/12/2020 0.64 Hematocrit (%) Date Value 08/19/2021 45.1 08/12/2020 42.9 06/14/2018 42.6 11/17/2016 41.7 MEDICATIONS: fluvoxaMINE Maleate (LUVOX) 25 mg tablet Take 25 mg by mouth twice daily. One tablet by mouth for 20 days then take 1 tablet by mouth twice daily. LORazepam (ATIVAN) 1 mg tablet 1/2 to 1 tab daily as needed sparingly for anxiety hydrocortisone-pramoxine (ANALPRAM-HC) 2.5-1 % rectal cream by RECTAL route three times daily. multivit,thx,calcium,iron,mins (MULTIVITAMIN AND MINERAL ORAL) Take by mouth. L.acid/L.casei/B.bif/B.nahun/FOS (PROBIOTIC BLEND ORAL) Take by mouth. buPROPion SR (WELLBUTRIN SR) 100 mg 12 hr tablet Take 50 mg by mouth once daily. hydrocortisone (ANUSOL-HC) 25 mg suppository 1 Suppository by RECTAL route twice daily as needed (hemorrhoids/rectal pain). PAST MEDICAL HISTORY: PAST MEDICAL HISTORY Diagnosis Date Esophageal reflux GERD (gastroesophageal reflux disease) Hypertension Nonspecific elevation of levels of transaminase or lactic acid dehydrogenase (LDH) Sleep apnea does not wear regularly PAST SURGICAL HISTORY: PAST SURGICAL HISTORY Procedure Laterality Date ESOPHAGOGASTRODUODENOSCOPY TRANSORAL DIAGNOSTIC 04/23/2012 EGD INCISE FINGER TENDON SHEATH Left 01/22/2020 Left index and middle trigger finger releases LAPAROSCOPIC APPENDECTOMY 08/23/2011 [facility] FEM SHFT FX W/INSJ IMED IMPLT W/WO SCREW left femur fracture with pins and phoebe PAST SURGICAL HISTORY OF 11/2018 L5-S1 spinal fusion TONSILLECTOMY & ADENOIDECTOMY <AGE 10 URETHROPLASTY 1 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 REVIEW OF SYSTEMS: GENERAL: No fever, chills, weight loss, or fatigue. PHYSICAL EXAMINATION: Blood pressure 140/98, pulse 86, temperature 36.4 C (97.6 F), temperature source Temporal, resp. rate 12, height 172.7 cm (5' 8), weight 86.2 kg (190 lb), SpO2 100 %. GENERAL: WNL nutrition, no deformities, healthy appearing GENITOURINARY: MALE EXAM: Epididymis & testes: normal size, position, without masses Penis: circumcised, w/o plaques, lesions, masses, or deformities. Showed me area near the meatus that is a bit paler thatn surrounding area but Does not look like a lesion at this time Rectal Exam: Prostate: size (30 grams), symmetrical, nontender, w/o nodules. Sphincter tone normal, no mass. Bilateral Pelvic Floor spasm with trigger point PROBLEM LIST REVIEW: Yes LABS: Results for orders placed or performed in visit on 09/02/21 UA DIP, URINE (POC) Result Value Ref Range GLUCOSE UA (POCT) Negative Negative mg/dL BILIRUBIN UA (POCT) Negative Negative KETONE UA (POCT) Negative Negative mg/dL SPECIFIC GRAVITY UA (POCT) 1.025 1.005 - 1.030 HEMOGLOBIN/BLOOD UA (POCT) Negative Negative PH UA (POCT) 6.5 4.5 - 8.0 PROTEIN UA (POCT) Negative Negative mg/dL UROBILINOGEN UA (POCT) 0.2 Normal E.U./dL NITRITE UA (POCT) Negative Negative LEUKOCYTES UA (POCT) Negative Negative COLOR UA (POCT) Yellow CLARITY UA (POCT) Clear PROCEDURES: IMAGING: IMPRESSION/PLAN: 1. Bilateral Pelvic Floor Spasms > Consult pelvic izzy PT 2. Hx of urethral stricture > 20 yrs ago > cystoscopy Follow up 3 month or after he does evaluation and cystoscopy with HEATHER Arias MT, PA-C Brandon E. Mooney, MPAS, MELANIE RUDD * Cee David LPN - 09/02/2021 8:24 AM EDT CC Post Void Residual HPI: Cathy Ratliff is a 40 year old male. The patient is here now for an appointment with Gm Garcia, MPAS, BLAIRE, HAYDEE. Procedure: Explained procedure to patient and verbalizes understanding. Performed a PVR. Patient urinated and instructed to empty bladder as much as possible just prior to having PVR done using bladder ultrasound scanner. Results of scan: 0 mL The patient tolerated the procedure well. Plan: Appointment with Gm. documented in this encounterMemorial Health System07-18-2022 Miscellaneous Notes* Addendum Note - Alex Butler MD - 08/22/2021 9:27 AM EDT Addended by: ALEX BUTLER on: 08/22/2021 09:27 AM Modules accepted: Orders * Addendum Note - Alex Butler MD - 08/22/2021 9:22 AM EDT Addended by: ALEX BUTLER on: 08/22/2021 09:22 AM Modules accepted: Orders documented in this encounterMemorial Health System07-18-2022 History of Present illness Narrative* Alex Butler MD - 08/22/2021 9:05 AM EDT Patient presents with: Follow Up: feeling about the same HPI: Patient presents today for office visit for follow up. He is still having some obsessive behaviors since they have adjusted meds. He sees psych again tonight. He has discomfort again in the testicles. He has resumed his luvox. No blood. No discharge. Still some discomfort at the tip of the penis. He has had a urethral stricture in the past. No fever or chills. Discussed that we can have him see urology when he returns from his trip. See previous ov: Had some pain in groin before. Found to have a small abscess in the groin. He is requesting cipro before. Had colonoscopy recently. Is at work. No fever or chills. No dysuria. No burning. No testicular pain. No bowel changes. No swelling. Is not nearly as bad as it was before. Had followed Dr. Hall. Now on wellbutrin instead of luvox. CT scan at [facility]. Component Latest Ref Rng & Units 08/19/2021 WBC 3.70 - 11.00 k/uL 6.64 RBC 4.20 - 6.00 m/uL 5.20 Hemoglobin 13.0 - 17.0 g/dL 14.6 Hematocrit 39.0 - 51.0 % 45.1 MCV 80.0 - 100.0 fL 86.7 MCH 26.0 - 34.0 pg 28.1 MCHC 30.5 - 36.0 g/dL 32.4 RDW-CV 11.5 - 15.0 % 12.2 Platelet Count 150 - 400 k/uL 264 MPV 9.0 - 12.7 fL 10.2 Neut% % 58.3 Abs Neut (ANC) 1.45 - 7.50 k/uL 3.88 Lymph% % 28.0 Abs Lymph 1.00 - 4.00 k/uL 1.86 [place]% % 10.4 Abs [place] <0.87 k/uL 0.69 Eosin% % 2.0 Abs Eosin <0.46 k/uL 0.13 Baso% % 0.8 Abs Baso <0.11 k/uL 0.05 Immature Gran % % 0.5 IMMATURE GRANS (ABS) <0.10 k/uL 0.03 NRBC /100 WBC 0.0 Absolute nRBC <0.01 k/uL <0.01 DTYPE Auto Protein, Total 6.3 - 8.0 g/dL 7.3 Albumin 3.9 - 4.9 g/dL 4.9 Calcium 8.5 - 10.2 mg/dL 9.6 Bilirubin, Total 0.2 - 1.3 mg/dL 0.3 Alkaline Phosphatase 38 - 113 U/L 72 AST 14 - 40 U/L 20 ALT 10 - 54 U/L 23 Glucose 74 - 99 mg/dL 98 BUN 9 - 24 mg/dL 17 Creatinine 0.73 - 1.22 mg/dL 0.95 Sodium 136 - 144 mmol/L 137 Potassium 3.7 - 5.1 mmol/L 4.4 Chloride 97 - 105 mmol/L 103 CO2 22 - 30 mmol/L 25 Anion Gap 9 - 18 mmol/L 9 eGFR >=60 mL/min/1.73m 102 GLUCOSE UA (POCT) Negative mg/dL Negative BILIRUBIN UA (POCT) Negative Negative KETONE UA (POCT) Negative mg/dL Negative SPECIFIC GRAVITY UA (POCT) 1.005 - 1.030 <=1.005 (A) HEMOGLOBIN/BLOOD UA (POCT) Negative Negative PH UA (POCT) 4.5 - 8.0 5.5 PROTEIN UA (POCT) Negative mg/dL Negative UROBILINOGEN UA (POCT) Normal E.U./dL 0.2 NITRITE UA (POCT) Negative Negative LEUKOCYTES UA (POCT) Negative Negative COLOR UA (POCT) Yellow CLARITY UA (POCT) Clear Cholesterol, Total <200 mg/dL 191 Triglyceride <150 mg/dL 46 HDL Cholesterol >39 mg/dL 52 Non HDL Cholesterol <130 mg/dL 139 (H) Fasting Time hrs 12 VLDL Cholesterol <30 mg/dL 9 TC:HDL Ratio <5.10 3.67 LDL Cholesterol <100 mg/dL 130 (H) LDL:HDL Ratio <2.54 2.50 Culture No growth (<1,000 CFU/ml) MEDICATIONS: Current Outpatient Medications Medication Sig LORazepam (ATIVAN) 1 mg tablet 1/2 to 1 tab daily as needed sparingly for anxiety buPROPion SR (WELLBUTRIN SR) 100 mg 12 hr tablet Take 50 mg by mouth once daily. ciprofloxacin HCl (CIPRO) 500 mg tablet Take 1 tablet by mouth twice daily for 10 days. hydrocortisone (ANUSOL-HC) 25 mg suppository 1 Suppository by RECTAL route twice daily as needed (hemorrhoids/rectal pain). hydrocortisone-pramoxine (ANALPRAM-HC) 2.5-1 % rectal cream by RECTAL route three times daily. multivit,thx,calcium,iron,mins (MULTIVITAMIN AND MINERAL ORAL) Take by mouth. L.acid/L.casei/B.bif/B.nahun/FOS (PROBIOTIC BLEND ORAL) Take by mouth. No current facility-administered medications for this visit. ALLERGIES: ALLERGIES No Known Allergies PAST MEDICAL HISTORY Diagnosis Date Esophageal reflux GERD (gastroesophageal reflux disease) Hypertension Nonspecific elevation of levels of transaminase or lactic acid dehydrogenase (LDH) Sleep apnea does not wear regularly PAST SURGICAL HISTORY Procedure Laterality Date ESOPHAGOGASTRODUODENOSCOPY TRANSORAL DIAGNOSTIC 04/23/2012 EGD INCISE FINGER TENDON SHEATH Left 01/22/2020 Left index and middle trigger finger releases LAPAROSCOPIC APPENDECTOMY 08/23/2011 [facility]X FEM SHFT FX W/INSJ IMED IMPLT W/WO SCREW left femur fracture with pins and phoebe PAST SURGICAL HISTORY OF 11/2018 L5-S1 spinal fusion TONSILLECTOMY & ADENOIDECTOMY <AGE 10 URETHROPLASTY 1 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 FAMILY HISTORY Problem Relation Age of Onset other (liver cancer) Father gallbladder Diabetes Maternal Grandfather Cancer Maternal Grandfather LUNG CA Cancer Maternal Grandmother LUNG CA Diabetes Maternal Grandmother Diabetes Paternal Grandmother Diabetes Paternal Grandfather Social History Tobacco Use Smoking status: Former Smoker Years: 7.00 Quit date: 10/05/2006 Years since quittin.8 Smokeless tobacco: Never Used Tobacco comment: Occasional cigar only per patient Vaping Use Vaping Use: Never used Substance Use Topics Alcohol use: Yes Comment: rare Drug use: No Reviewed current medications, allergies, past medical history, surgical history, family history andsocial history today. REVIEW OF SYSTEMS All other reviewed and negative other than HPI. VITALS: BP 124/78 Pulse 72 Wt 85.7 kg (189 lb) BMI 28.74 kg/m Last 4 Encounter Wt Readings: Date: Wt: 08/22/2021 85.7 kg (189 lb) 08/19/2021 88.9 kg (196 lb) 03/09/2021 91.4 kg (201 lb 6.4 oz) 02/03/2021 92.1 kg (203 lb) PHYSICAL EXAMINATION: General appearance: Well appearing, alert, in no acute distress, well-hydrated, well nourished. Skin: Skin color, texture, turgor normal, no suspicious rashes or lesions Head: Normocephalic, no masses, lesions, tenderness or abnormalities Abdomen: Normal abdominal exam, Abdomen soft, non-tender. Bowel sounds normal. No masses, organomegaly normal genitalia. No tenderness or masses of the testicles. ASSESSMENT/PLAN: 1. Dysuria - ICD9: 788.1, ICD10: R30.0 (primary diagnosis) - Continue the pelvic floor exercises. Follow up with them. - consider follow up with urology if continues. - Both agree that luvox may help with his anxiety which is exacerbating his symptoms. - finish cipro. - GC/CHLAMYDIA AMPLIF, URINE - MYCOPLASMA CULT - UA DIP, URINE (POC) 2. Pain in both testicles - ICD9: 608.9, ICD10: N50.811, N50.812 - check today as well. - US SCROTUM AND CONTENTS 3. ocd Follow with psych Alex Butler [facility] Miscellaneous Notes* Addendum Note - Alex Butler MD - 08/19/2021 8:50 AM EDT Addended by: ALEX BUTLER on: 08/19/2021 08:50 AM Modules accepted: Orders documented in this encounter[facility]22 History of Present illness Narrative* Alex Butler MD - 08/19/2021 8:14 AM EDT Patient presents with: Follow Up HPI: Patient presents today for office visit for follow up. 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 In Mar had perirectal pain and had a small abscess. Followed with Dr. Hall. Had done virtual visit beginning of the week and we started him on cipro but asked him to follow with his surgeon. Has seen a new psychiatrist and they have been adjusting meds. He is wondering if his ocd is getting the best of him. Had some local irritation after having sex and has been obsessively checking himself which is bothering him. Sees psychiatrist again on Sunday. No current bowel changes. No rectal pain. Does not feel like the abscess. Not really having dysuria. Has some aching in the testicles on and off. Feels more similar to the pelvic floor dysfunction. No discharge. Mild lower abd discomfort that is mild No bowel changes. No fever. No bloody urine or stools. MEDICATIONS: Current Outpatient Medications Medication Sig buPROPion SR (WELLBUTRIN SR) 100 mg 12 hr tablet Take 50 mg by mouth once daily. ciprofloxacin HCl (CIPRO) 500 mg tablet Take 1 tablet by mouth twice daily for 10 days. hydrocortisone (ANUSOL-HC) 25 mg suppository 1 Suppository by RECTAL route twice daily as needed (hemorrhoids/rectal pain). LORazepam (ATIVAN) 1 mg tablet 1/2 to 1 tab daily as needed sparingly for anxiety hydrocortisone-pramoxine (ANALPRAM-HC) 2.5-1 % rectal cream by RECTAL route three times daily. multivit,thx,calcium,iron,mins (MULTIVITAMIN AND MINERAL ORAL) Take by mouth. L.acid/L.casei/B.bif/B.nahun/FOS (PROBIOTIC BLEND ORAL) Take by mouth. No current facility-administered medications for this visit. ALLERGIES: ALLERGIES No Known Allergies PAST MEDICAL HISTORY Diagnosis Date Esophageal reflux GERD (gastroesophageal reflux disease) Hypertension Nonspecific elevation of levels of transaminase or lactic acid dehydrogenase (LDH) Sleep apnea does not wear regularly PAST SURGICAL HISTORY Procedure Laterality Date ESOPHAGOGASTRODUODENOSCOPY TRANSORAL DIAGNOSTIC 04/23/2012 EGD INCISE FINGER TENDON SHEATH Left 01/22/2020 Left index and middle trigger finger releases LAPAROSCOPIC APPENDECTOMY 08/23/2011 OPTX FEM SHFT FX W/INSJ IMED IMPLT W/WO SCREW left femur fracture with pins and phoebe PAST SURGICAL HISTORY OF 11/2018 L5-S1 spinal fusion TONSILLECTOMY & ADENOIDECTOMY <AGE 10 URETHROPLASTY 1 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 FAMILY HISTORY Problem Relation Age of Onset other (liver cancer) Father gallbladder Diabetes Maternal Grandfather Cancer Maternal Grandfather LUNG CA Cancer Maternal Grandmother LUNG CA Diabetes Maternal Grandmother Diabetes Paternal Grandmother Diabetes Paternal Grandfather Social History Tobacco Use Smoking status: Former Smoker Years: 7.00 Quit date: 10/05/2006 Years since quittin.8 Smokeless tobacco: Never Used Tobacco comment: Occasional cigar only per patient Vaping Use Vaping Use: Never used Substance Use Topics Alcohol use: Yes Comment: rare Drug use: No Reviewed current medications, allergies, past medical history, surgical history, family history andsocial history today. REVIEW OF SYSTEMS All other reviewed and negative other than HPI. HEALTH MAINTENANCE: Reviewed health maintenance issues today and recommended the following in detail. COVID-19 VACCINE(3 - Booster for Moderna series) due on 08/29/2020 VITALS: BP 140/92 Pulse 84 Wt 88.9 kg (196 lb) BMI 29.80 kg/m Last 4 Encounter Wt Readings: Date: Wt: 08/19/2021 88.9 kg (196 lb) 03/09/2021 91.4 kg (201 lb 6.4 oz) 02/03/2021 92.1 kg (203 lb) 12/15/2020 89.4 kg (197 lb 3.2 oz) PHYSICAL EXAMINATION: General appearance: Well appearing, alert, in no acute distress, well-hydrated, well nourished. Skin: Skin color, texture, turgor normal, no suspicious rashes or lesions Head: Normocephalic, no masses, lesions, tenderness or abnormalities Abdomen: soft, lower abd pain bilaterally and in the suprapubic area. No rebound. Bowel sounds positive. Extremities: No deformities, edema, skin discoloration, clubbing or cyanosis. Good capillary refill. Genitalia negative. No masses or testicular tenderness today. Do not appear to need testicular us. No hernias Rectal: prostate normal. Heme negative. No palpable masses. ASSESSMENT/PLAN: 1. Lower abdominal pain - ICD9: 789.09, ICD10: R10.30 (primary diagnosis) - call if worsens at all. Continue cipro. Call over weekend if worsens. Send urine for culture. Repeat ct to see if abscess has recurred. If so, back to surgery sadnoval. Recheck on Sunday. - CBC + DIFF - BASIC METABOLIC PNL - HEMOCCULT SINGLE B/O 2. Anxiety - ICD9: 300.00, ICD10: F41.9 - LORAZEPAM 1 MG TABLET 3. Pain in testicle, unspecified laterality - ICD9: 608.9, ICD10: N50.819 - UA DIP, URINE (POC) - URINE CULTURE - CBC + DIFF - BASIC METABOLIC PNL 4. History of rectal abscess - ICD9: V13.3, ICD10: Z87.19 5. Perineal pain - ICD9: [id number], ICD10: R10.2 - CBC + DIFF - BASIC METABOLIC PNL - HEMOCCULT SINGLE B/O 6. Infection in abdomen (HCC) - ICD9: 567.9, ICD10: K65.9 - CT ABD/PEL W IVCON Alex Butler RTO in Sunday and prn. 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 Author Type: Nurse Practitioner Type: Progress Notes Filed: 08/11/2020 7:25 PM Note Text: VIRTUAL VISIT PROGRESS NOTE This is a virtual visit using Relevant e-solution video visit. It required patient-provider interaction for the medical decision making as documented below. Cathy Ratliff is a 39 year old male seen for urinary symptoms. W/h/o-Anxiety, HTN, GERD, DDD s/p L5-S1 fusion, trigger finger, urethral stricture s/p reconstruction Patient was seen 08/10/2020 at the urgent care for UTI symptoms. UA was negative, culture and gc/chlamydia urine tests in process. Patient endorses dysuria, suprapubic discomfort, and an occasional weak urine stream. He has been having urinary frequency due to increasing the amount of fluids he drinks. He endorses having urethral reconstruction due to a stricture from catheters with procedures as a child. He notes increased stress in his life do to the passing of a loved one. He endorsed increased masturbation as a stress release for coping. He also notes that he recently had a suture removed from his lower transverse surgical incision from hid surgery 2 years ago. He endorses drainage from the site prior to the suture being removed. Urine Dip Result:08/10/2020 Normal Urine culture in process GC/Chlamydia in process HISTORY REVIEWED (electronic chart updated): PAST MEDICAL HISTORY Diagnosis Date - Esophageal reflux - GERD (gastroesophageal reflux disease) - Hypertension - Nonspecific elevation of levels of transaminase or lactic acid dehydrogenase (LDH) - Sleep apnea does not wear regularly PAST SURGICAL HISTORY Procedure Laterality Date - EGD W/O OR W/BRUSH/WASH 04/23/2012 EGD - INCISE FINGER TENDON SHEATH Left 01/22/2020 Left index and middle trigger finger releases - LAPAROSCOPY, SURGICAL, APPENDECTOMY 08/23/2011 - OPEN RX FEMUR FX+INTRAMED PHOEBE left femur fracture with pins and phoebe - PAST SURGICAL HISTORY OF 11/2018 L5-S1 spinal fusion - RECONSTRUC ANT MALE URETHRA due to iatrogenic injury as child - REMOVE TONSILS/ADENOIDS,<12 Y/O FAMILY HISTORY Problem Relation Age of Onset - other (liver cancer) Father gallbladder - Diabetes Maternal Grandfather - Cancer Maternal Grandfather LUNG CA - Cancer Maternal Grandmother LUNG CA - Diabetes Maternal Grandmother - Diabetes Paternal Grandmother - Diabetes Paternal Grandfather Social History Tobacco Use - Smoking status: Former Smoker Years: 7.00 Quit date: 10/05/2006 Years since quittin.8 - Smokeless tobacco: Never Used - Tobacco comment: Occasional cigar only per patient Vaping Use - Vaping Use: Never used Substance Use Topics - Alcohol use: Yes Comment: rare - Drug use: No Current Outpatient Medications Medication Sig - prasterone, DHEA, (DHEA ORAL) Take by mouth. - fluvoxaMINE Maleate (LUVOX) 25 mg tablet Take 1 tablet by mouth daily at bedtime. - LORazepam (ATIVAN) 1 mg tablet 1/2 to 1 tab daily as needed sparingly for anxiety - hydrocortisone-pramoxine (ANALPRAM-HC) 2.5-1 % rectal cream by RECTAL route three times daily. - multivit,thx,calcium,iron,mins (MULTIVITAMIN AND MINERAL ORAL) Take by mouth. - L.acid/L.casei/B.bif/B.nahun/FOS (PROBIOTIC BLEND ORAL) Take by mouth. No current facility-administered medications for this visit. ALLERGIES No Known Allergies REVIEW OF SYSTEMS: GENERAL: feeling well without fatigue, no recent change in weight RESPIRATORY: no cough, no wheezing or shortness of breath CARDIOVASCULAR: no chest pain, no palpitations : See HPI PHYSICAL EXAMINATION: VIDEO EXAM: (if completed, performed via video enabled technology) GENERAL: alert and appropriate, in no distress, well-hydrated, well nourished and appears anxious ASSESSMENT: (R30.0) Dysuria (primary encounter diagnosis) (R10.2) Suprapubic discomfort PLAN: -Ureaplasma/mycoplasma urine Discussed awaiting results prior to proceeding to further testing. -Discussed considering cystoscopy and/or upper tract imaging -Discussed frequent masturbation can be an irritant -Encouraged patient to continue to drink plenty of water -Encouraged patient to keep his follow up appointment with internal med tomorrow so they can evaluate his surgical incision scar for possible abscess or infection. There are no Patient Instructions on file for this visit. I spent a total of 20 minutes on the date of the service which included preparing to see the patient, [id number] patient care, completing clinical documentation, counseling and educating the patient/family/caregiver and ordering medications, tests, or procedures Follow up pending test result or if symptoms worsen. Evelia Garcia APRN.[facility]10-03-2013 History of Past illness Narrative* Problem Noted Date Resolved Date Chest pain 11/07/2012 12/21/2021 Esophageal reflux 06/15/2006 12/21/2021 Nonspecific elevation of lev els of transaminase or lactic acid dehydrogenase (LDH) 12/21/2021 documented as of this encounter (statuses as of 12/21/2021) [facility] of Past illness Narrative* Problem Noted Date Resolved Date Chest pain 11/07/2012 12/21/2021 Esophageal reflux 06/15/2006 12/21/2021 Nonspecific elevation of lev els of transaminase or lactic acid dehydrogenase (LDH) 12/21/2021 documented as of this encounter (statuses as of 02/15/2022) [facility] of Past illness Narrative* Problem Noted Date Resolved Date Chest pain 11/07/2012 12/21/2021 Esophageal reflux 06/15/2006 12/21/2021 Nonspecific elevation of lev els of transaminase or lactic acid dehydrogenase (LDH) 12/21/2021 documented as of this encounter (statuses as of 03/22/2022) [facility] of [facility] illness Narrative* Problem Noted Date Diagnosed Date Resolved Date Chest pain 11/07/2012 12/21/2021 Esophageal reflux 06/15/2006 12/21/2021 Nonspecific elevation of lev els of transaminase or lactic acid dehydrogenase (LDH) 12/21/2021 documented as of this encounter (statuses as of 08/23/2022) [facility] Narrative* Problem Noted Date Diagnosed Date Resolved Date Chest pain 11/07/2012 12/21/2021 Esophageal reflux 06/15/2006 12/21/2021 Nonspecific elevation of lev els of transaminase or lactic acid dehydrogenase (LDH) 12/21/2021 documented as of this encounter (statuses as of 09/12/2022) [facility] of [facility] illness Narrative* Problem Noted Date Diagnosed Date Resolved Date Chest pain 11/07/2012 12/21/2021 Esophageal reflux 06/15/2006 12/21/2021 Nonspecific elevation of lev els of transaminase or lactic acid dehydrogenase (LDH) 12/21/2021 documented as of this encounter (statuses as of 01/04/2023) [facility] of [facility] Narrative* Problem Noted Date Diagnosed Date Resolved Date Chest pain 11/07/2012 12/21/2021 Esophageal reflux 06/15/2006 12/21/2021 Nonspecific elevation of lev els of transaminase or lactic acid dehydrogenase (LDH) 12/21/2021 documented as of this encounter (statuses as of 04/11/2023) [facility] No data available for this section [facility] Evaluation note* Diagnosis Onset Date Resolution Status Diarrhea acute Perirectal abscess acute Acute maxillary sinusitis, unspecified acute Acute pharyngitis, unspecified acute [facility] Work Phone: Evaluation note* Diagnosis Lower abdominal pain- Primary Abdominal pain, other specified site Anxiety Anxiety state, unspecified Pain in testicle, unspecified laterality History of rectal abscess Personal history of diseases of skin and subcutaneous tissue Perineal pain Infection in abdomen (HCC) Unspecified peritonitis [facility] this encounter [facility]* Diagnosis Onset Date Resolution Status Acute maxillary sinusitis, unspecified acute Acute pharyngitis, unspecified acute Diarrhea acute Perirectal abscess acute [facility] Work Phone: Evaluation note* Diagnosis Dysuria- Primary Pain in both testicles Mixed obsessional thoughts and acts documented [facility] this encounter [facility]* Diagnosis Spastic pelvic floor syndrome- Primary Other symptoms involving digestive system History of urethral stricture Personal history of other disorder of urinary system [facility] Diagnosis Post-void dribbling- Primary Spastic pelvic floor syndrome Other symptoms involving digestive system [facility]* Diagnosis Muscle tightness- Primary Unspecified disorder of muscle, ligament, and fascia Spastic pelvic floor syndrome Other symptoms involving digestive system [facility] Diagnosis Spastic pelvic floor syndrome- Primary Other symptoms involving digestive system Muscle tightness Unspecified disorder of muscle, ligament, and fascia documented in this encounter [facility] note* Diagnosis Spastic pelvic floor syndrome- Primary Other symptoms involving digestive system Muscle tightness Unspecified disorder of muscle, ligament, and fascia documented in this encounter [facility] note* Diagnosis Anxiety Anxiety state, unspecified documented in this encounter [facility] note* Diagnosis Sore throat- Primary Acute pharyngitis documented in this encounter [facility] note* Diagnosis Anxiety Anxiety state, unspecified documented in this encounter [facility] note* Diagnosis Acute otitis media, right- Primary Unspecified otitis media Screening for HIV (human immunodeficiency virus) Special screening examination for other specified viral diseases Screening for diabetes mellitus Essential hypertension, benign Bacterial sinusitis Unspecified sinusitis (chronic) documented in this encounter [facility] noteNo assessment information availableWUC [facility] Work Phone: Evaluation note* Diagnosis Mixed obsessional thoughts and acts- Primary Anxiety Anxiety state, unspecified documented in this encounter [facility] note* Diagnosis 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 documented in this encounter [facility] note* Diagnosis Well adult exam- Primary Routine general medical examination at a health care facility Mixed obsessional thoughts and acts Essential hypertension, benign Sleep apnea, unspecified type Dysthymia Dysthymic disorder Fatigue, unspecified type documented in this encounter [facility] note* Diagnosis SHITAL (obstructive sleep apnea) Obstructive sleep apnea (adult) (pediatric) Class 1 obesity with body mass index (BMI) of 30.0 to 30.9 in adult, unspecified obesity type, unspecified whether serious comorbidity present documented in this encounter [facility] note* Diagnosis SHITAL (obstructive sleep apnea) Obstructive sleep apnea (adult) (pediatric) Class 1 obesity with body mass index (BMI) of 30.0 to 30.9 in adult, unspecified obesity type, unspecified whether serious comorbidity present documented in this encounter [facility] for referral (narrative)* Diagnostic Procedure Only (Urgent) - Pending Review Specialty Diagnoses / Procedures Referred By David jain Referred To Contact US IMAGING Diagnoses Pain in both testicles Procedures US SCROTUM AND CONTENTS US SCROTUM & CONTENTS Alex Butler MD [address] [place] [address] Us Imaging Referral ID Status Reason Start Date Expiration Date Visits Requested Visits Authorized [id number] Pending Review Auto-Generat ed Referral 08/22/2021 09/21/2022 1 1 [facility] Family History No Family History Records Found Relationship Condition Age at Onset Recorded Date/T dick father Malignant neoplasm Unknown grandmother Malignant neoplasm Unknown Advance Directives No Advanced Directives Records Found Advance Directive Response Recorded Date/ Time Name of Medical Power of Stripping Cutter [employer] Winder Chilango Ratliff March 09, 2021 6:37pm Advance Directives No September 17, 2020 9:54am Living Will Yes June 21, 2021 1 :41pm Power of Stripping Cutter [employer] Winder Yes June 21, 2021 1:41pm Documents on File Type Date Recorded Patient [facility] [employer] Expl anation Advance Directive(s) 01/22/2020 9:34 AM Advance Directive(s) 01/03/2020 1:41 PM Documents on File Type Date Recorded Patient [facility] Justice Expl anation Advance Directive(s) 01/22/2020 9:34 AM Advance Directive(s) 01/03/2020 1:41 PM Advance Directive Response Recorded Date/ Time Name of Medical Power of Stripping Cutter [employer] Winder June 21, 2021 1:41pm Advance Directives No September 17, 2020 9:54am Living Will Yes June 21, 2021 1 :41pm Power of Stripping Cutter [employer] Winder Yes June 21, 2021 1:41pm Hospital Course Note Patient Name: Cathy Casillas ate of : 1980 Date: 12/04/18 Discharge Summary Admit date: 11/22/2018 Discharge date and time: 11/25/2018 2:03 PM Admitting Physician: Anil Aguilar DO Admission Diagnoses: Isthmic spondyloisthesis Discharge Diagnoses: Isthmic spondyloisthesis Problem List: Active Problems: Vasovagal syncope Spondylolisthesis, lumbar region Resolved Problems: * No resolved hospital problems. * Operative Procedures: ALIF L5-S1 with PSF and laminectomy L5-S1 Hospital Course: Pt was discharged in improved condition compared to preoperative condition. Disposition: Per SW Discharge Medications: Medication List START taking these medications cyclobenzaprine 10 MG tablet Commonly known as: FLEXERIL Take 1 tablet by mouth 3 times daily as needed for Muscle spasms CONTINUE taking these medications docusate sodium 100 MG capsule Commonly known as: COLACE fluvoxaMINE 50 MG tablet Commonly known as: LUVOX gabapentin 300 MG caps (more content not included)... Note Pt discharged to home with w kyle. Discharge instructions given with home belongings, pain medications, and follow up appointments. Pt and verbalize understanding of all care instructions and incision care. IV discontinued. Dressings changed. Will take pt to discharge area. Chief Complaint and Reason for Visit Chief Complaint rectum pain ER F/U FOR RECTAL ABCESS CHG IN BOWEL HABITS, NARROW STOOL STREP THROAT Reason for Visit Diarrhea Perirectal abscess Acute maxillary sinusitis, unspecified Acute pharyngitis, unspecified Chief Complaint STREP THROAT 2 WK FU INFECTION IN ABDOMEN, LOWER ABDOMINAL PAIN Reason for Visit Acute maxillary sinu sitis, unspecified Acute pharyngitis, unspecified Diarrhea Perirectal abscess Reason for Referral Specialty Diagnoses / Procedures Referred By David jain Referred To Contact CT IMAGING Diagnoses Infection in abdomen (HCC) History of rectal abscess Perineal pain Lower abdominal pain Procedures CT ABD/PEL W IVCON CT ABD & PELVIS W/CONTRAST Alex Butler MD [address] [place] [address] Ct Imaging Referral ID Status Reason Start Date Expiration Date Visits Requested Visits Authorized [id number] Pending Review Auto-Generat ed Referral 08/19/2021 09/18/2022 1 1 Medications Administered Section Inactive Administered Medications - up to 3 most recent administrations Medication Order MAR Action Action Date Dose Rate Site cephALEXin 500 mg cap(s) (KEFLEX) 500 mg, ORAL, ONCE, 1 dose, On Magda 09/15/21 at 1600, Please document the antimicrobial indication: Empiric Given 09/15/2021 1:55 PM EDT 500 mg Oral lidocaine 2 % (XYLOCAINE) URETHRAL, ONCE, 1 dose, On Magda 09/15/21 at 1600, FOR EXTERNAL USE ONLY APPLY TO: PENIS (urethra) 11 mL Given 09/15/2021 2:00 PM EDT 11 mL Other Additional Source Comments (unrecognized sect ion and content) No Status Records FoundNo Status Records FoundNo Status Records FoundNo Status Records FoundNo Status Records FoundNo Status Records Found INFORMATION SOURCE (unrecogn ized section and content) DATE CREATED AUTHOR 12/07/2018 [facility] DATE CREATED AUTHOR AUTHOR'S ORGANIZ ATION 08/12/2020 [facility] DATE CREATED AUTHOR AUTHOR'S ORGANIZ ATION 09/06/2021 [facility] DATE CREATED AUTHOR AUTHOR'S ORGANIZ ATION 09/07/2024 [facility] DATE CREATED AUTHOR AUTHOR'S ORGANIZ ATION 10/19/2024 [facility] DATE CREATED AUTHOR AUTHOR'S ORGANIZ ATION 11/09/2024 [facility] Goals (unrecognized section and content) Goals may be documented in a n alternate sectionGoals may be documented in an alternate section No data available for this section Source Comments (unrecognize d section and content) In the event this informatio n is protected by the Federal Confidentiality of Alcohol and Drug Abuse Patient Records regulations: The Federal rules restrict any use of the information to criminally investigate or prosecute any alcohol or drug abuse patient.[facility] SystemIn the event this information is protected by the Federal Confidentiality of Alcohol and Drug Abuse Patient Records regulations: The Federal rules restrict any use of the information to criminally investigate or prosecute any alcohol or drug abuse patient.[facility] SystemIn the event this information is protected by the Federal Confidentiality of Alcohol and Drug Abuse Patient Records regulations: The Federal rules restrict any use of the information to criminally investigate or prosecute any alcohol or drug abuse patient.[facility] SystemIn the event this information is protected by the Federal Confidentiality of Alcohol and Drug Abuse Patient Records regulations: The Federal rules restrict any use of the information to criminally investigate or prosecute any alcohol or drug abuse patient.[facility] SystemIn the event this information is protected by the Federal Confidentiality of Alcohol and Drug Abuse Patient Records regulations: The Federal rules restrict any use of the information to criminally investigate or prosecute any alcohol or drug abuse patient.[facility] SystemIn the event this information is protected by the Federal Confidentiality of Alcohol and Drug Abuse Patient Records regulations: The Federal rules restrict any use of the information to criminally investigate or prosecute any alcohol or drug abuse patient.[facility] SystemIn the event this information is protected by the Federal Confidentiality of Alcohol and Drug Abuse Patient Records regulations: The Federal rules restrict any use of the information to criminally investigate or prosecute any alcohol or drug abuse patient.[facility] SystemIn the event this information is protected by the Federal Confidentiality of Alcohol and Drug Abuse Patient Records regulations: The Federal rules restrict any use of the information to criminally investigate or prosecute any alcohol or drug abuse patient.[facility] SystemIn the event this information is protected by the Federal Confidentiality of Alcohol and Drug Abuse Patient Records regulations: The Federal rules restrict any use of the information to criminally investigate or prosecute any alcohol or drug abuse patient.[facility] SystemIn the event this information is protected by the Federal Confidentiality of Alcohol and Drug Abuse Patient Records regulations: The Federal rules restrict any use of the information to criminally investigate or prosecute any alcohol or drug abuse patient.[facility] SystemIn the event this information is protected by the Federal Confidentiality of Alcohol and Drug Abuse Patient Records regulations: The Federal rules restrict any use of the information to criminally investigate or prosecute any alcohol or drug abuse patient.[facility] SystemIn the event this information is protected by the Federal Confidentiality of Alcohol and Drug Abuse Patient Records regulations: The Federal rules restrict any use of the information to criminally investigate or prosecute any alcohol or drug abuse patient.[facility] SystemIn the event this information is protected by the Federal Confidentiality of Alcohol and Drug Abuse Patient Records regulations: The Federal rules restrict any use of the information to criminally investigate or prosecute any alcohol or drug abuse patient.[facility] SystemIn the event this information is protected by the Federal Confidentiality of Alcohol and Drug Abuse Patient Records regulations: The Federal rules restrict any use of the information to criminally investigate or prosecute any alcohol or drug abuse patient.[facility] SystemIn the event this information is protected by the Federal Confidentiality of Alcohol and Drug Abuse Patient Records regulations: The Federal rules restrict any use of the information to criminally investigate or prosecute any alcohol or drug abuse patient.[facility] SystemIn the event this information is protected by the Federal Confidentiality of Alcohol and Drug Abuse Patient Records regulations: The Federal rules restrict any use of the information to criminally investigate or prosecute any alcohol or drug abuse patient.[facility] SystemIn the event this information is protected by the Federal Confidentiality of Alcohol and Drug Abuse Patient Records regulations: The Federal rules restrict any use of the information to criminally investigate or prosecute any alcohol or drug abuse patient.[facility] SystemIn the event this information is protected by the Federal Confidentiality of Alcohol and Drug Abuse Patient Records regulations: The Federal rules restrict any use of the information to criminally investigate or prosecute any alcohol or drug abuse patient.[facility] SystemIn the event this information is protected by the Federal Confidentiality of Alcohol and Drug Abuse Patient Records regulations: The Federal rules restrict any use of the information to criminally investigate or prosecute any alcohol or drug abuse patient.[facility] SystemIn the event this information is protected by the Federal Confidentiality of Alcohol and Drug Abuse Patient Records regulations: The Federal rules restrict any use of the information to criminally investigate or prosecute any alcohol or drug abuse patient.[facility] SystemIn the event this information is protected by the Federal Confidentiality of Alcohol and Drug Abuse Patient Records regulations: The Federal rules restrict any use of the information to criminally investigate or prosecute any alcohol or drug abuse patient.[facility] SystemIn the event this information is protected by the Federal Confidentiality of Alcohol and Drug Abuse Patient Records regulations: The Federal rules restrict any use of the information to criminally investigate or prosecute any alcohol or drug abuse patient.[facility] SystemIn the event this information is protected by the Federal Confidentiality of Alcohol and Drug Abuse Patient Records regulations: The Federal rules restrict any use of the information to criminally investigate or prosecute any alcohol or drug abuse patient.[facility] SystemIn the event this information is protected by the Federal Confidentiality of Alcohol and Drug Abuse Patient Records regulations: The Federal rules restrict any use of the information to criminally investigate or prosecute any alcohol or drug abuse patient.[facility] SystemIn the event this information is protected by the Federal Confidentiality of Alcohol and Drug Abuse Patient Records regulations: The Federal rules restrict any use of the information to criminally investigate or prosecute any alcohol or drug abuse patient.[facility] SystemIn the event this information is protected by the Federal Confidentiality of Alcohol and Drug Abuse Patient Records regulations: The Federal rules restrict any use of the information to criminally investigate or prosecute any alcohol or drug abuse patient.[facility] SystemIn the event this information is protected by the Federal Confidentiality of Alcohol and Drug Abuse Patient Records regulations: The Federal rules restrict any use of the information to criminally investigate or prosecute any alcohol or drug abuse patient.[facility] SystemIn the event this information is protected by the Federal Confidentiality of Alcohol and Drug Abuse Patient Records regulations: The Federal rules restrict any use of the information to criminally investigate or prosecute any alcohol or drug abuse patient.[facility] SystemIn the event this information is protected by the Federal Confidentiality of Alcohol and Drug Abuse Patient Records regulations: The Federal rules restrict any use of the information to criminally investigate or prosecute any alcohol or drug abuse patient.[facility] Reason for Visit (unrecogniz ed section and content) Reason Comments PT Discharge Specialty Diagnoses / Procedures Referred By David jain Referred To Contact Physical Therapy / PHYSICAL THERAPY Diagnoses Other specified symptoms and signs involving the digestive system and abdomen R19.8 (ICD-10-CM) - Spastic pelvic floor syndrome Procedures PHYSICAL THERAPY EVALUATION HIGH COMPLEX 45 MINS THERAPEUTIC EXERCISES RE, EA 15 MIN. NEW RS PT PELVIC PAIN/INCONT Gm Garcia PA-C [address] [place] [address] Solange Rosenberg, PT [address] [place] [address] Referral ID Status Reason Start Date Expiration Date V isits Requested Visits Authorized [id number] Authorized 03/03/2021 02/04/2022 45 45 Reason Comments Physical Therapy Reason Comments Follow Up Reason Comments Follow Up feeling about the sa me Reason Comments Follow Up Reason Comments Appointment Reason Comments Cysto Scheduling Reason Comments Cystoscopy-1 Urethral reconstruct ion, post void dribbling/spilt stream Specialty Diagnoses / Procedures Referred By David jain Referred To Contact UROLOGY Diagnoses Personal history of other diseases of urinary system cysto/urethral reconstruction 20+yrs split stream/see per Dr. Salinas Procedures REFERRAL TO [facility] CYSTOURETHROSCOPY CYSTOSCOPY Gm Garcia PA-C [address] [place] [address] Aditi Salinas DO [address] [place] [address] Referral ID Status Reason Start Date Expiration Date V isits Requested Visits Authorized [id number] Closed Financial Clearance Required - [facility] [employer] 09/15/2021 02/04/2022 1 1 Reason Comments PT Eval Reason Onset Date Comments Refill Request 11/08/2021 Reason Comments Sore Throat Chills, congestion x 2 days Reason Onset Date Comments Refill Request 12/05/2021 Reason Comments URI Reason Onset Date Comments Refill Request 02/15/2022 Reason Onset Date Comments Refill Request 03/21/2022 Reason Onset Date Comments Refill Request 08/22/2022 Reason Comments Erectile Dysfunction Patient would like to discuss options Reason Comments Forms Reason Comments Physical Reason Onset Date Comments Refill Request 08/12/2024 Reason Comments Results Reason Onset Date Comments Refill Request 10/13/2024 Care Teams (unrecognized sec tion and content) Process Development Associate Relationship Specialty Start Date End Date Alex Butler MD [address] [facility] [place] [address] PCP - General Family Practice 10/23/11 Process Development Associate Relationship Specialty Start Date End Date Alex Butler MD [address] [facility] [place] [address] PCP - General Family Practice 10/23/11 Process Development Associate Relationship Specialty Start Date End Date Alex Butler MD [address] [facility] [place] [address] PCP - General Family Practice 10/23/11 Process Development Associate Relationship Specialty Start Date End Date Alex Butler MD [address] [facility] [place] [address] PCP - General Family Practice 10/23/11 Process Development Associate Relationship Specialty Start Date End Date Alex Butler MD [address] [facility] [place] [address] PCP - General Family Practice 10/23/11 Process Development Associate Relationship Specialty Start Date End Date Alex Butler MD [address] [facility] [place] [address] PCP - General Family Practice 10/23/11 Process Development Associate Relationship Specialty Start Date End Date Alex Butler MD [address] [facility] [place] [address] PCP - General Family Practice 10/23/11 Process Development Associate Relationship Specialty Start Date End Date Alex Butler MD [address] [facility] [place] [address] PCP - General Family Medicine 10/23/11 Process Development Associate Relationship Specialty Start Date End Date Alex Butler MD [address] [place] [address] PCP - General Family Medicine 10/23/11 Process Development Associate Relationship Specialty Start Date End Date Alex Butler MD [address] [place] [address] PCP - General Family Medicine 10/23/11 Process Development Associate Relationship Specialty Start Date End Date Alex Butler MD [address] [place] [address] PCP - General Family Medicine 10/23/11 Process Development Associate Relationship Specialty Start Date End Date Alex Butler MD [address] [place] [address] PCP - General Family Medicine 10/23/11 Process Development Associate Relationship Specialty Start Date End Date Alex Butler MD [address] [place] [address] PCP - General Family Medicine 10/23/11 Process Development Associate Relationship Specialty Start Date End Date Alex Butler MD [address] [place] [address] PCP - General Family Medicine 10/23/11 Process Development Associate Relationship Specialty Start Date End Date Alex Butler MD [address] [place] [address] PCP - General Family Medicine 10/23/11 Process Development Associate Relationship Specialty Start Date End Date Alex Butler MD [address] [place] [address] PCP - General Family Medicine 10/23/11 Process Development Associate Relationship Specialty Start Date End Date Alex Butler MD [address] [place], [place] [id number] PCP - General Family Medicine 10/23/11 Ratna Henry APRN.SCREEN PRINTING MACHINE OPERATOR HELPER [address] [facility] [place] [address] [facility] 01/14/24 Yuliana Walter APRN.SCREEN PRINTING MACHINE OPERATOR HELPER [address] [place] [address] [facility] 01/14/24 Process Development Associate Relationship Specialty Start Date End Date Alex Butler MD [address] [place], [place] [address] PCP - General Family Medicine 10/23/11 Ratna Henry APRN.SCREEN PRINTING MACHINE OPERATOR HELPER [address] [place] [address] [facility] 01/14/24 Yuliana Walter APRN.SCREEN PRINTING MACHINE OPERATOR HELPER [address] [place] [address] [facility] Process Development Associate Relationship Specialty Start Date End Date Alex Butler MD [address] [place] [address] PCP - General Family Medicine 10/23/11 Ratna Henry APRN.SCREEN PRINTING MACHINE OPERATOR HELPER [address] [place] [address] [facility] 01/14/24 Yuliana Walter APRN.SCREEN PRINTING MACHINE OPERATOR HELPER [address] [place], [place] [address] [phone] [facility] 01/14/24 Process Development Associate Relationship Specialty Start Date End Date Alex Butler MD [address] [place] [address] PCP - General Family Medicine 10/23/11 Ratna Henry APRN.SCREEN PRINTING MACHINE OPERATOR HELPER [address] [place] [address] [facility] 01/14/24 Yuliana Walter APRN.SCREEN PRINTING MACHINE OPERATOR HELPER [address] [place] [address] [facility]ly [facility] 01/14/24 FOR RECORDS PERTAINING TO PATIENTS WHO ARE OR HAVE BEEN ENROLLED IN A CHEMICAL DEPENDENCY/SUBSTANCEABUSE PROGRAM, SOME INFORMATION MAY BE OMITTED. This clinical summary was aggregated from multiple sources. Caution should be exercised in using it in the provision of clinical care. This summary normalizes information from multiple sources, and as a consequence, information in this document may materially change the coding, format and clinical context of patient data. In addition, data may be omitted in some cases. CLINICAL DECISIONS SHOULD BE BASED ON THE PRIMARY CLINICAL RECORDS. [facility] [employer] provides no warranty or guarantee of the accuracy or completeness of information in this document.
[2025-01-30 15:39] LABS: Hematocrit 40.6 % (40-54); Hemoglobin 13.5 g/dL (13.0-16.5); Immature Granulocytes Count 0.010 X10^3/uL (0.0-0.0); Mean Corp Hgb Conc 33.3 g/dL (32-36); Mean Corpuscular Volume 83.2 fL (80-94); Mean Platelet Vol. 9.4 fl (6.2-12.0); NRBC Flagged by Analyzer 0 % (0-5); Platelet Count 243 K/mm3 (150-450); RBC Distribution Width CV 12.3 % (11.6-14.6); RBC Distribution Width SD 37.5 fl (35.1-43.9); Red Blood Count 4.88 M/mm3 (4.6-6.2); White Blood Count 6.3 K/mm3 (4.4-11.0)
[2025-01-30 16:01] LABS: Anion Gap 10 (7-18); BUN 13 mg/dL (4-19); BUN/Creat Ratio 14.0 RATIO (10-20); Calcium,Total 9.6 mg/dL (7.6-11.0); Carbon Dioxide 27.2 mmol/L (20.0-29.0); Chloride 103 mmol/L (96-106); Estimated Creatinine Clearance 109.55 ml/min (50-250); Glucose 95 mg/dL (70-99); Potassium 4.2 mmol/L (3.5-5.1)
[2025-01-30 16:03] VITALS: BP 151/100; PULSE 64; RESP 18; O2SAT 97
--- NOTE | 2025-01-30 16:15 | MRI_ITS ---
PROCEDURE: SPINE LUMBAR W/WO CONTRAST 01/30/2025 REASON FOR EXAM: BACK PAIN AND URINARY RETENTION TECHNIQUE: Procedure Code: [id number] Modality: MR Procedure: SPINE LUMBAR W/WO CONTRAST Multiplanar and multisequence images were obtained without and with intravenous gadolinium-based contrast administration. CONTRAST: Clariscan VOLUME: 20 mL COMPARISON: None. FINDINGS: Vertebrae: Preserved in height and signal. Postsurgical changes for posterior fusion and spacer placement at L5-S1. Alignment: Normal. Conus Medullaris: Unremarkable. No biliary enhancement. L1-2: Unremarkable. L2-3: Unremarkable. L3-4: Unremarkable. L4-5: Disc desiccation. Disc bulge. Central disc protrusion with annular fissure. Facet joint arthropathy. Mild inferior bilateral foramina stenosis. No canal stenosis. L5-S1: No foraminal or canal stenosis. Sacrum: Unremarkable. Postcontrast images: Unremarkable without equina nerves abnormalities. No abnormal enhancement. MRI/Spine Lumbar W/WO Contrast IMPRESSION: No abnormal enhancement. No evidence of acute process. Status post posterior fusion of L5-S1. No complications. No significant foraminal or canal stenosis. Reading Location: [id number]
[2025-01-30 18:42] VITALS: BP 153/85; PULSE 72; O2SAT 100
[2025-01-30 19:21] VITALS: BP 141/90; PULSE 70; RESP 18; TEMP 36.2; O2SAT 100
== END 2025-01-30 19:24 | disposition home or self-care (01) ==
PROVIDERS: Emergency Provider Emergency Medicine; PCP Family Medicine; Visit Provider Emergency Medicine
DX: R33.9 Retention of urine, unspecified (principal); M51.17 Intervertebral disc disorders with radiculopathy, lumbosacral region; F42.9 Obsessive-compulsive disorder, unspecified; F32.A Depression, unspecified; F41.9 Anxiety disorder, unspecified; K21.9 Gastro-esophageal reflux disease without esophagitis; Z98.1 Arthrodesis status; Z87.19 Personal history of other diseases of the digestive system; Z90.49 Acquired absence of other specified parts of digestive tract; Z79.899 Other long term (current) drug therapy; Z87.891 Personal history of nicotine dependence
CPT/HCPCS: 72158; 80048; 81001; 85025; 99283; A9575; A4216